=== PATIENT | male | born 1950 | race Caucasian/White ===

== ENCOUNTER 2018-05-07 13:44 | Emergency (ER) | payer MEDICARE, BC ==
[~2018-05-07] VITALS: Ht 182.9 cm; Wt 145.1 kg
--- NOTE | 2018-05-07 16:03 | PHYS DOC ---
Past Medical History Past Medical History: Diabetes-Type II, Hypertension, Schizophrenia Additional Past Medical Histor: BPH Past Surgical History: No Surgical History Alcohol Use: None Drug Use: None Adult General Chief Complaint Chief Complaint: OTHER COMPLAINTS HPI HPI Patient is a 67 year old M who [facility] in behavior. NH reports patient is non-cooperative with blood draw today and that he has been laughing inappropriately. Hx of schizophrenia with hindu preoccupation. Patient is alert and oriented, cooperative during exam. Review of Systems Review of Systems Constitutional: Denies fever or chills [] Respiratory: Denies cough or shortness of breath [] Cardiovascular: Chest pain GI: Denies abdominal pain, nausea, vomiting, bloody stools or diarrhea [] Neurologic: Denies headache, focal weakness or sensory changes [] All other systems were reviewed and found to be within normal limits, except as documented in this note. Allergies Allergies Allergies Coded Allergies Type Severity Reaction Last Updated Verified Penicillins Allergy Severe 05/07/18 Yes Physical Exam Physical Exam Constitutional: Well developed, well nourished, no acute distress, non-toxic appearance. [] HENT: Normocephalic, atraumatic Eyes: PERRLA, EOMI, conjunctiva normal, no discharge. [] Neck: Normal range of motion, no tenderness, supple, no stridor. [] Cardiovascular:Heart rate regular rhythm, no murmur [] Lungs & Thorax: Bilateral breath sounds clear to auscultation [] Abdomen: Bowel sounds normal, soft, no tenderness, no masses, no pulsatile masses. [] Skin: Warm, dry, no erythema, no rash. [] Neurologic: Alert and oriented X 3, normal motor function, normal sensory function, no focal deficits noted. [] Psychologic: Affect normal, judgement normal, mood normal. [] Current Patient Data Vital Signs Vital Signs Date Time Temp Pulse Resp B/P (MAP) Pulse Ox O2 Delivery O2 Flow Rate FiO2 05/07/18 17:18 72 18 121/75 (90) 96 Room Air 05/07/18 13:55 97.9 97.9 Lab Values Laboratory Tests Test 05/07/18 13:49 05/07/18 15:45 Glucose (Fingerstick) 229 mg/dL (70-99) H Sodium Level 134 mmol/L (136-145) L Potassium Level 4.3 mmol/L (3.5-5.1) Chloride Level 102 mmol/L (98-107) Carbon Dioxide Level 27 mmol/L (21-32) Anion Gap 5 (6-14) L Blood Urea Nitrogen 13 mg/dL (8-26) Creatinine 0.7 mg/dL (0.7-1.3) Estimated GFR (Cockcroft-Gault) 112.1 BUN/Creatinine Ratio 19 (6-20) Glucose Level 248 mg/dL (70-99) H Calcium Level 8.8 mg/dL (8.5-10.1) Total Bilirubin 0.3 mg/dL (0.2-1.0) Aspartate Amino Transferase (AST) 13 U/L (15-37) L Alanine Aminotransferase (ALT) 26 U/L (16-63) Alkaline Phosphatase 94 U/L (46-116) Total Protein 6.6 g/dL (6.4-8.2) Albumin 3.1 g/dL (3.4-5.0) L Albumin/Globulin Ratio 0.9 (1.0-1.7) L Valproic Acid Level 30 mcg/mL (50-100) L Valproic Acid Last Dose Date 05/07/18 Valproic Acid Last Dose Time 0900 Laboratory Tests 05/07/18 15:45 EKG EKG [] Radiology/Procedures Radiology/Procedures [] Course & Med Decision Making Course & Med Decision Making Pertinent Labs and Imaging studies reviewed. (See chart for details) Pt met with behavioral health and is not found to be a harm to self or others. He is agreeable to blood draw now. Plan: return to [place], continue to monitor, f/u with PCP Jase Disclaimer Dragon Disclaimer This electronic medical record was generated, in whole or in part, using a voice recognition dictation system. Departure Departure Impression: Primary Impression: On valproic acid therapy Additional Impression: Behavior concern Disposition: 01 HOME, SELF-CARE Condition: STABLE Referrals: REMEDIOS LOPEZ MD (PCP) Additional Instructions: Monitor behavior. Problem Qualifiers DIANA HOWELL CONSTRUCTION DRIVER May 07, 2018 16:03
[2018-05-07 16:06] LABS: ANION GAP 5 (6-14); BLOOD UREA NITROGEN 13 mg/dL (8-26); BUN/CREATININE RATIO 19 (6-20); CALCIUM 8.8 mg/dL (8.5-10.1); CARBON DIOXIDE 27 mmol/L (21-32); CHLORIDE 102 mmol/L (98-107); CREATININE 0.7 mg/dL (0.7-1.3); GFR 112.1; GLUCOSE 248 mg/dL (70-99); POTASSIUM 4.3 mmol/L (3.5-5.1); SODIUM 134 mmol/L (136-145)
[2018-05-07 16:19] LABS: ALBUMIN 3.1 g/dL (3.4-5.0); ALBUMIN/GLOBULIN RATIO 0.9 (1.0-1.7); ALK PHOS 94 U/L (46-116); ALT (SGPT) 26 U/L (16-63); AST (SGOT) 13 U/L (15-37); TOTAL BILIRUBIN 0.3 mg/dL (0.2-1.0); TOTAL PROTEIN 6.6 g/dL (6.4-8.2)
[2018-05-07 16:22] LABS: VAL ACID 30 mcg/mL (50-100)
[2018-05-07 17:18] VITALS: BP 121/75
== END 2018-05-07 19:27 | disposition home or self-care (01) ==
LOC: ER 13:44
DX: F91.8 Other conduct disorders (principal); Z51.81 Encounter for therapeutic drug level monitoring; E11.9 Type 2 diabetes mellitus without complications; I10 Essential (primary) hypertension; F20.9 Schizophrenia, unspecified; N40.0 Benign prostatic hyperplasia without lower urinary tract symptoms; Z88.0 Allergy status to penicillin
CPT/HCPCS: 36415; 80053; 80164; 82962; 99284

== ENCOUNTER 2020-06-07 14:47 | Inpatient (IN) | payer MEDICARE, BC, OTHER ==
[~2020-06-07] VITALS: Ht 198.1 cm; Wt 144.6 kg
[2020-06-07] VITALS (10 sets, daily range): BP systolic 68–102; BP diastolic 51–69
[2020-06-07] MEDS ORDERED: CLINDAMYCIN 600MG PREMIX 50 ML IV ONE (15:15)
[2020-06-07] MEDS ORDERED: MIDAZOLAM HCL 100 MG in IV NORMAL SALINE 100ML 100 ML IV ONE (15:15)
[2020-06-07] MEDS ORDERED: IV NORMAL SALINE 1000ML BAG 1,000 ML IV ONE ×3 (15:15→20:15)
--- NOTE | 2020-06-07 15:22 | RAD ---
EXAM: Chest, single view. HISTORY: Sepsis. COMPARISON: None. FINDINGS: A frontal view of the chest is obtained. There is diffuse right lower lobe predominant interstitial infiltrate. There may be small pleural effusions. There is no pneumothorax. There is an endotracheal tube within the mid trachea. There is a nasogastric tube within the stomach. There is a right ventriculoperitoneal shunt overlying the right chest and upper abdomen. The heart is normal in size for portable supine technique. IMPRESSION: 1. Right lower lobe predominant multifocal infiltrate with suspected small pleural effusions. 2. Support lines and tubes, described above. Electronically signed by: Marisol Dee MD (06/07/2020 3:19 PM) [id number]
[2020-06-07 15:23] LABS: BILIRUBIN,URINE NEGATIVE (NEG); CLARITY,URINE CLEAR; COLOR,URINE AMBER; NITRITE,URINE NEGATIVE (NEG); PH,URINE 5.5 (<5.0-8.0); PROTEIN,URINE NEGATIVE (NEG-TRACE)
[2020-06-07] MEDS ORDERED: SUCCINYLCHOLINE 200 MG/10 ML VIAL. IV ONE (15:30)
[2020-06-07] MEDS ORDERED: MIDAZOLAM HCL/PF 5 MG/5 ML VIAL. IV ONE (15:30)
[2020-06-07] MEDS ORDERED: ETOMIDATE 20 MG/10 ML VIAL. IV ONE (15:30)
[2020-06-07 15:37] LABS: BASO % 0 % (0-3); EOS % 0 % (0-3); HEMATOCRIT 43.8 % (39.0-53.0); HEMOGLOBIN 14.5 g/dL (13.0-17.5); LYMPH # 0.7 x10^3/uL (1.0-4.8); LYMPH % 9 % (24-48); MEAN CORPUSCULAR HEMOGLOBIN 32 pg (25-35); MEAN CORPUSCULAR HGB CONC 33 g/dL (31-37); MEAN CORPUSCULAR VOLUME 96 fL (79-100); MONO # 0.6 x10^3/uL (0.0-1.1); MONO % 7 % (0-9); NEUT # 6.7 x10^3/uL (1.8-7.7); NEUT % 83 % (31-73); PLATELET COUNT 260 x10^3/uL (140-400); RED BLOOD COUNT 4.59 x10^6/uL (4.30-5.70); RED CELL DISTRIBUTION WIDTH 14.3 % (11.5-14.5); WHITE BLOOD COUNT 8.1 x10^3/uL (4.0-11.0)
[2020-06-07 15:43] LABS: BACTERIA,URINE FEW /HPF (0-FEW)
[2020-06-07 15:44] LABS: HYALINE CASTS, URINE FEW /HPF
[2020-06-07 15:49] LABS: CALCIUM 8.9 mg/dL (8.5-10.1); CREATININE 0.9 mg/dL (0.7-1.3); GFR 83.4; POTASSIUM 4.1 mmol/L (3.5-5.1)
[2020-06-07] MEDS ORDERED: VANCOMYCIN 1.25 GM in IV NORMAL SALINE 250ML 250 ML IV ONE (16:00)
[2020-06-07 16:02] LABS: ALBUMIN 2.4 g/dL (3.4-5.0); ALBUMIN/GLOBULIN RATIO 0.6 (1.0-1.7); TOTAL BILIRUBIN 0.8 mg/dL (0.2-1.0); TOTAL PROTEIN 6.5 g/dL (6.4-8.2)
--- NOTE | 2020-06-07 16:02 | PHYS DOC ---
Past Medical History Past Medical History: Diabetes-Type II, Hypertension, Schizophrenia Additional Past Medical Histor: BPH Past Surgical History: No Surgical History Smoking Status: Never Smoker Alcohol Use: None Drug Use: None General Adult EDM: Chief Complaint: SHORTNESS OF BREATH HPI: HPI: Patient 69-year-old male with past medical history of stroke and aspiration pneumonia who presents to the emergency room in respiratory failure. According to report patient was normal this morning. He has been refusing to eat recently according to staff but did eat lunch. They found him in respiratory distress. Patient is unable to provide any history. EMS states that his pulse ox on CPAP is 80%. Review of Systems: Review of Systems: Unable to obtain due to medical condition Heart Score: Risk Factors: Risk Factors: DM, Current or recent (<one month) smoker, HTN, HLP, family history of CAD, obesity. Risk Scores: Score 0 - 3: 2.5% MACE over next 6 weeks - Discharge Home Score 4 - 6: 20.3% MACE over next 6 weeks - Admit for Clinical Observation Score 7 - 10: 72.7% MACE over next 6 weeks - Early Invasive Strategies Current Medications: Current Medications Medications (Trade) Dose Ordered Sig/Cruz Start Time Stop Time Status Last Admin Dose Admin Clindamycin Phosphate 50 ml @ 100 mls/hr 1X ONCE 06/07/20 15:15 06/07/20 15:44 DC Etomidate (Amidate) 30 mg 1X ONCE 06/07/20 15:30 06/07/20 15:31 DC 06/07/20 14:57 30 MG Midazolam HCl (Versed) 5 mg 1X ONCE 06/07/20 15:30 06/07/20 15:31 DC 06/07/20 15:15 5 MG Midazolam HCl 100 mg/Sodium Chloride 100 ml @ 0 mls/hr 1X ONCE 06/07/20 15:15 06/07/20 15:16 DC 06/07/20 15:19 1 MLS/HR Sodium Chloride 1,000 ml @ 1,000 mls/hr 1X ONCE 06/07/20 15:15 06/07/20 16:14 06/07/20 15:04 1,000 MLS/HR Succinylcholine Chloride (Anectine) 200 mg 1X ONCE 06/07/20 15:30 06/07/20 15:31 DC 06/07/20 14:58 200 MG Vancomycin HCl 1.25 gm/Sodium Chloride 250 ml @ 166.667 mls/hr 1X ONCE 06/07/20 16:00 06/07/20 17:29 Allergies: Allergies: Allergies Coded Allergies Type Severity Reaction Last Updated Verified Penicillins Allergy Severe 05/07/18 Yes Physical Exam: PE: General: Awake, alert, mild distress, CPAP in place HEENT: Atraumatic, EOMI, PERRL, airway patent, moist oral mucosa Neck: Supple, trachea midline Respiratory: Increased work of breathing, decreased breath sounds, crackles at right base CV: Tachycardic, no murmur, cap refill <2 GI: Soft, nondistended, nontender, no masses MSK: No obvious deformities Skin: Warm, dry, intact Neuro: Nonverbal L, sensory and motor grossly intact, no focal deficits Current Patient Data: Labs: Laboratory Tests Test 06/07/20 14:40 06/07/20 15:05 White Blood Count 8.1 x10^3/uL (4.0-11.0) Red Blood Count 4.59 x10^6/uL (4.30-5.70) Hemoglobin 14.5 g/dL (13.0-17.5) Hematocrit 43.8 % (39.0-53.0) Mean Corpuscular Volume 96 fL (79-100) Mean Corpuscular Hemoglobin 32 pg (25-35) Mean Corpuscular Hemoglobin Concent 33 g/dL (31-37) Red Cell Distribution Width 14.3 % (11.5-14.5) Platelet Count 260 x10^3/uL (140-400) Neutrophils (%) (Auto) 83 % (31-73) H Lymphocytes (%) (Auto) 9 % (24-48) L Monocytes (%) (Auto) 7 % (0-9) Eosinophils (%) (Auto) 0 % (0-3) Basophils (%) (Auto) 0 % (0-3) Neutrophils # (Auto) 6.7 x10^3/uL (1.8-7.7) Lymphocytes # (Auto) 0.7 x10^3/uL (1.0-4.8) L Monocytes # (Auto) 0.6 x10^3/uL (0.0-1.1) Eosinophils # (Auto) 0.0 x10^3/uL (0.0-0.7) Basophils # (Auto) 0.0 x10^3/uL (0.0-0.2) Sodium Level 143 mmol/L (136-145) Potassium Level 4.1 mmol/L (3.5-5.1) Chloride Level 105 mmol/L (98-107) Carbon Dioxide Level 32 mmol/L (21-32) Anion Gap 6 (6-14) Blood Urea Nitrogen 16 mg/dL (8-26) Creatinine 0.9 mg/dL (0.7-1.3) Estimated GFR (Cockcroft-Gault) 83.4 BUN/Creatinine Ratio 18 (6-20) Glucose Level 163 mg/dL (70-99) H Calcium Level 8.9 mg/dL (8.5-10.1) Total Bilirubin Pending Aspartate Amino Transferase (AST) Pending Alanine Aminotransferase (ALT) Pending Alkaline Phosphatase Pending Total Protein Pending Albumin Pending Albumin/Globulin Ratio Pending Urine Collection Type U cath Urine Color Tammy Urine Clarity Clear Urine pH 5.5 (<5.0-8.0) Urine Specific [place] 1.020 (1.000-1.030) Urine Protein Negative mg/dL (NEG-TRACE) Urine Glucose (UA) Negative mg/dL (NEG) Urine Ketones (Stick) Trace mg/dL (NEG) Urine Blood Negative (NEG) Urine Nitrite Negative (NEG) Urine Bilirubin Negative (NEG) Urine Urobilinogen Dipstick 1.0 mg/dL (0.2 mg/dL) Urine Leukocyte Esterase Small (NEG) Urine RBC 11-20 /HPF (0-2) Urine WBC 5-10 /HPF (0-4) Urine Bacteria Few /HPF (0-FEW) Urine Hyaline Casts Few /HPF Urine Mucus Mod /LPF Laboratory Tests 06/07/20 14:40 Laboratory Tests 06/07/20 14:40 Vital Signs: Vital Signs Date Time Temp Pulse Resp B/P (MAP) Pulse Ox O2 Delivery O2 Flow Rate FiO2 06/07/20 15:09 93 Ventilator EKG: EKG: [] Radiology/Procedures: Radiology/Procedures: [] Course & Med Decision Making: Course & Med Decision Making Pertinent Labs and Imaging studies reviewed. (See chart for details) Patient is a 69-year-old male who presents to the emergency room in acute respiratory distress with hypoxia. Given patient's history it is likely this was caused by aspiration pneumonia. However, pneumonia and COVID are also possible. Patient was at his baseline this morning and then was found in respiratory distress. He is afebrile. There is no coronavirus cases at his nursing facility. Patient was given antibiotics and was intubated. Intubation was performed without any difficulty. Sepsis protocol was set off and patient was given fluids. Ventilator management was performed by myself while in the Emergency Room and adjusted as appropriate. Patient will be admitted to the ICU for further care. Dragon Disclaimer: Dragon Disclaimer: This electronic medical record was generated, in whole or in part, using a voice recognition dictation system. Departure Departure Impression: Primary Impression: Respiratory failure with hypoxia Additional Impression: Aspiration pneumonia Disposition: ADMITTED INPATIENT Condition: CRITICAL Referrals: REMEDIOS LOPEZ MD (PCP) Justicifation of Admission Dx: Justifications for Admission: Justification of Admission Dx: Yes Critical Care Time Critical Care: Authorized and Performed by: Lori Pratt MD Total critical care time: approximately 60 minutes Due to a high probability of clinically significant, life threatening deterioration, the patient required my highest level of preparedness to intervene emergently and I personally spent this critical care time directly and personally managing the patient. This critical care time included obtaining a history; examining the patient; pulse oximetry; ventilator management if necessary; ordering and review of studies; arranging urgent treatment with development of a management plan; evaluation of patient's response to treatment; frequent reassessment; discussion with patient/family; and, discussions with other providers. This critical care time was performed to assess and manage the high probability of imminent, life-threatening deterioration that could result in multi-organ failure. It was exclusive of separately billable procedures and treating other patients and teaching time. Please see MDM section and the rest of the note for further information on patient assessment and treatment. PROCEDURE Procedure Intubation Performed by: Lori Pratt MD Consent: Verbal consent not obtained. The procedure was performed in an emergent situation. Required items: required blood products, implants, devices, and special equipment available Patient identity confirmed: arm band Time out: Immediately prior to procedure a "time out" was called to verify the correct patient, procedure, equipment, direct support staff member and site/side marked as required. Indications: respiratory failure and airway protection Intubation method: direct Patient status: paralyzed (RSI) Preoxygenation: Kuh-eaeew-cice Sedatives: etomidate Paralytic: succinylcoline Laryngoscope size: Mac 4 Tube size: 7.5 mm Tube type: cuffed Number of attempts: 1 Cords visualized: yes Post-procedure assessment: chest rise, BS = bilaterally none over epigastrum, +CO2 detector Breath sounds: equal and absent over the epigastrium Cuff inflated: yes Tube secured with: adhesive tape Chest x-ray interpreted by me. Chest x-ray findings: endotracheal tube in appropriate position Patient tolerance: Patient tolerated the procedure well with no immediate complications. COVID-19 Assessment: COVID-19 Patient Risks: Age 65 or older: Yes Sign of co-morbidity: Yes Exp to person + for COVID: No Exp to PUI: No Travel from affected area: No Lower respiratory symptoms: Yes Fever: No PPE Use: Full PPE with N95 mask or PAPR: Yes LORI PRATT MD Jun 07, 2020 16:02
[2020-06-07 16:23] LABS: BASE EXCESS ABG -6 mmol/L (-3-3); HCO3 ABG 22 mmol/L (21-28); PCO2 ABG 48 mmHg (35-46); PO2 ABG 68 mmHg (65-108); SAT O2 ABG 89 % (92-99)
[2020-06-07 16:26] LABS: FIO2 ABG 100% VENT
[2020-06-07] MEDS ORDERED: fentaNYL PF VIAL 100 MCG/2 ML VIAL IVP ONE ×2 (16:30→17:15)
[2020-06-07 17:02] LABS: BASE EXCESS ABG -5 mmol/L (-3-3); HCO3 ABG 22 mmol/L (21-28); PCO2 ABG 46 mmHg (35-46); PO2 ABG 53 mmHg (65-108); SAT O2 ABG 83 % (92-99)
--- NOTE | 2020-06-07 17:03 | EKG ---
[facility] [address] [place] [address] Test Date: 2020-06-07 Test Time: 14:58:02 Pat Name: ROBBIN HUDSON Department: Room: Gender: [employer] Supervisor: : 1950 Requested By: LORI CONN Order Number: [id number] Reading MD: Measurements Intervals [place] Rate: 125 P: VT: QRS: -54 QRSD: 90 T: 49 QT: 308 QTc: 446 Interpretive Statements ACCELERATED JUNCTIONAL RHYTHM ABNORMAL LEFT AXIS DEVIATION LOW VOLTAGE S1,S2,S3 PATTERN LEFT ANTERIOR FASCICULAR BLOCK QRS(T) CONTOUR ABNORMALITY CONSIDER ANTEROSEPTAL MYOCARDIAL DAMAGE ABNORMAL ECG RI6.02 No previous ECG available for comparison
--- NOTE | 2020-06-07 17:44 | PDOC1 ---
History and Physical Date of Service: DOS: DATE: 06/07/20 TIME: 17:35 Chief Complaint: Chief Complain: AMS History of Present Illness: HPI: History obtained from chart review and discussion with the ED physician Patient is a 69-year-old male with past medical history of stroke and aspiration pneumonia who presents to the emergency room in respiratory failure. According to report patient was normal this morning. He has been refusing to eat recently according to staff but did eat lunch this afternoon. They found him in r espiratory distress. Patient is unable to provide any history. EMS states that his pulse ox on CPAP is 80%. On upon arrival to the ED, patient was intubated due to respiratory failure and poor ABG on BiPAP. Patient is sedated and intubated upon my examination. No other abnormalities seen on physical exam. No family members were present. There is also known family members numbers listed in his chart. Past Medical/Surgical History: PMH/PSH: Past Medical History: Diabetes-Type II, Hypertension, Schizophrenia, BPH Past Surgical History: No Surgical History Allergies: Allergies: Coded Allergies: Penicillins (Verified Allergy, Severe, 05/07/18) Family History: Family History: Unable to obtain due to intubation Social History: Social History: Smoking Status: Never Smoker Alcohol Use: None Drug Use: None Current Medications: Current Medications Current Medications Midazolam HCl 100 mg/Sodium Chloride 100 ml @ 0 mls/hr 1X ONCE IV Last administered on 06/07/20at 15:19; Start 06/07/20 at 15:15; Stop 06/07/20 at 15:16; Status DC Sodium Chloride 1,000 ml @ 1,000 mls/hr 1X ONCE IV Last administered on 06/07/20at 14:50; Start 06/07/20 at 15:15; Stop 06/07/20 at 16:14; Status DC Sodium Chloride 1,000 ml @ 1,000 mls/hr 1X ONCE IV Last administered on 05/26 12/12at 15:04; Start 06/07/20 at 15:15; Stop 06/07/20 at 16:14; Status DC Vancomycin HCl 1.25 gm/Sodium Chloride 250 ml @ 166.667 mls/hr 1X ONCE IV Last administered on 06/07/20at 15:57; Start 06/07/20 at 16:00; Stop 06/07/20 at 17:29; Status DC Clindamycin Phosphate 50 ml @ 100 mls/hr 1X ONCE IV Last administered on 06/07/20at 15:57; Start 06/07/20 at 15:15; Stop 06/07/20 at 15:44; Status DC Midazolam HCl (Versed) 5 mg 1X ONCE IV Last administered on 06/07/20at 15:15; Start 06/07/20 at 15:30; Stop 06/07/20 at 15:31; Status DC Etomidate (Amidate) 30 mg 1X ONCE IV Last administered on 06/07/20at 14:57; Start 06/07/20 at 15:30; Stop 06/07/20 at 15:31; Status DC Succinylcholine Chloride (Anectine) 200 mg 1X ONCE IV Last administered on 06/07/20at 14:58; Start 06/07/20 at 15:30; Stop 06/07/20 at 15:31; Status DC Fentanyl Citrate (Fentanyl 2ml Vial) 50 mcg PRN Q1HR ONCE IVP Last administered on 06/07/20at 16:30; Start 06/07/20 at 16:30; Stop 06/07/20 at 16:31; Status DC Fentanyl Citrate (Fentanyl 2ml Vial) 100 mcg 1X ONCE IVP Last administered on 06/07/20at 17:07; Start 06/07/20 at 17:15; Stop 06/07/20 at 17:16; Status DC ROS: Review of Systems Review of System Unable to obtain due to intubation Physical Exam: Vital Signs: Vital Signs Date Time Temp Pulse Resp B/P (MAP) Pulse Ox O2 Delivery O2 Flow Rate FiO2 06/07/20 17:07 31 88 Ventilator 06/07/20 15:48 130 146/78 (100) 06/07/20 14:47 99.2 99.2 Physcial Exam: GEN: Intubated and sedated HEENT: Normal cephalic, atraumatic, external auditory canals are patent EYES: Pupils are equally constricted. Does not react to light. MUSCULOSKELETAL: Well developed ENDOCRINE: No thyromegaly was palpated LYMPHATICS: No cervical chain or axillary nodes were noted HEMATOPOIETIC: No bruising NECK: Supple, no JVD, no thyromegaly was noted LUNGS: Bilateral crackles HEART: RRR, Peripheral pulses intact, no obvious murmurs noted ABDOMEN: Soft, nontender. Positive bowel sounds, no organomegaly, normal bowel sounds EXTREMITIES: Without clubbing, cyanosis, or edema. Pedal pulses intact. Negative Homans sign NEUROLOGIC: Currently sedated SKIN: No ulcerations or rashes, good skin turgor, no jaundice Labs: Labs: Laboratory Tests Test 06/07/20 14:40 06/07/20 15:05 06/07/20 16:15 White Blood Count 8.1 x10^3/uL (4.0-11.0) Red Blood Count 4.59 x10^6/uL (4.30-5.70) Hemoglobin 14.5 g/dL (13.0-17.5) Hematocrit 43.8 % (39.0-53.0) Mean Corpuscular Volume 96 fL (79-100) Mean Corpuscular Hemoglobin 32 pg (25-35) Mean Corpuscular Hemoglobin Concent 33 g/dL (31-37) Red Cell Distribution Width 14.3 % (11.5-14.5) Platelet Count 260 x10^3/uL (140-400) Neutrophils (%) (Auto) 83 % (31-73) Lymphocytes (%) (Auto) 9 % (24-48) Monocytes (%) (Auto) 7 % (0-9) Eosinophils (%) (Auto) 0 % (0-3) Basophils (%) (Auto) 0 % (0-3) Neutrophils # (Auto) 6.7 x10^3/uL (1.8-7.7) Lymphocytes # (Auto) 0.7 x10^3/uL (1.0-4.8) Monocytes # (Auto) 0.6 x10^3/uL (0.0-1.1) Eosinophils # (Auto) 0.0 x10^3/uL (0.0-0.7) Basophils # (Auto) 0.0 x10^3/uL (0.0-0.2) Sodium Level 143 mmol/L (136-145) Potassium Level 4.1 mmol/L (3.5-5.1) Chloride Level 105 mmol/L (98-107) Carbon Dioxide Level 32 mmol/L (21-32) Anion Gap 6 (6-14) Blood Urea Nitrogen 16 mg/dL (8-26) Creatinine 0.9 mg/dL (0.7-1.3) Estimated GFR (Cockcroft-Gault) 83.4 BUN/Creatinine Ratio 18 (6-20) Glucose Level 163 mg/dL (70-99) Lactic Acid Level 5.4 mmol/L (0.4-2.0) Calcium Level 8.9 mg/dL (8.5-10.1) Total Bilirubin 0.8 mg/dL (0.2-1.0) Aspartate Amino Transf (AST/SGOT) 14 U/L (15-37) Alanine Aminotransferase (ALT/SGPT) 17 U/L (16-63) Alkaline Phosphatase 80 U/L (46-116) Total Protein 6.5 g/dL (6.4-8.2) Albumin 2.4 g/dL (3.4-5.0) Albumin/Globulin Ratio 0.6 (1.0-1.7) Urine Collection Type U cath Urine Color Tammy Urine Clarity Clear Urine pH 5.5 (<5.0-8.0) Urine Specific [place] 1.020 (1.000-1.030) Urine Protein Negative mg/dL (NEG-TRACE) Urine Glucose (UA) Negative mg/dL (NEG) Urine Ketones (Stick) Trace mg/dL (NEG) Urine Blood Negative (NEG) Urine Nitrite Negative (NEG) Urine Bilirubin Negative (NEG) Urine Urobilinogen Dipstick 1.0 mg/dL (0.2 mg/dL) Urine Leukocyte Esterase Small (NEG) Urine RBC 11-20 /HPF (0-2) Urine WBC 5-10 /HPF (0-4) Urine Bacteria Few /HPF (0-FEW) Urine Hyaline Casts Few /HPF Urine Mucus Mod /LPF O2 Saturation 89 % (92-99) Arterial Blood pH 7.27 (7.35-7.45) Arterial Blood pCO2 at Patient Temp 48 mmHg (35-46) Arterial Blood pO2 at Patient Temp 68 mmHg (65-108) Arterial Blood HCO3 22 mmol/L (21-28) Arterial Blood Base Excess -6 mmol/L (-3-3) FiO2 100% vent Laboratory Tests Test 06/07/20 14:40 06/07/20 15:05 06/07/20 16:15 White Blood Count 8.1 x10^3/uL (4.0-11.0) Red Blood Count 4.59 x10^6/uL (4.30-5.70) Hemoglobin 14.5 g/dL (13.0-17.5) Hematocrit 43.8 % (39.0-53.0) Mean Corpuscular Volume 96 fL (79-100) Mean Corpuscular Hemoglobin 32 pg (25-35) Mean Corpuscular Hemoglobin Concent 33 g/dL (31-37) Red Cell Distribution Width 14.3 % (11.5-14.5) Platelet Count 260 x10^3/uL (140-400) Neutrophils (%) (Auto) 83 % (31-73) Lymphocytes (%) (Auto) 9 % (24-48) Monocytes (%) (Auto) 7 % (0-9) Eosinophils (%) (Auto) 0 % (0-3) Basophils (%) (Auto) 0 % (0-3) Neutrophils # (Auto) 6.7 x10^3/uL (1.8-7.7) Lymphocytes # (Auto) 0.7 x10^3/uL (1.0-4.8) Monocytes # (Auto) 0.6 x10^3/uL (0.0-1.1) Eosinophils # (Auto) 0.0 x10^3/uL (0.0-0.7) Basophils # (Auto) 0.0 x10^3/uL (0.0-0.2) Sodium Level 143 mmol/L (136-145) Potassium Level 4.1 mmol/L (3.5-5.1) Chloride Level 105 mmol/L (98-107) Carbon Dioxide Level 32 mmol/L (21-32) Anion Gap 6 (6-14) Blood Urea Nitrogen 16 mg/dL (8-26) Creatinine 0.9 mg/dL (0.7-1.3) Estimated GFR (Cockcroft-Gault) 83.4 BUN/Creatinine Ratio 18 (6-20) Glucose Level 163 mg/dL (70-99) Lactic Acid Level 5.4 mmol/L (0.4-2.0) Calcium Level 8.9 mg/dL (8.5-10.1) Total Bilirubin 0.8 mg/dL (0.2-1.0) Aspartate Amino Transf (AST/SGOT) 14 U/L (15-37) Alanine Aminotransferase (ALT/SGPT) 17 U/L (16-63) Alkaline Phosphatase 80 U/L (46-116) Total Protein 6.5 g/dL (6.4-8.2) Albumin 2.4 g/dL (3.4-5.0) Albumin/Globulin Ratio 0.6 (1.0-1.7) Urine Collection Type U cath Urine Color Tammy Urine Clarity Clear Urine pH 5.5 (<5.0-8.0) Urine Specific [place] 1.020 (1.000-1.030) Urine Protein Negative mg/dL (NEG-TRACE) Urine Glucose (UA) Negative mg/dL (NEG) Urine Ketones (Stick) Trace mg/dL (NEG) Urine Blood Negative (NEG) Urine Nitrite Negative (NEG) Urine Bilirubin Negative (NEG) Urine Urobilinogen Dipstick 1.0 mg/dL (0.2 mg/dL) Urine Leukocyte Esterase Small (NEG) Urine RBC 11-20 /HPF (0-2) Urine WBC 5-10 /HPF (0-4) Urine Bacteria Few /HPF (0-FEW) Urine Hyaline Casts Few /HPF Urine Mucus Mod /LPF O2 Saturation 89 % (92-99) Arterial Blood pH 7.27 (7.35-7.45) Arterial Blood pCO2 at Patient Temp 48 mmHg (35-46) Arterial Blood pO2 at Patient Temp 68 mmHg (65-108) Arterial Blood HCO3 22 mmol/L (21-28) Arterial Blood Base Excess -6 mmol/L (-3-3) FiO2 100% vent Images: Images Chest x-ray IMPRESSION: 1. Right lower lobe predominant multifocal infiltrate with suspected small pleural effusions. 2. Support lines and tubes, described above. Assessment/Plan Assessment/Plan Sepsis due to HCAP Acute hypercarbic hypoxic respiratory failure requiring intubation Acute metabolic encephalopathy NOS Concern for aspiration pneumonia with chest x-ray showing multifocal infiltrate in the right lower lobe Lactic acidosis Severe protein malnutrition Bedbound status Admit to ICU for ventilatory management No obvious centrally acting medications currently. No obvious signs of infection on physical exam. No fevers or nuchal rigidity. No history or signs of trauma Pending TSH, B12, levels Pending urine toxic drug screen Consider dementia prevention protocol Encourage early and frequent mobilization PT OT Continue IV fluids Continue empiric IV antibiotics Pulmonology consult for vent and ICU management ID consult for Abx management Lovenox for DVT prophylaxis Protonix GI prophylaxis N.p.o. Full code Discussed with RN and SW Disposition ICU Surrogate decision maker is unknown Total critical care time spent is > 40 minutes in lab and image review, discussing with RN and consultants. Justifications for Admission Other Justification BREEZY CHILD MD Jun 07, 2020 17:44
[2020-06-07] MEDS ORDERED: DEXTROSE 50% 25 GM / 50ML DISP.SYRIN. IV PRN (18:00)
[2020-06-07] MEDS ORDERED: POTASSIUM CHLORIDE 10MEQ 100 ML IV SCH (18:00)
[2020-06-07] MEDS ORDERED: SENNOSIDES 8.6 MG TABLET PO PRN (18:00)
[2020-06-07] MEDS ORDERED: VANCOMYCIN 750 MG in IV NORMAL SALINE 250ML 250 ML IV ONE (18:00)
[2020-06-07] MEDS ORDERED: VANCOMYCIN PER PHARMACY MC PRN ×2 (18:00→19:15)
[2020-06-07] MEDS ORDERED: MAGNESIUM SULFATE 2GM 50 ML IV SCH (18:00)
[2020-06-07] MEDS ORDERED: ONDANSETRON PF 4 MG/2 ML VIAL. IVP PRN (18:00)
[2020-06-07] MEDS ORDERED: POTASSIUM CHLORIDE 10MEQ 100 ML IV PRN (18:00)
[2020-06-07] MEDS ORDERED: ELECTROLYTE (ICU) PROTOCOL. MC PRN (18:00)
[2020-06-07] MEDS ORDERED: VANCOMYCIN 1 GM in IV DEXTROSE 5% 250 ML IV ONE (18:00)
[2020-06-07] MEDS ORDERED: fentaNYL PF VIAL 100 MCG/2 ML VIAL IVP PRN (18:00)
[2020-06-07] MEDS ORDERED: POTASSIUM CHLORIDE 20 MEQ TABLET.ER. PO PRN (18:00)
[2020-06-07 18:21] LABS: FIO2 ABG 100% VENT
[2020-06-07] MEDS ORDERED: VECURONIUM BOLUS 10 MG VIAL. IV ONE (18:30)
[2020-06-07] MEDS ORDERED: fentaNYL PF VIAL 100 MCG/2 ML VIAL IV PRN ×2 (18:30)
[2020-06-07] MEDS ORDERED: ACETAMINOPHEN 650 MG SUPP.RECT. PR PRN (19:15)
[2020-06-07] MEDS ORDERED: NOREPINEPHRINE VIAL 8 MG in IV DEXTROSE 5% 250 ML IV PRN (19:15)
[2020-06-07] MEDS ORDERED: AMIODARONE 450 MG in IV DEXTROSE 5% 250 ML IV ONE (19:15)
[2020-06-07] MEDS ORDERED: methylPREDNISolone SOD SUCC PF 125 MG/2 ML VIAL. IV ONE (19:45)
--- NOTE | 2020-06-07 19:49 | NUR ---
Patient admitted from ED at 1845 at shift change to room 111. HR 146, Tmax 101.8, patient intubated on ventilator AC 26/550/12/100. O2 sat on arrival 93%, but steadily de sat to 84%. 1X dose 6mg Vecuronium given. Vent bundle ordered, patient sedated on 8 of Versed and 50 of Fentanyl. Patient iced down with ice packs. Patient also hypotensive on arrival SBP in the 80's-60's. NS bolus was started. Oncoming night nurse Stephanie paged Dr Arriola, Levo started. Dr Arriola on unit at 1930 to see patient and place orders. Report was given to Maritza Brown.
--- NOTE | 2020-06-07 19:50 | NUR ---
Pharmacy Vancomycin Dosing Note S:Consulted to monitor and dose vancomycin started 06/07/20. O:ROBBIN HUDSON is a 69 year old M with CAP. Height: 6 feet, 6 inches Weight: 119.0 kg [place] Body Weight: 91.40 Adjusted Body Weight: 102.44 Dosing Weight: Actual Other Antibiotics: metronidazole meropenem LABS: Last BUN: 16 Last Creatinine: 0.9 Creatinine Clearance: 99 mL/min Last WBC: 8.1 Last Procalcitonin: -- Tmax (past 24 hours): Microbiology: I/O: -- Last dose given 06/07/20 at 1918 Vancomycin Dosing: Loading Dose: 2000 mg x1 Dosing Weight: Actual Target Trough: 10-20 A: Based on: patient's age, weight and renal function. P: 1. Initiate Vancomycin 1750 mg IV q12h after 2 gm loading dose 2. Follow up Trough level on 06/09/20 at 0730 3. Pharmacy will continue to monitor, follow and adjust therapy as needed. BENEDICT HERNANDEZ RPH, 06/07/20 1950
[2020-06-07] MEDS ORDERED: NOREPINEPHRINE IV PRN (20:00)
[2020-06-07] MEDS ORDERED: DEXTROSE 5% IV PRN (20:00)
[2020-06-07] MEDS ORDERED: VASOPRESSIN 20 UNIT in IV DEXTROSE 5% 100ML 100 ML IV PRN (20:00)
[2020-06-07 20:12] LABS: BASE EXCESS ABG -5 mmol/L (-3-3); CORRECTED PCO2 ABG 52 mmHg; CORRECTED PH ABG 7.26; CORRECTED PO2 ABG 58 mmHg; HCO3 ABG 22 mmol/L (21-28); PCO2 ABG 49 mmHg (35-46); PO2 ABG 53 mmHg (65-108); SAT O2 ABG 83 % (92-99)
--- NOTE | 2020-06-07 20:12 | RAD ---
Exam: Chest one view INDICATION: Low oxygen TECHNIQUE: Frontal view of the chest Comparisons: 06/24/2020 FINDINGS: Enteric tube traverses below the diaphragm with tip in the left upper quadrant likely within the stomach. Redemonstration of tubing overlying the right chest. The cardiomediastinal silhouette and pulmonary vessels are within normal limits. Patchy bibasilar airspace disease. IMPRESSION: Patchy bibasilar airspace disease, may relate to atelectasis versus developing consolidative process. Electronically signed by: Collin Jaramillo MD (06/07/2020 8:09 PM) [id number]
[2020-06-07 20:19] LABS: FIO2 ABG 100
[2020-06-07] MEDS ORDERED: DOCUSATE 100 MG/10 ML SOLUTION. PO PRN (21:00)
[2020-06-07] MEDS ORDERED: MAGNESIUM OXIDE 400 MG TABLET PO SCH (21:00)
[2020-06-07] MEDS: ENOXAPARIN 40 MG/0.4 ML SYRINGE. SQ SCH (21:29)
[2020-06-07] MEDS: PANTOPRAZOLE IV PUSH 40 MG VIAL. IVP SCH (21:29)
[2020-06-07] MEDS ORDERED: MEROPENEM 1 GM in IV NORMAL SALINE 100ML 100 ML IV SCH (22:00)
[2020-06-07] MEDS: NOREPINEPHRINE VIAL 32 MG in IV D5W 250ML IV PRN (22:32)
[2020-06-07 23:40] LABS: PROTHROMBIN TIME PATIENT 15.8 SEC (11.7-14.0)
[2020-06-08] VITALS (28 sets, daily range): BP systolic 79–170; BP diastolic 54–92
[2020-06-08] MEDS: IV NORMAL SALINE 1000ML BAG 1,000 ML IV SCH ×2 (00:53→09:44)
[2020-06-08] MEDS ORDERED: BISA10SU55 RC (02:37)
[2020-06-08] MEDS ORDERED: MAGN400O7 PO (02:37)
[2020-06-08] MEDS ORDERED: MELA3TAB43 PO (02:37)
[2020-06-08] MEDS ORDERED: MAGN400T5 PO (02:37)
[2020-06-08] MEDS ORDERED: MIRT7.5T8 PO (02:37)
[2020-06-08] MEDS ORDERED: NYST15CR TP (02:37)
[2020-06-08] MEDS ORDERED: INSU100I17 SQ (02:37)
[2020-06-08] MEDS ORDERED: KETO120S4 TP (02:37)
[2020-06-08] MEDS ORDERED: ATOR20TA58 PO (02:37)
[2020-06-08] MEDS ORDERED: DIVA500T17 PO (02:37)
[2020-06-08] MEDS ORDERED: SENN1TAB99 PO (02:37)
[2020-06-08] MEDS ORDERED: RISP3TAB23 PO (02:37)
[2020-06-08] MEDS ORDERED: POTA20TA4 PO (02:37)
[2020-06-08] MEDS ORDERED: FURO20TA3 PO (02:37)
[2020-06-08] MEDS ORDERED: OLAN5TAB9 PO (02:37)
[2020-06-08] MEDS ORDERED: NA P133E2 RC (02:37)
[2020-06-08] MEDS ORDERED: LACT1CAP2 PO (02:37)
[2020-06-08] MEDS ORDERED: METF10007 PO (02:37)
[2020-06-08] MEDS ORDERED: ACET325T9 PO (02:37)
[2020-06-08] MEDS ORDERED: INSU100I27 SQ (02:37)
[2020-06-08] MEDS ORDERED: CHOL500021 PO (02:37)
--- NOTE | 2020-06-08 02:39 | NUR ---
At shift change, pt noted to have low BP and MAP. Pt SPO2 also in the 70s-80s. Dr. Arriola paged. Received orders for Levophed PRN, Tylenol suppository PRN, okay to place CL, Vasopressin PRN, fluid bolus, PRN amio gtt for HR>170, and ABT orders. Dr. Streeter also paged. MD notified of pt admission and status. Received orders to give 125 mg Solumedrol STAT, Chest x-ray STAT, ABG STAT, and start scheduled Solumedrol. Received critical lactic acid level at approx 1930. Call placed to Dr. Silverio. Notified MD of pt admission, status, and critical lab value. Received orders to d/c Eulalio and Jamey, consult renal. By 2099 this shift, pts SPO2 WNL and in the 90s. At this time, this RN also noted only 25 mL of UO since pt admit. Call placed to Dr. Diaz. Updated MD on pt admission, status, elevated lactic and low UO. Received orders to flush pts ruvalcaba, continue IV fluids, and draw am labs. Levophed has been titrated per protocol this shift. Current VS: BP 91/62, SPO2 99%, HR 102, temp 99.6F. Pt has multiple wounds noted and pictured- see wound assessment. Wound care consult placed. Pt is currently moderately sedated, within sight of care team. Multiple attempts to contact pt DPOA by ED and this RN. Messages left on phone. Will pass on and continue to monitor.
[2020-06-08] MEDS: NOREPINEPHRINE VIAL 32 MG in IV D5W 250ML IV PRN ×4 (03:33→18:15)
[2020-06-08] MEDS: MIDAZOLAM 100mg/100ml NS BAG 100 ML IV PRN ×2 (05:07→16:39)
[2020-06-08 05:16] LABS: BASO % 0 % (0-3); EOS % 0 % (0-3); HEMATOCRIT 42.7 % (39.0-53.0); HEMOGLOBIN 14.5 g/dL (13.0-17.5); LYMPH # 0.2 x10^3/uL (1.0-4.8); LYMPH % 2 % (24-48); MEAN CORPUSCULAR HEMOGLOBIN 33 pg (25-35); MEAN CORPUSCULAR HGB CONC 34 g/dL (31-37); MEAN CORPUSCULAR VOLUME 96 fL (79-100); MONO # 0.4 x10^3/uL (0.0-1.1); MONO % 4 % (0-9); NEUT # 8.7 x10^3/uL (1.8-7.7); NEUT % 94 % (31-73); PLATELET COUNT 296 x10^3/uL (140-400); RED BLOOD COUNT 4.44 x10^6/uL (4.30-5.70); RED CELL DISTRIBUTION WIDTH 14.1 % (11.5-14.5); WHITE BLOOD COUNT 9.3 x10^3/uL (4.0-11.0)
[2020-06-08 05:32] LABS: CALCIUM 8.4 mg/dL (8.5-10.1); CREATININE 1.3 mg/dL (0.7-1.3); GFR 54.6; MAGNESIUM 1.8 mg/dL (1.8-2.4); PHOSPHORUS 5.3 mg/dL (2.6-4.7)
[2020-06-08] MEDS: methylPREDNISolone SOD SUCC PF 40 MG/ML VIAL. IV SCH ×3 (06:06→21:39)
[2020-06-08 06:37] LABS: % ATYL 1 % (0-0); % BANDS 46 % (0-9); % METAS 25 % (0-0); % MYELOS 4 % (0-0); % SEGS 18 % (35-66)
[2020-06-08 06:38] LABS: % BASOS 0 % (0-3); % EOS 0 % (0-5); % LYMPHS 2 % (24-48); % MONOS 4 % (0-10)
[2020-06-08 06:42] LABS: PLT ESTIMATE ADEQUATE (ADEQUATE)
[2020-06-08 06:43] LABS: TOXIC VACUOLATION PRESENT
[2020-06-08] MEDS ORDERED: VANCOMYCIN 1.75 GM in IV NORMAL SALINE 500ML BAG 500 ML IV SCH ×2 (08:00→19:00)
--- NOTE | 2020-06-08 08:07 | PDOC ---
Infectious Disease Note Vital Sign Vital Signs Vital Signs Date Time Temp Pulse Resp B/P (MAP) Pulse Ox O2 Delivery O2 Flow Rate FiO2 06/08/20 07:26 99 26 114/75 (88) 100 Ventilator 06/08/20 04:00 99.2 99.2 Labs Lab Laboratory Tests Test 06/07/20 14:40 06/07/20 15:05 06/07/20 16:15 06/07/20 16:52 White Blood Count 8.1 x10^3/uL (4.0-11.0) Red Blood Count 4.59 x10^6/uL (4.30-5.70) Hemoglobin 14.5 g/dL (13.0-17.5) Hematocrit 43.8 % (39.0-53.0) Mean Corpuscular Volume 96 fL (79-100) Mean Corpuscular Hemoglobin 32 pg (25-35) Mean Corpuscular Hemoglobin Concent 33 g/dL (31-37) Red Cell Distribution Width 14.3 % (11.5-14.5) Platelet Count 260 x10^3/uL (140-400) Neutrophils (%) (Auto) 83 % (31-73) Lymphocytes (%) (Auto) 9 % (24-48) Monocytes (%) (Auto) 7 % (0-9) Eosinophils (%) (Auto) 0 % (0-3) Basophils (%) (Auto) 0 % (0-3) Neutrophils # (Auto) 6.7 x10^3/uL (1.8-7.7) Lymphocytes # (Auto) 0.7 x10^3/uL (1.0-4.8) Monocytes # (Auto) 0.6 x10^3/uL (0.0-1.1) Eosinophils # (Auto) 0.0 x10^3/uL (0.0-0.7) Basophils # (Auto) 0.0 x10^3/uL (0.0-0.2) Sodium Level 143 mmol/L (136-145) Potassium Level 4.1 mmol/L (3.5-5.1) Chloride Level 105 mmol/L (98-107) Carbon Dioxide Level 32 mmol/L (21-32) Anion Gap 6 (6-14) Blood Urea Nitrogen 16 mg/dL (8-26) Creatinine 0.9 mg/dL (0.7-1.3) Estimated GFR (Cockcroft-Gault) 83.4 BUN/Creatinine Ratio 18 (6-20) Glucose Level 163 mg/dL (70-99) Lactic Acid Level 5.4 mmol/L (0.4-2.0) Calcium Level 8.9 mg/dL (8.5-10.1) Total Bilirubin 0.8 mg/dL (0.2-1.0) Aspartate Amino Transf (AST/SGOT) 14 U/L (15-37) Alanine Aminotransferase (ALT/SGPT) 17 U/L (16-63) Alkaline Phosphatase 80 U/L (46-116) Total Protein 6.5 g/dL (6.4-8.2) Albumin 2.4 g/dL (3.4-5.0) Albumin/Globulin Ratio 0.6 (1.0-1.7) Urine Collection Type U cath Urine Color Tammy Urine Clarity Clear Urine pH 5.5 (<5.0-8.0) Urine Specific [place] 1.020 (1.000-1.030) Urine Protein Negative mg/dL (NEG-TRACE) Urine Glucose (UA) Negative mg/dL (NEG) Urine Ketones (Stick) Trace mg/dL (NEG) Urine Blood Negative (NEG) Urine Nitrite Negative (NEG) Urine Bilirubin Negative (NEG) Urine Urobilinogen Dipstick 1.0 mg/dL (0.2 mg/dL) Urine Leukocyte Esterase Small (NEG) Urine RBC 11-20 /HPF (0-2) Urine WBC 5-10 /HPF (0-4) Urine Bacteria Few /HPF (0-FEW) Urine Hyaline Casts Few /HPF Urine Mucus Mod /LPF O2 Saturation 89 % (92-99) 83 % (92-99) Arterial Blood pH 7.27 (7.35-7.45) 7.29 (7.35-7.45) Arterial Blood pCO2 at Patient Temp 48 mmHg (35-46) 46 mmHg (35-46) Arterial Blood pO2 at Patient Temp 68 mmHg (65-108) 53 mmHg (65-108) Arterial Blood HCO3 22 mmol/L (21-28) 22 mmol/L (21-28) Arterial Blood Base Excess -6 mmol/L (-3-3) -5 mmol/L (-3-3) FiO2 100% vent 100% vent Test 9/13/20 19:15 06/07/20 20:12 06/07/20 23:00 06/08/20 01:53 Lactic Acid Level 5.8 mmol/L (0.4-2.0) Thyroid Stimulating Hormone (TSH) 1.608 uIU/mL (0.358-3.74) O2 Saturation 83 % (92-99) Arterial Blood pH 7.27 (7.35-7.45) Arterial Blood pH (Temp corrected) 7.26 Arterial Blood pCO2 at Patient Temp 49 mmHg (35-46) Arterial Blood pCO2 (Temp correct) 52 mmHg Arterial Blood pO2 at Patient Temp 53 mmHg (65-108) Arterial Blood pO2 (Temp corrected) 58 mmHg Arterial Blood HCO3 22 mmol/L (21-28) Arterial Blood Base Excess -5 mmol/L (-3-3) FiO2 100 Prothrombin Time 15.8 SEC (11.7-14.0) Prothromb Time International Ratio 1.3 (0.8-1.1) Glucose (Fingerstick) 125 mg/dL (70-99) Test 06/08/20 04:55 White Blood Count 9.3 x10^3/uL (4.0-11.0) Red Blood Count 4.44 x10^6/uL (4.30-5.70) Hemoglobin 14.5 g/dL (13.0-17.5) Hematocrit 42.7 % (39.0-53.0) Mean Corpuscular Volume 96 fL (79-100) Mean Corpuscular Hemoglobin 33 pg (25-35) Mean Corpuscular Hemoglobin Concent 34 g/dL (31-37) Red Cell Distribution Width 14.1 % (11.5-14.5) Platelet Count 296 x10^3/uL (140-400) Neutrophils (%) (Auto) 94 % (31-73) Lymphocytes (%) (Auto) 2 % (24-48) Monocytes (%) (Auto) 4 % (0-9) Eosinophils (%) (Auto) 0 % (0-3) Basophils (%) (Auto) 0 % (0-3) Neutrophils # (Auto) 8.7 x10^3/uL (1.8-7.7) Lymphocytes # (Auto) 0.2 x10^3/uL (1.0-4.8) Monocytes # (Auto) 0.4 x10^3/uL (0.0-1.1) Eosinophils # (Auto) 0.0 x10^3/uL (0.0-0.7) Basophils # (Auto) 0.0 x10^3/uL (0.0-0.2) Segmented Neutrophils % 18 % (35-66) Band Neutrophils % 46 % (0-9) Lymphocytes % 2 % (24-48) Atypical Lymphocytes % (Manual) 1 % (0-0) Monocytes % 4 % (0-10) Eosinophils % 0 % (0-5) Basophils % 0 % (0-3) Metamyelocytes % 25 % (0-0) Myelocytes % 4 % (0-0) Toxic Vacuolation Present Platelet Estimate Adequate (ADEQUATE) Large Platelets Occ Sodium Level 140 mmol/L (136-145) Potassium Level 6.0 mmol/L (3.5-5.1) Chloride Level 105 mmol/L (98-107) Carbon Dioxide Level 21 mmol/L (21-32) Anion Gap 14 (6-14) Blood Urea Nitrogen 21 mg/dL (8-26) Creatinine 1.3 mg/dL (0.7-1.3) Estimated GFR (Cockcroft-Gault) 54.6 Glucose Level 213 mg/dL (70-99) Calcium Level 8.4 mg/dL (8.5-10.1) Phosphorus Level 5.3 mg/dL (2.6-4.7) Magnesium Level 1.8 mg/dL (1.8-2.4) Objective Assessment pt seen, consult dictated Plan Plan of Care / LAURA FITZGERALD MD Jun 08, 2020 08:07
[2020-06-08 08:19] LABS: BASE EXCESS ABG -11 mmol/L (-3-3); HCO3 ABG 17 mmol/L (21-28); PCO2 ABG 41 mmHg (35-46); PO2 ABG 71 mmHg (65-108); SAT O2 ABG 93 % (92-99)
[2020-06-08 08:26] LABS: FIO2 ABG 100
[2020-06-08] MEDS: PANTOPRAZOLE IV PUSH 40 MG VIAL. IVP SCH (08:49)
[2020-06-08] MEDS: MEROPENEM 1 GM in IV NORMAL SALINE 100ML 100 ML IV SCH ×2 (08:49→21:37)
[2020-06-08] MEDS: ASCORBIC ACID 500 MG TABLET PO SCH (08:49)
[2020-06-08] MEDS: THIAMINE INJ 100 MG in IV DEXTROSE 5% 50 ML IV SCH (09:41)
--- NOTE | 2020-06-08 09:42 | PDOC ---
[employer] PROGRESS NOTE Date of Service DOS: DATE: 06/08/20 TIME: 09:33 Chief Complaint Chief Complaint Sepsis Acute hypercarbic hypoxic respiratory failure requiring intubation Acute metabolic encephalopathy NOS Concern for aspiration pneumonia with chest x-ray showing multifocal infiltrate in the right lower lobe Lactic acidosis Severe protein malnutrition Anxiety with depression dCHF Constipation Diabetes-Type II High Cholesterol Hypertension Schizophrenia BPH Dysphagia PARKINSONS, History of Present Illness History of Present Illness Mr Dubois is a 69-year-old male with past medical history of Anxiety with depression, schizophrenia, dCHF, Constipation, Diabetes-Type II, High Cholesterol, Hypertension, BPH, Dysphagia, PARKINSONS, who presents to the emergency room in respiratory failure. According to report patient was normal the morning of 06/07. He has been refusing to eat recently according to staff but did eat lunch immediately before they found him in respiratory distress EMS pulse ox on CPAP is 80%. He was intubated due to respiratory failure and poor ABG on BiPAP. Febrile to 101.8 F overnight. Patient is sedated and intubated upon my examination. No other abnormalities seen on physical exam. No family members were present. There is also known family members numbers listed in his chart. Vitals/I&O Vitals/I&O: Vital Signs Date Time Temp Pulse Resp B/P (MAP) Pulse Ox O2 Delivery O2 Flow Rate FiO2 06/08/20 09:22 100 26 129/78 (95) 100 Ventilator 06/08/20 08:00 98.9 98.9 I & O 06/07/20 06/07/20 06/08/20 15:00 23:00 07:00 Intake Total 2300 ml 2481.7 ml Output Total 740 ml 375 ml Balance 1560 ml 2106.7 ml Labs Labs: Laboratory Tests Test 06/07/20 14:40 06/07/20 15:05 06/07/20 16:15 06/07/20 16:52 White Blood Count 8.1 x10^3/uL (4.0-11.0) Red Blood Count 4.59 x10^6/uL (4.30-5.70) Hemoglobin 14.5 g/dL (13.0-17.5) Hematocrit 43.8 % (39.0-53.0) Mean Corpuscular Volume 96 fL (79-100) Mean Corpuscular Hemoglobin 32 pg (25-35) Mean Corpuscular Hemoglobin Concent 33 g/dL (31-37) Red Cell Distribution Width 14.3 % (11.5-14.5) Platelet Count 260 x10^3/uL (140-400) Neutrophils (%) (Auto) 83 % (31-73) Lymphocytes (%) (Auto) 9 % (24-48) Monocytes (%) (Auto) 7 % (0-9) Eosinophils (%) (Auto) 0 % (0-3) Basophils (%) (Auto) 0 % (0-3) Neutrophils # (Auto) 6.7 x10^3/uL (1.8-7.7) Lymphocytes # (Auto) 0.7 x10^3/uL (1.0-4.8) Monocytes # (Auto) 0.6 x10^3/uL (0.0-1.1) Eosinophils # (Auto) 0.0 x10^3/uL (0.0-0.7) Basophils # (Auto) 0.0 x10^3/uL (0.0-0.2) Sodium Level 143 mmol/L (136-145) Potassium Level 4.1 mmol/L (3.5-5.1) Chloride Level 105 mmol/L (98-107) Carbon Dioxide Level 32 mmol/L (21-32) Anion Gap 6 (6-14) Blood Urea Nitrogen 16 mg/dL (8-26) Creatinine 0.9 mg/dL (0.7-1.3) Estimated GFR (Cockcroft-Gault) 83.4 BUN/Creatinine Ratio 18 (6-20) Glucose Level 163 mg/dL (70-99) Lactic Acid Level 5.4 mmol/L (0.4-2.0) Calcium Level 8.9 mg/dL (8.5-10.1) Total Bilirubin 0.8 mg/dL (0.2-1.0) Aspartate Amino Transf (AST/SGOT) 14 U/L (15-37) Alanine Aminotransferase (ALT/SGPT) 17 U/L (16-63) Alkaline Phosphatase 80 U/L (46-116) Total Protein 6.5 g/dL (6.4-8.2) Albumin 2.4 g/dL (3.4-5.0) Albumin/Globulin Ratio 0.6 (1.0-1.7) Urine Collection Type U cath Urine Color Tammy Urine Clarity Clear Urine pH 5.5 (<5.0-8.0) Urine Specific [place] 1.020 (1.000-1.030) Urine Protein Negative mg/dL (NEG-TRACE) Urine Glucose (UA) Negative mg/dL (NEG) Urine Ketones (Stick) Trace mg/dL (NEG) Urine Blood Negative (NEG) Urine Nitrite Negative (NEG) Urine Bilirubin Negative (NEG) Urine Urobilinogen Dipstick 1.0 mg/dL (0.2 mg/dL) Urine Leukocyte Esterase Small (NEG) Urine RBC 11-20 /HPF (0-2) Urine WBC 5-10 /HPF (0-4) Urine Bacteria Few /HPF (0-FEW) Urine Hyaline Casts Few /HPF Urine Mucus Mod /LPF O2 Saturation 89 % (92-99) 83 % (92-99) Arterial Blood pH 7.27 (7.35-7.45) 7.29 (7.35-7.45) Arterial Blood pCO2 at Patient Temp 48 mmHg (35-46) 46 mmHg (35-46) Arterial Blood pO2 at Patient Temp 68 mmHg (65-108) 53 mmHg (65-108) Arterial Blood HCO3 22 mmol/L (21-28) 22 mmol/L (21-28) Arterial Blood Base Excess -6 mmol/L (-3-3) -5 mmol/L (-3-3) FiO2 100% vent 100% vent Test 06/07/20 19:15 06/07/20 20:12 06/07/20 23:00 06/08/20 01:53 Lactic Acid Level 5.8 mmol/L (0.4-2.0) Vitamin B12 Level 561 pg/mL (247-911) Thyroid Stimulating Hormone (TSH) 1.608 uIU/mL (0.358-3.74) O2 Saturation 83 % (92-99) Arterial Blood pH 7.27 (7.35-7.45) Arterial Blood pH (Temp corrected) 7.26 Arterial Blood pCO2 at Patient Temp 49 mmHg (35-46) Arterial Blood pCO2 (Temp correct) 52 mmHg Arterial Blood pO2 at Patient Temp 53 mmHg (65-108) Arterial Blood pO2 (Temp corrected) 58 mmHg Arterial Blood HCO3 22 mmol/L (21-28) Arterial Blood Base Excess -5 mmol/L (-3-3) FiO2 100 Prothrombin Time 15.8 SEC (11.7-14.0) Prothromb Time International Ratio 1.3 (0.8-1.1) Glucose (Fingerstick) 125 mg/dL (70-99) Test 06/08/20 04:55 06/08/20 07:45 White Blood Count 9.3 x10^3/uL (4.0-11.0) Red Blood Count 4.44 x10^6/uL (4.30-5.70) Hemoglobin 14.5 g/dL (13.0-17.5) Hematocrit 42.7 % (39.0-53.0) Mean Corpuscular Volume 96 fL (79-100) Mean Corpuscular Hemoglobin 33 pg (25-35) Mean Corpuscular Hemoglobin Concent 34 g/dL (31-37) Red Cell Distribution Width 14.1 % (11.5-14.5) Platelet Count 296 x10^3/uL (140-400) Neutrophils (%) (Auto) 94 % (31-73) Lymphocytes (%) (Auto) 2 % (24-48) Monocytes (%) (Auto) 4 % (0-9) Eosinophils (%) (Auto) 0 % (0-3) Basophils (%) (Auto) 0 % (0-3) Neutrophils # (Auto) 8.7 x10^3/uL (1.8-7.7) Lymphocytes # (Auto) 0.2 x10^3/uL (1.0-4.8) Monocytes # (Auto) 0.4 x10^3/uL (0.0-1.1) Eosinophils # (Auto) 0.0 x10^3/uL (0.0-0.7) Basophils # (Auto) 0.0 x10^3/uL (0.0-0.2) Segmented Neutrophils % 18 % (35-66) Band Neutrophils % 46 % (0-9) Lymphocytes % 2 % (24-48) Atypical Lymphocytes % (Manual) 1 % (0-0) Monocytes % 4 % (0-10) Eosinophils % 0 % (0-5) Basophils % 0 % (0-3) Metamyelocytes % 25 % (0-0) Myelocytes % 4 % (0-0) Toxic Vacuolation Present Platelet Estimate Adequate (ADEQUATE) Large Platelets Occ Sodium Level 140 mmol/L (136-145) Potassium Level 6.0 mmol/L (3.5-5.1) Chloride Level 105 mmol/L (98-107) Carbon Dioxide Level 21 mmol/L (21-32) Anion Gap 14 (6-14) Blood Urea Nitrogen 21 mg/dL (8-26) Creatinine 1.3 mg/dL (0.7-1.3) Estimated GFR (Cockcroft-Gault) 54.6 Glucose Level 213 mg/dL (70-99) Calcium Level 8.4 mg/dL (8.5-10.1) Phosphorus Level 5.3 mg/dL (2.6-4.7) Magnesium Level 1.8 mg/dL (1.8-2.4) O2 Saturation 93 % (92-99) Arterial Blood pH 7.23 (7.35-7.45) Arterial Blood pCO2 at Patient Temp 41 mmHg (35-46) Arterial Blood pO2 at Patient Temp 71 mmHg (65-108) Arterial Blood HCO3 17 mmol/L (21-28) Arterial Blood Base Excess -11 mmol/L (-3-3) FiO2 100 Assessment and Plan Assessmemt and Plan Problems Medical Problems: (1) Aspiration pneumonia Status: Acute (2) Respiratory failure with hypoxia Status: Acute Comment Review of Relevant I have reviewed the following items veronika (where applicable) has been applied. Medications: Current Medications Medications (Trade) Dose Ordered Sig/Cruz Route PRN Reason Start Time Stop Time Status Last Admin Dose Admin Midazolam HCl 100 mg/Sodium Chloride 100 ml @ 0 mls/hr 1X ONCE IV 06/07/20 15:15 06/07/20 15:16 DC 06/07/20 15:19 Sodium Chloride 1,000 ml @ 1,000 mls/hr 1X ONCE IV 06/07/20 15:15 06/07/20 16:14 DC 06/07/20 14:50 Sodium Chloride 1,000 ml @ 1,000 mls/hr 1X ONCE IV 06/07/20 15:15 06/07/20 16:14 DC 06/07/20 15:04 Vancomycin HCl 1.25 gm/Sodium Chloride 250 ml @ 166.667 mls/hr 1X ONCE IV 06/07/20 16:00 06/07/20 17:29 DC 06/07/20 15:57 Clindamycin Phosphate 50 ml @ 100 mls/hr 1X ONCE IV 06/07/20 15:15 06/07/20 15:44 DC 06/07/20 15:57 Midazolam HCl (Versed) 5 mg 1X ONCE IV 06/07/20 15:30 06/07/20 15:31 DC 06/07/20 15:15 Etomidate (Amidate) 30 mg 1X ONCE IV 06/07/20 15:30 06/07/20 15:31 DC 06/07/20 14:57 Succinylcholine Chloride (Anectine) 200 mg 1X ONCE IV 06/07/20 15:30 06/07/20 15:31 DC 06/07/20 14:58 Fentanyl Citrate (Fentanyl 2ml Vial) 50 mcg PRN Q1HR ONCE IVP 06/07/20 16:30 06/07/20 16:31 DC 06/07/20 16:30 Fentanyl Citrate (Fentanyl 2ml Vial) 100 mcg 1X ONCE IVP 06/07/20 17:15 06/07/20 17:16 DC 06/07/20 17:07 Enoxaparin Sodium (Lovenox 40mg Syringe) 40 mg Q24H SQ 06/07/20 19:00 06/07/20 21:29 Pantoprazole Sodium (PROTONIX VIAL for IV PUSH) 40 mg DAILYAC IVP 06/07/20 19:00 06/08/20 08:49 Ascorbic Acid (Vitamin C) 500 mg DAILY PO 06/08/20 09:00 06/08/20 08:49 Vancomycin HCl 750 mg/Sodium Chloride 250 ml @ 250 mls/hr 1X ONCE IV 06/07/20 18:00 06/07/20 18:59 DC 06/07/20 19:18 Vancomycin HCl (Vanco Per Pharmacy) 1 each PRN DAILY PRN MC SEE COMMENTS 06/07/20 18:00 06/07/20 20:36 DC 06/07/20 19:49 Fentanyl Citrate (Fentanyl 2ml Vial) 50 mcg PRN Q1HR PRN IVP PAIN 06/07/20 18:00 06/07/20 18:02 Fentanyl Citrate 30 ml @ 0 mls/hr CONT PRN IV SEE PROTOCOL 06/07/20 18:30 06/08/20 05:06 Midazolam HCl 100 ml @ 0 mls/hr CONT PRN IV SEE PROTOCOL 06/07/20 18:30 06/08/20 05:07 Vecuronium [place] (Norcuron Bolus) 6 mg 1X ONCE IV 06/07/20 18:30 06/07/20 18:31 DC 06/07/20 19:18 Norepinephrine Bitartrate 8 mg/ Dextrose 258 ml @ 23.027 mls/ hr CONT PRN IV PER PROTOCOL 06/07/20 19:15 06/07/20 20:05 DC 06/07/20 19:36 Meropenem 1 gm/ Sodium Chloride 100 ml @ 200 mls/hr Q8HRS IV 06/07/20 22:00 06/08/20 06:09 DC 06/07/20 22:30 Methylprednisolone Sodium Succinate (SOLU-Medrol 125MG VIAL) 125 mg 1X ONCE IV 06/07/20 19:45 06/07/20 19:46 DC 06/07/20 20:14 Methylprednisolone Sodium Succinate (SOLU-Medrol 40MG VIAL) 40 mg Q8HRS IV 06/08/20 06:00 06/08/20 06:06 Norepinephrine Bitartrate 16 mg/ Dextrose 266 ml @ 11.87 mls/ hr CONT PRN IV PER PROTOCOL 06/07/20 20:00 06/07/20 23:00 DC 06/07/20 22:09 Sodium Chloride 1,000 ml @ 1,000 mls/hr 1X ONCE IV 06/07/20 20:15 06/07/20 21:14 DC 06/07/20 20:16 Norepinephrine Bitartrate 32 mg/ Dextrose 250 ml @ 5.578 mls/ hr CONT PRN IV SEE I/O RECORD 06/07/20 22:30 06/08/20 08:15 Sodium Chloride 1,000 ml @ 100 mls/hr Q10H IV 06/08/20 00:00 06/08/20 00:53 Meropenem 1 gm/ Sodium Chloride 100 ml @ 200 mls/hr Q12HR IV 06/08/20 09:00 06/08/20 08:49 Justifications for Admission General Conditions Poss tachycardia?: Yes Justification for admission: Patient has tachycardia (> 100 beats per minute) which is not readily corrected by appropriate treatment within 12 to 24 hours. Elevated Lactate?: Yes Justification for admission: Patient has tachycardia (> 100 beats per minute) or hypotension (SBP < 90 mm Hg) leading to inadequate systemic perfusion as indicated by lactate of greater or equal to 2.5 mmol/L. Poss Metaboilic Acidosis?: Yes Justification for admission: Patient has tachycardia (> 100 beats per minute) or hypotension (SBP < 90 mm Hg) leading to inadequate systemic perfusion as indicated by metabolic acidosis with arterial pH of less than 7.35. Altered mental status?: Yes Justification of admission: Patient has tachycardia (> 100 beats per minute) or hypotension (SBP < 90 mm Hg) leading to inadequate systemic perfusion as indicated by severe/persistent altered mental status. Other Justification ADINA BHATT MD Jun 08, 2020 09:42
[2020-06-08] MEDS ORDERED: SODIUM BICARB ADULT 8.4% 50 MEQ/50 ML DISP.SYRIN. IV ONE (09:45)
--- NOTE | 2020-06-08 10:17 | CONS ---
DATE OF CONSULTATION: 06/08/2020 REQUESTING PHYSICIAN: Lauri Arriola MD REASON FOR CONSULTATION: Sepsis. HISTORY OF PRESENT ILLNESS: This is a 69-year-old gentleman, who is a intermediate resident with diabetes, hypertension, schizophrenia, who was brought in because of shortness of breath. The patient had fever and has hypoxia; requiring intubation. The patient is hypotensive, requiring vasopressor support, currently on a ventilator. The patient received a dose of vanc, dose of clindamycin, dose of meropenem, looks like also dose of metronidazole. The patient currently is on meropenem and vancomycin I believe. The patient is sedated on ventilator, unable to provide any information. All the information was obtained through chart review and discussing with the patient's nurse. No current nausea, vomiting, or diarrhea noted. PAST MEDICAL HISTORY: Positive for schizophrenia, diabetes, hypertension, CVA. The patient also has Parkinson disease. 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 SOCIAL HISTORY: The patient is a intermediate resident. Negative for smoking or alcohol use. ALLERGIES: LISTED ALLERGIC TO PENICILLIN. REVIEW OF SYSTEMS: As per HPI, all other systems reviewed are negative. CURRENT MEDICATIONS: Reviewed. PHYSICAL EXAMINATION: GENERAL: Sedated, orally intubated gentleman, not in any distress. VITAL SIGNS: Stable. T-max 101.8, pulse 110, respirations 26, blood pressure 97/65 on vasopressor support. HEENT: Both pupils are round and reacting. No conjunctival lesion. Mouth orally intubated, not much mouth can be visualized. NECK: Supple. No JVP. No lymphadenopathy. LUNGS: Clear. HEART: S1, S2 regular. ABDOMEN: Benign, soft, nontender. No organomegaly. EXTREMITIES: No edema or cyanosis. SKIN: Unremarkable. EXTREMITIES: No edema, cyanosis. SKIN: Unremarkable. 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 LABORATORY DATA: White count is 9.3, hemoglobin 14.5, platelets are normal. He has 46% bandemia. BUN and creatinine is 21 and 1.3. Lactic acid was up to 5.8. Urinalysis showed 5-10 wbc's. Chest x-ray showed right lower lobe infiltrate. IMPRESSION: 1. Hypoxemia with respiratory failure. 2. Suspected aspiration pneumonia. 3. Lactic acidosis. 4. Fever. 5. Diabetes. 6. Hypertension. 7. Schizophrenia. 8. Rule out COVID-19. RECOMMENDATIONS: Continue vanc and meropenem. Continue supportive care. We will check the cultures and adjust and we will continue to follow. Thank you very much, Dr. Arriola, for giving me the opportunity to participate in this patient's care. LAURA FITZGERALD MD DR: TAMANNA/jacqui JOB#: [id number] / [id number]
[2020-06-08] MEDS ORDERED: IV NORMAL SALINE 1000ML BAG 1,000 ML IV ONE (11:30)
--- NOTE | 2020-06-08 11:32 | CONS ---
DATE OF CONSULTATION: PULMONARY CONSULTATION ATTENDING PHYSICIAN: Dr. Lauri Arriola. REASON FOR CONSULTATION: Respiratory failure, ARDS. HISTORY OF PRESENT ILLNESS: The patient is a 69-year-old male who has history of stroke and aspiration pneumonia. He presented to the hospital with respiratory failure. He was hypoxic. He was intubated as he failed CPAP, saturations were in the 80s. Currently, the patient is on mechanical ventilation, 100% oxygen and 12 of PEEP. ABG showed a pH of 7.23, pCO2 of 41 and a pO2 of 71 with bicarbonate of 17. The patient is making less urine. BUN is 21 with creatinine of 1.3. Lactic acid was 5.8. His TSH level 1.6. The patient's chest x-ray showed bilateral infiltrates. The patient is also hypotensive and is requiring maximum doses of Levophed. No family is available. He has a DPOA, which we are trying to reach. I have been asked to see him for further evaluation. PAST MEDICAL HISTORY: Significant for type 2 diabetes, hypertension, schizophrenia, BPH. ALLERGIES: PENICILLIN. PAST SURGICAL HISTORY: Unknown. FAMILY HISTORY: Unable to obtain. SOCIAL HISTORY: Reportedly nonsmoker. MEDICATIONS: Reviewed as listed in the MRAD including IV steroids, antibiotics and Lovenox for DVT prophylaxis. REVIEW OF SYSTEMS: Unable to obtain from the patient. PHYSICAL EXAMINATION: VITAL SIGNS: Reviewed. Pulse ox is 100% on current FiO2. Blood pressure on maximum dose of Levophed, he is in the one-teens. HEENT: Visual exam done due to COVID-19 suspicion. No obvious respiratory distress. He is sedated. ABDOMEN: With no paradoxical breathing. EXTREMITIES: With no pitting edema. LABORATORY DATA: Reviewed. White cell count 9.3, hemoglobin 14.5, platelets 296. ABGs are discussed in my history of present illness. Potassium is 6.0. Lactic 5.8. IMPRESSION: 1. Acute hypoxic respiratory failure secondary to suspected COVID-19 pneumonia and acute respiratory distress syndrome. 2. Abnormal chest x-ray with bilateral infiltrates suggestive of COVID-19 pneumonia. He could have a gram-negative pneumonia as well. 3. Septic shock. Likely caused by COVID-19 pneumonia. Need to rule out other sources of infection. 4. Acute kidney injury. 5. Metabolic acidosis secondary to lactic acidosis and sepsis. RECOMMENDATIONS: 1. Continue present oxygen at 100% FiO2 and 12 of PEEP. 2. Follow ABGs and make necessary adjustments. 3. Monitor the clinical course of treatment. 4. We will follow COVID-19 test and if it is positive, we will get plasma. 5. Continue IV steroids. 6. Continue broad-spectrum antibiotics. 7. Renal recommendation. 8. DVT and stress ulcer prophylaxis. 9. The patient is critically ill. Prognosis is guarded. We will try to reach the DPOA. 10. S/P 2 litres of IVF volus. Will give another litre and monitor urine output 10. Discussed with RN and RT. Critical care time 39 minutes including review of the chart, imaging studies and decision making. MAYA BARROS MD DR: GRANT/jacqui JOB#: [id number] / [id number] DEMETRIUS
[2020-06-08] MEDS: MULTIVITAMINS,THERAPEUTIC 5 ML ORAL LIQUID. PEG SCH (12:10)
[2020-06-08] MEDS: VANCOMYCIN PER PHARMACY MC PRN (13:09)
--- NOTE | 2020-06-08 13:10 | NUR ---
Pharmacy Vancomycin Dosing Note S:Consulted to monitor and dose vancomycin started 06/07/20. O:ROBBIN HUDSON is a 69 year old M with Bacteremia CAP . Height: 6 feet, 6 inches Weight: 126.4 kg [place] Body Weight: 91.40 Adjusted Body Weight: 105.40 Dosing Weight: Actual Other Antibiotics: metronidazole meropenem LABS: Last BUN: 21 Last Creatinine: 1.3 Creatinine Clearance: 85 mL/min Last WBC: 9.3 Last Procalcitonin: -- Tmax (past 24 hours): 101.8 Microbiology: 06/08 [facility] I/O: 4781/1115 Drug Levels: Last level: on at Last dose given 06/07/20 at 1918 Vancomycin Dosing: Loading Dose: 2000 mg x1 Dosing Weight: Actual Target Trough: 15-20 A: Based on: SCR + UO, WEIGHT, P: 1. INITIATE Vancomycin 1750 mg IV q24h 2. Follow up Trough level on 06/09/20 at 1830 3. Pharmacy will continue to monitor, follow and adjust therapy as needed. JORGE LEDES[facility], 06/08/20 1310
--- NOTE | 2020-06-08 14:30 | NUR ---
This RN left message on court appointed DPOA, Tequila Roy, recorder.
--- NOTE | 2020-06-08 14:50 | NUR ---
SS following for discharge planning. SS reviewed pt chart and discussed with pt RN. Pt is LTC resident from [facility], ; fax [phone]. Pt is currently on the vent. COVID19 pending. Pt on IV Meropenem and IV Vancomycin. SS will continue to follow for discharge planning.
--- NOTE | 2020-06-08 14:58 | PDOC2 ---
CONSULT Date of Consult Date of Consult DATE: 06/08/20 TIME: 14:51 Reason for Consult Reason for Consult: HIGH K AND SYLVIA Referring Physician Referring Physician: DANYELL Identification/Chief Complaint Chief Complaint SOB Source Source: Chart review History of Present Illness Reason for Visit: THIS IS A 69 YR OLD WITH SOB. HYPOXIC AND THEN INTUBATED AFTER HE FAILED ON CPAP. ON ADMIT NOTED TO HAVE ACIDEMIA, HYPOTENSION AND LACTIC ACIDOSIS WELL. CR OF 1.3. NO KNOWN CKD. HAS NEEDED PRESSORS BUT NOW NEEDING LESS. THIS AM HIS K IS 6.0. RENAL CONSULT THUS REQUESTED. Past Medical History Cardiovascular: HTN CENTRAL NERVOUS SYSTEM: Other (PSYCHOSIS) Endocrine: Diabetes Past Surgical History Past Surgical History UNKNOWN Family History Family History UNKNOWN Social History Social History MOSTLY UNKNOWN Lives: Alone Current Problem List Problem List Problems Medical Problems: (1) Aspiration pneumonia Status: Acute (2) Respiratory failure with hypoxia Status: Acute Current Medications Current Medications Current Medications Midazolam HCl 100 mg/Sodium Chloride 100 ml @ 0 mls/hr 1X ONCE IV Last administered on 06/07/20at 15:19; Start 06/07/20 at 15:15; Stop 06/07/20 at 15:16 ; Status DC Sodium Chloride 1,000 ml @ 1,000 mls/hr 1X ONCE IV Last administered on 06/07/20at 14:50; Start 06/07/20 at 15:15; Stop 06/07/20 at 16:14; Status DC Sodium Chloride 1,000 ml @ 1,000 mls/hr 1X ONCE IV Last administered on 06/07/20at 15:04; Start 06/07/20 at 15:15; Stop 06/07/20 at 16:14; Status DC Vancomycin HCl 1.25 gm/Sodium Chloride 250 ml @ 166.667 mls/hr 1X ONCE IV Last administered on 06/07/20at 15:57; Start 06/07/20 at 16:00; Stop 06/07/20 at 17:29; Status DC Clindamycin Phosphate 50 ml @ 100 mls/hr 1X ONCE IV Last administered on 06/07/20at 15:57; Start 06/07/20 at 15:15; Stop 06/07/20 at 15:44; Status DC Midazolam HCl (Versed) 5 mg 1X ONCE IV Last administered on 06/07/20at 15:15; Start 06/07/20 at 15:30; Stop 06/07/20 at 15:31; Status DC Etomidate (Amidate) 30 mg 1X ONCE IV Last administered on 06/07/20at 14:57; Start 06/07/20 at 15:30; Stop 06/07/20 at 15:31; Status DC Succinylcholine Chloride (Anectine) 200 mg 1X ONCE IV Last administered on 06/07/20at 14:58; Start 06/07/20 at 15:30; Stop 06/07/20 at 15:31; Status DC Fentanyl Citrate (Fentanyl 2ml Vial) 50 mcg PRN Q1HR ONCE IVP Last administ ered on 06/07/20at 16:30; Start 06/07/20 at 16:30; Stop 06/07/20 at 16:31; Status DC Fentanyl Citrate (Fentanyl 2ml Vial) 100 mcg 1X ONCE IVP Last administered on 06/07/20at 17:07; Start 06/07/20 at 17:15; Stop 06/07/20 at 17:16; Status DC Sennosides (Senna) 17.2 mg PRN BID PRN PO CONSTIPATION; Start 06/07/20 at 18:00 Docusate Sodium (Colace Solution) 100 mg PRN DAILY PRN PO HARD STOOLS; Start 06/07/20 at 21:00 Ondansetron HCl (Zofran) 4 mg PRN Q6HRS PRN IVP NAUSEA/VOMITING; Start 06/07/20 at 18:00 Potassium Chloride (Klor-Con) 40 meq 1X PRN PO PER PROTOCOL; Start 06/07/20 at 18:00; Status UNV Magnesium Oxide (Magnesium Oxide) 400 mg BID PO ; Start 06/07/20 at 21:00; Stop 06/09/20 at 09:01; Status UNV Potassium Chloride/Water 100 ml @ 100 mls/hr Q1H IV ; Start 06/07/20 at 18:00; Stop 06/07/20 at 21:59; Status UNV Magnesium Sulfate 50 ml @ 25 mls/hr Q24H IV ; Start 06/07/20 at 18:00; Stop 06/09/20 at 19:59; Status UNV Potassium Chloride/Water 100 ml @ 100 mls/hr Q1H PRN IV low k; Start 06/07/20 at 18:00; Status UNV Dextrose (Dextrose 50%-Water Syringe) 12.5 gm PRN Q15MIN PRN IV SEE COMMENTS; Start 06/07/20 at 18:00 Vancomycin HCl 1 gm/Dextrose 250 ml @ 250 mls/hr 1X ONCE IV ; Start 06/07/20 at 18:00; Stop 06/07/20 at 18:59; Status UNV Enoxaparin Sodium (Lovenox 40mg Syringe) 40 mg Q24H SQ Last administered on 06/07/20at 21:29; Start 06/07/20 at 19:00 Pantoprazole Sodium (PROTONIX VIAL for IV PUSH) 40 mg DAILYAC IVP Last administered on 06/08/20at 08:49; Start 06/07/20 at 19:00 Ascorbic Acid (Vitamin C) 500 mg DAILY PO Last administered on 06/08/20at 08:49; Start 06/08/20 at 09:00 Thiamine HCl 100 mg/Dextrose 51 ml @ 102 mls/hr DAILY IV Last administered on 06/08/20at 09:41; Start 06/08/20 at 09:00 Info (Icu Electrolyte Protocol) 1 ea CONT PRN PRN MC PER PROTOCOL; Start 06/07/20 at 18:00 Vancomycin HCl 750 mg/Sodium Chloride 250 ml @ 250 mls/hr 1X ONCE IV Last administered on 06/07/20at 19:18; Start 06/07/20 at 18:00; Stop 06/07/20 at 18:59; Status DC Vancomycin HCl (Vanco Per Pharmacy) 1 each PRN DAILY PRN MC SEE COMMENTS Last administered on 06/07/20at 19:49; Start 06/07/20 at 18:00; Stop 06/07/20 at 20:36; Status DC Fentanyl Citrate (Fentanyl 2ml Vial) 50 mcg PRN Q1HR PRN IVP PAIN Last administered on 06/07/20at 18:02; Start 06/07/20 at 18:00 Fentanyl Citrate 30 ml @ 0 mls/hr CONT PRN IV SEE PROTOCOL Last administered on 06/08/20at 05:06; Start 06/07/20 at 18:30 Fentanyl Citrate (Fentanyl 2ml Vial) 25 mcg PRN Q1HR PRN IV SEE COMMENTS; Start 06/07/20 at 18:30 Fentanyl Citrate (Fentanyl 2ml Vial) 50 mcg PRN Q1HR PRN IV SEE COMMENTS; Start 06/07/20 at 18:30 Midazolam HCl 100 ml @ 0 mls/hr CONT PRN IV SEE PROTOCOL Last administered on 06/08/20at 05:07; Start 06/07/20 at 18:30 Vecuronium Menard (Norcuron Bolus) 6 mg 1X ONCE IV Last administered on 06/07/20at 19:18; Start 06/07/20 at 18:30; Stop 06/07/20 at 18:31; Status DC Norepinephrine Bitartrate 8 mg/ Dextrose 258 ml @ 23.027 mls/ hr CONT PRN IV PER PROTOCOL Last administered on 06/07/20at 19:36; Start 06/07/20 at 19:15; Stop 06/07/20 at 20:05; Status DC Acetaminophen (Tylenol Supp) 650 mg PRN Q6HRS PRN CO MILD PAIN / TEMP > 100.3'F; Start 06/07/20 at 19:15 Vancomycin HCl (Vanco Per Pharmacy) 1 each PRN DAILY PRN MC SEE COMMENTS; Start 06/07/20 at 19:15; Status UNV Metronidazole 100 ml @ 100 mls/hr Q12HR IV ; Start 06/07/20 at 21:00; Stop 06/07/20 at 20:36; Status DC Amiodarone HCl 450 mg/Dextrose 259 ml @ 0 mls/hr 1X ONCE IV ; Start 06/07/20 at 19:15; Stop 06/07/20 at 19:16; Status Cancel Meropenem 1 gm/ Sodium Chloride 100 ml @ 200 mls/hr Q8HRS IV Last administered on 06/07/20at 22:30; Start 06/07/20 at 22:00; Stop 06/08/20 at 06:09; Status DC Methylprednisolone Sodium Succinate (SOLU-Medrol 125MG VIAL) 125 mg 1X ONCE IV Last administered on 06/07/20at 20:14; Start 06/07/20 at 19:45; Stop 06/07/20 at 19:46; Status DC Methylprednisolone Sodium Succinate (SOLU-Medrol 40MG VIAL) 40 mg Q8HRS IV Last administered on 06/08/20at 13:58; Start 06/08/20 at 06:00 Vancomycin HCl 1.75 gm/Sodium Chloride 500 ml @ 250 mls/hr Q12H IV ; Start 06/08/20 at 08:00; Stop 06/07/20 at 20:36; Status DC Vancomycin HCl (Vancomycin Trough Level) 1 each 1X ONCE MC ; Start 06/09/20 at 07:30; Stop 06/07/20 at 20:38; Status DC Vasopressin 20 unit/Dextrose 101 ml @ 12 mls/hr CONT PRN IV SEE I/O RECORD; Start 06/07/20 at 20:00 Norepinephrine Bitartrate 16 mg/ Dextrose 266 ml @ 11.87 mls/ hr CONT PRN IV PER PROTOCOL Last administered on 06/07/20at 22:09; Start 06/07/20 at 20:00; Stop 06/07/20 at 23:00; Status DC Sodium Chloride 1,000 ml @ 1,000 mls/hr 1X ONCE IV Last administered on 06/07/20at 20:16; Start 06/07/20 at 20:15; Stop 06/07/20 at 21:14; Status DC Norepinephrine Bitartrate 32 mg/ Dextrose 250 ml @ 5.578 mls/ hr CONT PRN IV SEE I/O RECORD Last administered on 06/08/20at 12:11; Start 06/07/20 at 22:30 Sodium Chloride 1,000 ml @ 100 mls/hr Q10H IV Last administered on 06/08/20at 09:44; Start 06/08/20 at 00:00 Meropenem 1 gm/ Sodium Chloride 100 ml @ 200 mls/hr Q12HR IV Last administered on 06/08/20at 08:49; Start 06/08/20 at 09:00 Sodium Bicarbonate (Sodium Bicarb Adult 8.4% Syr) 50 meq 1X ONCE IV Last administered on 06/08/20at 10:42; Start 06/08/20 at 09:45; Stop 06/08/20 at 09:46; Status DC Multivitamins/ Minerals Therapeutic (Centrum Multivit-Mineral Liq) 5 ml DAILY PEG Last administered on 06/08/20at 12:10; Start 06/08/20 at 10:00 Sodium Chloride 1,000 ml @ 1,000 mls/hr 1X ONCE IV Last administered on 06/08/20at 12:11; Start 06/08/20 at 11:30; Stop 06/08/20 at 12:29; Status DC Vancomycin HCl (Vanco Per Pharmacy) 1 each PRN DAILY PRN MC SEE COMMENTS Last administered on 06/08/20at 13:09; Start 06/08/20 at 12:30 Vancomycin HCl 1.75 gm/Sodium Chloride 500 ml @ 250 mls/hr Q24H IV ; Start 06/08/20 at 19:00 Vancomycin HCl (Vancomycin Trough Level) 1 each 1X ONCE MC ; Start 06/09/20 at 18:30; Stop 06/09/20 at 18:31 Active Scripts Active Reported Tylenol (Acetaminophen) 325 Mg Tablet 650 Mg PO BID Senna-Docusate Sodium Tablet (Sennosides/Docusate Sodium) 1 Each Tablet 1 Each PO PRN PRN Risperdal (Risperidone) 3 Mg Tablet 0.5 Tab PO BID 30 Days Potassium Chloride (Potassium Chloride) 20 Meq Tablet.er 20 Meq PO TID Olanzapine 5 Mg Tablet 0.5 Tab PO QHS Nystatin 15 Gm Cream..g. 15 Gm TP PRN Q8HRS PRN Novolog Flexpen (Insulin Aspart) 100 Unit/1 Ml Insuln.pen 1 Unit SQ TIDWMEALS Mirtazapine 7.5 Mg Tablet 1 Tab PO QHS 30 Days Milk Of Magnesia (Magnesium Hydroxide) 400 Mg/5 Ml Oral.susp 400 Mg PO PRN PRN Metformin Hcl 1,000 Mg Tablet 1,000 Mg PO BIDWMEALS Melatonin 3 Mg Tab.rapdis 1 Tab PO QHS 30 Days Magnesium Oxide 400 Mg Tablet 1 Tab PO DAILY Acidophilus (Lactobacillus Acidophilus) 1 Each Capsule 1 Cap PO DAILY 14 Days Ketoconazole 120 Ml Shampoo 1 Melissa TP TWICE WEEKLY 30 Days with at least 3 days between each shampooing Levemir Flextouch (Insulin Detemir) 100 Unit/1 Ml Insuln.pen 27 Unit SQ QHS Furosemide 20 Mg Tablet 1 Tab PO DAILY Fleet Enema (Na Phos,M-B/Na Phos,Di-Ba) 133 Ml Enema 133 Ml RC PRN PRN Divalproex Sodium Er (Divalproex Sodium) 500 Mg Tab.er.24h 2,000 Mg PO QHS D3-50 (Cholecalciferol (Vitamin D3)) 50,000 Unit Capsule 1,000 Unit PO DAILY Dulcolax (Bisacodyl) 10 Mg Supp.rect 10 Mg RC PRN DAILY PRN Atorvastatin Calcium 20 Mg Tablet 20 Mg PO HS Allergies Allergies: Coded Allergies: Penicillins (Verified Allergy, Severe, 05/07/18) ROS Review of System UNABLE TO OBTAIN Physical Exam Physical Exam INTUBATED, [place]HE[place]RIA General: No acute distress HEENT: Atraumatic, Other (ET TUBE, OG) Heart: Regular rate Abdomen: Normal bowel sounds Extremities: No clubbing Neuro: Other (SEDATED) Psych/Mental Status: Other (SEDATED) MUSCULOSKELETAL: No joint tenderness, No deformity Vitals VITALS Vital Signs Date Time Temp Pulse Resp B/P (MAP) Pulse Ox O2 Delivery O2 Flow Rate FiO2 06/08/20 14:16 101 26 144/70 (94) 100 Ventilator 06/08/20 11:10 100.2 100.2 Labs Labs Laboratory Tests Test 06/07/20 14:40 06/07/20 15:05 06/07/20 16:15 06/07/20 16:52 White Blood Count 8.1 x10^3/uL (4.0-11.0) Red Blood Count 4.59 x10^6/uL (4.30-5.70) Hemoglobin 14.5 g/dL (13.0-17.5) Hematocrit 43.8 % (39.0-53.0) Mean Corpuscular Volume 96 fL (79-100) Mean Corpuscular Hemoglobin 32 pg (25-35) Mean Corpuscular Hemoglobin Concent 33 g/dL (31-37) Red Cell Distribution Width 14.3 % (11.5-14.5) Platelet Count 260 x10^3/uL (140-400) Neutrophils (%) (Auto) 83 % (31-73) Lymphocytes (%) (Auto) 9 % (24-48) Monocytes (%) (Auto) 7 % (0-9) Eosinophils (%) (Auto) 0 % (0-3) Basophils (%) (Auto) 0 % (0-3) Neutrophils # (Auto) 6.7 x10^3/uL (1.8-7.7) Lymphocytes # (Auto) 0.7 x10^3/uL (1.0-4.8) Monocytes # (Auto) 0.6 x10^3/uL (0.0-1.1) Eosinophils # (Auto) 0.0 x10^3/uL (0.0-0.7) Basophils # (Auto) 0.0 x10^3/uL (0.0-0.2) Sodium Level 143 mmol/L (136-145) Potassium Level 4.1 mmol/L (3.5-5.1) Chloride Level 105 mmol/L (98-107) Carbon Dioxide Level 32 mmol/L (21-32) Anion Gap 6 (6-14) Blood Urea Nitrogen 16 mg/dL (8-26) Creatinine 0.9 mg/dL (0.7-1.3) Estimated GFR (Cockcroft-Gault) 83.4 BUN/Creatinine Ratio 18 (6-20) Glucose Level 163 mg/dL (70-99) Lactic Acid Level 5.4 mmol/L (0.4-2.0) Calcium Level 8.9 mg/dL (8.5-10.1) Total Bilirubin 0.8 mg/dL (0.2-1.0) Aspartate Amino Transf (AST/SGOT) 14 U/L (15-37) Alanine Aminotransferase (ALT/SGPT) 17 U/L (16-63) Alkaline Phosphatase 80 U/L (46-116) Total Protein 6.5 g/dL (6.4-8.2) Albumin 2.4 g/dL (3.4-5.0) Albumin/Globulin Ratio 0.6 (1.0-1.7) Urine Collection Type U cath Urine Color Tammy Urine Clarity Clear Urine pH 5.5 (<5.0-8.0) Urine Specific [place] 1.020 (1.000-1.030) Urine Protein Negative mg/dL (NEG-TRACE) Urine Glucose (UA) Negative mg/dL (NEG) Urine Ketones (Stick) Trace mg/dL (NEG) Urine Blood Negative (NEG) Urine Nitrite Negative (NEG) Urine Bilirubin Negative (NEG) Urine Urobilinogen Dipstick 1.0 mg/dL (0.2 mg/dL) Urine Leukocyte Esterase Small (NEG) Urine RBC 11-20 /HPF (0-2) Urine WBC 5-10 /HPF (0-4) Urine Bacteria Few /HPF (0-FEW) Urine Hyaline Casts Few /HPF Urine Mucus Mod /LPF O2 Saturation 89 % (92-99) 83 % (92-99) Arterial Blood pH 7.27 (7.35-7.45) 7.29 (7.35-7.45) Arterial Blood pCO2 at Patient Temp 48 mmHg (35-46) 46 mmHg (35-46) Arterial Blood pO2 at Patient Temp 68 mmHg (65-108) 53 mmHg (65-108) Arterial Blood HCO3 22 mmol/L (21-28) 22 mmol/L (21-28) Arterial Blood Base Excess -6 mmol/L (-3-3) -5 mmol/L (-3-3) FiO2 100% vent 100% vent Test 06/07/20 19:15 06/07/20 20:12 06/07/20 23:00 06/08/20 01:53 Lactic Acid Level 5.8 mmol/L (0.4-2.0) Vitamin B12 Level 561 pg/mL (247-911) Thyroid Stimulating Hormone (TSH) 1.608 uIU/mL (0.358-3.74) O2 Saturation 83 % (92-99) Arterial Blood pH 7.27 (7.35-7.45) Arterial Blood pH (Temp corrected) 7.26 Arterial Blood pCO2 at Patient Temp 49 mmHg (35-46) Arterial Blood pCO2 (Temp correct) 52 mmHg Arterial Blood pO2 at Patient Temp 53 mmHg (65-108) Arterial Blood pO2 (Temp corrected) 58 mmHg Arterial Blood HCO3 22 mmol/L (21-28) Arterial Blood Base Excess -5 mmol/L (-3-3) FiO2 100 Prothrombin Time 15.8 SEC (11.7-14.0) Prothromb Time International Ratio 1.3 (0.8-1.1) Glucose (Fingerstick) 125 mg/dL (70-99) Test 06/08/20 04:55 06/08/20 07:45 White Blood Count 9.3 x10^3/uL (4.0-11.0) Red Blood Count 4.44 x10^6/uL (4.30-5.70) Hemoglobin 14.5 g/dL (13.0-17.5) Hematocrit 42.7 % (39.0-53.0) Mean Corpuscular Volume 96 fL (79-100) Mean Corpuscular Hemoglobin 33 pg (25-35) Mean Corpuscular Hemoglobin Concent 34 g/dL (31-37) Red Cell Distribution Width 14.1 % (11.5-14.5) Platelet Count 296 x10^3/uL (140-400) Neutrophils (%) (Auto) 94 % (31-73) Lymphocytes (%) (Auto) 2 % (24-48) Monocytes (%) (Auto) 4 % (0-9) Eosinophils (%) (Auto) 0 % (0-3) Basophils (%) (Auto) 0 % (0-3) Neutrophils # (Auto) 8.7 x10^3/uL (1.8-7.7) Lymphocytes # (Auto) 0.2 x10^3/uL (1.0-4.8) Monocytes # (Auto) 0.4 x10^3/uL (0.0-1.1) Eosinophils # (Auto) 0.0 x10^3/uL (0.0-0.7) Basophils # (Auto) 0.0 x10^3/uL (0.0-0.2) Segmented Neutrophils % 18 % (35-66) Band Neutrophils % 46 % (0-9) Lymphocytes % 2 % (24-48) Atypical Lymphocytes % (Manual) 1 % (0-0) Monocytes % 4 % (0-10) Eosinophils % 0 % (0-5) Basophils % 0 % (0-3) Metamyelocytes % 25 % (0-0) Myelocytes % 4 % (0-0) Toxic Vacuolation Present Platelet Estimate Adequate (ADEQUATE) Large Platelets Occ Sodium Level 140 mmol/L (136-145) Potassium Level 6.0 mmol/L (3.5-5.1) Chloride Level 105 mmol/L (98-107) Carbon Dioxide Level 21 mmol/L (21-32) Anion Gap 14 (6-14) Blood Urea Nitrogen 21 mg/dL (8-26) Creatinine 1.3 mg/dL (0.7-1.3) Estimated GFR (Cockcroft-Gault) 54.6 Glucose Level 213 mg/dL (70-99) Calcium Level 8.4 mg/dL (8.5-10.1) Phosphorus Level 5.3 mg/dL (2.6-4.7) Magnesium Level 1.8 mg/dL (1.8-2.4) O2 Saturation 93 % (92-99) Arterial Blood pH 7.23 (7.35-7.45) Arterial Blood pCO2 at Patient Temp 41 mmHg (35-46) Arterial Blood pO2 at Patient Temp 71 mmHg (65-108) Arterial Blood HCO3 17 mmol/L (21-28) Arterial Blood Base Excess -11 mmol/L (-3-3) FiO2 100 Laboratory Tests Test 06/07/20 15:05 06/07/20 16:15 06/07/20 16:52 06/07/20 19:15 Urine Collection Type U cath Urine Color Tammy Urine Clarity Clear Urine pH 5.5 (<5.0-8.0) Urine Specific [place] 1.020 (1.000-1.030) Urine Protein Negative mg/dL (NEG-TRACE) Urine Glucose (UA) Negative mg/dL (NEG) Urine Ketones (Stick) Trace mg/dL (NEG) Urine Blood Negative (NEG) Urine Nitrite Negative (NEG) Urine Bilirubin Negative (NEG) Urine Urobilinogen Dipstick 1.0 mg/dL (0.2 mg/dL) Urine Leukocyte Esterase Small (NEG) Urine RBC 11-20 /HPF (0-2) Urine WBC 5-10 /HPF (0-4) Urine Bacteria Few /HPF (0-FEW) Urine Hyaline Casts Few /HPF Urine Mucus Mod /LPF O2 Saturation 89 % (92-99) 83 % (92-99) Arterial Blood pH 7.27 (7.35-7.45) 7.29 (7.35-7.45) Arterial Blood pCO2 at Patient Temp 48 mmHg (35-46) 46 mmHg (35-46) Arterial Blood pO2 at Patient Temp 68 mmHg (65-108) 53 mmHg (65-108) Arterial Blood HCO3 22 mmol/L (21-28) 22 mmol/L (21-28) Arterial Blood Base Excess -6 mmol/L (-3-3) -5 mmol/L (-3-3) FiO2 100% vent 100% vent Lactic Acid Level 5.8 mmol/L (0.4-2.0) Vitamin B12 Level 561 pg/mL (247-911) Thyroid Stimulating Hormone (TSH) 1.608 uIU/mL (0.358-3.74) Test 06/07/20 20:12 06/07/20 23:00 06/08/20 01:53 06/08/20 04:55 O2 Saturation 83 % (92-99) Arterial Blood pH 7.27 (7.35-7.45) Arterial Blood pH (Temp corrected) 7.26 Arterial Blood pCO2 at Patient Temp 49 mmHg (35-46) Arterial Blood pCO2 (Temp correct) 52 mmHg Arterial Blood pO2 at Patient Temp 53 mmHg (65-108) Arterial Blood pO2 (Temp corrected) 58 mmHg Arterial Blood HCO3 22 mmol/L (21-28) Arterial Blood Base Excess -5 mmol/L (-3-3) FiO2 100 Prothrombin Time 15.8 SEC (11.7-14.0) Prothromb Time International Ratio 1.3 (0.8-1.1) Glucose (Fingerstick) 125 mg/dL (70-99) White Blood Count 9.3 x10^3/uL (4.0-11.0) Red Blood Count 4.44 x10^6/uL (4.30-5.70) Hemoglobin 14.5 g/dL (13.0-17.5) Hematocrit 42.7 % (39.0-53.0) Mean Corpuscular Volume 96 fL (79-100) Mean Corpuscular Hemoglobin 33 pg (25-35) Mean Corpuscular Hemoglobin Concent 34 g/dL (31-37) Red Cell Distribution Width 14.1 % (11.5-14.5) Platelet Count 296 x10^3/uL (140-400) Neutrophils (%) (Auto) 94 % (31-73) Lymphocytes (%) (Auto) 2 % (24-48) Monocytes (%) (Auto) 4 % (0-9) Eosinophils (%) (Auto) 0 % (0-3) Basophils (%) (Auto) 0 % (0-3) Neutrophils # (Auto) 8.7 x10^3/uL (1.8-7.7) Lymphocytes # (Auto) 0.2 x10^3/uL (1.0-4.8) Monocytes # (Auto) 0.4 x10^3/uL (0.0-1.1) Eosinophils # (Auto) 0.0 x10^3/uL (0.0-0.7) Basophils # (Auto) 0.0 x10^3/uL (0.0-0.2) Segmented Neutrophils % 18 % (35-66) Band Neutrophils % 46 % (0-9) Lymphocytes % 2 % (24-48) Atypical Lymphocytes % (Manual) 1 % (0-0) Monocytes % 4 % (0-10) Eosinophils % 0 % (0-5) Basophils % 0 % (0-3) Metamyelocytes % 25 % (0-0) Myelocytes % 4 % (0-0) Toxic Vacuolation Present Platelet Estimate Adequate (ADEQUATE) Large Platelets Occ Sodium Level 140 mmol/L (136-145) Potassium Level 6.0 mmol/L (3.5-5.1) Chloride Level 105 mmol/L (98-107) Carbon Dioxide Level 21 mmol/L (21-32) Anion Gap 14 (6-14) Blood Urea Nitrogen 21 mg/dL (8-26) Creatinine 1.3 mg/dL (0.7-1.3) Estimated GFR (Cockcroft-Gault) 54.6 Glucose Level 213 mg/dL (70-99) Calcium Level 8.4 mg/dL (8.5-10.1) Phosphorus Level 5.3 mg/dL (2.6-4.7) Magnesium Level 1.8 mg/dL (1.8-2.4) Test 06/08/20 07:45 O2 Saturation 93 % (92-99) Arterial Blood pH 7.23 (7.35-7.45) Arterial Blood pCO2 at Patient Temp 41 mmHg (35-46) Arterial Blood pO2 at Patient Temp 71 mmHg (65-108) Arterial Blood HCO3 17 mmol/L (21-28) Arterial Blood Base Excess -11 mmol/L (-3-3) FiO2 100 Assessment/Plan Assessment/Plan IMP SYLVIA-CR 1.3 ON ADMIT-UA NEG ACUTE RESP FAILURE AG M ACIDOSIS, MET ALKALOSIS AND RES ACIDOSIS ACIDEMIA-TYPE A LACTIC ACIDOSIS PROB SEPSIS HYPOTENSION PROB PNEUMONIA PLAN CONT VENT SUPPORT SUPPLEMENTAL O2 PRESSORS NEEDED HOLD METFORMIN HYDRATION REPEAT LABS FOR K SUPPORTIVE CARE WILL FOLLOW COSMO MORENO MD Jun 08, 2020 14:58
[2020-06-08 15:06] LABS: CALCIUM 8.3 mg/dL (8.5-10.1); CREATININE 1.2 mg/dL (0.7-1.3); GFR 59.9
[2020-06-08 15:10] LABS: POTASSIUM 6.8 mmol/L (3.5-5.1)
[2020-06-08] MEDS ORDERED: CALCIUM GLUCONATE 1,000 MG/10 ML VIAL. IVP ONE (15:30)
[2020-06-08] MEDS ORDERED: INSULIN REGULAR 100 UNIT/ML 3ML VIAL. IV ONE (15:30)
[2020-06-08] MEDS ORDERED: DEXTROSE 50% 25 GM / 50ML DISP.SYRIN. IV ONE (15:30)
[2020-06-08] MEDS: IV DEXTROSE 5% - 0.9 % NACL 1,000 ML IV SCH (15:32)
--- NOTE | 2020-06-08 16:48 | RAD ---
EXAM: AP View of the chest DATE: 06/08/2020 4:23 PM INDICATION: central line placement COMPARISON: 06/07/2020 FINDINGS/ IMPRESSION: Right IJ vascular catheter tip terminates over the mid-distal SVC. Enteric tube extends beyond the diaphragm tip projecting over the fundus of the stomach. Tubing projects over the right chest, possibly [employer]ULT [employer] shunt catheter. Heart is normal in size accounting for portable technique and patient rotation. Atherosclerotic calcifications of the tortuous aorta are seen. No lobar consolidation. No pleural effusion or pneumothorax. Electronically signed by: Pedro August MD (06/08/2020 4:45 PM) RASHEED
--- NOTE | 2020-06-08 17:44 | PDOC ---
Provider Note Date of Service: DATE: 06/08/20 TIME: 17:38 Provider Note Called for CVL. Permit signed. Possible COVID on vent and sedated. Positioned and prepped with standard prep from kit. Ultrasound guidance for right IJ puncture with #18 g Cook needle first attempt. Dark red non pulsitile RBCs returned. Standard Seldinger technique for insertion of 3 lumen CVL, without problems. All lines aspirated and flushed, sewn in place at 18 cm, CXR pending. Demond Manning MD Justifications for Admission General Conditions Poss tachycardia?: Yes Justification for admission: Patient has tachycardia (> 100 beats per minute) which is not readily corrected by appropriate treatment within 12 to 24 hours. Elevated Lactate?: Yes Justification for admission: Patient has tachycardia (> 100 beats per minute) or hypotension (SBP < 90 mm Hg) leading to inadequate systemic perfusion as indicated by lactate of greater or equal to 2.5 mmol/L. Poss Metaboilic Acidosis?: Yes Justification for admission: Patient has tachycardia (> 100 beats per minute) or hypotension (SBP < 90 mm Hg) leading to inadequate systemic perfusion as indicated by metabolic acidosis with arterial pH of less than 7.35. Altered mental status?: Yes Justification of admission: Patient has tachycardia (> 100 beats per minute) or hypotension (SBP < 90 mm Hg) leading to inadequate systemic perfusion as indicated by severe/persistent altered mental status. Other Justification DEMOND MANNING MD Jun 08, 2020 17:43
--- NOTE | 2020-06-08 17:52 | PDOC ---
Provider Note Date of Service: DATE: 06/08/20 TIME: 17:44 Provider Note Called for arterial line. Permit signed. Patient on vent and sedated. Possible COVID. Left wrist positioned and prepped with alcohol. Left radial artery entered 2nd pass with bright red pulsitile RBCs. Attached to transducer and good waveform seen. Taped in place. No complications. Demond Manning MD Justifications for Admission General Conditions Poss tachycardia?: Yes Justification for admission: Patient has tachycardia (> 100 beats per minute) which is not readily corrected by appropriate treatment within 12 to 24 hours. Elevated Lactate?: Yes Justification for admission: Patient has tachycardia (> 100 beats per minute) or hypotension (SBP < 90 mm Hg) leading to inadequate systemic perfusion as indicated by lactate of greater or equal to 2.5 mmol/L. Poss Metaboilic Acidosis?: Yes Justification for admission: Patient has tachycardia (> 100 beats per minute) or hypotension (SBP < 90 mm Hg) leading to inadequate systemic perfusion as indicated by metabolic acidosis with arterial pH of less than 7.35. Altered mental status?: Yes Justification of admission: Patient has tachycardia (> 100 beats per minute) or hypotension (SBP < 90 mm Hg) leading to inadequate systemic perfusion as indicated by severe/persistent altered mental status. Other Justification DEMOND MANNING MD Jun 08, 2020 17:52
--- NOTE | 2020-06-08 18:10 | NUR ---
Wound Care: Pictures present in chart, no measurements. Patient is C19 pending. Discussed with Rosemary MORGAN that wound care will reassess conditions on 06/09/20
[2020-06-08 19:40] LABS: CALCIUM 8.3 mg/dL (8.5-10.1); CREATININE 1.3 mg/dL (0.7-1.3); GFR 54.6
[2020-06-08 19:45] LABS: POTASSIUM 6.1 mmol/L (3.5-5.1)
[2020-06-08] MEDS: ENOXAPARIN 40 MG/0.4 ML SYRINGE. SQ SCH (19:50)
[2020-06-08] MEDS ORDERED: DEXTROSE 50% 25 GM / 50ML DISP.SYRIN. IV PRN (22:15)
[2020-06-08] MEDS: INSULIN LISPRO 300 UNITS/3 ML VIAL. SQ SCH (23:45)
[2020-06-09] VITALS (26 sets, daily range): BP systolic 88–145; BP diastolic 46–77
[2020-06-09] MEDS: NOREPINEPHRINE VIAL 32 MG in IV D5W 250ML IV PRN (03:37)
[2020-06-09] MEDS: IV DEXTROSE 5% - 0.9 % NACL 1,000 ML IV SCH ×2 (03:43→11:43)
[2020-06-09] MEDS: INSULIN LISPRO 300 UNITS/3 ML VIAL. SQ SCH ×5 (03:53→23:57)
[2020-06-09] MEDS: methylPREDNISolone SOD SUCC PF 40 MG/ML VIAL. IV SCH ×3 (05:58→20:33)
[2020-06-09 06:34] LABS: CALCIUM 8.2 mg/dL (8.5-10.1); CREATININE 1.2 mg/dL (0.7-1.3); GFR 59.9; MAGNESIUM 1.8 mg/dL (1.8-2.4); PHOSPHORUS 3.2 mg/dL (2.6-4.7)
[2020-06-09] MEDS: PANTOPRAZOLE IV PUSH 40 MG VIAL. IVP SCH (08:01)
[2020-06-09] MEDS: ASCORBIC ACID 500 MG TABLET PO SCH (08:01)
[2020-06-09] MEDS: MEROPENEM 1 GM in IV NORMAL SALINE 100ML 100 ML IV SCH ×2 (08:03→20:32)
[2020-06-09] MEDS: MULTIVITAMINS,THERAPEUTIC 5 ML ORAL LIQUID. PEG SCH (08:03)
--- NOTE | 2020-06-09 08:05 | PDOC ---
Infectious Disease Note Subjective Subjective intubated on vent ROS ROS no n/v/d/sob Vital Sign Vital Signs Vital Signs Date Time Temp Pulse Resp B/P (MAP) Pulse Ox O2 Delivery O2 Flow Rate FiO2 06/09/20 07:05 79 26 106/54 (71) 100 Ventilator 06/09/20 04:00 98.1 98.1 Physical Exam PHYSICAL EXAM GENERAL: Sedated, orally intubated gentleman, not in any distress. VITAL SIGNS: Stable. HEENT: Both pupils are round and reacting. No conjunctival lesion. Mouth orally intubated, not much mouth can be visualized. NECK: Supple. No JVP. No lymphadenopathy. LUNGS: Clear. HEART: S1, S2 regular. ABDOMEN: Benign, soft, nontender. No organomegaly. EXTREMITIES: No edema or cyanosis. SKIN: Unremarkable. EXTREMITIES: No edema, cyanosis. SKIN: Unremarkable. NEUROLOGIC: The patient is sedated now, unable to grinder carbon plant. Labs Lab Laboratory Tests Test 06/08/20 14:52 06/08/20 19:05 06/08/20 23:42 06/09/20 03:47 Sodium Level 137 mmol/L (136-145) 139 mmol/L (136-145) Potassium Level 6.8 mmol/L (3.5-5.1) 6.1 mmol/L (3.5-5.1) Chloride Level 104 mmol/L (98-107) 105 mmol/L (98-107) Carbon Dioxide Level 21 mmol/L (21-32) 23 mmol/L (21-32) Anion Gap 12 (6-14) 11 (6-14) Blood Urea Nitrogen 28 mg/dL (8-26) 29 mg/dL (8-26) Creatinine 1.2 mg/dL (0.7-1.3) 1.3 mg/dL (0.7-1.3) Estimated GFR (Cockcroft-Gault) 59.9 54.6 Glucose Level 362 mg/dL (70-99) 459 mg/dL (70-99) Calcium Level 8.3 mg/dL (8.5-10.1) 8.3 mg/dL (8.5-10.1) Glucose (Fingerstick) 437 mg/dL (70-99) 381 mg/dL (70-99) Test 06/09/20 05:55 Sodium Level 140 mmol/L (136-145) Potassium Level 5.0 mmol/L (3.5-5.1) Chloride Level 107 mmol/L (98-107) Carbon Dioxide Level 27 mmol/L (21-32) Anion Gap 6 (6-14) Blood Urea Nitrogen 34 mg/dL (8-26) Creatinine 1.2 mg/dL (0.7-1.3) Estimated GFR (Cockcroft-Gault) 59.9 Glucose Level 378 mg/dL (70-99) Calcium Level 8.2 mg/dL (8.5-10.1) Phosphorus Level 3.2 mg/dL (2.6-4.7) Magnesium Level 1.8 mg/dL (1.8-2.4) Micro BLOOD CULTURE Final GRAM POSITIVE COCCI IN CLUSTERS, SUGGESTIVE OF STAPH, IN 2 OF 2 BOTTLES OF ONE SET. CALLED TO NGHIA DONATO RN IN ICU AT 12:15 ON 06/08/20 DW MT SENT TO [facility] FOR FURTHER WORKUP. Objective Assessment IMPRESSION: 1. Hypoxemia with respiratory failure. 2. Suspected aspiration pneumonia. 3. Lactic acidosis. 4. Fever. 5. Diabetes. 6. Hypertension. 7. Schizophrenia. 8. Rule out COVID-19. 9 BC + G + cocci Plan Plan of Care vanc and meropenem check cultures supportive care prognosis poor LAURA FITZGERALD MD Jun 09, 2020 08:05
--- NOTE | 2020-06-09 08:23 | PDOC ---
[facility] PROGRESS NOTE Date of Service DOS: DATE: 06/09/20 TIME: 08:21 Chief Complaint Chief Complaint Sepsis Acute hypercarbic hypoxic respiratory failure requiring intubation Acute metabolic encephalopathy NOS Concern for aspiration pneumonia with chest x-ray showing multifocal infiltrate in the right lower lobe Lactic acidosis Severe protein malnutrition Anxiety with depression dCHF Constipation Diabetes-Type II High Cholesterol Hypertension Schizophrenia BPH Dysphagia PARKINSONS, Hyperkalemia FEN - OGT PPX - heparin FULL CODE Dispo - ICU CC time 42 min History of Present Illness History of Present Illness Mr Dubois is a 69-year-old male with past medical history of Anxiety with depression, schizophrenia, dCHF, Constipation, Diabetes-Type II, High Cholesterol, Hypertension, BPH, Dysphagia, PARKINSONS, who presents to the emergency room in respiratory failure. According to report patient was normal the morning of 06/07. He has been refusing to eat recently according to staff but did eat lunch immediately before they found him in respiratory distress EMS pulse ox on CPAP is 80%. He was intubated due to respiratory failure and poor ABG on BiPAP. 06/08: Febrile to 101.8 F overnight. Intubated, sedated. K peaked at 6.8, started on D5, insulin, steroids. Patient is sedated and intubated upon my examination. AC mode tidal volume 550, PEEP 12 and FiO2 90%. Saturations are 100%. Vitals/I&O Vitals/I&O: Vital Signs Date Time Temp Pulse Resp B/P (MAP) Pulse Ox O2 Delivery O2 Flow Rate FiO2 06/09/20 08:12 76 06/09/20 07:05 26 106/54 (71) 100 Ventilator 06/09/20 04:00 98.1 98.1 I & O 06/08/20 06/08/20 06/09/20 15:00 23:00 07:00 Intake Total 251 ml 2894 ml 1933 ml Output Total 255 ml 725 ml 200 ml Balance -4 ml 2169 ml 1733 ml Physical Exam Physical Exam: GENERAL: Sedated, orally intubated gentleman, not in any distress. VITAL SIGNS: Stable. HEENT: Both pupils are round and reacting. No conjunctival lesion. Mouth orally intubated, not much mouth can be visualized. NECK: Supple. No JVP. No lymphadenopathy. LUNGS: Clear. HEART: S1, S2 regular. ABDOMEN: Benign, soft, nontender. No organomegaly. EXTREMITIES: No edema or cyanosis. SKIN: Unremarkable. EXTREMITIES: No edema, cyanosis. SKIN: Unremarkable. NEUROLOGIC: The patient is sedated now, unable to court of appeals judge. General: No acute distress Heart: Regular rate Abdomen: Normal bowel sounds Extremities: No clubbing Labs Labs: Laboratory Tests Test 06/08/20 14:52 06/08/20 19:05 06/08/20 23:42 06/09/20 03:47 Sodium Level 137 mmol/L (136-145) 139 mmol/L (136-145) Potassium Level 6.8 mmol/L (3.5-5.1) 6.1 mmol/L (3.5-5.1) Chloride Level 104 mmol/L (98-107) 105 mmol/L (98-107) Carbon Dioxide Level 21 mmol/L (21-32) 23 mmol/L (21-32) Anion Gap 12 (6-14) 11 (6-14) Blood Urea Nitrogen 28 mg/dL (8-26) 29 mg/dL (8-26) Creatinine 1.2 mg/dL (0.7-1.3) 1.3 mg/dL (0.7-1.3) Estimated GFR (Cockcroft-Gault) 59.9 54.6 Glucose Level 362 mg/dL (70-99) 459 mg/dL (70-99) Calcium Level 8.3 mg/dL (8.5-10.1) 8.3 mg/dL (8.5-10.1) Glucose (Fingerstick) 437 mg/dL (70-99) 381 mg/dL (70-99) Test 06/09/20 05:55 Sodium Level 140 mmol/L (136-145) Potassium Level 5.0 mmol/L (3.5-5.1) Chloride Level 107 mmol/L (98-107) Carbon Dioxide Level 27 mmol/L (21-32) Anion Gap 6 (6-14) Blood Urea Nitrogen 34 mg/dL (8-26) Creatinine 1.2 mg/dL (0.7-1.3) Estimated GFR (Cockcroft-Gault) 59.9 Glucose Level 378 mg/dL (70-99) Calcium Level 8.2 mg/dL (8.5-10.1) Phosphorus Level 3.2 mg/dL (2.6-4.7) Magnesium Level 1.8 mg/dL (1.8-2.4) Assessment and Plan Assessmemt and Plan Problems Medical Problems: (1) Aspiration pneumonia Status: Acute (2) Respiratory failure with hypoxia Status: Acute Comment Review of Relevant I have reviewed the following items veronika (where applicable) has been applied. Medications: Current Medications Medications (Trade) Dose Ordered Sig/Cruz Route PRN Reason Start Time Stop Time Status Last Admin Dose Admin Ascorbic Acid (Vitamin C) 500 mg DAILY PO 06/08/20 09:00 06/09/20 08:01 Thiamine HCl 100 mg/Dextrose 51 ml @ 102 mls/hr DAILY IV 06/08/20 09:00 06/08/20 09:41 Meropenem 1 gm/ Sodium Chloride 100 ml @ 200 mls/hr Q12HR IV 06/08/20 09:00 06/09/20 08:03 Sodium Bicarbonate (Sodium Bicarb Adult 8.4% Syr) 50 meq 1X ONCE IV 06/08/20 09:45 06/08/20 09:46 DC 06/08/20 10:42 Multivitamins/ Minerals Therapeutic (Centrum Multivit-Mineral Liq) 5 ml DAILY PEG 06/08/20 10:00 06/09/20 08:03 Sodium Chloride 1,000 ml @ 1,000 mls/hr 1X ONCE IV 06/08/20 11:30 06/08/20 12:29 DC 06/08/20 12:11 Vancomycin HCl (Vanco Per Pharmacy) 1 each PRN DAILY PRN MC SEE COMMENTS 06/08/20 12:30 06/08/20 13:09 Vancomycin HCl 1.75 gm/Sodium Chloride 500 ml @ 250 mls/hr Q24H IV 06/08/20 19:00 06/08/20 19:49 Dextrose/Sodium Chloride 1,000 ml @ 100 mls/hr Q10H IV 06/08/20 15:30 06/09/20 03:43 Dextrose (Dextrose 50%-Water Syringe) 25 gm 1X ONCE IV 06/08/20 15:30 06/08/20 15:37 DC 06/08/20 16:34 Insulin Human Regular (HumuLIN R VIAL) 10 unit 1X ONCE IV 06/08/20 15:30 06/08/20 15:37 DC 9/14/20 16:37 Calcium Gluconate (Calcium Gluconate) 1,000 mg 1X ONCE IVP 06/08/20 15:30 06/08/20 15:37 DC 06/08/20 16:38 Insulin Human Lispro (HumaLOG) 0-9 UNITS Q4HRS SQ 06/09/20 00:00 06/09/20 07:30 DC 06/09/20 03:53 Justifications for Admission General Conditions Poss tachycardia?: Yes Justification for admission: Patient has tachycardia (> 100 beats per minute) which is not readily corrected by appropriate treatment within 12 to 24 hours. Elevated Lactate?: Yes Justification for admission: Patient has tachycardia (> 100 beats per minute) or hypotension (SBP < 90 mm Hg) leading to inadequate systemic perfusion as indicated by lactate of greater or equal to 2.5 mmol/L. Poss Metaboilic Acidosis?: Yes Justification for admission: Patient has tachycardia (> 100 beats per minute) or hypotension (SBP < 90 mm Hg) leading to inadequate systemic perfusion as indicated by metabolic acidosis with arterial pH of less than 7.35. Altered mental status?: Yes Justification of admission: Patient has tachycardia (> 100 beats per minute) or hypotension (SBP < 90 mm Hg) leading to inadequate systemic perfusion as indicated by severe/persistent altered mental status. Other Justification ADINA BHATT MD Jun 09, 2020 08:23
[2020-06-09] MEDS ORDERED: BISACODYL 10 MG SUPP.RECT. RC PRN (08:30)
[2020-06-09] MEDS ORDERED: INSULIN GLARGINE SYRINGE. SQ SCH (08:30)
[2020-06-09 08:41] LABS: BASE EXCESS ABG 3 mmol/L (-3-3); HCO3 ABG 26 mmol/L (21-28); PCO2 ABG 36 mmHg (35-46); PO2 ABG 248 mmHg (65-108); SAT O2 ABG 99 % (92-99)
[2020-06-09] MEDS ORDERED: INSULIN GLARGINE SYRINGE. SQ ONE (08:45)
[2020-06-09 08:46] LABS: FIO2 ABG 100
[2020-06-09] MEDS: VALPROIC ACID (AS SODIUM SALT) 250 MG/5 ML SOLUTION. PEG SCH ×3 (09:03→20:33)
[2020-06-09] MEDS: THIAMINE INJ 100 MG in IV DEXTROSE 5% 50 ML IV SCH (09:03)
[2020-06-09] MEDS: MIDAZOLAM 100mg/100ml NS BAG 100 ML IV PRN ×2 (09:55→23:45)
--- NOTE | 2020-06-09 10:16 | PDOC ---
PULMONARY PROGRESS NOTES DATE: 06/09/20 TIME: 10:12 Subjective remains intubated/sedated improving oxygenation low dose levo Vitals Vital Signs Date Time Temp Pulse Resp B/P (MAP) Pulse Ox O2 Delivery O2 Flow Rate FiO2 06/09/20 10:04 75 26 116/61 (79) 100 Ventilator 06/09/20 08:00 97.4 97.4 Comments visual exam done due to COVID suspect no paradoxical breathing no rash Labs Laboratory Tests Test 06/07/20 14:40 06/07/20 15:05 06/07/20 16:15 06/07/20 16:52 White Blood Count 8.1 x10^3/uL (4.0-11.0) Red Blood Count 4.59 x10^6/uL (4.30-5.70) Hemoglobin 14.5 g/dL (13.0-17.5) Hematocrit 43.8 % (39.0-53.0) Mean Corpuscular Volume 96 fL (79-100) Mean Corpuscular Hemoglobin 32 pg (25-35) Mean Corpuscular Hemoglobin Concent 33 g/dL (31-37) Red Cell Distribution Width 14.3 % (11.5-14.5) Platelet Count 260 x10^3/uL (140-400) Neutrophils (%) (Auto) 83 % (31-73) Lymphocytes (%) (Auto) 9 % (24-48) Monocytes (%) (Auto) 7 % (0-9) Eosinophils (%) (Auto) 0 % (0-3) Basophils (%) (Auto) 0 % (0-3) Neutrophils # (Auto) 6.7 x10^3/uL (1.8-7.7) Lymphocytes # (Auto) 0.7 x10^3/uL (1.0-4.8) Monocytes # (Auto) 0.6 x10^3/uL (0.0-1.1) Eosinophils # (Auto) 0.0 x10^3/uL (0.0-0.7) Basophils # (Auto) 0.0 x10^3/uL (0.0-0.2) Sodium Level 143 mmol/L (136-145) Potassium Level 4.1 mmol/L (3.5-5.1) Chloride Level 105 mmol/L (98-107) Carbon Dioxide Level 32 mmol/L (21-32) Anion Gap 6 (6-14) Blood Urea Nitrogen 16 mg/dL (8-26) Creatinine 0.9 mg/dL (0.7-1.3) Estimated GFR (Cockcroft-Gault) 83.4 BUN/Creatinine Ratio 18 (6-20) Glucose Level 163 mg/dL (70-99) Lactic Acid Level 5.4 mmol/L (0.4-2.0) Calcium Level 8.9 mg/dL (8.5-10.1) Total Bilirubin 0.8 mg/dL (0.2-1.0) Aspartate Amino Transf (AST/SGOT) 14 U/L (15-37) Alanine Aminotransferase (ALT/SGPT) 17 U/L (16-63) Alkaline Phosphatase 80 U/L (46-116) Total Protein 6.5 g/dL (6.4-8.2) Albumin 2.4 g/dL (3.4-5.0) Albumin/Globulin Ratio 0.6 (1.0-1.7) Urine Collection Type U cath Urine Color Tammy Urine Clarity Clear Urine pH 5.5 (<5.0-8.0) Urine Specific [place] 1.020 (1.000-1.030) Urine Protein Negative mg/dL (NEG-TRACE) Urine Glucose (UA) Negative mg/dL (NEG) Urine Ketones (Stick) Trace mg/dL (NEG) Urine Blood Negative (NEG) Urine Nitrite Negative (NEG) Urine Bilirubin Negative (NEG) Urine Urobilinogen Dipstick 1.0 mg/dL (0.2 mg/dL) Urine Leukocyte Esterase Small (NEG) Urine RBC 11-20 /HPF (0-2) Urine WBC 5-10 /HPF (0-4) Urine Bacteria Few /HPF (0-FEW) Urine Hyaline Casts Few /HPF Urine Mucus Mod /LPF O2 Saturation 89 % (92-99) 83 % (92-99) Arterial Blood pH 7.27 (7.35-7.45) 7.29 (7.35-7.45) Arterial Blood pCO2 at Patient Temp 48 mmHg (35-46) 46 mmHg (35-46) Arterial Blood pO2 at Patient Temp 68 mmHg (65-108) 53 mmHg (65-108) Arterial Blood HCO3 22 mmol/L (21-28) 22 mmol/L (21-28) Arterial Blood Base Excess -6 mmol/L (-3-3) -5 mmol/L (-3-3) FiO2 100% vent 100% vent Test 06/07/20 19:15 06/07/20 20:12 06/07/20 23:00 06/08/20 01:53 Lactic Acid Level 5.8 mmol/L (0.4-2.0) Vitamin B12 Level 561 pg/mL (247-911) Thyroid Stimulating Hormone (TSH) 1.608 uIU/mL (0.358-3.74) O2 Saturation 83 % (92-99) Arterial Blood pH 7.27 (7.35-7.45) Arterial Blood pH (Temp corrected) 7.26 Arterial Blood pCO2 at Patient Temp 49 mmHg (35-46) Arterial Blood pCO2 (Temp correct) 52 mmHg Arterial Blood pO2 at Patient Temp 53 mmHg (65-108) Arterial Blood pO2 (Temp corrected) 58 mmHg Arterial Blood HCO3 22 mmol/L (21-28) Arterial Blood Base Excess -5 mmol/L (-3-3) FiO2 100 Prothrombin Time 15.8 SEC (11.7-14.0) Prothromb Time International Ratio 1.3 (0.8-1.1) Glucose (Fingerstick) 125 mg/dL (70-99) Test 06/08/20 04:55 06/08/20 07:45 06/08/20 14:52 06/08/20 19:05 White Blood Count 9.3 x10^3/uL (4.0-11.0) Red Blood Count 4.44 x10^6/uL (4.30-5.70) Hemoglobin 14.5 g/dL (13.0-17.5) Hematocrit 42.7 % (39.0-53.0) Mean Corpuscular Volume 96 fL (79-100) Mean Corpuscular Hemoglobin 33 pg (25-35) Mean Corpuscular Hemoglobin Concent 34 g/dL (31-37) Red Cell Distribution Width 14.1 % (11.5-14.5) Platelet Count 296 x10^3/uL (140-400) Neutrophils (%) (Auto) 94 % (31-73) Lymphocytes (%) (Auto) 2 % (24-48) Monocytes (%) (Auto) 4 % (0-9) Eosinophils (%) (Auto) 0 % (0-3) Basophils (%) (Auto) 0 % (0-3) Neutrophils # (Auto) 8.7 x10^3/uL (1.8-7.7) Lymphocytes # (Auto) 0.2 x10^3/uL (1.0-4.8) Monocytes # (Auto) 0.4 x10^3/uL (0.0-1.1) Eosinophils # (Auto) 0.0 x10^3/uL (0.0-0.7) Basophils # (Auto) 0.0 x10^3/uL (0.0-0.2) Segmented Neutrophils % 18 % (35-66) Band Neutrophils % 46 % (0-9) Lymphocytes % 2 % (24-48) Atypical Lymphocytes % (Manual) 1 % (0-0) Monocytes % 4 % (0-10) Eosinophils % 0 % (0-5) Basophils % 0 % (0-3) Metamyelocytes % 25 % (0-0) Myelocytes % 4 % (0-0) Toxic Vacuolation Present Platelet Estimate Adequate (ADEQUATE) Large Platelets Occ Sodium Level 140 mmol/L (136-145) 137 mmol/L (136-145) 139 mmol/L (136-145) Potassium Level 6.0 mmol/L (3.5-5.1) 6.8 mmol/L (3.5-5.1) 6.1 mmol/L (3.5-5.1) Chloride Level 105 mmol/L (98-107) 104 mmol/L (98-107) 105 mmol/L (98-107) Carbon Dioxide Level 21 mmol/L (21-32) 21 mmol/L (21-32) 23 mmol/L (21-32) Anion Gap 14 (6-14) 12 (6-14) 11 (6-14) Blood Urea Nitrogen 21 mg/dL (8-26) 28 mg/dL (8-26) 29 mg/dL (8-26) Creatinine 1.3 mg/dL (0.7-1.3) 1.2 mg/dL (0.7-1.3) 1.3 mg/dL (0.7-1.3) Estimated GFR (Cockcroft-Gault) 54.6 59.9 54.6 Glucose Level 213 mg/dL (70-99) 362 mg/dL (70-99) 459 mg/dL (70-99) Calcium Level 8.4 mg/dL (8.5-10.1) 8.3 mg/dL (8.5-10.1) 8.3 mg/dL (8.5-10.1) Phosphorus Level 5.3 mg/dL (2.6-4.7) Magnesium Level 1.8 mg/dL (1.8-2.4) O2 Saturation 93 % (92-99) Arterial Blood pH 7.23 (7.35-7.45) Arterial Blood pCO2 at Patient Temp 41 mmHg (35-46) Arterial Blood pO2 at Patient Temp 71 mmHg (65-108) Arterial Blood HCO3 17 mmol/L (21-28) Arterial Blood Base Excess -11 mmol/L (-3-3) FiO2 100 Test 06/08/20 23:42 06/09/20 03:47 06/09/20 05:55 06/09/20 08:00 Glucose (Fingerstick) 437 mg/dL (70-99) 381 mg/dL (70-99) Sodium Level 140 mmol/L (136-145) Potassium Level 5.0 mmol/L (3.5-5.1) Chloride Level 107 mmol/L (98-107) Carbon Dioxide Level 27 mmol/L (21-32) Anion Gap 6 (6-14) Blood Urea Nitrogen 34 mg/dL (8-26) Creatinine 1.2 mg/dL (0.7-1.3) Estimated GFR (Cockcroft-Gault) 59.9 Glucose Level 378 mg/dL (70-99) Calcium Level 8.2 mg/dL (8.5-10.1) Phosphorus Level 3.2 mg/dL (2.6-4.7) Magnesium Level 1.8 mg/dL (1.8-2.4) O2 Saturation 99 % (92-99) Arterial Blood pH 7.48 (7.35-7.45) Arterial Blood pCO2 at Patient Temp 36 mmHg (35-46) Arterial Blood pO2 at Patient Temp 248 mmHg (65-108) Arterial Blood HCO3 26 mmol/L (21-28) Arterial Blood Base Excess 3 mmol/L (-3-3) FiO2 100 Laboratory Tests Test 06/08/20 14:52 06/08/20 19:05 06/08/20 23:42 06/09/20 03:47 Sodium Level 137 mmol/L (136-145) 139 mmol/L (136-145) Potassium Level 6.8 mmol/L (3.5-5.1) 6.1 mmol/L (3.5-5.1) Chloride Level 104 mmol/L (98-107) 105 mmol/L (98-107) Carbon Dioxide Level 21 mmol/L (21-32) 23 mmol/L (21-32) Anion Gap 12 (6-14) 11 (6-14) Blood Urea Nitrogen 28 mg/dL (8-26) 29 mg/dL (8-26) Creatinine 1.2 mg/dL (0.7-1.3) 1.3 mg/dL (0.7-1.3) Estimated GFR (Cockcroft-Gault) 59.9 54.6 Glucose Level 362 mg/dL (70-99) 459 mg/dL (70-99) Calcium Level 8.3 mg/dL (8.5-10.1) 8.3 mg/dL (8.5-10.1) Glucose (Fingerstick) 437 mg/dL (70-99) 381 mg/dL (70-99) Test 06/09/20 05:55 06/09/20 08:00 Sodium Level 140 mmol/L (136-145) Potassium Level 5.0 mmol/L (3.5-5.1) Chloride Level 107 mmol/L (98-107) Carbon Dioxide Level 27 mmol/L (21-32) Anion Gap 6 (6-14) Blood Urea Nitrogen 34 mg/dL (8-26) Creatinine 1.2 mg/dL (0.7-1.3) Estimated GFR (Cockcroft-Gault) 59.9 Glucose Level 378 mg/dL (70-99) Calcium Level 8.2 mg/dL (8.5-10.1) Phosphorus Level 3.2 mg/dL (2.6-4.7) Magnesium Level 1.8 mg/dL (1.8-2.4) O2 Saturation 99 % (92-99) Arterial Blood pH 7.48 (7.35-7.45) Arterial Blood pCO2 at Patient Temp 36 mmHg (35-46) Arterial Blood pO2 at Patient Temp 248 mmHg (65-108) Arterial Blood HCO3 26 mmol/L (21-28) Arterial Blood Base Excess 3 mmol/L (-3-3) FiO2 100 Medications Active Scripts Medications Dose Route/Sig Max Daily Dose Days Date Category Dose Instructions Tylenol (Acetaminophen) 325 Mg Tablet 650 Mg PO BID 06/08/20 Reported Senna-Docusate Sodium Tablet (Sennosides/Docusate Sodium) 1 Each Tablet 1 Each PO PRN PRN 06/08/20 Reported Risperdal (Risperidone) 3 Mg Tablet 0.5 Tab PO BID 30 06/08/20 Reported Potassium Chloride (Potassium Chloride) 20 Meq Tablet.er 20 Meq PO TID 06/08/20 Reported Olanzapine 5 Mg Tablet 0.5 Tab PO QHS 06/08/20 Reported Nystatin 15 Gm Cream..g. 15 Gm TP PRN Q8HRS PRN 06/08/20 Reported Novolog Flexpen (Insulin Aspart) 100 Unit/1 Ml Insuln.pen 1 Unit SQ TIDWMEALS 06/08/20 Reported Mirtazapine 7.5 Mg Tablet 1 Tab PO QHS 30 06/08/20 Reported Milk Of Magnesia (Magnesium Hydroxide) 400 Mg/5 Ml Oral.susp 400 Mg PO PRN PRN 06/08/20 Reported Metformin Hcl 1,000 Mg Tablet 1,000 Mg PO BIDWMEALS 06/08/20 Reported Melatonin 3 Mg Tab.rapdis 1 Tab PO QHS 30 06/08/20 Reported Magnesium Oxide 400 Mg Tablet 1 Tab PO DAILY 06/08/20 Reported Acidophilus (Lactobacillus Acidophilus) 1 Each Capsule 1 Cap PO DAILY 14 06/08/20 Reported Ketoconazole 120 Ml Shampoo 1 Melissa TP TWICE WEEKLY 30 06/08/20 Reported with at least 3 days between each shampooing Levemir Flextouch (Insulin Detemir) 100 Unit/1 Ml Insuln.pen 27 Unit SQ QHS 06/08/20 Reported Furosemide 20 Mg Tablet 1 Tab PO DAILY 06/08/20 Reported Fleet Enema (Na Phos,M-B/Na Phos,Di-Ba) 133 Ml Enema 133 Ml RC PRN PRN 06/08/20 Reported Divalproex Sodium Er (Divalproex Sodium) 500 Mg Tab.er.24h 2,000 Mg PO QHS 06/08/20 Reported D3-50 (Cholecalciferol (Vitamin D3)) 50,000 Unit Capsule 1,000 Unit PO DAILY 06/08/20 Reported Dulcolax (Bisacodyl) 10 Mg Supp.rect 10 Mg RC PRN DAILY PRN 06/08/20 Reported Atorvastatin Calcium 20 Mg Tablet 20 Mg PO HS 06/08/20 Reported Impression . 1. Acute hypoxic respiratory failure secondary to suspected COVID-19 pneumonia and acute respiratory distress syndrome. improving 2. Abnormal chest x-ray with bilateral infiltrates suggestive of COVID-19 pneumonia. He could have a gram-negative pneumonia as well. 3. Septic shock. Likely caused by COVID-19 pneumonia. Need to rule out other sources of infection. 4. Acute kidney injury. 5. Metabolic acidosis secondary to lactic acidosis and sepsis. Plan . 1. Wean FIO2 and PEEP./ AC mode 2. Follow ABGs and make necessary adjustments. 3. Monitor the clinical course of treatment. 4. We will follow COVID-19 test and if it is positive, we will get plasma. 5. Continue IV steroids. 6. Continue broad-spectrum antibiotics. 7. Renal recommendation. 8. DVT and stress ulcer prophylaxis. 9. The patient is critically ill. 10. S/P 2 litres of IVF volus. Will give another litre and monitor urine output. wean levo 10. Discussed with RN and RT. Critical care time 30 minutes including review of the chart, imaging studies and decision making. MAYA BARROS MD Jun 09, 2020 10:16
[2020-06-09] MEDS: VANCOMYCIN PER PHARMACY MC PRN ×2 (11:22→19:28)
[2020-06-09] MEDS ORDERED: INSULIN LISPRO 300 UNITS/3 ML VIAL. SQ SCH (12:00)
--- NOTE | 2020-06-09 12:04 | PDOC ---
Renal-Progress Notes Subjective Notes Notes NONE History of Present Illness Hx of present illness STABLE Vitals Vitals Vital Signs Date Time Temp Pulse Resp B/P (MAP) Pulse Ox O2 Delivery O2 Flow Rate FiO2 06/09/20 11:19 72 26 105/55 (72) 100 Ventilator 06/09/20 08:00 97.4 97.4 Weight Weight [ ] I.O. Intake and Output Intake and Output 06/09/20 07:00 Intake Total 5078 ml Output Total 1180 ml Balance 3898 ml Intake IV Total 4978 ml Other 100 ml Output Urine Total 735 ml Gastric Drainage Total 400 ml Oral Regurgitation 45 ml Labs Labs Laboratory Tests Test 06/08/20 14:52 06/08/20 19:05 06/08/20 23:42 06/09/20 03:47 Sodium Level 137 mmol/L (136-145) 139 mmol/L (136-145) Potassium Level 6.8 mmol/L (3.5-5.1) 6.1 mmol/L (3.5-5.1) Chloride Level 104 mmol/L (98-107) 105 mmol/L (98-107) Carbon Dioxide Level 21 mmol/L (21-32) 23 mmol/L (21-32) Anion Gap 12 (6-14) 11 (6-14) Blood Urea Nitrogen 28 mg/dL (8-26) 29 mg/dL (8-26) Creatinine 1.2 mg/dL (0.7-1.3) 1.3 mg/dL (0.7-1.3) Estimated GFR (Cockcroft-Gault) 59.9 54.6 Glucose Level 362 mg/dL (70-99) 459 mg/dL (70-99) Calcium Level 8.3 mg/dL (8.5-10.1) 8.3 mg/dL (8.5-10.1) Glucose (Fingerstick) 437 mg/dL (70-99) 381 mg/dL (70-99) Test 06/09/20 05:55 06/09/20 08:00 Sodium Level 140 mmol/L (136-145) Potassium Level 5.0 mmol/L (3.5-5.1) Chloride Level 107 mmol/L (98-107) Carbon Dioxide Level 27 mmol/L (21-32) Anion Gap 6 (6-14) Blood Urea Nitrogen 34 mg/dL (8-26) Creatinine 1.2 mg/dL (0.7-1.3) Estimated GFR (Cockcroft-Gault) 59.9 Glucose Level 378 mg/dL (70-99) Calcium Level 8.2 mg/dL (8.5-10.1) Phosphorus Level 3.2 mg/dL (2.6-4.7) Magnesium Level 1.8 mg/dL (1.8-2.4) O2 Saturation 99 % (92-99) Arterial Blood pH 7.48 (7.35-7.45) Arterial Blood pCO2 at Patient Temp 36 mmHg (35-46) Arterial Blood pO2 at Patient Temp 248 mmHg (65-108) Arterial Blood HCO3 26 mmol/L (21-28) Arterial Blood Base Excess 3 mmol/L (-3-3) FiO2 100 Micro Micro Microbiology 06/07/20 Blood Culture - Preliminary, Resulted Review of Systems Constitutional: yes: other (UNABLE TO OBTAIN) Physical Exam General Appearance: no apparent distress Skin: warm Respiratory: decreased breath sounds Heart: S1S2 Abdomen: soft, bowel sounds present Genitourinary: bladder flat Extremities: pulses present Neurology: other (SEDATED) Assessment Assessment IMP HYPERKALEMIA-IMPROVED SYLVIA-CR 1.2 ON ADMIT-UA NEG ACUTE RESP FAILURE AG M ACIDOSIS, MET ALKALOSIS AND RES ACIDOSIS ACIDEMIA-TYPE A LACTIC ACIDOSIS PROB SEPSIS HYPOTENSION PROB PNEUMONIA PLAN CONT VENT SUPPORT SUPPLEMENTAL O2 PRESSORS NEEDED HOLD METFORMIN HYDRATION REPEAT LABS FOR K SUPPORTIVE CARE WILL FOLLOW COSMO MORENO MD Jun 09, 2020 12:04
--- NOTE | 2020-06-09 14:50 | NUR ---
SS following up with discharge planning. SS reviewed pt chart and discussed with pt RN. Pt is currently on the vent. COVID19 test pending. Pt on IV Vancomycin and IV Meropenem. Pt has court appointed guardian. SS will continue to follow for discharge planning.
--- NOTE | 2020-06-09 17:02 | NUR ---
Tequila Roy, patient's court appointed DPOA returned our call. This RN explained the patient's diagnosis, waiting test results, condition of patient at this moment. Manuela told this RN that the patient has been on and off of hospice several times for pneumonia. She explained for any code status change, it would have to go through the guardenship and court. She also explained that IF the patient's son calls or tries to visit, he has no legal rights to and is not allowed. If any has to get ahold of Tequila Roy, her cell number is .
--- NOTE | 2020-06-09 17:09 | NUR ---
Wound Care: Patient is covid pending. Spoke with RN and picture assessment completed. Patient has scabbed left dorsal foot per RN, recommendations to leave [facility]. Recommendations for Calazime cream to coccyx pressure ulcer at this time. Wound care will reassess tomorrow on 06/10/20.
[2020-06-09 18:41] LABS: VANC TR 10.3 mcg/mL (10.0-20.0)
[2020-06-09] MEDS: ENOXAPARIN 40 MG/0.4 ML SYRINGE. SQ SCH (19:00)
--- NOTE | 2020-06-09 19:45 | NUR ---
Pharmacy Vancomycin Dosing Note S: Consulted to monitor and dose vancomycin started 06/07/20. O: ROBBIN HUDSON is a 69 year old M with Bacteremia CAP, . Other Antibiotics: meropenem LABS: Last BUN: 34 Last Creatinine: 1.2 Creatinine Clearance: 85 mL/min Last WBC: 9.3 Last Procalcitonin: -- Tmax (past 24 hours): 100.2 Microbiology: 06/08 GPC BCX, suggestive of staph in 2 of 2 bottles I/O: 5078/1180 Drug Levels: Last Trough level: 10.3 on 06/09/20 at 1820 Last dose given 06/08/20 at 1949 Vancomycin Dosing: Dosing Weight: Actual Target Trough: 15-20 A: Based on: trough P: 1. Change Vancomycin 1750 mg IV to q18h 2. Follow up Trough level on 06/11 @0730 3. Pharmacy will continue to monitor, follow and adjust therapy as needed. Karin Villela RPH, 06/09/20 194
[2020-06-09] MEDS: VANCOMYCIN 1.75 GM in IV NORMAL SALINE 500ML BAG 500 ML IV SCH (20:00)
[2020-06-09] MEDS: INSULIN GLARGINE SYRINGE. SQ SCH (20:33)
[2020-06-09] MEDS: MIRTAZAPINE 7.5 MG TABLET. PO SCH (20:33)
[2020-06-09] MEDS: OLANZapine 5 MG TABLET PO SCH (21:00)
[2020-06-10] VITALS (24 sets, daily range): BP systolic 90–128; BP diastolic 44–68
[2020-06-10] MEDS: IV DEXTROSE 5% - 0.9 % NACL 1,000 ML IV SCH ×3 (00:59→23:44)
[2020-06-10] MEDS: methylPREDNISolone SOD SUCC PF 40 MG/ML VIAL. IV SCH ×3 (06:15→20:56)
[2020-06-10] MEDS: INSULIN LISPRO 300 UNITS/3 ML VIAL. SQ SCH ×4 (06:15→23:50)
--- NOTE | 2020-06-10 07:44 | PDOC ---
[facility] PROGRESS NOTE Date of Service DOS: DATE: 06/10/20 TIME: 07:43 Chief Complaint Chief Complaint A/P: Sepsis Acute hypercarbic hypoxic respiratory failure requiring intubation Acute metabolic encephalopathy NOS Concern for aspiration pneumonia with chest x-ray showing multifocal infiltrate in the right lower lobe Lactic acidosis Severe protein malnutrition Anxiety with depression dCHF Constipation Diabetes-Type II High Cholesterol Hypertension Schizophrenia BPH Dysphagia PARKINSONS, Hyperkalemia S/p ESTHETICIAN shunt Gram positive bacteremia FEN - OGT PPX - heparin FULL CODE Dispo - ICU CC time 42 min History of Present Illness History of Present Illness Mr Dubois is a 69-year-old male with past medical history of Anxiety with depression, schizophrenia, dCHF, Constipation, Diabetes-Type II, High Cholesterol, Hypertension, BPH, Dysphagia, PARKINSONS, who presents to the emergency room in respiratory failure. According to report patient was normal the morning of 06/07. He has been refusing to eat recently according to staff but did eat lunch immediately before they found him in respiratory distress EMS pulse ox on CPAP is 80%. He was intubated due to respiratory failure and poor ABG on BiPAP. 06/08: Febrile to 101.8 F overnight. Intubated, sedated. K peaked at 6.8, started on D5, insulin, steroids. 06/09: Patient is sedated and intubated upon my examination. AC mode tidal volume 550, PEEP 12 and FiO2 90%. Saturations are 100%. COVID-19 negative. Blood cultures positive for staph epidermidis. Patient sedated and intubated on AC mode tidal volume 550, PEEP 9 FiO2 down to 60%. Tolerating tube feeds well. Vitals/I&O Vitals/I&O: Vital Signs Date Time Temp Pulse Resp B/P (MAP) Pulse Ox O2 Delivery O2 Flow Rate FiO2 06/10/20 06:00 71 26 123/68 (86) 100 Ventilator 06/10/20 04:00 97.6 97.6 I & O 06/09/20 06/09/20 06/10/20 15:00 23:00 07:00 Intake Total 500 ml 985 ml 2877 ml Output Total 410 ml 255 ml 130 ml Balance 90 ml 730 ml 2747 ml Physical Exam Physical Exam: GENERAL: Sedated, orally intubated gentleman, not in any distress. VITAL SIGNS: Stable. HEENT: Both pupils are round and reacting. No conjunctival lesion. Mouth orally intubated, not much mouth can be visualized. NECK: Supple. No JVP. No lymphadenopathy. LUNGS: Clear. HEART: S1, S2 regular. ABDOMEN: Benign, soft, nontender. No organomegaly. EXTREMITIES: No edema or cyanosis. SKIN: Unremarkable. EXTREMITIES: No edema, cyanosis. SKIN: Unremarkable. 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 General: No acute distress Heart: Regular rate Abdomen: Normal bowel sounds Extremities: No clubbing Labs Labs: Laboratory Tests Test 06/09/20 08:00 06/09/20 12:16 06/09/20 17:56 06/09/20 18:20 O2 Saturation 99 % (92-99) Arterial Blood pH 7.48 (7.35-7.45) Arterial Blood pCO2 at Patient Temp 36 mmHg (35-46) Arterial Blood pO2 at Patient Temp 248 mmHg (65-108) Arterial Blood HCO3 26 mmol/L (21-28) Arterial Blood Base Excess 3 mmol/L (-3-3) FiO2 100 Glucose (Fingerstick) 376 mg/dL (70-99) 366 mg/dL (70-99) Vancomycin Level Trough 10.3 mcg/mL (10.0-20.0) Vancomycin Last Dose Date 06/08/20 Vancomycin Last Dose Time 1900 Test 06/09/20 20:43 06/09/20 23:54 06/10/20 06:13 Glucose (Fingerstick) 268 mg/dL (70-99) 341 mg/dL (70-99) 230 mg/dL (70-99) Assessment and Plan Assessmemt and Plan Problems Medical Problems: (1) Aspiration pneumonia Status: Acute (2) Respiratory failure with hypoxia Status: Acute Comment Review of Relevant I have reviewed the following items veronika (where applicable) has been applied. Medications: Current Medications Medications (Trade) Dose Ordered Sig/Cruz Route PRN Reason Start Time Stop Time Status Last Admin Dose Admin Vancomycin HCl (Vancomycin Trough Level) 1 each 1X ONCE MC 06/09/20 18:30 06/09/20 18:31 DC 06/09/20 18:30 Insulin Human Lispro (HumaLOG) 0-9 UNITS Q6HRS SQ 06/09/20 08:15 06/10/20 06:15 Mirtazapine (Remeron) 7.5 mg QHS PO 06/09/20 21:00 06/09/20 20:33 Olanzapine (ZyPREXA) 2.5 mg QHS PO 06/09/20 21:00 06/09/20 21:00 Insulin Glargine (Lantus Syringe) 27 unit QHS SQ 06/09/20 21:00 06/09/20 20:33 Valproic Acid (Depakene) 250 mg [id number] PEG 06/09/20 09:00 06/09/20 20:33 Insulin Glargine (Lantus Syringe) 10 unit 1X ONCE SQ 06/09/20 08:45 06/09/20 08:46 DC 06/09/20 08:45 Vancomycin HCl 1.75 gm/Sodium Chloride 500 ml @ 250 mls/hr Q18H IV 06/09/20 20:00 06/09/20 20:00 Justifications for Admission General Conditions Poss tachycardia?: Yes Justification for admission: Patient has tachycardia (> 100 beats per minute) which is not readily corrected by appropriate treatment within 12 to 24 hours. Elevated Lactate?: Yes Justification for admission: Patient has tachycardia (> 100 beats per minute) or hypotension (SBP < 90 mm Hg) leading to inadequate systemic perfusion as indicated by lactate of greater or equal to 2.5 mmol/L. Poss Metaboilic Acidosis?: Yes Justification for admission: Patient has tachycardia (> 100 beats per minute) or hypotension (SBP < 90 mm Hg) leading to inadequate systemic perfusion as indicated by metabolic acidosis with arterial pH of less than 7.35. Altered mental status?: Yes Justification of admission: Patient has tachycardia (> 100 beats per minute) or hypotension (SBP < 90 mm Hg) leading to inadequate systemic perfusion as indicated by severe/persistent altered mental status. Other Justification ADINA BHATT MD Jun 10, 2020 07:44
--- NOTE | 2020-06-10 07:56 | PDOC ---
Infectious Disease Note Subjective Subjective intubated on vent ROS ROS no n/v/d/ Vital Sign Vital Signs Vital Signs Date Time Temp Pulse Resp B/P (MAP) Pulse Ox O2 Delivery O2 Flow Rate FiO2 06/10/20 06:00 71 26 123/68 (86) 100 Ventilator 06/10/20 04:00 97.6 97.6 Physical Exam PHYSICAL EXAM GENERAL: Sedated, orally intubated gentleman, not in any distress. VITAL SIGNS: Stable. HEENT: Both pupils are round and reacting. No conjunctival lesion. Mouth orally intubated, not much mouth can be visualized. NECK: Supple. No JVP. No lymphadenopathy. LUNGS: Clear. HEART: S1, S2 regular. ABDOMEN: Benign, soft, nontender. No organomegaly. EXTREMITIES: No edema or cyanosis. SKIN: Unremarkable. EXTREMITIES: No edema, cyanosis. SKIN: Unremarkable. NEUROLOGIC: The patient is sedated now, unable to credit collections manager. Labs Lab Laboratory Tests Test 06/09/20 08:00 06/09/20 12:16 06/09/20 17:56 06/09/20 18:20 O2 Saturation 99 % (92-99) Arterial Blood pH 7.48 (7.35-7.45) Arterial Blood pCO2 at Patient Temp 36 mmHg (35-46) Arterial Blood pO2 at Patient Temp 248 mmHg (65-108) Arterial Blood HCO3 26 mmol/L (21-28) Arterial Blood Base Excess 3 mmol/L (-3-3) FiO2 100 Glucose (Fingerstick) 376 mg/dL (70-99) 366 mg/dL (70-99) Vancomycin Level Trough 10.3 mcg/mL (10.0-20.0) Vancomycin Last Dose Date 06/08/20 Vancomycin Last Dose Time 1900 Test 06/09/20 20:43 06/09/20 23:54 06/10/20 06:13 Glucose (Fingerstick) 268 mg/dL (70-99) 341 mg/dL (70-99) 230 mg/dL (70-99) Micro BLOOD CULTURE Final GRAM POSITIVE COCCI IN CLUSTERS, SUGGESTIVE OF STAPH, IN 2 OF 2 BOTTLES OF ONE SET. CALLED TO NGHIA DONATO RN IN ICU AT 12:15 ON 06/08/20 RADHA MT SENT TO [facility] FOR FURTHER WORKUP. Objective Assessment IMPRESSION: 1. Hypoxemia with respiratory failure. 2. Suspected aspiration pneumonia. 3. Lactic acidosis. 4. Fever. 5. Diabetes. 6. Hypertension. 7. Schizophrenia. 8. Rule out COVID-19. 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
[2020-06-10 08:16] LABS: BASE EXCESS ABG 2 mmol/L (-3-3); HCO3 ABG 24 mmol/L (21-28); PCO2 ABG 33 mmHg (35-46); PO2 ABG 79 mmHg (65-108); SAT O2 ABG 96 % (92-99)
[2020-06-10] MEDS: MULTIVITAMINS,THERAPEUTIC 5 ML ORAL LIQUID. PEG SCH (08:37)
[2020-06-10] MEDS: PANTOPRAZOLE IV PUSH 40 MG VIAL. IVP SCH (08:37)
[2020-06-10] MEDS: ASCORBIC ACID 500 MG TABLET PO SCH (08:37)
[2020-06-10] MEDS: VALPROIC ACID (AS SODIUM SALT) 250 MG/5 ML SOLUTION. PEG SCH ×3 (08:38→20:56)
[2020-06-10 08:54] LABS: BASO % 0 % (0-3); EOS % 0 % (0-3); HEMATOCRIT 33.3 % (39.0-53.0); HEMOGLOBIN 11.2 g/dL (13.0-17.5); LYMPH # 0.6 x10^3/uL (1.0-4.8); LYMPH % 4 % (24-48); MEAN CORPUSCULAR HEMOGLOBIN 31 pg (25-35); MEAN CORPUSCULAR HGB CONC 34 g/dL (31-37); MEAN CORPUSCULAR VOLUME 93 fL (79-100); MONO # 0.4 x10^3/uL (0.0-1.1); MONO % 3 % (0-9); NEUT # 15.3 x10^3/uL (1.8-7.7); NEUT % 93 % (31-73); PLATELET COUNT 124 x10^3/uL (140-400); RED BLOOD COUNT 3.58 x10^6/uL (4.30-5.70); RED CELL DISTRIBUTION WIDTH 13.9 % (11.5-14.5); WHITE BLOOD COUNT 16.4 x10^3/uL (4.0-11.0)
[2020-06-10 09:01] LABS: CALCIUM 8.1 mg/dL (8.5-10.1); CREATININE 0.9 mg/dL (0.7-1.3); GFR 83.4
[2020-06-10] MEDS: THIAMINE INJ 100 MG in IV DEXTROSE 5% 50 ML IV SCH (09:15)
[2020-06-10 09:48] LABS: FIO2 ABG 70/VENT
[2020-06-10] MEDS: MEROPENEM 1 GM in IV NORMAL SALINE 100ML 100 ML IV SCH ×2 (10:29→20:53)
[2020-06-10] MEDS ORDERED: INSULIN LISPRO 300 UNITS/3 ML VIAL. SQ ONE ×2 (10:30→13:00)
--- NOTE | 2020-06-10 11:24 | PDOC ---
PULMONARY PROGRESS NOTES DATE: 06/10/20 TIME: 11:21 Subjective remains intubated/sedated improving oxygenation low dose levo Vitals Vital Signs Date Time Temp Pulse Resp B/P (MAP) Pulse Ox O2 Delivery O2 Flow Rate FiO2 06/10/20 10:00 56 20 91/47 (62) 99 Ventilator 06/10/20 08:00 97.9 97.9 Lungs: Clear Cardiovascular: S1 Abdomen: Soft Extremities: No Edema Skin: Warm Labs Laboratory Tests Test 06/08/20 14:52 06/08/20 19:05 06/08/20 23:42 06/09/20 03:47 Sodium Level 137 mmol/L (136-145) 139 mmol/L (136-145) Potassium Level 6.8 mmol/L (3.5-5.1) 6.1 mmol/L (3.5-5.1) Chloride Level 104 mmol/L (98-107) 105 mmol/L (98-107) Carbon Dioxide Level 21 mmol/L (21-32) 23 mmol/L (21-32) Anion Gap 12 (6-14) 11 (6-14) Blood Urea Nitrogen 28 mg/dL (8-26) 29 mg/dL (8-26) Creatinine 1.2 mg/dL (0.7-1.3) 1.3 mg/dL (0.7-1.3) Estimated GFR (Cockcroft-Gault) 59.9 54.6 Glucose Level 362 mg/dL (70-99) 459 mg/dL (70-99) Calcium Level 8.3 mg/dL (8.5-10.1) 8.3 mg/dL (8.5-10.1) Glucose (Fingerstick) 437 mg/dL (70-99) 381 mg/dL (70-99) Test 06/09/20 05:55 06/09/20 08:00 06/09/20 12:16 06/09/20 17:56 Sodium Level 140 mmol/L (136-145) Potassium Level 5.0 mmol/L (3.5-5.1) Chloride Level 107 mmol/L (98-107) Carbon Dioxide Level 27 mmol/L (21-32) Anion Gap 6 (6-14) Blood Urea Nitrogen 34 mg/dL (8-26) Creatinine 1.2 mg/dL (0.7-1.3) Estimated GFR (Cockcroft-Gault) 59.9 Glucose Level 378 mg/dL (70-99) Calcium Level 8.2 mg/dL (8.5-10.1) Phosphorus Level 3.2 mg/dL (2.6-4.7) Magnesium Level 1.8 mg/dL (1.8-2.4) O2 Saturation 99 % (92-99) Arterial Blood pH 7.48 (7.35-7.45) Arterial Blood pCO2 at Patient Temp 36 mmHg (35-46) Arterial Blood pO2 at Patient Temp 248 mmHg (65-108) Arterial Blood HCO3 26 mmol/L (21-28) Arterial Blood Base Excess 3 mmol/L (-3-3) FiO2 100 Glucose (Fingerstick) 376 mg/dL (70-99) 366 mg/dL (70-99) Test 06/09/20 18:20 06/09/20 20:43 06/09/20 23:54 06/10/20 06:13 Vancomycin Level Trough 10.3 mcg/mL (10.0-20.0) Vancomycin Last Dose Date 06/08/20 Vancomycin Last Dose Time 1900 Glucose (Fingerstick) 268 mg/dL (70-99) 341 mg/dL (70-99) 230 mg/dL (70-99) Test 06/10/20 08:00 06/10/20 08:31 O2 Saturation 96 % (92-99) Arterial Blood pH 7.49 (7.35-7.45) Arterial Blood pCO2 at Patient Temp 33 mmHg (35-46) Arterial Blood pO2 at Patient Temp 79 mmHg (65-108) Arterial Blood HCO3 24 mmol/L (21-28) Arterial Blood Base Excess 2 mmol/L (-3-3) FiO2 70/vent White Blood Count 16.4 x10^3/uL (4.0-11.0) Red Blood Count 3.58 x10^6/uL (4.30-5.70) Hemoglobin 11.2 g/dL (13.0-17.5) Hematocrit 33.3 % (39.0-53.0) Mean Corpuscular Volume 93 fL (79-100) Mean Corpuscular Hemoglobin 31 pg (25-35) Mean Corpuscular Hemoglobin Concent 34 g/dL (31-37) Red Cell Distribution Width 13.9 % (11.5-14.5) Platelet Count 124 x10^3/uL (140-400) Neutrophils (%) (Auto) 93 % (31-73) Lymphocytes (%) (Auto) 4 % (24-48) Monocytes (%) (Auto) 3 % (0-9) Eosinophils (%) (Auto) 0 % (0-3) Basophils (%) (Auto) 0 % (0-3) Neutrophils # (Auto) 15.3 x10^3/uL (1.8-7.7) Lymphocytes # (Auto) 0.6 x10^3/uL (1.0-4.8) Monocytes # (Auto) 0.4 x10^3/uL (0.0-1.1) Eosinophils # (Auto) 0.0 x10^3/uL (0.0-0.7) Basophils # (Auto) 0.0 x10^3/uL (0.0-0.2) Sodium Level 140 mmol/L (136-145) Potassium Level 4.0 mmol/L (3.5-5.1) Chloride Level 106 mmol/L (98-107) Carbon Dioxide Level 28 mmol/L (21-32) Anion Gap 6 (6-14) Blood Urea Nitrogen 41 mg/dL (8-26) Creatinine 0.9 mg/dL (0.7-1.3) Estimated GFR (Cockcroft-Gault) 83.4 Glucose Level 367 mg/dL (70-99) Calcium Level 8.1 mg/dL (8.5-10.1) Laboratory Tests Test 06/09/20 12:16 06/09/20 17:56 06/09/20 18:20 06/09/20 20:43 Glucose (Fingerstick) 376 mg/dL (70-99) 366 mg/dL (70-99) 268 mg/dL (70-99) Vancomycin Level Trough 10.3 mcg/mL (10.0-20.0) Vancomycin Last Dose Date 06/08/20 Vancomycin Last Dose Time 1900 Test 06/09/20 23:54 06/10/20 06:13 06/10/20 08:00 06/10/20 08:31 Glucose (Fingerstick) 341 mg/dL (70-99) 230 mg/dL (70-99) O2 Saturation 96 % (92-99) Arterial Blood pH 7.49 (7.35-7.45) Arterial Blood pCO2 at Patient Temp 33 mmHg (35-46) Arterial Blood pO2 at Patient Temp 79 mmHg (65-108) Arterial Blood HCO3 24 mmol/L (21-28) Arterial Blood Base Excess 2 mmol/L (-3-3) FiO2 70/vent White Blood Count 16.4 x10^3/uL (4.0-11.0) Red Blood Count 3.58 x10^6/uL (4.30-5.70) Hemoglobin 11.2 g/dL (13.0-17.5) Hematocrit 33.3 % (39.0-53.0) Mean Corpuscular Volume 93 fL (79-100) Mean Corpuscular Hemoglobin 31 pg (25-35) Mean Corpuscular Hemoglobin Concent 34 g/dL (31-37) Red Cell Distribution Width 13.9 % (11.5-14.5) Platelet Count 124 x10^3/uL (140-400) Neutrophils (%) (Auto) 93 % (31-73) Lymphocytes (%) (Auto) 4 % (24-48) Monocytes (%) (Auto) 3 % (0-9) Eosinophils (%) (Auto) 0 % (0-3) Basophils (%) (Auto) 0 % (0-3) Neutrophils # (Auto) 15.3 x10^3/uL (1.8-7.7) Lymphocytes # (Auto) 0.6 x10^3/uL (1.0-4.8) Monocytes # (Auto) 0.4 x10^3/uL (0.0-1.1) Eosinophils # (Auto) 0.0 x10^3/uL (0.0-0.7) Basophils # (Auto) 0.0 x10^3/uL (0.0-0.2) Sodium Level 140 mmol/L (136-145) Potassium Level 4.0 mmol/L (3.5-5.1) Chloride Level 106 mmol/L (98-107) Carbon Dioxide Level 28 mmol/L (21-32) Anion Gap 6 (6-14) Blood Urea Nitrogen 41 mg/dL (8-26) Creatinine 0.9 mg/dL (0.7-1.3) Estimated GFR (Cockcroft-Gault) 83.4 Glucose Level 367 mg/dL (70-99) Calcium Level 8.1 mg/dL (8.5-10.1) Medications Active Scripts Medications Dose Route/Sig Max Daily Dose Days Date Category Dose Instructions Tylenol (Acetaminophen) 325 Mg Tablet 650 Mg PO BID 06/08/20 Reported Senna-Docusate Sodium Tablet (Sennosides/Docusate Sodium) 1 Each Tablet 1 Each PO PRN PRN 06/08/20 Reported Risperdal (Risperidone) 3 Mg Tablet 0.5 Tab PO BID 30 06/08/20 Reported Potassium Chloride (Potassium Chloride) 20 Meq Tablet.er 20 Meq PO TID 06/08/20 Reported Olanzapine 5 Mg Tablet 0.5 Tab PO QHS 06/08/20 Reported Nystatin 15 Gm Cream..g. 15 Gm TP PRN Q8HRS PRN 06/08/20 Reported Novolog Flexpen (Insulin Aspart) 100 Unit/1 Ml Insuln.pen 1 Unit SQ TIDWMEALS 06/08/20 Reported Mirtazapine 7.5 Mg Tablet 1 Tab PO QHS 30 06/08/20 Reported Milk Of Magnesia (Magnesium Hydroxide) 400 Mg/5 Ml Oral.susp 400 Mg PO PRN PRN 06/08/20 Reported Metformin Hcl 1,000 Mg Tablet 1,000 Mg PO BIDWMEALS 06/08/20 Reported Melatonin 3 Mg Tab.rapdis 1 Tab PO QHS 30 06/08/20 Reported Magnesium Oxide 400 Mg Tablet 1 Tab PO DAILY 06/08/20 Reported Acidophilus (Lactobacillus Acidophilus) 1 Each Capsule 1 Cap PO DAILY 14 06/08/20 Reported Ketoconazole 120 Ml Shampoo 1 Melissa TP TWICE WEEKLY 06/08/20 Reported with at least 3 days between each shampooing Levemir Flextouch (Insulin Detemir) 100 Unit/1 Ml Insuln.pen 27 Unit SQ QHS 06/08/20 Reported Furosemide 20 Mg Tablet 1 Tab PO DAILY 06/08/20 Reported Fleet Enema (Na Phos,M-B/Na Phos,Di-Ba) 133 Ml Enema 133 Ml RC PRN PRN 06/08/20 Reported Divalproex Sodium Er (Divalproex Sodium) 500 Mg Tab.er.24h 2,000 Mg PO QHS 06/08/20 Reported D3-50 (Cholecalciferol (Vitamin D3)) 50,000 Unit Capsule 1,000 Unit PO DAILY 06/08/20 Reported Dulcolax (Bisacodyl) 10 Mg Supp.rect 10 Mg RC PRN DAILY PRN 06/08/20 Reported Atorvastatin Calcium 20 Mg Tablet 20 Mg PO HS 06/08/20 Reported Impression . 1. Acute hypoxic respiratory failure secondary to pneumonia ,shock and acute respiratory distress syndrome. improving 2. Abnormal chest x-ray with bilateral infiltrates suggestive of pneumonia. He could have a gram-negative pneumonia as well. 3. Septic shock. Likely caused by COVID-19 pneumonia. Need to rule out other sources of infection. BC positive ? contaminant 4. Acute kidney injury. 5. Metabolic acidosis secondary to lactic acidosis and sepsis. Plan . 1. Wean FIO2 and PEEP./ AC mode 2. Follow ABGs and make necessary adjustments. 3. Monitor the clinical course of treatment. 4. COVID-19 neg 5. Continue IV steroids.,start taper 6. Continue broad-spectrum antibiotics. 7. Renal recommendation. 8. DVT and stress ulcer prophylaxis. 9. The patient is critically ill. 10. Discussed with RN and RT. Critical care time 30 minutes including review of the chart, imaging studies and decision making. MAYA BARROS MD Jun 10, 2020 11:24
--- NOTE | 2020-06-10 13:14 | NUR ---
Wound/Ostomy Care Wound Type/Assessment: Patient seen per wound care consult regarding left dorsal foot DTI pressure ulcer and coccyx scabbed wound with DTI. Wounds cleansed and assessed. Treatment Recommendations/Plan: Recommendations for A&D ointment to coccyx and skin prep to left dorsal foot DTIs. Dressings applied. Education provided: N/A Offloading surface/device: Patient on an ICU bed at this time, patient turned to left side using wedge and bilateral heel medix placed on patient. Recommended Referrals/Tests: N/A Discharge Recommendations for dressings: Continue current treatment until healed. Dressing change instructions left in room, bed lowered and feeding turned back on with HOB elevated. Spoke with RN regarding POC. Will follow patient regarding wound care.
--- NOTE | 2020-06-10 13:17 | PDOC ---
Renal-Progress Notes Subjective Notes Notes NO CHANGES History of Present Illness Hx of present illness STABLE Vitals Vitals Vital Signs Date Time Temp Pulse Resp B/P (MAP) Pulse Ox O2 Delivery O2 Flow Rate FiO2 06/10/20 13:10 100 Ventilator 06/10/20 10:00 56 20 91/47 (62) 06/10/20 08:00 97.9 97.9 Weight Weight [ ] I.O. Intake and Output Intake and Output 06/10/20 07:00 Intake Total 4362 ml Output Total 795 ml Balance 3567 ml Intake IV Total 1952 ml Tube Feeding 1610 ml Other 800 ml Output Urine Total 795 ml Labs Labs Laboratory Tests Test 06/09/20 17:56 06/09/20 18:20 06/09/20 20:43 06/09/20 23:54 Glucose (Fingerstick) 366 mg/dL (70-99) 268 mg/dL (70-99) 341 mg/dL (70-99) Vancomycin Level Trough 10.3 mcg/mL (10.0-20.0) Vancomycin Last Dose Date 06/08/20 Vancomycin Last Dose Time 1900 Test 06/10/20 06:13 06/10/20 08:00 06/10/20 08:31 06/10/20 12:40 Glucose (Fingerstick) 230 mg/dL (70-99) 373 mg/dL (70-99) O2 Saturation 96 % (92-99) Arterial Blood pH 7.49 (7.35-7.45) Arterial Blood pCO2 at Patient Temp 33 mmHg (35-46) Arterial Blood pO2 at Patient Temp 79 mmHg (65-108) Arterial Blood HCO3 24 mmol/L (21-28) Arterial Blood Base Excess 2 mmol/L (-3-3) FiO2 70/vent White Blood Count 16.4 x10^3/uL (4.0-11.0) Red Blood Count 3.58 x10^6/uL (4.30-5.70) Hemoglobin 11.2 g/dL (13.0-17.5) Hematocrit 33.3 % (39.0-53.0) Mean Corpuscular Volume 93 fL (79-100) Mean Corpuscular Hemoglobin 31 pg (25-35) Mean Corpuscular Hemoglobin Concent 34 g/dL (31-37) Red Cell Distribution Width 13.9 % (11.5-14.5) Platelet Count 124 x10^3/uL (140-400) Neutrophils (%) (Auto) 93 % (31-73) Lymphocytes (%) (Auto) 4 % (24-48) Monocytes (%) (Auto) 3 % (0-9) Eosinophils (%) (Auto) 0 % (0-3) Basophils (%) (Auto) 0 % (0-3) Neutrophils # (Auto) 15.3 x10^3/uL (1.8-7.7) Lymphocytes # (Auto) 0.6 x10^3/uL (1.0-4.8) Monocytes # (Auto) 0.4 x10^3/uL (0.0-1.1) Eosinophils # (Auto) 0.0 x10^3/uL (0.0-0.7) Basophils # (Auto) 0.0 x10^3/uL (0.0-0.2) Sodium Level 140 mmol/L (136-145) Potassium Level 4.0 mmol/L (3.5-5.1) Chloride Level 106 mmol/L (98-107) Carbon Dioxide Level 28 mmol/L (21-32) Anion Gap 6 (6-14) Blood Urea Nitrogen 41 mg/dL (8-26) Creatinine 0.9 mg/dL (0.7-1.3) Estimated GFR (Cockcroft-Gault) 83.4 Glucose Level 367 mg/dL (70-99) Calcium Level 8.1 mg/dL (8.5-10.1) Micro Micro Microbiology 06/07/20 Blood Culture - Final, Complete 06/07/20 Antimicrobic Susceptibility - Final, Complete Review of Systems Constitutional: yes: other (UNABLE TO OBTAIN) Physical Exam General Appearance: no apparent distress Skin: warm Respiratory: decreased breath sounds Heart: S1S2 Abdomen: soft, bowel sounds present Genitourinary: bladder flat Extremities: pulses present Neurology: other (SEDATED) Assessment Assessment IMP HYPERKALEMIA-RESOLVED SYLVIA-RESOLVED ACUTE RESP FAILURE AG M ACIDOSIS, MET ALKALOSIS AND RES ACIDOSIS-CORRECTED ACIDEMIA-TYPE A LACTIC ACIDOSIS PROB SEPSIS HYPOTENSION-BETTER PROB PNEUMONIA PLAN WILL SIGN OFF PLEASE CALL IF NEEDED COSMO MORENO MD Jun 10, 2020 13:17
--- NOTE | 2020-06-10 14:01 | NUR ---
SS following up with discharge planning. SS reviewed pt chart and discussed with pt RN. Pt remains on the vent at this time. Pt on IV Vancomycin and IV Meropenem. COVID19 negative. SS will continue to follow for discharge planning.
[2020-06-10] MEDS: MIDAZOLAM 100mg/100ml NS BAG 100 ML IV PRN (15:40)
[2020-06-10] MEDS: VANCOMYCIN 1.75 GM in IV NORMAL SALINE 500ML BAG 500 ML IV SCH (16:02)
--- NOTE | 2020-06-10 17:36 | RAD ---
EXAM: CHEST ONE VIEW. HISTORY: Intubated, respiratory failure. COMPARISON: 06/08/2020. FINDINGS: A frontal view of the chest is obtained. An endotracheal tube has its tip 9 cm above the renato. A right internal jugular central venous catheter has its tip in the superior cavoatrial junction. A nasogastric tube appears to loop within a large hiatal hernia. A right-sided ventriculoperitoneal shunt catheter descends the right chest. There is a small left pleural effusion. Retrocardiac opacity may reflect a hiatal hernia along with atelectasis or infiltrate. There is no pneumothorax. The heart is not enlarged. There are atherosclerotic calcifications of the aorta. IMPRESSION: 1. The nasogastric tube curled within the retrocardiac territory and may be within a large hiatal hernia. Correlate clinically. 2. Retrocardiac atelectasis or infiltrate. Small left pleural effusion. Electronically signed by: Babar Crooks MD (06/10/2020 5:34 PM) [facility]
[2020-06-10] MEDS: INSULIN GLARGINE SYRINGE. SQ SCH (20:55)
[2020-06-10] MEDS: ENOXAPARIN 40 MG/0.4 ML SYRINGE. SQ SCH (20:56)
[2020-06-10] MEDS: MIRTAZAPINE 7.5 MG TABLET. PO SCH (20:56)
[2020-06-10] MEDS: OLANZapine 5 MG TABLET PO SCH (20:56)
[2020-06-11] VITALS (24 sets, daily range): BP systolic 90–135; BP diastolic 42–100
[2020-06-11] MEDS: MIDAZOLAM 100mg/100ml NS BAG 100 ML IV PRN ×2 (02:39→11:15)
[2020-06-11] MEDS: methylPREDNISolone SOD SUCC PF 40 MG/ML VIAL. IV SCH ×3 (06:21→22:45)
[2020-06-11] MEDS: INSULIN LISPRO 300 UNITS/3 ML VIAL. SQ SCH ×3 (06:22→17:58)
[2020-06-11 07:31] LABS: CREATININE 0.7 mg/dL (0.7-1.3); GFR 111.5
[2020-06-11 07:37] LABS: VANC TR 15.8 mcg/mL (10.0-20.0)
[2020-06-11 07:41] LABS: BASE EXCESS ABG 0 mmol/L (-3-3); HCO3 ABG 25 mmol/L (21-28); PCO2 ABG 39 mmHg (35-46); SAT O2 ABG 85 % (92-99)
--- NOTE | 2020-06-11 07:43 | PDOC ---
Infectious Disease Note Subjective Subjective intubated on vent ROS ROS no n/v/d Vital Sign Vital Signs Vital Signs Date Time Temp Pulse Resp B/P (MAP) Pulse Ox O2 Delivery O2 Flow Rate FiO2 06/11/20 07:00 61 20 100/47 (64) 93 Ventilator 06/11/20 04:00 98.1 98.1 Physical Exam PHYSICAL EXAM GENERAL: Sedated, orally intubated gentleman, not in any distress. VITAL SIGNS: Stable. HEENT: Both pupils are round and reacting. No conjunctival lesion. Mouth orally intubated, not much mouth can be visualized. NECK: Supple. No JVP. No lymphadenopathy. LUNGS: Clear. HEART: S1, S2 regular. ABDOMEN: Benign, soft, nontender. No organomegaly. EXTREMITIES: No edema or cyanosis. SKIN: Unremarkable. EXTREMITIES: No edema, cyanosis. SKIN: Unremarkable. 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 Labs Lab Laboratory Tests Test 06/10/20 08:00 06/10/20 08:31 06/10/20 12:40 06/10/20 18:13 O2 Saturation 96 % (92-99) Arterial Blood pH 7.49 (7.35-7.45) Arterial Blood pCO2 at Patient Temp 33 mmHg (35-46) Arterial Blood pO2 at Patient Temp 79 mmHg (65-108) Arterial Blood HCO3 24 mmol/L (21-28) Arterial Blood Base Excess 2 mmol/L (-3-3) FiO2 70/vent White Blood Count 16.4 x10^3/uL (4.0-11.0) Red Blood Count 3.58 x10^6/uL (4.30-5.70) Hemoglobin 11.2 g/dL (13.0-17.5) Hematocrit 33.3 % (39.0-53.0) Mean Corpuscular Volume 93 fL (79-100) Mean Corpuscular Hemoglobin 31 pg (25-35) Mean Corpuscular Hemoglobin Concent 34 g/dL (31-37) Red Cell Distribution Width 13.9 % (11.5-14.5) Platelet Count 124 x10^3/uL (140-400) Neutrophils (%) (Auto) 93 % (31-73) Lymphocytes (%) (Auto) 4 % (24-48) Monocytes (%) (Auto) 3 % (0-9) Eosinophils (%) (Auto) 0 % (0-3) Basophils (%) (Auto) 0 % (0-3) Neutrophils # (Auto) 15.3 x10^3/uL (1.8-7.7) Lymphocytes # (Auto) 0.6 x10^3/uL (1.0-4.8) Monocytes # (Auto) 0.4 x10^3/uL (0.0-1.1) Eosinophils # (Auto) 0.0 x10^3/uL (0.0-0.7) Basophils # (Auto) 0.0 x10^3/uL (0.0-0.2) Sodium Level 140 mmol/L (136-145) Potassium Level 4.0 mmol/L (3.5-5.1) Chloride Level 106 mmol/L (98-107) Carbon Dioxide Level 28 mmol/L (21-32) Anion Gap 6 (6-14) Blood Urea Nitrogen 41 mg/dL (8-26) Creatinine 0.9 mg/dL (0.7-1.3) Estimated GFR (Cockcroft-Gault) 83.4 Glucose Level 367 mg/dL (70-99) Calcium Level 8.1 mg/dL (8.5-10.1) Glucose (Fingerstick) 373 mg/dL (70-99) 254 mg/dL (70-99) Test 06/10/20 20:54 06/10/20 23:49 06/11/20 06:20 06/11/20 07:00 Glucose (Fingerstick) 229 mg/dL (70-99) 316 mg/dL (70-99) 372 mg/dL (70-99) Creatinine 0.7 mg/dL (0.7-1.3) Estimated GFR (Cockcroft-Gault) 111.5 Vancomycin Level Trough 15.8 mcg/mL (10.0-20.0) Vancomycin Last Dose Date 06/10/20 Vancomycin Last Dose Time 1400 Micro BLOOD CULTURE LC Final Final GRAM POSITIVE COCCI FINAL ID= [STAPHYLOCOCCUS EPIDERMIDIS MRS] STAPHYLOCOCCUS EPIDERMIDIS MRS ANTIMICROBIAL SUSCEPTIBILITY Final Comment POS GILBERTO TYPE 38 STAPHYLOCOCCUS EPIDERMIDIS MRS ANTIBIOTIC RESULT INTERPRETATION AZITHROMYCIN <=2 S CLINDAMYCIN <=0.25 S CIPROFLOXACIN >2 R DAPTOMYCIN <=0.5 S ERYTHROMYCIN <=0.25 S GENTAMICIN <=4 S LINEZOLID <=1 S LEVOFLOXACIN 4 I OXACILLIN >2 R PENICILLIN >2 R RIFAMPIN <=1 S TRIMETHOPRIM/SULFAMETHOXAZOLE >2/38 R TETRACYCLINE >8 R VANCOMYCIN 1 S Unless otherwise specified, Testing Performed by: [facility] [address] [place] [address] For Inquires, the Physician may contact the Microbiology department at [phone] Objective Assessment IMPRESSION: 1. Hypoxemia with respiratory failure. 2. Suspected aspiration pneumonia. 3. Lactic acidosis. 4. Fever. 5. Diabetes. 6. Hypertension. 7. Schizophrenia. 8. Rule out COVID-19. 9 BC + G + cocci, coag neg staph Plan Plan of Care vanc and meropenem check cultures supportive care prognosis poor pt does have WELDER PLASTIC shunt, coag neg staph infection /mail processor infection possible though pt is in NH for years, with the condition he is in ,would not be a candidate for WELDER PLASTIC shunt removal, need to be comfort care LAURA FITZGERALD MD Jun 11, 2020 07:43
--- NOTE | 2020-06-11 08:44 | PDOC ---
[employer] PROGRESS NOTE Date of Service DOS: DATE: 06/11/20 TIME: 08:41 Chief Complaint Chief Complaint A/P: Sepsis Acute hypercarbic hypoxic respiratory failure requiring intubation Acute metabolic encephalopathy NOS Concern for aspiration pneumonia with chest x-ray showing multifocal infiltrate in the right lower lobe Lactic acidosis Severe protein malnutrition Anxiety with depression dCHF Constipation Diabetes-Type II High Cholesterol Hypertension Schizophrenia BPH Dysphagia PARKINSONS, Hyperkalemia S/p FORMAL SERVICE WAITER shunt Gram positive bacteremia FEN - OGT PPX - heparin FULL CODE Dispo - ICU CC time 42 min History of Present Illness History of Present Illness Mr Dubois is a 69-year-old male with past medical history of Anxiety with depression, schizophrenia, dCHF, Constipation, Diabetes-Type II, High Cholesterol, Hypertension, BPH, Dysphagia, PARKINSONS, who presents to the emergency room in respiratory failure. According to report patient was normal the morning of 06/07. He has been refusing to eat recently according to staff but did eat lunch immediately before they found him in respiratory distress EMS pulse ox on CPAP is 80%. He was intubated due to respiratory failure and poor ABG on BiPAP. 06/08: Febrile to 101.8 F overnight. Intubated, sedated. K peaked at 6.8, started on D5, insulin, steroids. 06/09: Patient is sedated and intubated upon my examination. AC mode tidal volume 550, PEEP 12 and FiO2 90%. Saturations are 100%. 06/10: COVID-19 negative. Blood cultures positive for staph epidermidis. Patient sedated and intubated on AC mode tidal volume 550, PEEP 9 FiO2 down to 60%. Tolerating tube feeds well. Afebrile overnight. Sedated intubated AC mode tidal volume 550 PEEP 9 FiO2 70%. Blood pressure dropped on Levophed. Vitals/I&O Vitals/I&O: Vital Signs Date Time Temp Pulse Resp B/P (MAP) Pulse Ox O2 Delivery O2 Flow Rate FiO2 06/11/20 07:29 91 Ventilator 06/11/20 07:00 61 20 100/47 (64) 06/11/20 04:00 98.1 98.1 I & O 0 06/10/20 06/10/20 06/11/20 15:00 23:00 07:00 Intake Total 400 ml 2696.58 ml 2842 ml Output Total 350 ml 240 ml 175 ml Balance 50 ml 2456.58 ml 2667 ml Physical Exam Physical Exam: GENERAL: Sedated, orally intubated gentleman, not in any distress. VITAL SIGNS: Stable. HEENT: Both pupils are round and reacting. No conjunctival lesion. Mouth orally intubated, not much mouth can be visualized. NECK: Supple. No JVP. No lymphadenopathy. LUNGS: Clear. HEART: S1, S2 regular. ABDOMEN: Benign, soft, nontender. No organomegaly. EXTREMITIES: No edema or cyanosis. SKIN: Unremarkable. EXTREMITIES: No edema, cyanosis. SKIN: Unremarkable. 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 General: No acute distress Heart: Regular rate Lungs: Clear Abdomen: Normal bowel sounds Extremities: No clubbing Labs Labs: Laboratory Tests Test 06/10/20 12:40 06/10/20 18:13 06/10/20 20:54 06/10/20 23:49 Glucose (Fingerstick) 373 mg/dL (70-99) 254 mg/dL (70-99) 229 mg/dL (70-99) 316 mg/dL (70-99) Test 06/11/20 06:20 06/11/20 07:00 06/11/20 07:40 Glucose (Fingerstick) 372 mg/dL (70-99) Creatinine 0.7 mg/dL (0.7-1.3) Estimated GFR (Cockcroft-Gault) 111.5 Vancomycin Level Trough 15.8 mcg/mL (10.0-20.0) Vancomycin Last Dose Date 06/10/20 Vancomycin Last Dose Time 1400 O2 Saturation 85 % (92-99) Arterial Blood pH 7.42 (7.35-7.45) Arterial Blood pCO2 at Patient Temp 39 mmHg (35-46) Arterial Blood pO2 at Patient Temp 50 mmHg (65-108) Arterial Blood HCO3 25 mmol/L (21-28) Arterial Blood Base Excess 0 mmol/L (-3-3) Assessment and Plan Assessmemt and Plan Problems Medical Problems: (1) Aspiration pneumonia Status: Acute (2) Respiratory failure with hypoxia Status: Acute Comment Review of Relevant I have reviewed the following items veronika (where applicable) has been applied. Medications: Current Medications Medications (Trade) Dose Ordered Sig/Cruz Route PRN Reason Start Time Stop Time Status Last Admin Dose Admin Insulin Human Lispro (HumaLOG) 15 units 1X ONCE SQ 06/10/20 10:30 06/10/20 10:33 DC 06/10/20 10:35 Insulin Human Lispro (HumaLOG) 21 units 1X ONCE SQ 06/10/20 13:00 06/10/20 13:01 DC 06/10/20 14:05 Justifications for Admission General Conditions Poss tachycardia?: Yes Justification for admission: Patient has tachycardia (> 100 beats per minute) which is not readily corrected by appropriate treatment within 12 to 24 hours. Elevated Lactate?: Yes Justification for admission: Patient has tachycardia (> 100 beats per minute) or hypotension (SBP < 90 mm Hg) leading to inadequate systemic perfusion as indicated by lactate of greater or equal to 2.5 mmol/L. Poss Metaboilic Acidosis?: Yes Justification for admission: Patient has tachycardia (> 100 beats per minute) or hypotension (SBP < 90 mm Hg) leading to inadequate systemic perfusion as indicated by metabolic acidosis with arterial pH of less than 7.35. Altered mental status?: Yes Justification of admission: Patient has tachycardia (> 100 beats per minute) or hypotension (SBP < 90 mm Hg) leading to inadequate systemic perfusion as indicated by severe/persistent altered mental status. Other Justification ADINA BHATT MD Jun 11, 2020 08:44
[2020-06-11 09:01] LABS: PO2 ABG 50 mmHg (65-108)
[2020-06-11] MEDS: VANCOMYCIN PER PHARMACY MC PRN (09:02)
--- NOTE | 2020-06-11 09:02 | NUR ---
Pharmacy Vancomycin Dosing Note S: Consulted to monitor and dose vancomycin started 06/07/20. O: ROBBIN HUDSON is a 69 year old M with Bacteremia and CAP. Other Antibiotics: meropenem LABS: Last BUN: 41 Last Creatinine: 0.7 Creatinine Clearance: 103 mL/min Last WBC: 16.4 Tmax (past 24 hours): 98.1 Microbiology: 06/07: blood cx: Staph epi (S vancomycin) (2/4 bottles) 06/10: blood cx: NGTD I/O: 5938 / 765 Drug Levels: Last Trough level: 15.8 on 06/11/20 at 0700 Last dose given 06/10/20 at 1602 Vancomycin Dosing: Dosing Weight: Actual Target Trough: 15-20 A: Based on: patient's trough level. P: 1. Continue Vancomycin 1750 mg IV q18h 2. Follow up Trough level as needed. 3. Pharmacy will continue to monitor, follow and adjust therapy as needed. BENEDICT HERNANDEZ RPH, 06/11/20 0902
[2020-06-11] MEDS: PANTOPRAZOLE IV PUSH 40 MG VIAL. IVP SCH (09:12)
[2020-06-11] MEDS: ASCORBIC ACID 500 MG TABLET PO SCH (09:12)
[2020-06-11] MEDS: VALPROIC ACID (AS SODIUM SALT) 250 MG/5 ML SOLUTION. PEG SCH ×3 (09:12→21:00)
[2020-06-11] MEDS: MULTIVITAMINS,THERAPEUTIC 5 ML ORAL LIQUID. PEG SCH (09:12)
[2020-06-11] MEDS: MEROPENEM 1 GM in IV NORMAL SALINE 100ML 100 ML IV SCH ×2 (09:14→21:00)
--- NOTE | 2020-06-11 09:50 | NUR ---
SS following up with discharge planning. SS reviewed pt chart and discussed with pt RN. Pt remains on the vent at this time. Pt on IV Vancomycin and IV Meropenem. COVID19 negative. Pt is LTC resident from [facility]. SS will continue to follow for discharge planning.
[2020-06-11] MEDS: VANCOMYCIN 1.75 GM in IV NORMAL SALINE 500ML BAG 500 ML IV SCH (10:04)
[2020-06-11] MEDS ORDERED: IV NORMAL SALINE 1000ML BAG 1,000 ML IV SCH (10:45)
--- NOTE | 2020-06-11 11:01 | PDOC ---
PULMONARY PROGRESS NOTES DATE: 06/11/20 TIME: 10:56 Subjective remains intubated/sedated worse oxygenation low dose levo Vitals Vital Signs Date Time Temp Pulse Resp B/P (MAP) Pulse Ox O2 Delivery O2 Flow Rate FiO2 06/11/20 09:09 95 Ventilator 06/11/20 08:00 74 06/11/20 08:00 97.4 20 94/46 (62) 97.4 Lungs: Clear Cardiovascular: S1 Abdomen: Soft Extremities: No Edema Skin: Warm Labs Laboratory Tests Test 06/09/20 12:16 06/09/20 17:56 06/09/20 18:20 06/09/20 20:43 Glucose (Fingerstick) 376 mg/dL (70-99) 366 mg/dL (70-99) 268 mg/dL (70-99) Vancomycin Level Trough 10.3 mcg/mL (10.0-20.0) Vancomycin Last Dose Date 06/08/20 Vancomycin Last Dose Time 1900 Test 06/09/20 23:54 06/10/20 06:13 06/10/20 08:00 06/10/20 08:31 Glucose (Fingerstick) 341 mg/dL (70-99) 230 mg/dL (70-99) O2 Saturation 96 % (92-99) Arterial Blood pH 7.49 (7.35-7.45) Arterial Blood pCO2 at Patient Temp 33 mmHg (35-46) Arterial Blood pO2 at Patient Temp 79 mmHg (65-108) Arterial Blood HCO3 24 mmol/L (21-28) Arterial Blood Base Excess 2 mmol/L (-3-3) FiO2 70/vent White Blood Count 16.4 x10^3/uL (4.0-11.0) Red Blood Count 3.58 x10^6/uL (4.30-5.70) Hemoglobin 11.2 g/dL (13.0-17.5) Hematocrit 33.3 % (39.0-53.0) Mean Corpuscular Volume 93 fL (79-100) Mean Corpuscular Hemoglobin 31 pg (25-35) Mean Corpuscular Hemoglobin Concent 34 g/dL (31-37) Red Cell Distribution Width 13.9 % (11.5-14.5) Platelet Count 124 x10^3/uL (140-400) Neutrophils (%) (Auto) 93 % (31-73) Lymphocytes (%) (Auto) 4 % (24-48) Monocytes (%) (Auto) 3 % (0-9) Eosinophils (%) (Auto) 0 % (0-3) Basophils (%) (Auto) 0 % (0-3) Neutrophils # (Auto) 15.3 x10^3/uL (1.8-7.7) Lymphocytes # (Auto) 0.6 x10^3/uL (1.0-4.8) Monocytes # (Auto) 0.4 x10^3/uL (0.0-1.1) Eosinophils # (Auto) 0.0 x10^3/uL (0.0-0.7) Basophils # (Auto) 0.0 x10^3/uL (0.0-0.2) Sodium Level 140 mmol/L (136-145) Potassium Level 4.0 mmol/L (3.5-5.1) Chloride Level 106 mmol/L (98-107) Carbon Dioxide Level 28 mmol/L (21-32) Anion Gap 6 (6-14) Blood Urea Nitrogen 41 mg/dL (8-26) Creatinine 0.9 mg/dL (0.7-1.3) Estimated GFR (Cockcroft-Gault) 83.4 Glucose Level 367 mg/dL (70-99) Calcium Level 8.1 mg/dL (8.5-10.1) Test 06/10/20 12:40 06/10/20 18:13 06/10/20 20:54 06/10/20 23:49 Glucose (Fingerstick) 373 mg/dL (70-99) 254 mg/dL (70-99) 229 mg/dL (70-99) 316 mg/dL (70-99) Test 06/11/20 06:20 06/11/20 07:00 06/11/20 07:40 Glucose (Fingerstick) 372 mg/dL (70-99) Creatinine 0.7 mg/dL (0.7-1.3) Estimated GFR (Cockcroft-Gault) 111.5 Vancomycin Level Trough 15.8 mcg/mL (10.0-20.0) Vancomycin Last Dose Date 06/10/20 Vancomycin Last Dose Time 1400 O2 Saturation 85 % (92-99) Arterial Blood pH 7.42 (7.35-7.45) Arterial Blood pCO2 at Patient Temp 39 mmHg (35-46) Arterial Blood pO2 at Patient Temp 50 mmHg (65-108) Arterial Blood HCO3 25 mmol/L (21-28) Arterial Blood Base Excess 0 mmol/L (-3-3) Laboratory Tests Test 06/10/20 12:40 06/10/20 18:13 06/10/20 20:54 06/10/20 23:49 Glucose (Fingerstick) 373 mg/dL (70-99) 254 mg/dL (70-99) 229 mg/dL (70-99) 316 mg/dL (70-99) Test 06/11/20 06:20 06/11/20 07:00 06/11/20 07:40 Glucose (Fingerstick) 372 mg/dL (70-99) Creatinine 0.7 mg/dL (0.7-1.3) Estimated GFR (Cockcroft-Gault) 111.5 Vancomycin Level Trough 15.8 mcg/mL (10.0-20.0) Vancomycin Last Dose Date 06/10/20 Vancomycin Last Dose Time 1400 O2 Saturation 85 % (92-99) Arterial Blood pH 7.42 (7.35-7.45) Arterial Blood pCO2 at Patient Temp 39 mmHg (35-46) Arterial Blood pO2 at Patient Temp 50 mmHg (65-108) Arterial Blood HCO3 25 mmol/L (21-28) Arterial Blood Base Excess 0 mmol/L (-3-3) Medications Active Scripts Medications Dose Route/Sig Max Daily Dose Days Date Category Dose Instructions Tylenol (Acetaminophen) 325 Mg Tablet 650 Mg PO BID 06/08/20 Reported Senna-Docusate Sodium Tablet (Sennosides/Docusate Sodium) 1 Each Tablet 1 Each PO PRN PRN 06/08/20 Reported Risperdal (Risperidone) 3 Mg Tablet 0.5 Tab PO BID 30 06/08/20 Reported Potassium Chloride (Potassium Chloride) 20 Meq Tablet.er 20 Meq PO TID 06/08/20 Reported Olanzapine 5 Mg Tablet 0.5 Tab PO QHS 06/08/20 Reported Nystatin 15 Gm Cream..g. 15 Gm TP PRN Q8HRS PRN 06/08/20 Reported Novolog Flexpen (Insulin Aspart) 100 Unit/1 Ml Insuln.pen 1 Unit SQ TIDWMEALS 06/08/20 Reported Mirtazapine 7.5 Mg Tablet 1 Tab PO QHS 30 06/08/20 Reported Milk Of Magnesia (Magnesium Hydroxide) 400 Mg/5 Ml Oral.susp 400 Mg PO PRN PRN 06/08/20 Reported Metformin Hcl 1,000 Mg Tablet 1,000 Mg PO BIDWMEALS 06/08/20 Reported Melatonin 3 Mg Tab.rapdis 1 Tab PO QHS 30 06/08/20 Reported Magnesium Oxide 400 Mg Tablet 1 Tab PO DAILY 06/08/20 Reported Acidophilus (Lactobacillus Acidophilus) 1 Each Capsule 1 Cap PO DAILY 14 06/08/20 Reported Ketoconazole 120 Ml Shampoo 1 Melissa TP TWICE WEEKLY 30 06/08/20 Reported with at least 3 days between each shampooing Levemir Flextouch (Insulin Detemir) 100 Unit/1 Ml Insuln.pen 27 Unit SQ QHS 06/08/20 Reported Furosemide 20 Mg Tablet 1 Tab PO DAILY 06/08/20 Reported Fleet Enema (Na Phos,M-B/Na Phos,Di-Ba) 133 Ml Enema 133 Ml RC PRN PRN 06/08/20 Reported Divalproex Sodium Er (Divalproex Sodium) 500 Mg Tab.er.24h 2,000 Mg PO QHS 06/08/20 Reported D3-50 (Cholecalciferol (Vitamin D3)) 50,000 Unit Capsule 1,000 Unit PO DAILY 06/08/20 Reported Dulcolax (Bisacodyl) 10 Mg Supp.rect 10 Mg RC PRN DAILY PRN 06/08/20 Reported Atorvastatin Calcium 20 Mg Tablet 20 Mg PO HS 06/08/20 Reported Comments cxr 06/10 lower lobe atelectasis Impression . 1. Acute hypoxic respiratory failure secondary to pneumonia ,shock and acute re spiratory distress syndrome. 2. Abnormal chest x-ray with bilateral infiltrates suggestive of pneumonia. He could have a gram-negative pneumonia as well. 3. Septic shock. Likely caused by COVID-19 pneumonia. Need to rule out other sources of infection. BC positive ? contaminant 4. Acute kidney injury. 5. Metabolic acidosis secondary to lactic acidosis and sepsis. Plan . 1. Not much room to wean FIO2 and PEEP./ AC mode. RT report thick secretions. will repeat cxr and may consider Bronch in am 2. Follow ABGs and make necessary adjustments. 3. Monitor the clinical course of treatment. 4. COVID-19 neg 5. Continue IV steroids., taper 6. Continue broad-spectrum antibiotics. 7. Renal recommendation. 8. DVT and stress ulcer prophylaxis. 9. The patient is critically ill. 10. Discussed with RN and RT. Critical care time 30 minutes including review of the chart, imaging studies and decision making. MAYA BARROS MD Jun 11, 2020 11:01
--- NOTE | 2020-06-11 11:39 | RAD ---
Single view chest INDICATION: Hypoxia. On vent. COMPARISON: 06/10/2020 chest x-ray FINDINGS: Patient remains intubated, ET tube 7.5 cm above the renato. Enteric tube remains present, passing below the diaphragms. Additional tubing coursing along the right-sided chest wall is seen that could represent shunt tubing. There is partially imaged tubing along the medial right neck with tip projecting over the right atrium, possibly reflecting ventriculoatrial shunt tubing. Moderate cardiomegaly remains present. Mediastinum is not widened or shifted but the aorta shows aortic calcifications, similar to prior. The right hilum is unremarkable. The left hilum is obscured by increasing density at the left lung base. The right lung is unremarkable. The left lung shows increasing density, suggesting worsening atelectasis or consolidation. No pneumothorax. No acute or aggressive osseous lesions seen. The left costophrenic angles partly excluded. Visualized upper abdomen is unremarkable. IMPRESSION: Intubated patient with worsening aeration of the left lung base, likely a combination of atelectasis and developing pleural effusion. Electronically signed by: Aditi Pack MD (06/11/2020 11:36 AM) [id number]
[2020-06-11] MEDS ORDERED: INSULIN LISPRO 300 UNITS/3 ML VIAL. SQ ONE (11:45)
[2020-06-11] MEDS: IV NORMAL SALINE 1000ML BAG 1,000 ML IV SCH (11:49)
--- NOTE | 2020-06-11 12:13 | NUR ---
1200 scheduled insulin not administered. blood sugar of 372. administered a one time dose of 21 units per MD order
[2020-06-11] MEDS: THIAMINE INJ 100 MG in IV DEXTROSE 5% 50 ML IV SCH (13:29)
[2020-06-11] MEDS: ENOXAPARIN 40 MG/0.4 ML SYRINGE. SQ SCH (17:58)
--- NOTE | 2020-06-11 20:00 | NUR ---
Patient has Left radial arterial line for BP monitoring and lab draw; wave form dampened, positional and very sluggish to draw back blood. Arterial BP does not correlate with NIBP. After explanation to patient, arterial line removed with catheter intact; pressure held for 5min until hemostasis obtained and pressure dressing applied.
[2020-06-11] MEDS: OLANZapine 5 MG TABLET PO SCH (21:00)
[2020-06-11] MEDS: INSULIN GLARGINE SYRINGE. SQ SCH (21:00)
[2020-06-11] MEDS: MIRTAZAPINE 7.5 MG TABLET. PO SCH (21:00)
[2020-06-12] VITALS (23 sets, daily range): BP systolic 86–127; BP diastolic 50–81
[2020-06-12] MEDS: INSULIN LISPRO 300 UNITS/3 ML VIAL. SQ SCH ×7 (00:18→18:19)
[2020-06-12] MEDS ORDERED: INSULIN LISPRO 300 UNITS/3 ML VIAL. SQ ONE (00:30)
[2020-06-12] MEDS: MIDAZOLAM 100mg/100ml NS BAG 100 ML IV PRN ×2 (01:40→21:36)
[2020-06-12] MEDS: VANCOMYCIN 1.75 GM in IV NORMAL SALINE 500ML BAG 500 ML IV SCH ×2 (02:03→21:09)
[2020-06-12] MEDS: NOREPINEPHRINE VIAL 32 MG in IV D5W 250ML IV PRN (02:14)
--- NOTE | 2020-06-12 05:10 | RAD ---
EXAM: CHEST 1 VIEW History: Intubation COMPARISON: 06/11/2020 TECHNIQUE: Single portable radiograph of the chest FINDINGS: Mild cardiomegaly. ET tube, feeding tube, right-sided internal jugular line are unchanged. Left lung base airspace opacity likely atelectasis or infiltrate with small left pleural effusion and right lung base airspace opacity unchanged. Shunt tubing projects over the right chest wall. IMPRESSION: Unchanged exam. Electronically signed by: Gianluca Hart MD (06/12/2020 5:07 AM) [id number]
[2020-06-12] MEDS: methylPREDNISolone SOD SUCC PF 40 MG/ML VIAL. IV SCH ×2 (06:24→21:20)
[2020-06-12 06:38] LABS: HEMATOCRIT 33.6 % (39.0-53.0); HEMOGLOBIN 11.3 g/dL (13.0-17.5); RED BLOOD COUNT 3.55 x10^6/uL (4.30-5.70); WHITE BLOOD COUNT 13.3 x10^3/uL (4.0-11.0)
[2020-06-12 07:06] LABS: CALCIUM 8.1 mg/dL (8.5-10.1); CREATININE 0.7 mg/dL (0.7-1.3); GFR 111.5; MAGNESIUM 1.9 mg/dL (1.8-2.4); POTASSIUM 4.6 mmol/L (3.5-5.1)
[2020-06-12] MEDS ORDERED: EPINEPHrine 1 MG/ML VIAL INJ PRN (07:15)
[2020-06-12] MEDS ORDERED: LIDOCAINE 2% VISCOUS 100 ML BOTTLE. MM PRN (07:15)
[2020-06-12] MEDS ORDERED: LIDOCAINE 1% Multi-Dose 20 ML VIAL. INJ PRN (07:15)
[2020-06-12 07:48] LABS: BASE EXCESS ABG 1 mmol/L (-3-3); HCO3 ABG 25 mmol/L (21-28); PCO2 ABG 38 mmHg (35-46); PO2 ABG 73 mmHg (65-108); SAT O2 ABG 94 % (92-99)
[2020-06-12 07:50] LABS: FIO2 ABG 70
[2020-06-12] MEDS: VANCOMYCIN PER PHARMACY MC PRN (07:50)
--- NOTE | 2020-06-12 07:56 | PDOC ---
Infectious Disease Note Subjective Subjective intubated on vent ROS ROS no n/v/d/ Vital Sign Vital Signs Vital Signs Date Time Temp Pulse Resp B/P (MAP) Pulse Ox O2 Delivery O2 Flow Rate FiO2 06/12/20 07:14 98 Ventilator 06/12/20 07:00 54 20 113/60 (77) 06/12/20 04:00 98.1 98.1 Physical Exam PHYSICAL EXAM GENERAL: Sedated, orally intubated gentleman, not in any distress. VITAL SIGNS: Stable. HEENT: Both pupils are round and reacting. No conjunctival lesion. Mouth orally intubated, not much mouth can be visualized. NECK: Supple. No JVP. No lymphadenopathy. LUNGS: Clear. HEART: S1, S2 regular. ABDOMEN: Benign, soft, nontender. No organomegaly. EXTREMITIES: No edema or cyanosis. SKIN: Unremarkable. EXTREMITIES: No edema, cyanosis. SKIN: Unremarkable. 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 Labs Lab Laboratory Tests Test 06/11/20 10:54 06/11/20 17:56 06/12/20 00:13 06/12/20 06:15 Glucose (Fingerstick) 379 mg/dL (70-99) 356 mg/dL (70-99) 369 mg/dL (70-99) Sodium Level 139 mmol/L (136-145) Potassium Level 4.6 mmol/L (3.5-5.1) Chloride Level 107 mmol/L (98-107) Carbon Dioxide Level 27 mmol/L (21-32) Anion Gap 5 (6-14) Blood Urea Nitrogen 45 mg/dL (8-26) Creatinine 0.7 mg/dL (0.7-1.3) Estimated GFR (Cockcroft-Gault) 111.5 Glucose Level 448 mg/dL (70-99) Calcium Level 8.1 mg/dL (8.5-10.1) Magnesium Level 1.9 mg/dL (1.8-2.4) Test 06/12/20 06:22 06/12/20 06:30 06/12/20 07:40 Glucose (Fingerstick) 398 mg/dL (70-99) White Blood Count 13.3 x10^3/uL (4.0-11.0) Red Blood Count 3.55 x10^6/uL (4.30-5.70) Hemoglobin 11.3 g/dL (13.0-17.5) Hematocrit 33.6 % (39.0-53.0) Mean Corpuscular Volume 95 fL (79-100) Mean Corpuscular Hemoglobin 32 pg (25-35) Mean Corpuscular Hemoglobin Concent 34 g/dL (31-37) Red Cell Distribution Width 14.0 % (11.5-14.5) Platelet Count 109 x10^3/uL (140-400) O2 Saturation 94 % (92-99) Arterial Blood pH 7.44 (7.35-7.45) Arterial Blood pCO2 at Patient Temp 38 mmHg (35-46) Arterial Blood pO2 at Patient Temp 73 mmHg (65-108) Arterial Blood HCO3 25 mmol/L (21-28) Arterial Blood Base Excess 1 mmol/L (-3-3) FiO2 70 Micro BLOOD CULTURE LC Final Final GRAM POSITIVE COCCI FINAL ID= [STAPHYLOCOCCUS EPIDERMIDIS MRS] STAPHYLOCOCCUS EPIDERMIDIS MRS ANTIMICROBIAL SUSCEPTIBILITY Final Comment POS GILBERTO TYPE 38 STAPHYLOCOCCUS EPIDERMIDIS MRS ANTIBIOTIC RESULT INTERPRETATION AZITHROMYCIN <=2 S CLINDAMYCIN <=0.25 S CIPROFLOXACIN >2 R DAPTOMYCIN <=0.5 S ERYTHROMYCIN <=0.25 S GENTAMICIN <=4 S LINEZOLID <=1 S LEVOFLOXACIN 4 I OXACILLIN >2 R PENICILLIN >2 R RIFAMPIN <=1 S TRIMETHOPRIM/SULFAMETHOXAZOLE >2/38 R TETRACYCLINE >8 R VANCOMYCIN 1 S Unless otherwise specified, Testing Performed by: [address] [address] For Inquires, the Physician may contact the Microbiology department at [phone] Objective Assessment IMPRESSION: 1. Hypoxemia with respiratory failure. 2. Suspected aspiration pneumonia. 3. Lactic acidosis. 4. Fever. 5. Diabetes. 6. Hypertension. 7. Schizophrenia. 8. Rule out COVID-19. 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
--- NOTE | 2020-06-12 08:03 | PDOC ---
[facility] PROGRESS NOTE Date of Service DOS: DATE: 06/12/20 TIME: 07:59 Chief Complaint Chief Complaint A/P: Sepsis Acute hypercarbic hypoxic respiratory failure requiring intubation Acute metabolic encephalopathy NOS Concern for aspiration pneumonia with chest x-ray showing multifocal infiltrate in the right lower lobe Lactic acidosis Severe protein malnutrition Anxiety with depression dCHF Constipation Diabetes-Type II High Cholesterol Hypertension Schizophrenia BPH Dysphagia PARKINSONS, Hyperkalemia S/p PHLEBOTOMY TECH shunt Gram positive bacteremia FEN - OGT PPX - heparin FULL CODE Dispo - ICU CC time 42 min History of Present Illness History of Present Illness Mr Dubois is a 69-year-old male with past medical history of Anxiety with depression, schizophrenia, dCHF, Constipation, Diabetes-Type II, High Cholesterol, Hypertension, BPH, Dysphagia, PARKINSONS, who presents to the emergency room in respiratory failure. According to report patient was normal the morning of 06/07. He has been refusing to eat recently according to staff but did eat lunch immediately before they found him in respiratory distress EMS pulse ox on CPAP is 80%. He was intubated due to respiratory failure and poor ABG on BiPAP. 06/08: Febrile to 101.8 F overnight. Intubated, sedated. K peaked at 6.8, started on D5, insulin, steroids. 06/09: Patient is sedated and intubated upon my examination. AC mode tidal volume 550, PEEP 12 and FiO2 90%. Saturations are 100%. 06/10: COVID-19 negative. Blood cultures positive for staph epidermidis. Patient sedated and intubated on AC mode tidal volume 550, PEEP 9 FiO2 down to 60%. Tolerating tube feeds well. 06/11: Afebrile overnight. Sedated intubated AC mode tidal volume 550 PEEP 9 FiO2 70%. Blood pressure dropped on Levophed. Episodic hypoxia overnight, plans for bronch this morning. Tolerating TF well, however glucose has been very elevated. Vitals/I&O Vitals/I&O: Vital Signs Date Time Temp Pulse Resp B/P (MAP) Pulse Ox O2 Delivery O2 Flow Rate FiO2 06/12/20 07:14 98 Ventilator 06/12/20 07:00 54 20 113/60 (77) 06/12/20 04:00 98.1 98.1 I & O 0 06/11/20 06/11/20 06/12/20 15:00 23:00 07:00 Intake Total 1000 ml 2737.9 ml 2552 ml Output Total 475 ml 475 ml 680 ml Balance 525 ml 2262.9 ml 1872 ml Physical Exam Physical Exam: GENERAL: Sedated, orally intubated gentleman, not in any distress. VITAL SIGNS: Stable. HEENT: Both pupils are round and reacting. No conjunctival lesion. Mouth orally intubated, not much mouth can be visualized. NECK: Supple. No JVP. No lymphadenopathy. LUNGS: Clear. HEART: S1, S2 regular. ABDOMEN: Benign, soft, nontender. No organomegaly. EXTREMITIES: No edema or cyanosis. SKIN: Unremarkable. EXTREMITIES: No edema, cyanosis. SKIN: Unremarkable. 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 General: No acute distress Heart: Regular rate Lungs: Clear Abdomen: Normal bowel sounds Extremities: No clubbing Labs Labs: Laboratory Tests Test 06/11/20 10:54 06/11/20 17:56 06/12/20 00:13 06/12/20 06:15 Glucose (Fingerstick) 379 mg/dL (70-99) 356 mg/dL (70-99) 369 mg/dL (70-99) Sodium Level 139 mmol/L (136-145) Potassium Level 4.6 mmol/L (3.5-5.1) Chloride Level 107 mmol/L (98-107) Carbon Dioxide Level 27 mmol/L (21-32) Anion Gap 5 (6-14) Blood Urea Nitrogen 45 mg/dL (8-26) Creatinine 0.7 mg/dL (0.7-1.3) Estimated GFR (Cockcroft-Gault) 111.5 Glucose Level 448 mg/dL (70-99) Calcium Level 8.1 mg/dL (8.5-10.1) Magnesium Level 1.9 mg/dL (1.8-2.4) Test 06/12/20 06:22 06/12/20 06:30 06/12/20 07:40 Glucose (Fingerstick) 398 mg/dL (70-99) White Blood Count 13.3 x10^3/uL (4.0-11.0) Red Blood Count 3.55 x10^6/uL (4.30-5.70) Hemoglobin 11.3 g/dL (13.0-17.5) Hematocrit 33.6 % (39.0-53.0) Mean Corpuscular Volume 95 fL (79-100) Mean Corpuscular Hemoglobin 32 pg (25-35) Mean Corpuscular Hemoglobin Concent 34 g/dL (31-37) Red Cell Distribution Width 14.0 % (11.5-14.5) Platelet Count 109 x10^3/uL (140-400) O2 Saturation 94 % (92-99) Arterial Blood pH 7.44 (7.35-7.45) Arterial Blood pCO2 at Patient Temp 38 mmHg (35-46) Arterial Blood pO2 at Patient Temp 73 mmHg (65-108) Arterial Blood HCO3 25 mmol/L (21-28) Arterial Blood Base Excess 1 mmol/L (-3-3) FiO2 70 Assessment and Plan Assessmemt and Plan Problems Medical Problems: (1) Aspiration pneumonia Status: Acute (2) Respiratory failure with hypoxia Status: Acute Comment Review of Relevant I have reviewed the following items veronika (where applicable) has been applied. Medications: Current Medications Medications (Trade) Dose Ordered Sig/Cruz Route PRN Reason Start Time Stop Time Status Last Admin Dose Admin Sodium Chloride 1,000 ml @ 20 mls/hr Q24H IV 06/11/20 11:45 06/11/20 11:49 Insulin Human Lispro (HumaLOG) 21 units 1X ONCE SQ 06/11/20 11:45 06/11/20 11:48 DC 06/11/20 11:50 Insulin Human Lispro (HumaLOG) 0-9 UNITS Q6HRS SQ 06/12/20 06:00 06/12/20 06:25 Insulin Human Lispro (HumaLOG) 12 units 1X ONCE SQ 06/12/20 00:30 06/12/20 00:31 DC 06/12/20 00:47 Justifications for Admission General Conditions Poss tachycardia?: Yes Justification for admission: Patient has tachycardia (> 100 beats per minute) which is not readily corrected by appropriate treatment within 12 to 24 hours. Elevated Lactate?: Yes Justification for admission: Patient has tachycardia (> 100 beats per minute) or hypotension (SBP < 90 mm Hg) leading to inadequate systemic perfusion as indicated by lactate of greater or equal to 2.5 mmol/L. Poss Metaboilic Acidosis?: Yes Justification for admission: Patient has tachycardia (> 100 beats per minute) or hypotension (SBP < 90 mm Hg) leading to inadequate systemic perfusion as indicated by metabolic acidosis with arterial pH of less than 7.35. Altered mental status?: Yes Justification of admission: Patient has tachycardia (> 100 beats per minute) or hypotension (SBP < 90 mm Hg) leading to inadequate systemic perfusion as indicated by severe/persistent altered mental status. Other Justification ADINA BHATT MD Jun 12, 2020 08:03
[2020-06-12] MEDS: PANTOPRAZOLE IV PUSH 40 MG VIAL. IVP SCH (08:13)
[2020-06-12] MEDS: MEROPENEM 1 GM in IV NORMAL SALINE 100ML 100 ML IV SCH ×2 (08:14→21:20)
[2020-06-12] MEDS: VALPROIC ACID (AS SODIUM SALT) 250 MG/5 ML SOLUTION. PEG SCH ×3 (08:14→21:20)
[2020-06-12] MEDS: THIAMINE INJ 100 MG in IV DEXTROSE 5% 50 ML IV SCH (08:14)
[2020-06-12] MEDS: ASCORBIC ACID 500 MG TABLET PO SCH (08:15)
[2020-06-12] MEDS: MULTIVITAMINS,THERAPEUTIC 5 ML ORAL LIQUID. PEG SCH (08:15)
[2020-06-12] MEDS ORDERED: LIDOCAINE 1% Multi-Dose 20 ML VIAL. ONE (08:19)
[2020-06-12] MEDS ORDERED: EPINEPHrine 1 MG/ML VIAL ONE (08:19)
[2020-06-12] MEDS ORDERED: LIDOCAINE 2% VISCOUS 100 ML BOTTLE. ONE (08:20)
--- NOTE | 2020-06-12 09:11 | PDOC ---
PULMONARY PROGRESS NOTES DATE: 06/12/20 TIME: 09:03 Subjective remains intubated/sedated nursing reports episodes of hypoxia overnight, oxygen sat 84 % on exam this am Planned for bronchoscope this am remains intubated/sedated remains intubated/sedated Vitals Vital Signs Date Time Temp Pulse Resp B/P (MAP) Pulse Ox O2 Delivery O2 Flow Rate FiO2 06/12/20 07:14 98 Ventilator 06/12/20 07:00 54 20 113/60 (77) 06/12/20 04:00 98.1 98.1 Comments intubated/sedated Lungs: Clear Cardiovascular: S1 Abdomen: Soft Extremities: No Edema Skin: Warm Labs Laboratory Tests Test 06/10/20 12:40 06/10/20 18:13 06/10/20 20:54 06/10/20 23:49 Glucose (Fingerstick) 373 mg/dL (70-99) 254 mg/dL (70-99) 229 mg/dL (70-99) 316 mg/dL (70-99) Test 06/11/20 06:20 06/11/20 07:00 06/11/20 07:40 06/11/20 07:50 Glucose (Fingerstick) 372 mg/dL (70-99) Creatinine 0.7 mg/dL (0.7-1.3) Estimated GFR (Cockcroft-Gault) 111.5 Vancomycin Level Trough 15.8 mcg/mL (10.0-20.0) Vancomycin Last Dose Date 06/10/20 Vancomycin Last Dose Time 1400 O2 Saturation 85 % (92-99) Arterial Blood pH 7.42 (7.35-7.45) Arterial Blood pCO2 at Patient Temp 39 mmHg (35-46) Arterial Blood pO2 at Patient Temp 50 mmHg (65-108) Arterial Blood HCO3 25 mmol/L (21-28) Arterial Blood Base Excess 0 mmol/L (-3-3) Magnesium Level 1.9 mg/dL (1.8-2.4) Test 06/11/20 10:54 06/11/20 17:56 06/12/20 00:13 06/12/20 06:15 Glucose (Fingerstick) 379 mg/dL (70-99) 356 mg/dL (70-99) 369 mg/dL (70-99) Sodium Level 139 mmol/L (136-145) Potassium Level 4.6 mmol/L (3.5-5.1) Chloride Level 107 mmol/L (98-107) Carbon Dioxide Level 27 mmol/L (21-32) Anion Gap 5 (6-14) Blood Urea Nitrogen 45 mg/dL (8-26) Creatinine 0.7 mg/dL (0.7-1.3) Estimated GFR (Cockcroft-Gault) 111.5 Glucose Level 448 mg/dL (70-99) Calcium Level 8.1 mg/dL (8.5-10.1) Magnesium Level 1.9 mg/dL (1.8-2.4) Test 06/12/20 06:22 06/12/20 06:30 06/12/20 07:40 06/12/20 08:16 Glucose (Fingerstick) 398 mg/dL (70-99) 359 mg/dL (70-99) White Blood Count 13.3 x10^3/uL (4.0-11.0) Red Blood Count 3.55 x10^6/uL (4.30-5.70) Hemoglobin 11.3 g/dL (13.0-17.5) Hematocrit 33.6 % (39.0-53.0) Mean Corpuscular Volume 95 fL (79-100) Mean Corpuscular Hemoglobin 32 pg (25-35) Mean Corpuscular Hemoglobin Concent 34 g/dL (31-37) Red Cell Distribution Width 14.0 % (11.5-14.5) Platelet Count 109 x10^3/uL (140-400) O2 Saturation 94 % (92-99) Arterial Blood pH 7.44 (7.35-7.45) Arterial Blood pCO2 at Patient Temp 38 mmHg (35-46) Arterial Blood pO2 at Patient Temp 73 mmHg (65-108) Arterial Blood HCO3 25 mmol/L (21-28) Arterial Blood Base Excess 1 mmol/L (-3-3) FiO2 70 Laboratory Tests Test 06/11/20 10:54 06/11/20 17:56 06/12/20 00:13 06/12/20 06:15 Glucose (Fingerstick) 379 mg/dL (70-99) 356 mg/dL (70-99) 369 mg/dL (70-99) Sodium Level 139 mmol/L (136-145) Potassium Level 4.6 mmol/L (3.5-5.1) Chloride Level 107 mmol/L (98-107) Carbon Dioxide Level 27 mmol/L (21-32) Anion Gap 5 (6-14) Blood Urea Nitrogen 45 mg/dL (8-26) Creatinine 0.7 mg/dL (0.7-1.3) Estimated GFR (Cockcroft-Gault) 111.5 Glucose Level 448 mg/dL (70-99) Calcium Level 8.1 mg/dL (8.5-10.1) Magnesium Level 1.9 mg/dL (1.8-2.4) Test 06/12/20 06:22 06/12/20 06:30 06/12/20 07:40 06/12/20 08:16 Glucose (Fingerstick) 398 mg/dL (70-99) 359 mg/dL (70-99) White Blood Count 13.3 x10^3/uL (4.0-11.0) Red Blood Count 3.55 x10^6/uL (4.30-5.70) Hemoglobin 11.3 g/dL (13.0-17.5) Hematocrit 33.6 % (39.0-53.0) Mean Corpuscular Volume 95 fL (79-100) Mean Corpuscular Hemoglobin 32 pg (25-35) Mean Corpuscular Hemoglobin Concent 34 g/dL (31-37) Red Cell Distribution Width 14.0 % (11.5-14.5) Platelet Count 109 x10^3/uL (140-400) O2 Saturation 94 % (92-99) Arterial Blood pH 7.44 (7.35-7.45) Arterial Blood pCO2 at Patient Temp 38 mmHg (35-46) Arterial Blood pO2 at Patient Temp 73 mmHg (65-108) Arterial Blood HCO3 25 mmol/L (21-28) Arterial Blood Base Excess 1 mmol/L (-3-3) FiO2 70 Medications Active Scripts Medications Dose Route/Sig Max Daily Dose Days Date Category Dose Instructions Tylenol (Acetaminophen) 325 Mg Tablet 650 Mg PO BID 06/08/20 Reported Senna-Docusate Sodium Tablet (Sennosides/Docusate Sodium) 1 Each Tablet 1 Each PO PRN PRN 06/08/20 Reported Risperdal (Risperidone) 3 Mg Tablet 0.5 Tab PO BID 30 06/08/20 Reported Potassium Chloride (Potassium Chloride) 20 Meq Tablet.er 20 Meq PO TID 06/08/20 Reported Olanzapine 5 Mg Tablet 0.5 Tab PO QHS 06/08/20 Reported Nystatin 15 Gm Cream..g. 15 Gm TP PRN Q8HRS PRN 06/08/20 Reported Novolog Flexpen (Insulin Aspart) 100 Unit/1 Ml Insuln.pen 1 Unit SQ TIDWMEALS 06/08/20 Reported Mirtazapine 7.5 Mg Tablet 1 Tab PO QHS 30 06/08/20 Reported Milk Of Magnesia (Magnesium Hydroxide) 400 Mg/5 Ml Oral.susp 400 Mg PO PRN PRN 06/08/20 Reported Metformin Hcl 1,000 Mg Tablet 1,000 Mg PO BIDWMEALS 06/08/20 Reported Melatonin 3 Mg Tab.rapdis 1 Tab PO QHS 30 06/08/20 Reported Magnesium Oxide 400 Mg Tablet 1 Tab PO DAILY 06/08/20 Reported Acidophilus (Lactobacillus Acidophilus) 1 Each Capsule 1 Cap PO DAILY 14 06/08/20 Reported Ketoconazole 120 Ml Shampoo 1 Melissa TP TWICE WEEKLY 30 06/08/20 Reported with at least 3 days between each shampooing Levemir Flextouch (Insulin Detemir) 100 Unit/1 Ml Insuln.pen 27 Unit SQ QHS 06/08/20 Reported Furosemide 20 Mg Tablet 1 Tab PO DAILY 06/08/20 Reported Fleet Enema (Na Phos,M-B/Na Phos,Di-Ba) 133 Ml Enema 133 Ml RC PRN PRN 06/08/20 Reported Divalproex Sodium Er (Divalproex Sodium) 500 Mg Tab.er.24h 2,000 Mg PO QHS 06/08/20 Reported D3-50 (Cholecalciferol (Vitamin D3)) 50,000 Unit Capsule 1,000 Unit PO DAILY 06/08/20 Reported Dulcolax (Bisacodyl) 10 Mg Supp.rect 10 Mg RC PRN DAILY PRN 06/08/20 Reported Atorvastatin Calcium 20 Mg Tablet 20 Mg PO HS 06/08/20 Reported Comments CXR 06/12- Mild cardiomegaly. ET tube, feeding tube, right-sided internal jugular line are unchanged. Left lung base airspace opacity likely atelectasis or infiltrate with small left pleural effusion and right lung base airspace opacity unchanged. Shunt tubing projects over the right chest wall. IMPRESSION: Unchanged exam. Impression . 1. Acute hypoxic respiratory failure secondary to pneumonia ,shock and acute respiratory distress syndrome. 2. Abnormal chest x-ray with bilateral infiltrates suggestive of pneumonia. He could have a gram-negative pneumonia as well. Now with likely left mucous plug 3. Septic shock. Likely caused by COVID-19 pneumonia. Need to rule out other sources of infection. BC positive ? contaminant 4. Acute kidney injury.-- improved 5. Metabolic acidosis secondary to lactic acidosis and sepsis. 6. Coag neg staph in BC/ ID following. 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 1. Continue current vent support, Fi02 70% and PEEP 9, proceed with bronch today 2. Follow ABGs and make necessary adjustments, follow CXR , ET tube high 3. Monitor the clinical course of treatment. 4. COVID-19 neg 5. Continue IV steroids., taper 6. Antibiotics per ID 7. follow nephrology recommendations, ongoing azotemia-- tapering steroids 8. DVT and stress ulcer prophylaxis: lovenox/protonix 9. Cont. TF for nutrition support 10. Hyperglycemia per PCP 11. continue/ wean vasopressors to keep MAP greater than 65 Discussed with RN and RT. Critical care time 30 minutes including review of the chart, imaging studies and decision making. MAYA BARROS MD Jun 12, 2020 09:11
--- NOTE | 2020-06-12 10:23 | OP ---
DATE OF SURGERY: 06/12/2020 BRONCHOSCOPY NOTE INDICATIONS: Mucus plug. DESCRIPTION OF PROCEDURE: Informed consent was obtained from the patient's DPOA. All risks and benefits were explained. Consent was obtained. The patient was already sedated on mechanical ventilation. Bronch was introduced through the endotracheal tube. A therapeutic bronchoscope could not be advanced due to the 7.5 cm ET tube. Upon inspection of the distal trachea and pulling the endotracheal tube back, I was able to advance the bronchoscope into the left mainstem. There was a significant mucopurulent secretions involving the left lung distally in the left lower lobe and lingula. Saline irrigation done and secretions were removed. The patient had no definite endobronchial lesion. All the subsegments of the left upper lobe lingula and left lower lobe were examined and the right lung was examined as well. Bronchoalveolar lavage and washings were performed from the left lower lobe and sent for appropriate studies. The patient tolerated the procedure well. Endotracheal tube was appropriately positioned. IMPRESSION: 1. Thick purulent secretions seen resulting in mucus plugging of the left lower lobe and lingula. 2. Therapeutic bronchoscope performed and secretions were removed. Bronchoalveolar lavage and washings were performed. 3. No endobronchial lesion seen. 4. Follow the culture results. We will follow chest x-ray as well. MAYA BARROS MD DR: GRANT/jacqui JOB#: [id number] / [id number]
--- NOTE | 2020-06-12 11:10 | RAD ---
EXAM: CHEST AP ONLY INDICATION: Reason: ETT REPOSITIONING / Spl. Instructions: / History: . TECHNIQUE: Single view COMPARISON: Earlier same day chest x-ray of 4:23 AM FINDINGS: Patient remains intubated. The endotracheal tube terminates 7.6 cm above the renato. Right jugular approach central venous catheter remains present terminating in the distal SVC similar to prior. Enteric tube is present, apparently looped over the lower chest, potentially within a large hiatal hernia. The heart size is unchanged, borderline enlarged. Great vessels show aortic calcification similar to prior. Left hilum obscured by positioning and opacification of the left hemithorax. Lungs show well aerated right lung but opacified left lung with sparing of the left lung apex. There is slight interval worsening of aeration of the left lung noted. No pneumothorax is seen but a moderate left pleural effusion is likely present. There are no significant osseous abnormalities. IMPRESSION: 1. High riding endotracheal tube, terminating 7.6 cm above the renato. 2. Left basilar opacity with moderate pleural effusion. FOR INTERNAL CODING PURPOSES Critical result: Findings discussed with MAYA BARROS at 06/12/2020 11:06 AM. RESULT CODE: (C) Electronically signed by: Aditi Pack MD (06/12/2020 11:06 AM) [id number]
[2020-06-12] MEDS: IV NORMAL SALINE 1000ML BAG 1,000 ML IV SCH (11:45)
--- NOTE | 2020-06-12 12:53 | RAD ---
CHEST AP ONLY History: Post bronchoscopy and endotracheal tube manipulation Comparison: June 12, 2020 exam at 8:50 AM, this exam timed 1124 Findings: Single view of the chest is submitted. Endotracheal tube terminates about 2 cm from the renato. There is enteric catheter with tip coiled likely just beneath the left hemidiaphragm and probably in the stomach. There is some persistent airspace opacity of the bilateral lung bases and mid left hemithorax, somewhat improved aeration of the mid to superior left hemithorax. There is also mild right perihilar airspace opacity which is similar. Catheter tubing projects over the right hemithorax as seen previously. There is again right internal jugular venous catheter with the tip in the inferior aspect of the superior vena cava. No obvious pneumothorax is identified, limited accurate evaluation in supine patient. Heart size is stable. There is atherosclerotic calcification near the aortic arch. There may be very small pleural effusions bilaterally greater on the left. Impression: , 1. There are support catheters and tubes as stated. There is some persistent airspace opacity, left greater than right although decreased on the left. There may be very small pleural effusions bilaterally greater on the left. Electronically signed by: Theodore Mayfield MD (06/12/2020 12:50 PM) [id number]
--- NOTE | 2020-06-12 13:03 | NUR ---
SW following. Discussed with RN, pt sedated and on a ventilator. Pt from [facility]. Pt has a state appointed guardian. Dr. Fam recommending comfort care. RN advised we may not be there yet. COVID-19 negative. SW will continue to follow.
[2020-06-12] MEDS: ENOXAPARIN 40 MG/0.4 ML SYRINGE. SQ SCH (18:20)
[2020-06-12] MEDS: INSULIN GLARGINE SYRINGE. SQ SCH (21:21)
[2020-06-12] MEDS: MIRTAZAPINE 7.5 MG TABLET. PO SCH (21:21)
[2020-06-12] MEDS: OLANZapine 5 MG TABLET PO SCH (21:21)
[2020-06-13] VITALS (25 sets, daily range): BP systolic 96–147; BP diastolic 45–72
[2020-06-13] MEDS: INSULIN LISPRO 300 UNITS/3 ML VIAL. SQ SCH ×8 (00:18→16:55)
[2020-06-13 06:11] LABS: CALCIUM 8.1 mg/dL (8.5-10.1); CREATININE 0.6 mg/dL (0.7-1.3); GFR 133.2; POTASSIUM 4.2 mmol/L (3.5-5.1)
[2020-06-13 06:17] LABS: BASO % 0 % (0-3); EOS % 0 % (0-3); HEMATOCRIT 35.4 % (39.0-53.0); HEMOGLOBIN 11.9 g/dL (13.0-17.5); LYMPH % 7 % (24-48); MEAN CORPUSCULAR HEMOGLOBIN 31 pg (25-35); MEAN CORPUSCULAR HGB CONC 34 g/dL (31-37); MEAN CORPUSCULAR VOLUME 92 fL (79-100); MONO # 1.1 x10^3/uL (0.0-1.1); MONO % 8 % (0-9); NEUT # 11.6 x10^3/uL (1.8-7.7); NEUT % 85 % (31-73); PLATELET COUNT 137 x10^3/uL (140-400); RED BLOOD COUNT 3.84 x10^6/uL (4.30-5.70); RED CELL DISTRIBUTION WIDTH 13.8 % (11.5-14.5); WHITE BLOOD COUNT 13.6 x10^3/uL (4.0-11.0)
--- NOTE | 2020-06-13 07:10 | PDOC ---
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 According to report patient was normal the morning of 06/07. He has been refusing to eat recently according to staff but did eat lunch immediately before they found him in respiratory distress EMS pulse ox on CPAP is 80%. He was intubated due to respiratory failure and poor ABG on BiPAP. 06/08: Febrile to 101.8 F overnight. Intubated, sedated. K peaked at 6.8, started on D5, insulin, steroids. 06/09: Patient is sedated and intubated upon my examination. AC mode tidal volume 550, PEEP 12 and FiO2 90%. Saturations are 100%. 06/10: COVID-19 negative. Blood cultures positive for staph epidermidis. Patient sedated and intubated on AC mode tidal volume 550, PEEP 9 FiO2 down to 60%. Tolerating tube feeds well. 06/11: Afebrile overnight. Sedated intubated AC mode tidal volume 550 PEEP 9 FiO2 70%. Blood pressure dropped on Levophed. 06/12: Episodic hypoxia overnight, bronchoscopy with significant left-sided mucus plugging removed. Tolerating TF well, however glucose has been very elevated. Still requiring pressor support. Seen on vent in ICU off sedation. Not awakening at this time. Afebrile Vitals/I&O Vitals/I&O: Vital Signs Date Time Temp Pulse Resp B/P (MAP) Pulse Ox O2 Delivery O2 Flow Rate FiO2 06/13/20 06:00 49 20 106/52 (70) 97 Ventilator 9/19/20 04:00 97.8 97.8 I & O 06/12/20 06/12/20 06/13/20 15:00 23:00 07:00 Intake Total 350 ml 300 ml 2253 ml Output Total 585 ml 490 ml 485 ml Balance -235 ml -190 ml 1768 ml Physical Exam Physical Exam: GENERAL: Sedated, orally intubated gentleman, not in any distress. VITAL SIGNS: Stable. HEENT: Both pupils are round and reacting. No conjunctival lesion. Mouth orally intubated, not much mouth can be visualized. NECK: Supple. No JVP. No lymphadenopathy. LUNGS: Clear. HEART: S1, S2 regular. ABDOMEN: Benign, soft, nontender. No organomegaly. EXTREMITIES: No edema or cyanosis. SKIN: Unremarkable. EXTREMITIES: No edema, cyanosis. SKIN: Unremarkable. NEUROLOGIC: The patient is sedated now, unable to housing court judge. General: No acute distress Heart: Regular rate Lungs: Clear Abdomen: Normal bowel sounds Extremities: No clubbing Labs Labs: Laboratory Tests Test 06/12/20 07:40 06/12/20 08:16 06/12/20 12:21 06/12/20 12:23 O2 Saturation 94 % (92-99) Arterial Blood pH 7.44 (7.35-7.45) Arterial Blood pCO2 at Patient Temp 38 mmHg (35-46) Arterial Blood pO2 at Patient Temp 73 mmHg (65-108) Arterial Blood HCO3 25 mmol/L (21-28) Arterial Blood Base Excess 1 mmol/L (-3-3) FiO2 70 Glucose (Fingerstick) 359 mg/dL (70-99) 363 mg/dL (70-99) 326 mg/dL (70-99) Test 06/12/20 18:11 06/12/20 21:19 06/13/20 00:17 06/13/20 04:49 Glucose (Fingerstick) 299 mg/dL (70-99) 279 mg/dL (70-99) 290 mg/dL (70-99) White Blood Count 13.6 x10^3/uL (4.0-11.0) Red Blood Count 3.84 x10^6/uL (4.30-5.70) Hemoglobin 11.9 g/dL (13.0-17.5) Hematocrit 35.4 % (39.0-53.0) Mean Corpuscular Volume 92 fL (79-100) Mean Corpuscular Hemoglobin 31 pg (25-35) Mean Corpuscular Hemoglobin Concent 34 g/dL (31-37) Red Cell Distribution Width 13.8 % (11.5-14.5) Platelet Count 137 x10^3/uL (140-400) Neutrophils (%) (Auto) 85 % (31-73) Lymphocytes (%) (Auto) 7 % (24-48) Monocytes (%) (Auto) 8 % (0-9) Eosinophils (%) (Auto) 0 % (0-3) Basophils (%) (Auto) 0 % (0-3) Neutrophils # (Auto) 11.6 x10^3/uL (1.8-7.7) Lymphocytes # (Auto) 1.0 x10^3/uL (1.0-4.8) Monocytes # (Auto) 1.1 x10^3/uL (0.0-1.1) Eosinophils # (Auto) 0.0 x10^3/uL (0.0-0.7) Basophils # (Auto) 0.0 x10^3/uL (0.0-0.2) Sodium Level 140 mmol/L (136-145) Potassium Level 4.2 mmol/L (3.5-5.1) Chloride Level 107 mmol/L (98-107) Carbon Dioxide Level 27 mmol/L (21-32) Anion Gap 6 (6-14) Blood Urea Nitrogen 35 mg/dL (8-26) Creatinine 0.6 mg/dL (0.7-1.3) Estimated GFR (Cockcroft-Gault) 133.2 Glucose Level 257 mg/dL (70-99) Calcium Level 8.1 mg/dL (8.5-10.1) Test 06/13/20 05:36 Glucose (Fingerstick) 251 mg/dL (70-99) Assessment and Plan Assessmemt and Plan Problems Medical Problems: (1) Aspiration pneumonia Status: Acute (2) Respiratory failure with hypoxia Status: Acute Comment Review of Relevant I have reviewed the following items veronika (where applicable) has been applied. Medications: Current Medications Medications (Trade) Dose Ordered Sig/Cruz Route PRN Reason Start Time Stop Time Status Last Admin Dose Admin Lidocaine HCl (Lidocaine 2% Viscous) 100 ml PRN 1X PRN MM FOR PROCEDURE 06/12/20 07:15 06/13/20 07:14 06/12/20 09:25 Lidocaine HCl (Lidocaine 1% 20ml Vial) 20 ml PRN 1X PRN INJ SEE COMMENTS 06/12/20 07:15 06/13/20 07:14 06/12/20 09:26 Insulin Human Lispro (HumaLOG) 9 units Q6HRS SQ 06/12/20 08:00 06/13/20 06:26 Methylprednisolone Sodium Succinate (SOLU-Medrol 40MG VIAL) 40 mg BID IV 06/12/20 21:00 06/12/20 21:20 Justifications for Admission General Conditions Poss tachycardia?: Yes Justification for admission: Patient has tachycardia (> 100 beats per minute) which is not readily corrected by appropriate treatment within 12 to 24 hours. Elevated Lactate?: Yes Justification for admission: Patient has tachycardia (> 100 beats per minute) or hypotension (SBP < 90 mm Hg) leading to inadequate systemic perfusion as indicated by lactate of greater or equal to 2.5 mmol/L. Poss Metaboilic Acidosis?: Yes Justification for admission: Patient has tachycardia (> 100 beats per minute) or hypotension (SBP < 90 mm Hg) leading to inadequate systemic perfusion as indicated by metabolic acidosis with arterial pH of less than 7.35. Altered mental status?: Yes Justification of admission: Patient has tachycardia (> 100 beats per minute) or hypotension (SBP < 90 mm Hg) leading to inadequate systemic perfusion as indicated by severe/persistent altered mental status. Other Justification ADINA BHATT MD Jun 13, 2020 07:10
[2020-06-13] MEDS: PANTOPRAZOLE IV PUSH 40 MG VIAL. IVP SCH (07:30)
--- NOTE | 2020-06-13 08:16 | RAD ---
EXAM: PORTABLE CHEST 1V INDICATION: Reason: vent ICU#105 / Spl. Instructions: / History: . TECHNIQUE: Single view COMPARISON: 06/12/2020 FINDINGS: Patient has been intubated with ET tube terminating 4.2 cm above the renato. Enteric tube passes below the diaphragms. Right-sided chest catheter terminates in the region of the superior SVC. Additional catheter lateral to this may represent shunt catheter tubing. The heart size is normal. The great vessels again show aortic calcifications but otherwise appear unremarkable. There is no hilar or mediastinal mass. The lungs are hypoventilatory and show streaky densities of the bilateral lung bases. There is no pneumothorax. Haziness in the bilateral lung bases, left greater than right could represent the presence of small pleural effusions. There are no significant osseous abnormalities. IMPRESSION: Stable intubation and enteric tube placement with low lung volumes and probable bibasilar atelectasis in the setting of small pleural effusions. Electronically signed by: Aditi Pack MD (06/13/2020 8:13 AM) [facility] [place]
[2020-06-13 08:22] LABS: BASE EXCESS ABG 3 mmol/L (-3-3); HCO3 ABG 26 mmol/L (21-28); PCO2 ABG 34 mmHg (35-46); PO2 ABG 118 mmHg (65-108); SAT O2 ABG 98 % (92-99)
[2020-06-13 08:27] LABS: FIO2 ABG 70
[2020-06-13] MEDS: methylPREDNISolone SOD SUCC PF 40 MG/ML VIAL. IV SCH ×2 (09:00→20:35)
--- NOTE | 2020-06-13 09:07 | PDOC ---
PULMONARY PROGRESS NOTES DATE: 06/13/20 TIME: 09:03 Subjective remains intubated/sedated S/P bronchoscopy on 06/12 no overnight concerns from nursing Vitals Vital Signs Date Time Temp Pulse Resp B/P (MAP) Pulse Ox O2 Delivery O2 Flow Rate FiO2 06/13/20 08:00 Mechanical Ventilator 06/13/20 08:00 97.9 54 20 127/61 (83) 99 97.9 Comments intubated/sedated Lungs: Clear Cardiovascular: S1 Abdomen: Soft Extremities: Other (BLE +2) Skin: Warm Labs Laboratory Tests Test 06/11/20 10:54 06/11/20 17:56 06/12/20 00:13 06/12/20 06:15 Glucose (Fingerstick) 379 mg/dL (70-99) 356 mg/dL (70-99) 369 mg/dL (70-99) Sodium Level 139 mmol/L (136-145) Potassium Level 4.6 mmol/L (3.5-5.1) Chloride Level 107 mmol/L (98-107) Carbon Dioxide Level 27 mmol/L (21-32) Anion Gap 5 (6-14) Blood Urea Nitrogen 45 mg/dL (8-26) Creatinine 0.7 mg/dL (0.7-1.3) Estimated GFR (Cockcroft-Gault) 111.5 Glucose Level 448 mg/dL (70-99) Calcium Level 8.1 mg/dL (8.5-10.1) Magnesium Level 1.9 mg/dL (1.8-2.4) Test 06/12/20 06:22 06/12/20 06:30 06/12/20 07:40 06/12/20 08:16 Glucose (Fingerstick) 398 mg/dL (70-99) 359 mg/dL (70-99) White Blood Count 13.3 x10^3/uL (4.0-11.0) Red Blood Count 3.55 x10^6/uL (4.30-5.70) Hemoglobin 11.3 g/dL (13.0-17.5) Hematocrit 33.6 % (39.0-53.0) Mean Corpuscular Volume 95 fL (79-100) Mean Corpuscular Hemoglobin 32 pg (25-35) Mean Corpuscular Hemoglobin Concent 34 g/dL (31-37) Red Cell Distribution Width 14.0 % (11.5-14.5) Platelet Count 109 x10^3/uL (140-400) O2 Saturation 94 % (92-99) Arterial Blood pH 7.44 (7.35-7.45) Arterial Blood pCO2 at Patient Temp 38 mmHg (35-46) Arterial Blood pO2 at Patient Temp 73 mmHg (65-108) Arterial Blood HCO3 25 mmol/L (21-28) Arterial Blood Base Excess 1 mmol/L (-3-3) FiO2 70 Test 06/12/20 12:21 06/12/20 12:23 06/12/20 18:11 06/12/20 21:19 Glucose (Fingerstick) 363 mg/dL (70-99) 326 mg/dL (70-99) 299 mg/dL (70-99) 279 mg/dL (70-99) Test 06/13/20 00:17 06/13/20 04:49 06/13/20 05:36 06/13/20 08:15 Glucose (Fingerstick) 290 mg/dL (70-99) 251 mg/dL (70-99) White Blood Count 13.6 x10^3/uL (4.0-11.0) Red Blood Count 3.84 x10^6/uL (4.30-5.70) Hemoglobin 11.9 g/dL (13.0-17.5) Hematocrit 35.4 % (39.0-53.0) Mean Corpuscular Volume 92 fL (79-100) Mean Corpuscular Hemoglobin 31 pg (25-35) Mean Corpuscular Hemoglobin Concent 34 g/dL (31-37) Red Cell Distribution Width 13.8 % (11.5-14.5) Platelet Count 137 x10^3/uL (140-400) Neutrophils (%) (Auto) 85 % (31-73) Lymphocytes (%) (Auto) 7 % (24-48) Monocytes (%) (Auto) 8 % (0-9) Eosinophils (%) (Auto) 0 % (0-3) Basophils (%) (Auto) 0 % (0-3) Neutrophils # (Auto) 11.6 x10^3/uL (1.8-7.7) Lymphocytes # (Auto) 1.0 x10^3/uL (1.0-4.8) Monocytes # (Auto) 1.1 x10^3/uL (0.0-1.1) Eosinophils # (Auto) 0.0 x10^3/uL (0.0-0.7) Basophils # (Auto) 0.0 x10^3/uL (0.0-0.2) Sodium Level 140 mmol/L (136-145) Potassium Level 4.2 mmol/L (3.5-5.1) Chloride Level 107 mmol/L (98-107) Carbon Dioxide Level 27 mmol/L (21-32) Anion Gap 6 (6-14) Blood Urea Nitrogen 35 mg/dL (8-26) Creatinine 0.6 mg/dL (0.7-1.3) Estimated GFR (Cockcroft-Gault) 133.2 Glucose Level 257 mg/dL (70-99) Calcium Level 8.1 mg/dL (8.5-10.1) O2 Saturation 98 % (92-99) Arterial Blood pH 7.50 (7.35-7.45) Arterial Blood pCO2 at Patient Temp 34 mmHg (35-46) Arterial Blood pO2 at Patient Temp 118 mmHg (65-108) Arterial Blood HCO3 26 mmol/L (21-28) Arterial Blood Base Excess 3 mmol/L (-3-3) FiO2 70 Laboratory Tests Test 06/12/20 12:21 06/12/20 12:23 06/12/20 18:11 06/12/20 21:19 Glucose (Fingerstick) 363 mg/dL (70-99) 326 mg/dL (70-99) 299 mg/dL (70-99) 279 mg/dL (70-99) Test 06/13/20 00:17 06/13/20 04:49 06/13/20 05:36 06/13/20 08:15 Glucose (Fingerstick) 290 mg/dL (70-99) 251 mg/dL (70-99) White Blood Count 13.6 x10^3/uL (4.0-11.0) Red Blood Count 3.84 x10^6/uL (4.30-5.70) Hemoglobin 11.9 g/dL (13.0-17.5) Hematocrit 35.4 % (39.0-53.0) Mean Corpuscular Volume 92 fL (79-100) Mean Corpuscular Hemoglobin 31 pg (25-35) Mean Corpuscular Hemoglobin Concent 34 g/dL (31-37) Red Cell Distribution Width 13.8 % (11.5-14.5) Platelet Count 137 x10^3/uL (140-400) Neutrophils (%) (Auto) 85 % (31-73) Lymphocytes (%) (Auto) 7 % (24-48) Monocytes (%) (Auto) 8 % (0-9) Eosinophils (%) (Auto) 0 % (0-3) Basophils (%) (Auto) 0 % (0-3) Neutrophils # (Auto) 11.6 x10^3/uL (1.8-7.7) Lymphocytes # (Auto) 1.0 x10^3/uL (1.0-4.8) Monocytes # (Auto) 1.1 x10^3/uL (0.0-1.1) Eosinophils # (Auto) 0.0 x10^3/uL (0.0-0.7) Basophils # (Auto) 0.0 x10^3/uL (0.0-0.2) Sodium Level 140 mmol/L (136-145) Potassium Level 4.2 mmol/L (3.5-5.1) Chloride Level 107 mmol/L (98-107) Carbon Dioxide Level 27 mmol/L (21-32) Anion Gap 6 (6-14) Blood Urea Nitrogen 35 mg/dL (8-26) Creatinine 0.6 mg/dL (0.7-1.3) Estimated GFR (Cockcroft-Gault) 133.2 Glucose Level 257 mg/dL (70-99) Calcium Level 8.1 mg/dL (8.5-10.1) O2 Saturation 98 % (92-99) Arterial Blood pH 7.50 (7.35-7.45) Arterial Blood pCO2 at Patient Temp 34 mmHg (35-46) Arterial Blood pO2 at Patient Temp 118 mmHg (65-108) Arterial Blood HCO3 26 mmol/L (21-28) Arterial Blood Base Excess 3 mmol/L (-3-3) FiO2 70 Medications Active Scripts Medications Dose Route/Sig Max Daily Dose Days Date Category Dose Instructions Tylenol (Acetaminophen) 325 Mg Tablet 650 Mg PO BID 06/08/20 Reported Senna-Docusate Sodium Tablet (Sennosides/Docusate Sodium) 1 Each Tablet 1 Each PO PRN PRN 06/08/20 Reported Risperdal (Risperidone) 3 Mg Tablet 0.5 Tab PO BID 30 06/08/20 Reported Potassium Chloride (Potassium Chloride) 20 Meq Tablet.er 20 Meq PO TID 06/08/20 Reported Olanzapine 5 Mg Tablet 0.5 Tab PO QHS 06/08/20 Reported Nystatin 15 Gm Cream..g. 15 Gm TP PRN Q8HRS PRN 06/08/20 Reported Novolog Flexpen (Insulin Aspart) 100 Unit/1 Ml Insuln.pen 1 Unit SQ TIDWMEALS 06/08/20 Reported Mirtazapine 7.5 Mg Tablet 1 Tab PO QHS 30 06/08/20 Reported Milk Of Magnesia (Magnesium Hydroxide) 400 Mg/5 Ml Oral.susp 400 Mg PO PRN PRN 06/08/20 Reported Metformin Hcl 1,000 Mg Tablet 1,000 Mg PO BIDWMEALS 06/08/20 Reported Melatonin 3 Mg Tab.rapdis 1 Tab PO QHS 30 06/08/20 Reported Magnesium Oxide 400 Mg Tablet 1 Tab PO DAILY 06/08/20 Reported Acidophilus (Lactobacillus Acidophilus) 1 Each Capsule 1 Cap PO DAILY 14 06/08/20 Reported Ketoconazole 120 Ml Shampoo 1 Melissa TP TWICE WEEKLY 30 06/08/20 Reported with at least 3 days between each shampooing Levemir Flextouch (Insulin Detemir) 100 Unit/1 Ml Insuln.pen 27 Unit SQ QHS 06/08/20 Reported Furosemide 20 Mg Tablet 1 Tab PO DAILY 06/08/20 Reported Fleet Enema (Na Phos,M-B/Na Phos,Di-Ba) 133 Ml Enema 133 Ml RC PRN PRN 06/08/20 Reported Divalproex Sodium Er (Divalproex Sodium) 500 Mg Tab.er.24h 2,000 Mg PO QHS 06/08/20 Reported D3-50 (Cholecalciferol (Vitamin D3)) 50,000 Unit Capsule 1,000 Unit PO DAILY 06/08/20 Reported Dulcolax (Bisacodyl) 10 Mg Supp.rect 10 Mg RC PRN DAILY PRN 06/08/20 Reported Atorvastatin Calcium 20 Mg Tablet 20 Mg PO HS 06/08/20 Reported Comments CXR 06/13 marked improvement in left lung infiltrate Impression . 1. Acute hypoxic respiratory failure secondary to pneumonia ,shock and acute respiratory distress syndrome.--improving 2. Abnormal chest x-ray with bilateral infiltrates suggestive of pneumonia. He could have a gram-negative pneumonia as well. left mucous plug 06/12. s/p Bronch. thick secretions remoced 3. Septic shock. Likely caused by COVID-19 pneumonia. Need to rule out other sources of infection. BC positive ? contaminant 4. Acute kidney injury.-- improved 5. Metabolic acidosis secondary to lactic acidosis and sepsis. 6. Coag neg staph in BC/ ID following. Has TRAFFIC OR SYSTEM DISPATCHER shunt Plan . 1. Continue current vent support, wean Fi02 and PEEP . dc sedation , CPAP trial once awake 2. Follow ABGs and make necessary adjustments, follow CXR much improved. 3. Monitor the clinical course of treatment. 4. COVID-19 neg 5. Continue IV steroids., taper 6. Antibiotics per ID 7. follow nephrology recommendations, ongoing azotemia-- tapering steroids 8. DVT and stress ulcer prophylaxis: lovenox/protonix 9. Cont. TF for nutrition support 10. Hyperglycemia per PCP 11. continue/ wean vasopressors to keep MAP greater than 65 12. Follow Bronch cultures. Discussed with RN and RT. Critical care time 30 minutes including review of the chart, imaging studies and decision making. MAYA BARROS MD Jun 13, 2020 09:07
[2020-06-13] MEDS: VALPROIC ACID (AS SODIUM SALT) 250 MG/5 ML SOLUTION. PEG SCH ×3 (09:25→20:36)
[2020-06-13] MEDS: MULTIVITAMINS,THERAPEUTIC 5 ML ORAL LIQUID. PEG SCH (09:25)
[2020-06-13] MEDS: MEROPENEM 1 GM in IV NORMAL SALINE 100ML 100 ML IV SCH ×2 (09:25→20:36)
[2020-06-13] MEDS: THIAMINE INJ 100 MG in IV DEXTROSE 5% 50 ML IV SCH (09:25)
[2020-06-13] MEDS: ASCORBIC ACID 500 MG TABLET PO SCH (09:25)
--- NOTE | 2020-06-13 09:57 | PDOC ---
Infectious Disease Note Subjective Subjective Remains orally intubated an sedated No fevers last 24 hrs Hypotensive, on Levophed ROS ROS unobtainable Vital Sign Vital Signs Vital Signs Date Time Temp Pulse Resp B/P (MAP) Pulse Ox O2 Delivery O2 Flow Rate FiO2 06/13/20 08:00 Mechanical Ventilator 06/13/20 08:00 97.9 54 20 127/61 (83) 99 97.9 Physical Exam PHYSICAL EXAM GENERAL: Orally intubated and sedated. HEENT: Pupils are round, small. ETT in place NECK: Supple. LUNGS: Clear anteriorly HEART: S1, S2 regular, olga ABDOMEN: Obese, soft, no guarding, BS present : Quintero in place EXTREMITIES: Generalized edema. No cyanosis. SCDs and heel boots, bilaterally SKIN: warm to touch. No signs of generalized rash NEUROLOGIC: The patient is sedated now, unable to magistrate judge. RIJ without signs of complications Labs Lab Laboratory Tests Test 06/12/20 12:21 06/12/20 12:23 06/12/20 18:11 06/12/20 21:19 Glucose (Fingerstick) 363 mg/dL (70-99) 326 mg/dL (70-99) 299 mg/dL (70-99) 279 mg/dL (70-99) Test 06/13/20 00:17 06/13/20 04:49 06/13/20 05:36 06/13/20 08:15 Glucose (Fingerstick) 290 mg/dL (70-99) 251 mg/dL (70-99) White Blood Count 13.6 x10^3/uL (4.0-11.0) Red Blood Count 3.84 x10^6/uL (4.30-5.70) Hemoglobin 11.9 g/dL (13.0-17.5) Hematocrit 35.4 % (39.0-53.0) Mean Corpuscular Volume 92 fL (79-100) Mean Corpuscular Hemoglobin 31 pg (25-35) Mean Corpuscular Hemoglobin Concent 34 g/dL (31-37) Red Cell Distribution Width 13.8 % (11.5-14.5) Platelet Count 137 x10^3/uL (140-400) Neutrophils (%) (Auto) 85 % (31-73) Lymphocytes (%) (Auto) 7 % (24-48) Monocytes (%) (Auto) 8 % (0-9) Eosinophils (%) (Auto) 0 % (0-3) Basophils (%) (Auto) 0 % (0-3) Neutrophils # (Auto) 11.6 x10^3/uL (1.8-7.7) Lymphocytes # (Auto) 1.0 x10^3/uL (1.0-4.8) Monocytes # (Auto) 1.1 x10^3/uL (0.0-1.1) Eosinophils # (Auto) 0.0 x10^3/uL (0.0-0.7) Basophils # (Auto) 0.0 x10^3/uL (0.0-0.2) Sodium Level 140 mmol/L (136-145) Potassium Level 4.2 mmol/L (3.5-5.1) Chloride Level 107 mmol/L (98-107) Carbon Dioxide Level 27 mmol/L (21-32) Anion Gap 6 (6-14) Blood Urea Nitrogen 35 mg/dL (8-26) Creatinine 0.6 mg/dL (0.7-1.3) Estimated GFR (Cockcroft-Gault) 133.2 Glucose Level 257 mg/dL (70-99) Calcium Level 8.1 mg/dL (8.5-10.1) O2 Saturation 98 % (92-99) Arterial Blood pH 7.50 (7.35-7.45) Arterial Blood pCO2 at Patient Temp 34 mmHg (35-46) Arterial Blood pO2 at Patient Temp 118 mmHg (65-108) Arterial Blood HCO3 26 mmol/L (21-28) Arterial Blood Base Excess 3 mmol/L (-3-3) FiO2 70 Micro 06/12/20 Respiratory Culture, Resulted Pending GRAM STAIN EVALUATION Final Final GRAM POSITIVE RODS:RARE GRAM POSITIVE COCCI:RARE SQUAMOUS EPI CELL:FEW PMN (WBCs):MANY YEAST:RARE 06/10/20 Blood Culture - Preliminary, Resulted NO GROWTH AFTER 3 DAYS Objective Assessment Hypotension, on Levophed Hypoxemia with respiratory failure. neg COVID-19. Suspected aspiration pneumonia. Leukocytosis in part reactive steroids - stable Lactic acidosis. Fever - better Diabetes. Hypertension. Schizophrenia. MRSE bacteremia from Jun 07. Plan Plan of Care vancomycin per pharmacy protocol. Trough 15.8 and Cr. 0.6 Continue meropenem f/u cultures Maintain aspiration precautions Supportive care Prognosis poor pt does have BUSHLER shunt, coag neg staph infection /wire frame maker infection possible though pt is in NH for years, with the condition he is in ,would not be a candidate for BUSHLER shunt removal, need to be comfort care Critically ill Attending Co-Sign The patient was seen and interviewed as well as examined at the bedside. The chart was reviewed. The case was discussed. Agree with the plan of care. FRANCIE THOMAS APRN Jun 13, 2020 09:57 LAURA FITZGERALD MD Jun 13, 2020 13:11
[2020-06-13] MEDS: VANCOMYCIN PER PHARMACY MC PRN (10:36)
[2020-06-13] MEDS: IV NORMAL SALINE 1000ML BAG 1,000 ML IV SCH (12:16)
[2020-06-13] MEDS: VANCOMYCIN 1.75 GM in IV NORMAL SALINE 500ML BAG 500 ML IV SCH (15:31)
[2020-06-13] MEDS: PROPOFOL 100 ML IV PRN ×2 (17:06→23:30)
[2020-06-13] MEDS: ENOXAPARIN 40 MG/0.4 ML SYRINGE. SQ SCH (18:09)
[2020-06-13] MEDS: MIRTAZAPINE 7.5 MG TABLET. PO SCH (20:36)
[2020-06-13] MEDS: OLANZapine 5 MG TABLET PO SCH (20:36)
[2020-06-13] MEDS: INSULIN GLARGINE SYRINGE. SQ SCH (20:40)
[2020-06-14] VITALS (27 sets, daily range): BP systolic 82–144; BP diastolic 47–72
[2020-06-14] MEDS: INSULIN LISPRO 300 UNITS/3 ML VIAL. SQ SCH ×10 (00:03→23:52)
[2020-06-14 07:44] LABS: BASE EXCESS ABG 3 mmol/L (-3-3); HCO3 ABG 27 mmol/L (21-28); PCO2 ABG 38 mmHg (35-46); PO2 ABG 61 mmHg (65-108); SAT O2 ABG 92 % (92-99)
[2020-06-14 07:47] LABS: FIO2 ABG 50
--- NOTE | 2020-06-14 07:48 | PDOC ---
[facility] [facility] PROGRESS NOTE Date of Service DOS: DATE: 06/14/20 TIME: 07:48 Chief Complaint Chief Complaint A/P: Sepsis Acute hypercarbic hypoxic respiratory failure requiring intubation Acute metabolic encephalopathy NOS Concern for aspiration pneumonia with chest x-ray showing multifocal infiltrate in the right lower lobe Lactic acidosis Severe protein malnutrition Anxiety with depression dCHF Constipation Diabetes-Type II High Cholesterol Hypertension Schizophrenia BPH Dysphagia PARKINSONS, Hyperkalemia S/p SHIPPING/RECEIVING MANAGER shunt Gram positive bacteremia FEN - OGT PPX - heparin FULL CODE Dispo - ICU CC time 42 min History of Present Illness History of Present Illness Mr Dubois is a 69-year-old male with past medical history of Anxiety with depression, schizophrenia, dCHF, Constipation, Diabetes-Type II, High Cholesterol, Hypertension, BPH, Dysphagia, PARKINSONS, who presents to the emergency room in respiratory failure. According to report patient was normal the morning of 06/07. He has been refusing to eat recently according to staff but did eat lunch immediately before they found him in respiratory distress EMS pulse ox on CPAP is 80%. He was intubated due to respiratory failure and poor ABG on BiPAP. 06/08: Febrile to 101.8 F overnight. Intubated, sedated. K peaked at 6.8, started on D5, insulin, steroids. 06/09: Patient is sedated and intubated upon my examination. AC mode tidal volume 550, PEEP 12 and FiO2 90%. Saturations are 100%. 06/10: COVID-19 negative. Blood cultures positive for staph epidermidis. Patient sedated and intubated on AC mode tidal volume 550, PEEP 9 FiO2 down to 60%. Tolerating tube feeds well. 06/11: Afebrile overnight. Sedated intubated AC mode tidal volume 550 PEEP 9 FiO2 70%. Blood pressure dropped on Levophed. 06/12: Episodic hypoxia overnight, bronchoscopy with significant left-sided mucus plugging removed. Tolerating TF well, however glucose has been very elevated. 06/13: Still requiring pressor support. Seen on vent in ICU off sedation. Not awakening at this time. Afebrile Afebrile. Seen on vent. On sedation wean. Eyes are opening well. ABG 7.47/30 8.. A lot of ventricular ectopy on telemetry this morning. FiO2 30% PEEP 6. Vitals/I&O Vitals/I&O: Vital Signs Date Time Temp Pulse Resp B/P (MAP) Pulse Ox O2 Delivery O2 Flow Rate FiO2 06/14/20 06:00 79 18 133/70 (91) 95 Ventilator 06/14/20 04:00 98.0 98.0 I & O 06/13/20 06/13/20 06/14/20 15:00 23:00 07:00 Intake Total 360 ml 2223.2 ml 434 ml Output Total 440 ml 320 ml 365 ml Balance -80 ml 1903.2 ml 69 ml Physical Exam Physical Exam: GENERAL: Orally intubated and sedated. HEENT: Pupils are round, small. ETT in place NECK: Supple. LUNGS: Clear anteriorly HEART: S1, S2 regular, olga ABDOMEN: Obese, soft, no guarding, BS present : Quintero in place EXTREMITIES: Generalized edema. No cyanosis. SCDs and heel boots, bilaterally SKIN: warm to touch. No signs of generalized rash NEUROLOGIC: The patient is sedated now, unable to paddock judge. RIJ without signs of complications General: No acute distress Heart: Regular rate Lungs: Clear Abdomen: Normal bowel sounds Extremities: No clubbing Labs Labs: Laboratory Tests Test 06/13/20 08:15 06/13/20 12:14 06/13/20 16:54 06/13/20 20:39 O2 Saturation 98 % (92-99) Arterial Blood pH 7.50 (7.35-7.45) Arterial Blood pCO2 at Patient Temp 34 mmHg (35-46) Arterial Blood pO2 at Patient Temp 118 mmHg (65-108) Arterial Blood HCO3 26 mmol/L (21-28) Arterial Blood Base Excess 3 mmol/L (-3-3) FiO2 70 Glucose (Fingerstick) 270 mg/dL (70-99) 223 mg/dL (70-99) 180 mg/dL (70-99) Test 06/14/20 00:01 06/14/20 07:18 Glucose (Fingerstick) 194 mg/dL (70-99) O2 Saturation 92 % (92-99) Arterial Blood pH 7.47 (7.35-7.45) Arterial Blood pCO2 at Patient Temp 38 mmHg (35-46) Arterial Blood pO2 at Patient Temp 61 mmHg (65-108) Arterial Blood HCO3 27 mmol/L (21-28) Arterial Blood Base Excess 3 mmol/L (-3-3) FiO2 50 Assessment and Plan Assessmemt and Plan Problems Medical Problems: (1) Aspiration pneumonia Status: Acute (2) Respiratory failure with hypoxia Status: Acute Comment Review of Relevant I have reviewed the following items veronika (where applicable) has been applied. Medications: Current Medications Medications (Trade) Dose Ordered Sig/Cruz Route PRN Reason Start Time Stop Time Status Last Admin Dose Admin Propofol 100 ml @ 2.049 mls/ hr CONT PRN IV SEE I/O RECORD 06/13/20 17:00 06/13/20 23:30 Justifications for Admission General Conditions Poss tachycardia?: Yes Justification for admission: Patient has tachycardia (> 100 beats per minute) which is not readily corrected by appropriate treatment within 12 to 24 hours. Elevated Lactate?: Yes Justification for admission: Patient has tachycardia (> 100 beats per minute) or hypotension (SBP < 90 mm Hg) leading to inadequate systemic perfusion as indicated by lactate of greater or equal to 2.5 mmol/L. Poss Metaboilic Acidosis?: Yes Justification for admission: Patient has tachycardia (> 100 beats per minute) or hypotension (SBP < 90 mm Hg) leading to inadequate systemic perfusion as indicated by metabolic acidosis with arterial pH of less than 7.35. Altered mental status?: Yes Justification of admission: Patient has tachycardia (> 100 beats per minute) or hypotension (SBP < 90 mm Hg) leading to inadequate systemic perfusion as indicated by severe/persistent altered mental status. Other Justification ADINA BHATT MD Jun 14, 2020 07:48
[2020-06-14] MEDS: VANCOMYCIN 1.75 GM in IV NORMAL SALINE 500ML BAG 500 ML IV SCH (08:15)
--- NOTE | 2020-06-14 08:25 | PDOC ---
Infectious Disease Note Subjective Subjective Off sedation but minimally responsive Remains orally intubated. FiO2 50% No fevers last 48 hrs BP better, off levophed ROS ROS unobtainable Vital Sign Vital Signs Vital Signs Date Time Temp Pulse Resp B/P (MAP) Pulse Ox O2 Delivery O2 Flow Rate FiO2 06/14/20 07:18 95 Ventilator 06/14/20 07:00 78 16 119/53 (75) 06/14/20 04:00 98.0 98.0 Physical Exam PHYSICAL EXAM GENERAL: Orally intubated, opens eyes some to name HEENT: Pupils equal, ETT in place NECK: Supple. LUNGS: Clear anteriorly HEART: S1, S2 regular ABDOMEN: Obese, soft, no guarding, BS present : Quintero in place + scrotal swelling EXTREMITIES: Generalized edema. No cyanosis. SCDs and heel boots, bilaterally SKIN: warm to touch. No signs of generalized rash NEUROLOGIC: Minimally responsive RIJ without signs of complications Labs Lab Laboratory Tests Test 06/13/20 12:14 06/13/20 16:54 06/13/20 20:39 06/14/20 00:01 Glucose (Fingerstick) 270 mg/dL (70-99) 223 mg/dL (70-99) 180 mg/dL (70-99) 194 mg/dL (70-99) Test 06/14/20 07:18 O2 Saturation 92 % (92-99) Arterial Blood pH 7.47 (7.35-7.45) Arterial Blood pCO2 at Patient Temp 38 mmHg (35-46) Arterial Blood pO2 at Patient Temp 61 mmHg (65-108) Arterial Blood HCO3 27 mmol/L (21-28) Arterial Blood Base Excess 3 mmol/L (-3-3) FiO2 50 Chest x-ray pending Micro 06/12/20 Respiratory Culture, Resulted GRAM STAIN EVALUATION Final Final GRAM POSITIVE RODS:RARE GRAM POSITIVE COCCI:RARE SQUAMOUS EPI CELL:FEW PMN (WBCs):MANY YEAST:RARE RESPIRATORY CULTURE Preliminary Preliminary FEW Mixed upper respiratory antonio on 06/13/20 at 1036 06/10/20 Blood Culture - Preliminary, Resulted NO GROWTH AFTER 3 DAYS Objective Assessment Hypotension, better, off Levophed Hypoxemia with respiratory failure. neg COVID-19. Suspected aspiration pneumonia. Leukocytosis in part reactive steroids - stable Lactic acidosis. Fever - better Diabetes. Hypertension. Schizophrenia. MRSE bacteremia from Jun 07. Plan Plan of Care vancomycin per pharmacy protocol. Trough 15.8 and Cr. 0.6 Continue meropenem f/u cultures f/u labs in am Maintain aspiration precautions Supportive care Prognosis poor Disc with nursing pt does have ELEMENTARY TEACHER shunt, coag neg staph infection /knife blade polisher infection possible though pt is in NH for years, with the condition he is in ,would not be a candidate for ELEMENTARY TEACHER shunt removal, need to be comfort care Critically ill Attending Co-Sign The patient was seen and interviewed as well as examined at the bedside. The chart was reviewed. The case was discussed. Agree with the plan of care. FRANCIE THOMAS APRN Jun 14, 2020 08:25 LAURA FITZGERALD MD Jun 14, 2020 11:58
--- NOTE | 2020-06-14 08:26 | RAD ---
EXAM: PORTABLE CHEST 1V INDICATION: Reason: vent / Spl. Instructions: / History: . TECHNIQUE: Single view COMPARISON: Chest x-ray 06/13/2020 FINDINGS: Endotracheal intubation with ET tube tip 2.7 cm above the renato. Right jugular approach central venous catheter terminating near the cavoatrial junction. Enteric tube passes below the diaphragms. Right DIVIDING MACHINE OPERATOR shunt catheter tubing along the chest wall appears unchanged. The heart size is normal. Great vessels again show aortic calcification. There is no hilar or mediastinal mass. Lungs show left basilar atelectatic changes and mild central pulmonary vascular congestion. Hazy opacity at the left lung base could represent a small left pleural effusion. No pneumothorax. There are no significant osseous abnormalities. IMPRESSION: Stable endotracheal intubation and lines and tubes as described with probable residual left small pleural effusion and associated atelectasis. Mild central pulmonary vascular congestion also suggested. Electronically signed by: Aditi Pack MD (06/14/2020 8:23 AM) [facility] [place]
[2020-06-14] MEDS: VANCOMYCIN PER PHARMACY MC PRN (08:51)
[2020-06-14 09:20] LABS: BASO % 0 % (0-3); EOS % 0 % (0-3); HEMATOCRIT 35.9 % (39.0-53.0); HEMOGLOBIN 12.1 g/dL (13.0-17.5); LYMPH # 1.3 x10^3/uL (1.0-4.8); LYMPH % 11 % (24-48); MEAN CORPUSCULAR HEMOGLOBIN 32 pg (25-35); MEAN CORPUSCULAR HGB CONC 34 g/dL (31-37); MEAN CORPUSCULAR VOLUME 93 fL (79-100); MONO # 1.1 x10^3/uL (0.0-1.1); MONO % 10 % (0-9); NEUT # 9.3 x10^3/uL (1.8-7.7); NEUT % 79 % (31-73); PLATELET COUNT 132 x10^3/uL (140-400); RED BLOOD COUNT 3.85 x10^6/uL (4.30-5.70); RED CELL DISTRIBUTION WIDTH 13.5 % (11.5-14.5); WHITE BLOOD COUNT 11.8 x10^3/uL (4.0-11.0)
[2020-06-14 09:42] LABS: CALCIUM 7.9 mg/dL (8.5-10.1); CREATININE 0.6 mg/dL (0.7-1.3); GFR 133.2; MAGNESIUM 1.7 mg/dL (1.8-2.4)
[2020-06-14] MEDS: PANTOPRAZOLE IV PUSH 40 MG VIAL. IVP SCH (09:58)
[2020-06-14] MEDS: VALPROIC ACID (AS SODIUM SALT) 250 MG/5 ML SOLUTION. PEG SCH ×3 (09:59→20:49)
[2020-06-14] MEDS: methylPREDNISolone SOD SUCC PF 40 MG/ML VIAL. IV SCH ×2 (09:59→20:55)
[2020-06-14] MEDS: ASCORBIC ACID 500 MG TABLET PO SCH (09:59)
[2020-06-14] MEDS: MULTIVITAMINS,THERAPEUTIC 5 ML ORAL LIQUID. PEG SCH (09:59)
--- NOTE | 2020-06-14 10:14 | PDOC ---
PULMONARY PROGRESS NOTES DATE: 06/14/20 TIME: 10:11 Subjective remains intubated/sedated S/P bronchoscopy on 06/12 no overnight concerns from nursing Vitals Vital Signs Date Time Temp Pulse Resp B/P (MAP) Pulse Ox O2 Delivery O2 Flow Rate FiO2 06/14/20 07:18 95 Ventilator 06/14/20 07:00 78 16 119/53 (75) 06/14/20 04:00 98.0 98.0 Comments intubated/sedated General: Alert Lungs: Clear Cardiovascular: S1 Abdomen: Soft Extremities: Other (BLE +2) Skin: Warm Labs Laboratory Tests Test 06/12/20 12:21 06/12/20 12:23 06/12/20 18:11 06/12/20 21:19 Glucose (Fingerstick) 363 mg/dL (70-99) 326 mg/dL (70-99) 299 mg/dL (70-99) 279 mg/dL (70-99) Test 06/13/20 00:17 06/13/20 04:49 06/13/20 05:36 06/13/20 08:15 Glucose (Fingerstick) 290 mg/dL (70-99) 251 mg/dL (70-99) White Blood Count 13.6 x10^3/uL (4.0-11.0) Red Blood Count 3.84 x10^6/uL (4.30-5.70) Hemoglobin 11.9 g/dL (13.0-17.5) Hematocrit 35.4 % (39.0-53.0) Mean Corpuscular Volume 92 fL (79-100) Mean Corpuscular Hemoglobin 31 pg (25-35) Mean Corpuscular Hemoglobin Concent 34 g/dL (31-37) Red Cell Distribution Width 13.8 % (11.5-14.5) Platelet Count 137 x10^3/uL (140-400) Neutrophils (%) (Auto) 85 % (31-73) Lymphocytes (%) (Auto) 7 % (24-48) Monocytes (%) (Auto) 8 % (0-9) Eosinophils (%) (Auto) 0 % (0-3) Basophils (%) (Auto) 0 % (0-3) Neutrophils # (Auto) 11.6 x10^3/uL (1.8-7.7) Lymphocytes # (Auto) 1.0 x10^3/uL (1.0-4.8) Monocytes # (Auto) 1.1 x10^3/uL (0.0-1.1) Eosinophils # (Auto) 0.0 x10^3/uL (0.0-0.7) Basophils # (Auto) 0.0 x10^3/uL (0.0-0.2) Sodium Level 140 mmol/L (136-145) Potassium Level 4.2 mmol/L (3.5-5.1) Chloride Level 107 mmol/L (98-107) Carbon Dioxide Level 27 mmol/L (21-32) Anion Gap 6 (6-14) Blood Urea Nitrogen 35 mg/dL (8-26) Creatinine 0.6 mg/dL (0.7-1.3) Estimated GFR (Cockcroft-Gault) 133.2 Glucose Level 257 mg/dL (70-99) Calcium Level 8.1 mg/dL (8.5-10.1) O2 Saturation 98 % (92-99) Arterial Blood pH 7.50 (7.35-7.45) Arterial Blood pCO2 at Patient Temp 34 mmHg (35-46) Arterial Blood pO2 at Patient Temp 118 mmHg (65-108) Arterial Blood HCO3 26 mmol/L (21-28) Arterial Blood Base Excess 3 mmol/L (-3-3) FiO2 70 Test 06/13/20 12:14 06/13/20 16:54 06/13/20 20:39 06/14/20 00:01 Glucose (Fingerstick) 270 mg/dL (70-99) 223 mg/dL (70-99) 180 mg/dL (70-99) 194 mg/dL (70-99) Test 06/14/20 07:18 06/14/20 08:58 O2 Saturation 92 % (92-99) Arterial Blood pH 7.47 (7.35-7.45) Arterial Blood pCO2 at Patient Temp 38 mmHg (35-46) Arterial Blood pO2 at Patient Temp 61 mmHg (65-108) Arterial Blood HCO3 27 mmol/L (21-28) Arterial Blood Base Excess 3 mmol/L (-3-3) FiO2 50 White Blood Count 11.8 x10^3/uL (4.0-11.0) Red Blood Count 3.85 x10^6/uL (4.30-5.70) Hemoglobin 12.1 g/dL (13.0-17.5) Hematocrit 35.9 % (39.0-53.0) Mean Corpuscular Volume 93 fL (79-100) Mean Corpuscular Hemoglobin 32 pg (25-35) Mean Corpuscular Hemoglobin Concent 34 g/dL (31-37) Red Cell Distribution Width 13.5 % (11.5-14.5) Platelet Count 132 x10^3/uL (140-400) Neutrophils (%) (Auto) 79 % (31-73) Lymphocytes (%) (Auto) 11 % (24-48) Monocytes (%) (Auto) 10 % (0-9) Eosinophils (%) (Auto) 0 % (0-3) Basophils (%) (Auto) 0 % (0-3) Neutrophils # (Auto) 9.3 x10^3/uL (1.8-7.7) Lymphocytes # (Auto) 1.3 x10^3/uL (1.0-4.8) Monocytes # (Auto) 1.1 x10^3/uL (0.0-1.1) Eosinophils # (Auto) 0.0 x10^3/uL (0.0-0.7) Basophils # (Auto) 0.0 x10^3/uL (0.0-0.2) Sodium Level 141 mmol/L (136-145) Potassium Level 4.0 mmol/L (3.5-5.1) Chloride Level 107 mmol/L (98-107) Carbon Dioxide Level 29 mmol/L (21-32) Anion Gap 5 (6-14) Blood Urea Nitrogen 36 mg/dL (8-26) Creatinine 0.6 mg/dL (0.7-1.3) Estimated GFR (Cockcroft-Gault) 133.2 Glucose Level 226 mg/dL (70-99) Calcium Level 7.9 mg/dL (8.5-10.1) Magnesium Level 1.7 mg/dL (1.8-2.4) Laboratory Tests Test 06/13/20 12:14 06/13/20 16:54 06/13/20 20:39 06/14/20 00:01 Glucose (Fingerstick) 270 mg/dL (70-99) 223 mg/dL (70-99) 180 mg/dL (70-99) 194 mg/dL (70-99) Test 06/14/20 07:18 06/14/20 08:58 O2 Saturation 92 % (92-99) Arterial Blood pH 7.47 (7.35-7.45) Arterial Blood pCO2 at Patient Temp 38 mmHg (35-46) Arterial Blood pO2 at Patient Temp 61 mmHg (65-108) Arterial Blood HCO3 27 mmol/L (21-28) Arterial Blood Base Excess 3 mmol/L (-3-3) FiO2 50 White Blood Count 11.8 x10^3/uL (4.0-11.0) Red Blood Count 3.85 x10^6/uL (4.30-5.70) Hemoglobin 12.1 g/dL (13.0-17.5) Hematocrit 35.9 % (39.0-53.0) Mean Corpuscular Volume 93 fL (79-100) Mean Corpuscular Hemoglobin 32 pg (25-35) Mean Corpuscular Hemoglobin Concent 34 g/dL (31-37) Red Cell Distribution Width 13.5 % (11.5-14.5) Platelet Count 132 x10^3/uL (140-400) Neutrophils (%) (Auto) 79 % (31-73) Lymphocytes (%) (Auto) 11 % (24-48) Monocytes (%) (Auto) 10 % (0-9) Eosinophils (%) (Auto) 0 % (0-3) Basophils (%) (Auto) 0 % (0-3) Neutrophils # (Auto) 9.3 x10^3/uL (1.8-7.7) Lymphocytes # (Auto) 1.3 x10^3/uL (1.0-4.8) Monocytes # (Auto) 1.1 x10^3/uL (0.0-1.1) Eosinophils # (Auto) 0.0 x10^3/uL (0.0-0.7) Basophils # (Auto) 0.0 x10^3/uL (0.0-0.2) Sodium Level 141 mmol/L (136-145) Potassium Level 4.0 mmol/L (3.5-5.1) Chloride Level 107 mmol/L (98-107) Carbon Dioxide Level 29 mmol/L (21-32) Anion Gap 5 (6-14) Blood Urea Nitrogen 36 mg/dL (8-26) Creatinine 0.6 mg/dL (0.7-1.3) Estimated GFR (Cockcroft-Gault) 133.2 Glucose Level 226 mg/dL (70-99) Calcium Level 7.9 mg/dL (8.5-10.1) Magnesium Level 1.7 mg/dL (1.8-2.4) Medications Active Scripts Medications Dose Route/Sig Max Daily Dose Days Date Category Dose Instructions Tylenol (Acetaminophen) 325 Mg Tablet 650 Mg PO BID 06/08/20 Reported Senna-Docusate Sodium Tablet (Sennosides/Docusate Sodium) 1 Each Tablet 1 Each PO PRN PRN 06/08/20 Reported Risperdal (Risperidone) 3 Mg Tablet 0.5 Tab PO BID 30 06/08/20 Reported Potassium Chloride (Potassium Chloride) 20 Meq Tablet.er 20 Meq PO TID 06/08/20 Reported Olanzapine 5 Mg Tablet 0.5 Tab PO QHS 06/08/20 Reported Nystatin 15 Gm Cream..g. 15 Gm TP PRN Q8HRS PRN 06/08/20 Reported Novolog Flexpen (Insulin Aspart) 100 Unit/1 Ml Insuln.pen 1 Unit SQ TIDWMEALS 06/08/20 Reported Mirtazapine 7.5 Mg Tablet 1 Tab PO QHS 30 06/08/20 Reported Milk Of Magnesia (Magnesium Hydroxide) 400 Mg/5 Ml Oral.susp 400 Mg PO PRN PRN 06/08/20 Reported Metformin Hcl 1,000 Mg Tablet 1,000 Mg PO BIDWMEALS 06/08/20 Reported Melatonin 3 Mg Tab.rapdis 1 Tab PO QHS 30 06/08/20 Reported Magnesium Oxide 400 Mg Tablet 1 Tab PO DAILY 06/08/20 Reported Acidophilus (Lactobacillus Acidophilus) 1 Each Capsule 1 Cap PO DAILY 14 06/08/20 Reported Ketoconazole 120 Ml Shampoo 1 Melissa TP TWICE WEEKLY 06/08/20 Reported with at least 3 days between each shampooing Levemir Flextouch (Insulin Detemir) 100 Unit/1 Ml Insuln.pen 27 Unit SQ QHS 06/08/20 Reported Furosemide 20 Mg Tablet 1 Tab PO DAILY 06/08/20 Reported Fleet Enema (Na Phos,M-B/Na Phos,Di-Ba) 133 Ml Enema 133 Ml RC PRN PRN 06/08/20 Reported Divalproex Sodium Er (Divalproex Sodium) 500 Mg Tab.er.24h 2,000 Mg PO QHS 06/08/20 Reported D3-50 (Cholecalciferol (Vitamin D3)) 50,000 Unit Capsule 1,000 Unit PO DAILY 06/08/20 Reported Dulcolax (Bisacodyl) 10 Mg Supp.rect 10 Mg RC PRN DAILY PRN 06/08/20 Reported Atorvastatin Calcium 20 Mg Tablet 20 Mg PO HS 06/08/20 Reported Comments CXR 06/14 reviewed Impression . 1. Acute hypoxic respiratory failure secondary to pneumonia ,shock and acute respiratory distress syndrome.--improving 2. Abnormal chest x-ray with bilateral infiltrates suggestive of pneumonia. H e could have a gram-negative pneumonia as well. left mucous plug 06/12. s/p Bronch. thick secretions removed 3. Septic shock. Likely caused by COVID-19 pneumonia. Need to rule out other sources of infection. BC positive ? contaminant 4. Acute kidney injury.-- improved 5. Metabolic acidosis secondary to lactic acidosis and sepsis. 6. Coag neg staph in BC/ ID following. Has PREPRINT ANALYST shunt 7. Abnormal CXR Plan . 1. Continue current vent support, off sedation, opens eyes, not fully awake yet, CPAP trial once awake 2. Follow ABGs and make necessary adjustments, follow CXR . Lasix today 3. Monitor the clinical course of treatment. 4. COVID-19 neg 5. Continue IV steroids., taper 6. Antibiotics per ID 7. follow nephrology recommendations, ongoing azotemia-- tapering steroids 8. DVT and stress ulcer prophylaxis: lovenox/protonix 9. Cont. TF for nutrition support 10. Hyperglycemia per PCP 11. continue/ wean vasopressors to keep MAP greater than 65 12. Follow Bronch cultures. Discussed with RN and RT. Critical care time 30 minutes including review of the chart, imaging studies and decision making. MAYA BARROS MD Jun 14, 2020 10:14
[2020-06-14] MEDS ORDERED: FUROSEMIDE 40 MG/4 ML VIAL. IVP ONE (10:15)
[2020-06-14] MEDS: MEROPENEM 1 GM in IV NORMAL SALINE 100ML 100 ML IV SCH ×2 (11:09→20:53)
[2020-06-14] MEDS: IV NORMAL SALINE 1000ML BAG 1,000 ML IV SCH (11:45)
[2020-06-14] MEDS: THIAMINE INJ 100 MG in IV DEXTROSE 5% 50 ML IV SCH (12:58)
[2020-06-14] MEDS: ENOXAPARIN 40 MG/0.4 ML SYRINGE. SQ SCH (18:18)
[2020-06-14] MEDS: PROPOFOL 100 ML IV PRN (18:44)
[2020-06-14] MEDS: OLANZapine 5 MG TABLET PO SCH (20:50)
[2020-06-14] MEDS: MIRTAZAPINE 7.5 MG TABLET. PO SCH (20:51)
[2020-06-14] MEDS: INSULIN GLARGINE SYRINGE. SQ SCH (20:56)
[2020-06-15] VITALS (24 sets, daily range): BP systolic 91–140; BP diastolic 48–73
[2020-06-15] MEDS: VANCOMYCIN 1.75 GM in IV NORMAL SALINE 500ML BAG 500 ML IV SCH ×2 (02:03→19:40)
[2020-06-15] MEDS: PROPOFOL 100 ML IV PRN (05:29)
[2020-06-15] MEDS: INSULIN LISPRO 300 UNITS/3 ML VIAL. SQ SCH ×8 (05:43→23:44)
[2020-06-15 06:20] LABS: ALBUMIN 1.2 g/dL (3.4-5.0); ALBUMIN/GLOBULIN RATIO 0.4 (1.0-1.7); BASO # 0.1 x10^3/uL (0.0-0.2); BASO % 0 % (0-3); CALCIUM 7.8 mg/dL (8.5-10.1); CREATININE 0.4 mg/dL (0.7-1.3); EOS % 0 % (0-3); GFR 212.7; HEMATOCRIT 32.8 % (39.0-53.0); HEMOGLOBIN 11.1 g/dL (13.0-17.5); LYMPH # 1.1 x10^3/uL (1.0-4.8); LYMPH % 7 % (24-48); MEAN CORPUSCULAR HEMOGLOBIN 31 pg (25-35); MEAN CORPUSCULAR HGB CONC 34 g/dL (31-37); MEAN CORPUSCULAR VOLUME 93 fL (79-100); MONO # 0.8 x10^3/uL (0.0-1.1); MONO % 5 % (0-9); NEUT # 13.1 x10^3/uL (1.8-7.7); NEUT % 87 % (31-73); PLATELET COUNT 188 x10^3/uL (140-400); POTASSIUM 3.8 mmol/L (3.5-5.1); RED BLOOD COUNT 3.54 x10^6/uL (4.30-5.70); RED CELL DISTRIBUTION WIDTH 13.9 % (11.5-14.5); TOTAL BILIRUBIN 0.5 mg/dL (0.2-1.0); TOTAL PROTEIN 4.5 g/dL (6.4-8.2)
--- NOTE | 2020-06-15 07:21 | PDOC ---
Infectious Disease Note Subjective Subjective Off sedation but minimally responsive - eyes opne Remains orally intubated. FiO2 50% No fevers last 48 hrs BP better, off levophed ROS ROS unabel to obtain Vital Sign Vital Signs Vital Signs Date Time Temp Pulse Resp B/P (MAP) Pulse Ox O2 Delivery O2 Flow Rate FiO2 06/15/20 06:00 47 16 104/55 (71) 99 Ventilator 06/15/20 04:00 98.3 98.3 Physical Exam PHYSICAL EXAM GENERAL: Orally intubated, opens eyes some to name HEENT: Pupils equal, ETT in place NECK: Supple. LUNGS: Clear anteriorly HEART: S1, S2 regular ABDOMEN: Obese, soft, no guarding, BS present : Quintero in place + scrotal swelling EXTREMITIES: Generalized edema. No cyanosis. SCDs and heel boots, bilaterally RUE with 2 plus edema SKIN: warm to touch. No signs of generalized rash NEUROLOGIC: Minimally responsive RIJ without signs of complications Labs Lab Laboratory Tests Test 06/14/20 08:58 06/14/20 13:04 06/14/20 18:14 06/14/20 23:41 White Blood Count 11.8 x10^3/uL (4.0-11.0) Red Blood Count 3.85 x10^6/uL (4.30-5.70) Hemoglobin 12.1 g/dL (13.0-17.5) Hematocrit 35.9 % (39.0-53.0) Mean Corpuscular Volume 93 fL (79-100) Mean Corpuscular Hemoglobin 32 pg (25-35) Mean Corpuscular Hemoglobin Concent 34 g/dL (31-37) Red Cell Distribution Width 13.5 % (11.5-14.5) Platelet Count 132 x10^3/uL (140-400) Neutrophils (%) (Auto) 79 % (31-73) Lymphocytes (%) (Auto) 11 % (24-48) Monocytes (%) (Auto) 10 % (0-9) Eosinophils (%) (Auto) 0 % (0-3) Basophils (%) (Auto) 0 % (0-3) Neutrophils # (Auto) 9.3 x10^3/uL (1.8-7.7) Lymphocytes # (Auto) 1.3 x10^3/uL (1.0-4.8) Monocytes # (Auto) 1.1 x10^3/uL (0.0-1.1) Eosinophils # (Auto) 0.0 x10^3/uL (0.0-0.7) Basophils # (Auto) 0.0 x10^3/uL (0.0-0.2) Sodium Level 141 mmol/L (136-145) Potassium Level 4.0 mmol/L (3.5-5.1) Chloride Level 107 mmol/L (98-107) Carbon Dioxide Level 29 mmol/L (21-32) Anion Gap 5 (6-14) Blood Urea Nitrogen 36 mg/dL (8-26) Creatinine 0.6 mg/dL (0.7-1.3) Estimated GFR (Cockcroft-Gault) 133.2 Glucose Level 226 mg/dL (70-99) Calcium Level 7.9 mg/dL (8.5-10.1) Magnesium Level 1.7 mg/dL (1.8-2.4) Glucose (Fingerstick) 239 mg/dL (70-99) 282 mg/dL (70-99) 255 mg/dL (70-99) Test 06/15/20 05:41 06/15/20 05:45 Glucose (Fingerstick) 194 mg/dL (70-99) White Blood Count 15.0 x10^3/uL (4.0-11.0) Red Blood Count 3.54 x10^6/uL (4.30-5.70) Hemoglobin 11.1 g/dL (13.0-17.5) Hematocrit 32.8 % (39.0-53.0) Mean Corpuscular Volume 93 fL (79-100) Mean Corpuscular Hemoglobin 31 pg (25-35) Mean Corpuscular Hemoglobin Concent 34 g/dL (31-37) Red Cell Distribution Width 13.9 % (11.5-14.5) Platelet Count 188 x10^3/uL (140-400) Neutrophils (%) (Auto) 87 % (31-73) Lymphocytes (%) (Auto) 7 % (24-48) Monocytes (%) (Auto) 5 % (0-9) Eosinophils (%) (Auto) 0 % (0-3) Basophils (%) (Auto) 0 % (0-3) Neutrophils # (Auto) 13.1 x10^3/uL (1.8-7.7) Lymphocytes # (Auto) 1.1 x10^3/uL (1.0-4.8) Monocytes # (Auto) 0.8 x10^3/uL (0.0-1.1) Eosinophils # (Auto) 0.0 x10^3/uL (0.0-0.7) Basophils # (Auto) 0.1 x10^3/uL (0.0-0.2) Prothrombin Time 15.0 SEC (11.7-14.0) Prothromb Time International Ratio 1.2 (0.8-1.1) Sodium Level 138 mmol/L (136-145) Potassium Level 3.8 mmol/L (3.5-5.1) Chloride Level 106 mmol/L (98-107) Carbon Dioxide Level 31 mmol/L (21-32) Anion Gap 1 (6-14) Blood Urea Nitrogen 33 mg/dL (8-26) Creatinine 0.4 mg/dL (0.7-1.3) Estimated GFR (Cockcroft-Gault) 212.7 BUN/Creatinine Ratio 83 (6-20) Glucose Level 262 mg/dL (70-99) Calcium Level 7.8 mg/dL (8.5-10.1) Total Bilirubin 0.5 mg/dL (0.2-1.0) Aspartate Amino Transf (AST/SGOT) 13 U/L (15-37) Alanine Aminotransferase (ALT/SGPT) 17 U/L (16-63) Alkaline Phosphatase 75 U/L (46-116) Total Protein 4.5 g/dL (6.4-8.2) Albumin 1.2 g/dL (3.4-5.0) Albumin/Globulin Ratio 0.4 (1.0-1.7) Micro GRAM POSITIVE RODS:RARE GRAM POSITIVE COCCI:RARE SQUAMOUS EPI CELL:FEW PMN (WBCs):MANY YEAST:RARE Microbiology 06/12/20 AFB Specimen Processing Tissue - Final, Resulted 06/12/20 Acid Fast Bacilli Culture, Resulted Pending 06/12/20 Gram Stain - Final, Resulted 06/12/20 Fungal Culture, Resulted Pending 06/12/20 Fungal Culture Result 1, Resulted Pending 06/10/20 Blood Culture - Preliminary, Resulted NO GROWTH AFTER 4 DAYS Objective Assessment Hypotension, on low dose Levophed Hypoxemia with respiratory failure. neg COVID-19. Suspected aspiration pneumonia. Leukocytosis in part reactive steroids - increase Lactic acidosis. Fever - better Diabetes. Hypertension. Schizophrenia. MRSE bacteremia from Jun 07 repeat neb 06/10 ALUMINUM SHINGLE ROOFER shunt Plan Plan of Care vancomycin per pharmacy protocol. Trough 15.8 and Cr. 0.6 Continue meropenem f/u cultures f/u labs in am Maintain aspiration precautions Supportive care Prognosis poor Disc with nursing pt does have ALUMINUM SHINGLE ROOFER shunt, coag neg staph infection /electrotype finisher infection possible though pt is in NH for years, with the condition he is in ,would not be a candidate for ALUMINUM SHINGLE ROOFER shunt removal, ? need to be comfort care Critically ill NUSRAT YU MD Jun 15, 2020 07:20
--- NOTE | 2020-06-15 08:22 | PDOC ---
PROGRESS NOTES Date of Service: DATE: 06/15/20 TIME: 08:11 Chief Complaint Chief Complaint A/P: Sepsis Acute hypercarbic hypoxic respiratory failure requiring intubation Acute metabolic encephalopathy NOS Concern for aspiration pneumonia with chest x-ray showing multifocal infiltrate in the right lower lobe Lactic acidosis Severe protein malnutrition Anxiety with depression dCHF Constipation Diabetes-Type II High Cholesterol Hypertension Schizophrenia BPH Dysphagia PARKINSONS, Hyperkalemia S/p [employer] shunt MRSE bacteremia with negative to date repeat cultures. FEN - OGT PPX - heparin FULL CODE Dispo - ICU History of Present Illness History of Present Illness Mr Dubois is a 69-year-old male with past medical history of Anxiety with depression, schizophrenia, dCHF, Constipation, Diabetes-Type II, High Cholesterol, Hypertension, BPH, Dysphagia, PARKINSONS, who presents to the emergency room in respiratory failure. According to report patient was normal the morning of 06/07. He has been refusing to eat recently according to staff but did eat lunch immediately before they found him in respiratory distress EMS pulse ox on CPAP is 80%. He was intubated due to respiratory failure and poor ABG on BiPAP. 06/08: Febrile to 101.8 F overnight. Intubated, sedated. K peaked at 6.8, started on D5, insulin, steroids. 06/09: Patient is sedated and intubated upon my examination. AC mode tidal volume 550, PEEP 12 and FiO2 90%. Saturations are 100%. 06/10: COVID-19 negative. Blood cultures positive for staph epidermidis. Patient sedated and intubated on AC mode tidal volume 550, PEEP 9 FiO2 down to 60%. Tolerating tube feeds well. 06/11: Afebrile overnight. Sedated intubated AC mode tidal volume 550 PEEP 9 FiO2 70%. Blood pressure dropped on Levophed. 06/12: Episodic hypoxia overnight, bronchoscopy with significant left-sided mucus plugging removed. Tolerating TF well, however glucose has been very elevated. 06/13: Still requiring pressor support. Seen on vent in ICU off sedation. Not awakening at this time. Afebrile 06/14: Afebrile. Seen on vent. On sedation wean. Eyes are opening well. ABG 7.47/30 .. A lot of ventricular ectopy on telemetry this morning. FiO2 30% PEEP 6. 06/15: Patient continues to be mechanically ventilated, ID recommendations greatly appreciated. Vitals Vitals Vital Signs Date Time Temp Pulse Resp B/P (MAP) Pulse Ox O2 Delivery O2 Flow Rate FiO2 06/15/20 07:42 99 Ventilator 06/15/20 07:00 49 16 105/54 (71) 06/15/20 04:00 98.3 98.3 Physical Exam Physical Exam GENERAL: Orally intubated, opens eyes some to name HEENT: Pupils equal, ETT in place NECK: Supple. LUNGS: Clear anteriorly HEART: S1, S2 regular ABDOMEN: Obese, soft, no guarding, BS present : Quintero in place + scrotal swelling EXTREMITIES: Generalized edema. No cyanosis. SCDs and heel boots, bilaterally RUE with 2 plus edema SKIN: warm to touch. No signs of generalized rash NEUROLOGIC: Minimally responsive RIJ without signs of complications General: No acute distress Heart: Regular rate Lungs: Clear Abdomen: Normal bowel sounds Extremities: No clubbing Labs LABS Laboratory Tests Test 06/14/20 08:58 06/14/20 13:04 06/14/20 18:14 06/14/20 23:41 White Blood Count 11.8 x10^3/uL (4.0-11.0) Red Blood Count 3.85 x10^6/uL (4.30-5.70) Hemoglobin 12.1 g/dL (13.0-17.5) Hematocrit 35.9 % (39.0-53.0) Mean Corpuscular Volume 93 fL (79-100) Mean Corpuscular Hemoglobin 32 pg (25-35) Mean Corpuscular Hemoglobin Concent 34 g/dL (31-37) Red Cell Distribution Width 13.5 % (11.5-14.5) Platelet Count 132 x10^3/uL (140-400) Neutrophils (%) (Auto) 79 % (31-73) Lymphocytes (%) (Auto) 11 % (24-48) Monocytes (%) (Auto) 10 % (0-9) Eosinophils (%) (Auto) 0 % (0-3) Basophils (%) (Auto) 0 % (0-3) Neutrophils # (Auto) 9.3 x10^3/uL (1.8-7.7) Lymphocytes # (Auto) 1.3 x10^3/uL (1.0-4.8) Monocytes # (Auto) 1.1 x10^3/uL (0.0-1.1) Eosinophils # (Auto) 0.0 x10^3/uL (0.0-0.7) Basophils # (Auto) 0.0 x10^3/uL (0.0-0.2) Sodium Level 141 mmol/L (136-145) Potassium Level 4.0 mmol/L (3.5-5.1) Chloride Level 107 mmol/L (98-107) Carbon Dioxide Level 29 mmol/L (21-32) Anion Gap 5 (6-14) Blood Urea Nitrogen 36 mg/dL (8-26) Creatinine 0.6 mg/dL (0.7-1.3) Estimated GFR (Cockcroft-Gault) 133.2 Glucose Level 226 mg/dL (70-99) Calcium Level 7.9 mg/dL (8.5-10.1) Magnesium Level 1.7 mg/dL (1.8-2.4) Glucose (Fingerstick) 239 mg/dL (70-99) 282 mg/dL (70-99) 255 mg/dL (70-99) Test 06/15/20 05:41 06/15/20 05:45 Glucose (Fingerstick) 194 mg/dL (70-99) White Blood Count 15.0 x10^3/uL (4.0-11.0) Red Blood Count 3.54 x10^6/uL (4.30-5.70) Hemoglobin 11.1 g/dL (13.0-17.5) Hematocrit 32.8 % (39.0-53.0) Mean Corpuscular Volume 93 fL (79-100) Mean Corpuscular Hemoglobin 31 pg (25-35) Mean Corpuscular Hemoglobin Concent 34 g/dL (31-37) Red Cell Distribution Width 13.9 % (11.5-14.5) Platelet Count 188 x10^3/uL (140-400) Neutrophils (%) (Auto) 87 % (31-73) Lymphocytes (%) (Auto) 7 % (24-48) Monocytes (%) (Auto) 5 % (0-9) Eosinophils (%) (Auto) 0 % (0-3) Basophils (%) (Auto) 0 % (0-3) Neutrophils # (Auto) 13.1 x10^3/uL (1.8-7.7) Lymphocytes # (Auto) 1.1 x10^3/uL (1.0-4.8) Monocytes # (Auto) 0.8 x10^3/uL (0.0-1.1) Eosinophils # (Auto) 0.0 x10^3/uL (0.0-0.7) Basophils # (Auto) 0.1 x10^3/uL (0.0-0.2) Prothrombin Time 15.0 SEC (11.7-14.0) Prothromb Time International Ratio 1.2 (0.8-1.1) Sodium Level 138 mmol/L (136-145) Potassium Level 3.8 mmol/L (3.5-5.1) Chloride Level 106 mmol/L (98-107) Carbon Dioxide Level 31 mmol/L (21-32) Anion Gap 1 (6-14) Blood Urea Nitrogen 33 mg/dL (8-26) Creatinine 0.4 mg/dL (0.7-1.3) Estimated GFR (Cockcroft-Gault) 212.7 BUN/Creatinine Ratio 83 (6-20) Glucose Level 262 mg/dL (70-99) Calcium Level 7.8 mg/dL (8.5-10.1) Total Bilirubin 0.5 mg/dL (0.2-1.0) Aspartate Amino Transf (AST/SGOT) 13 U/L (15-37) Alanine Aminotransferase (ALT/SGPT) 17 U/L (16-63) Alkaline Phosphatase 75 U/L (46-116) Total Protein 4.5 g/dL (6.4-8.2) Albumin 1.2 g/dL (3.4-5.0) Albumin/Globulin Ratio 0.4 (1.0-1.7) Assessment and Plan Assessmemt and Plan Problems Medical Problems: (1) Aspiration pneumonia Status: Acute (2) Respiratory failure with hypoxia Status: Acute Comment Review of Relevant I have reviewed the following items veronika (where applicable) has been applied. Labs Laboratory Tests Test 06/13/20 08:15 06/13/20 12:14 06/13/20 16:54 06/13/20 20:39 O2 Saturation 98 % (92-99) Arterial Blood pH 7.50 (7.35-7.45) Arterial Blood pCO2 at Patient Temp 34 mmHg (35-46) Arterial Blood pO2 at Patient Temp 118 mmHg (65-108) Arterial Blood HCO3 26 mmol/L (21-28) Arterial Blood Base Excess 3 mmol/L (-3-3) FiO2 70 Glucose (Fingerstick) 270 mg/dL (70-99) 223 mg/dL (70-99) 180 mg/dL (70-99) Test 06/14/20 00:01 06/14/20 06:06 06/14/20 07:18 06/14/20 08:58 Glucose (Fingerstick) 194 mg/dL (70-99) 213 mg/dL (70-99) O2 Saturation 92 % (92-99) Arterial Blood pH 7.47 (7.35-7.45) Arterial Blood pCO2 at Patient Temp 38 mmHg (35-46) Arterial Blood pO2 at Patient Temp 61 mmHg (65-108) Arterial Blood HCO3 27 mmol/L (21-28) Arterial Blood Base Excess 3 mmol/L (-3-3) FiO2 50 White Blood Count 11.8 x10^3/uL (4.0-11.0) Red Blood Count 3.85 x10^6/uL (4.30-5.70) Hemoglobin 12.1 g/dL (13.0-17.5) Hematocrit 35.9 % (39.0-53.0) Mean Corpuscular Volume 93 fL (79-100) Mean Corpuscular Hemoglobin 32 pg (25-35) Mean Corpuscular Hemoglobin Concent 34 g/dL (31-37) Red Cell Distribution Width 13.5 % (11.5-14.5) Platelet Count 132 x10^3/uL (140-400) Neutrophils (%) (Auto) 79 % (31-73) Lymphocytes (%) (Auto) 11 % (24-48) Monocytes (%) (Auto) 10 % (0-9) Eosinophils (%) (Auto) 0 % (0-3) Basophils (%) (Auto) 0 % (0-3) Neutrophils # (Auto) 9.3 x10^3/uL (1.8-7.7) Lymphocytes # (Auto) 1.3 x10^3/uL (1.0-4.8) Monocytes # (Auto) 1.1 x10^3/uL (0.0-1.1) Eosinophils # (Auto) 0.0 x10^3/uL (0.0-0.7) Basophils # (Auto) 0.0 x10^3/uL (0.0-0.2) Sodium Level 141 mmol/L (136-145) Potassium Level 4.0 mmol/L (3.5-5.1) Chloride Level 107 mmol/L (98-107) Carbon Dioxide Level 29 mmol/L (21-32) Anion Gap 5 (6-14) Blood Urea Nitrogen 36 mg/dL (8-26) Creatinine 0.6 mg/dL (0.7-1.3) Estimated GFR (Cockcroft-Gault) 133.2 Glucose Level 226 mg/dL (70-99) Calcium Level 7.9 mg/dL (8.5-10.1) Magnesium Level 1.7 mg/dL (1.8-2.4) Test 06/14/20 13:04 06/14/20 18:14 06/14/20 23:41 06/15/20 05:41 Glucose (Fingerstick) 239 mg/dL (70-99) 282 mg/dL (70-99) 255 mg/dL (70-99) 194 mg/dL (70-99) Test 06/15/20 05:45 White Blood Count 15.0 x10^3/uL (4.0-11.0) Red Blood Count 3.54 x10^6/uL (4.30-5.70) Hemoglobin 11.1 g/dL (13.0-17.5) Hematocrit 32.8 % (39.0-53.0) Mean Corpuscular Volume 93 fL (79-100) Mean Corpuscular Hemoglobin 31 pg (25-35) Mean Corpuscular Hemoglobin Concent 34 g/dL (31-37) Red Cell Distribution Width 13.9 % (11.5-14.5) Platelet Count 188 x10^3/uL (140-400) Neutrophils (%) (Auto) 87 % (31-73) Lymphocytes (%) (Auto) 7 % (24-48) Monocytes (%) (Auto) 5 % (0-9) Eosinophils (%) (Auto) 0 % (0-3) Basophils (%) (Auto) 0 % (0-3) Neutrophils # (Auto) 13.1 x10^3/uL (1.8-7.7) Lymphocytes # (Auto) 1.1 x10^3/uL (1.0-4.8) Monocytes # (Auto) 0.8 x10^3/uL (0.0-1.1) Eosinophils # (Auto) 0.0 x10^3/uL (0.0-0.7) Basophils # (Auto) 0.1 x10^3/uL (0.0-0.2) Prothrombin Time 15.0 SEC (11.7-14.0) Prothromb Time International Ratio 1.2 (0.8-1.1) Sodium Level 138 mmol/L (136-145) Potassium Level 3.8 mmol/L (3.5-5.1) Chloride Level 106 mmol/L (98-107) Carbon Dioxide Level 31 mmol/L (21-32) Anion Gap 1 (6-14) Blood Urea Nitrogen 33 mg/dL (8-26) Creatinine 0.4 mg/dL (0.7-1.3) Estimated GFR (Cockcroft-Gault) 212.7 BUN/Creatinine Ratio 83 (6-20) Glucose Level 262 mg/dL (70-99) Calcium Level 7.8 mg/dL (8.5-10.1) Total Bilirubin 0.5 mg/dL (0.2-1.0) Aspartate Amino Transf (AST/SGOT) 13 U/L (15-37) Alanine Aminotransferase (ALT/SGPT) 17 U/L (16-63) Alkaline Phosphatase 75 U/L (46-116) Total Protein 4.5 g/dL (6.4-8.2) Albumin 1.2 g/dL (3.4-5.0) Albumin/Globulin Ratio 0.4 (1.0-1.7) Laboratory Tests Test 06/14/20 08:58 06/14/20 13:04 06/14/20 18:14 06/14/20 23:41 White Blood Count 11.8 x10^3/uL (4.0-11.0) Red Blood Count 3.85 x10^6/uL (4.30-5.70) Hemoglobin 12.1 g/dL (13.0-17.5) Hematocrit 35.9 % (39.0-53.0) Mean Corpuscular Volume 93 fL (79-100) Mean Corpuscular Hemoglobin 32 pg (25-35) Mean Corpuscular Hemoglobin Concent 34 g/dL (31-37) Red Cell Distribution Width 13.5 % (11.5-14.5) Platelet Count 132 x10^3/uL (140-400) Neutrophils (%) (Auto) 79 % (31-73) Lymphocytes (%) (Auto) 11 % (24-48) Monocytes (%) (Auto) 10 % (0-9) Eosinophils (%) (Auto) 0 % (0-3) Basophils (%) (Auto) 0 % (0-3) Neutrophils # (Auto) 9.3 x10^3/uL (1.8-7.7) Lymphocytes # (Auto) 1.3 x10^3/uL (1.0-4.8) Monocytes # (Auto) 1.1 x10^3/uL (0.0-1.1) Eosinophils # (Auto) 0.0 x10^3/uL (0.0-0.7) Basophils # (Auto) 0.0 x10^3/uL (0.0-0.2) Sodium Level 141 mmol/L (136-145) Potassium Level 4.0 mmol/L (3.5-5.1) Chloride Level 107 mmol/L (98-107) Carbon Dioxide Level 29 mmol/L (21-32) Anion Gap 5 (6-14) Blood Urea Nitrogen 36 mg/dL (8-26) Creatinine 0.6 mg/dL (0.7-1.3) Estimated GFR (Cockcroft-Gault) 133.2 Glucose Level 226 mg/dL (70-99) Calcium Level 7.9 mg/dL (8.5-10.1) Magnesium Level 1.7 mg/dL (1.8-2.4) Glucose (Fingerstick) 239 mg/dL (70-99) 282 mg/dL (70-99) 255 mg/dL (70-99) Test 06/15/20 05:41 06/15/20 05:45 Glucose (Fingerstick) 194 mg/dL (70-99) White Blood Count 15.0 x10^3/uL (4.0-11.0) Red Blood Count 3.54 x10^6/uL (4.30-5.70) Hemoglobin 11.1 g/dL (13.0-17.5) Hematocrit 32.8 % (39.0-53.0) Mean Corpuscular Volume 93 fL (79-100) Mean Corpuscular Hemoglobin 31 pg (25-35) Mean Corpuscular Hemoglobin Concent 34 g/dL (31-37) Red Cell Distribution Width 13.9 % (11.5-14.5) Platelet Count 188 x10^3/uL (140-400) Neutrophils (%) (Auto) 87 % (31-73) Lymphocytes (%) (Auto) 7 % (24-48) Monocytes (%) (Auto) 5 % (0-9) Eosinophils (%) (Auto) 0 % (0-3) Basophils (%) (Auto) 0 % (0-3) Neutrophils # (Auto) 13.1 x10^3/uL (1.8-7.7) Lymphocytes # (Auto) 1.1 x10^3/uL (1.0-4.8) Monocytes # (Auto) 0.8 x10^3/uL (0.0-1.1) Eosinophils # (Auto) 0.0 x10^3/uL (0.0-0.7) Basophils # (Auto) 0.1 x10^3/uL (0.0-0.2) Prothrombin Time 15.0 SEC (11.7-14.0) Prothromb Time International Ratio 1.2 (0.8-1.1) Sodium Level 138 mmol/L (136-145) Potassium Level 3.8 mmol/L (3.5-5.1) Chloride Level 106 mmol/L (98-107) Carbon Dioxide Level 31 mmol/L (21-32) Anion Gap 1 (6-14) Blood Urea Nitrogen 33 mg/dL (8-26) Creatinine 0.4 mg/dL (0.7-1.3) Estimated GFR (Cockcroft-Gault) 212.7 BUN/Creatinine Ratio 83 (6-20) Glucose Level 262 mg/dL (70-99) Calcium Level 7.8 mg/dL (8.5-10.1) Total Bilirubin 0.5 mg/dL (0.2-1.0) Aspartate Amino Transf (AST/SGOT) 13 U/L (15-37) Alanine Aminotransferase (ALT/SGPT) 17 U/L (16-63) Alkaline Phosphatase 75 U/L (46-116) Total Protein 4.5 g/dL (6.4-8.2) Albumin 1.2 g/dL (3.4-5.0) Albumin/Globulin Ratio 0.4 (1.0-1.7) Microbiology 06/12/20 AFB Specimen Processing Tissue - Final, Resulted 06/12/20 Acid Fast Bacilli Culture, Resulted Pending 06/12/20 Gram Stain - Final, Resulted 06/12/20 Fungal Culture, Resulted Pending 06/12/20 Fungal Culture Result 1, Resulted Pending 06/10/20 Blood Culture - Preliminary, Resulted NO GROWTH AFTER 4 DAYS Medications Current Medications Midazolam HCl 100 mg/Sodium Chloride 100 ml @ 0 mls/hr 1X ONCE IV Last administered on 06/07/20at 15:19; Start 06/07/20 at 15:15; Stop 06/07/20 at 15:16; Status DC Sodium Chloride 1,000 ml @ 1,000 mls/hr 1X ONCE IV Last administered on 06/07/20at 14:50; Start 06/07/20 at 15:15; Stop 06/07/20 at 16:14; Status DC Sodium Chloride 1,000 ml @ 1,000 mls/hr 1X ONCE IV Last administered on 06/07/20at 15:04; Start 06/07/20 at 15:15; Stop 06/07/20 at 16:14; Status DC Vancomycin HCl 1.25 gm/Sodium Chloride 250 ml @ 166.667 mls/hr 1X ONCE IV Last administered on 06/07/20at 15:57; Start 06/07/20 at 16:00; Stop 06/07/20 at 17:29; Status DC Clindamycin Phosphate 50 ml @ 100 mls/hr 1X ONCE IV Last administered on 06/07/20at 15:57; Start 06/07/20 at 15:15; Stop 06/07/20 at 15:44; Status DC Midazolam HCl (Versed) 5 mg 1X ONCE IV Last administered on 06/07/20at 15:15; Start 06/07/20 at 15:30; Stop 06/07/20 at 15:31; Status DC Etomidate (Amidate) 30 mg 1X ONCE IV Last administered on 06/07/20at 14:57; Start 06/07/20 at 15:30; Stop 06/07/20 at 15:31; Status DC Succinylcholine Chloride (Anectine) 200 mg 1X ONCE IV Last administered on 06/07/20at 14:58; Start 06/07/20 at 15:30; Stop 06/07/20 at 15:31; Status DC Fentanyl Citrate (Fentanyl 2ml Vial) 50 mcg PRN Q1HR ONCE IVP Last administered on 06/07/20at 16:30; Start 06/07/20 at 16:30; Stop 06/07/20 at 16:31; Status DC Fentanyl Citrate (Fentanyl 2ml Vial) 100 mcg 1X ONCE IVP Last administered on 06/07/20at 17:07; Start 06/07/20 at 17:15; Stop 06/07/20 at 17:16; Status DC Sennosides (Senna) 17.2 mg PRN BID PRN PO CONSTIPATION; Start 06/07/20 at 18:00 Docusate Sodium (Colace Solution) 100 mg PRN DAILY PRN PO HARD STOOLS; Start 06/07/20 at 21:00 Ondansetron HCl (Zofran) 4 mg PRN Q6HRS PRN IVP NAUSEA/VOMITING; Start 06/07/20 at 18:00 Potassium Chloride (Klor-Con) 40 meq 1X PRN PO PER PROTOCOL; Start 06/07/20 at 18:00; Status UNV Magnesium Oxide (Magnesium Oxide) 400 mg BID PO ; Start 06/07/20 at 21:00; Stop 06/09/20 at 09:01; Status UNV Potassium Chloride/Water 100 ml @ 100 mls/hr Q1H IV ; Start 06/07/20 at 18:00; Stop 06/07/20 at 21:59; Status UNV Magnesium Sulfate 50 ml @ 25 mls/hr Q24H IV ; Start 06/07/20 at 18:00; Stop 06/09/20 at 19:59; Status UNV Potassium Chloride/Water 100 ml @ 100 mls/hr Q1H PRN IV low k; Start 06/07/20 at 18:00; Status UNV Dextrose (Dextrose 50%-Water Syringe) 12.5 gm PRN Q15MIN PRN IV SEE COMMENTS; Start 06/07/20 at 18:00; Stop 06/08/20 at 22:09; Status DC Vancomycin HCl 1 gm/Dextrose 250 ml @ 250 mls/hr 1X ONCE IV ; Start 06/07/20 at 18:00; Stop 06/07/20 at 18:59; Status UNV Enoxaparin Sodium (Lovenox 40mg Syringe) 40 mg Q24H SQ Last administered on 06/14/20at 18:18; Start 06/07/20 at 19:00 Pantoprazole Sodium (PROTONIX VIAL for IV PUSH) 40 mg DAILYAC IVP Last administered on 06/14/20at 09:58; Start 06/07/20 at 19:00 Ascorbic Acid (Vitamin C) 500 mg DAILY PO Last administered on 06/14/20at 09:59; Start 06/08/20 at 09:00 Thiamine HCl 100 mg/Dextrose 51 ml @ 102 mls/hr DAILY IV Last administered on 06/14/20at 12:58; Start 06/08/20 at 09:00 Info (Icu Electrolyte Protocol) 1 ea CONT PRN PRN MC PER PROTOCOL; Start 06/07/20 at 18:00 Vancomycin HCl 750 mg/Sodium Chloride 250 ml @ 250 mls/hr 1X ONCE IV Last administered on 06/07/20at 19:18; Start 06/07/20 at 18:00; Stop 06/07/20 at 18:59; Status DC Vancomycin HCl (Vanco Per Pharmacy) 1 each PRN DAILY PRN MC SEE COMMENTS Last administered on 06/07/20at 19:49; Start 06/07/20 at 18:00; Stop 06/07/20 at 20:36; Status DC Fentanyl Citrate (Fentanyl 2ml Vial) 50 mcg PRN Q1HR PRN IVP PAIN Last administered on 06/07/20at 18:02; Start 06/07/20 at 18:00; Stop 06/08/20 at 16:07; Status DC Fentanyl Citrate 30 ml @ 0 mls/hr CONT PRN IV SEE PROTOCOL Last administered on 06/13/20at 00:13; Start 06/07/20 at 18:30 Fentanyl Citrate (Fentanyl 2ml Vial) 25 mcg PRN Q1HR PRN IV SEE COMMENTS; Start 06/07/20 at 18:30 Fentanyl Citrate (Fentanyl 2ml Vial) 50 mcg PRN Q1HR PRN IV SEE COMMENTS Last administered on 06/14/20at 18:17; Start 06/07/20 at 18:30 Midazolam HCl 100 ml @ 0 mls/hr CONT PRN IV SEE PROTOCOL Last administered on 06/12/20at 21:36; Start 06/07/20 at 18:30 Vecuronium [place] (Norcuron Bolus) 6 mg 1X ONCE IV Last administered on 06/07/20at 19:18; Start 06/07/20 at 18:30; Stop 06/07/20 at 18:31; Status DC Norepinephrine Bitartrate 8 mg/ Dextrose 258 ml @ 23.027 mls/ hr CONT PRN IV PER PROTOCOL Last administered on 06/07/20at 19:36; Start 06/07/20 at 19:15; Stop 06/07/20 at 20:05; Status DC Acetaminophen (Tylenol Supp) 650 mg PRN Q6HRS PRN DC MILD PAIN / TEMP > 100. 3'F; Start 06/07/20 at 19:15 Vancomycin HCl (Vanco Per Pharmacy) 1 each PRN DAILY PRN MC SEE COMMENTS; Start 06/07/20 at 19:15; Status UNV Metronidazole 100 ml @ 100 mls/hr Q12HR IV ; Start 06/07/20 at 21:00; Stop 06/07/20 at 20:36; Status DC Amiodarone HCl 450 mg/Dextrose 259 ml @ 0 mls/hr 1X ONCE IV ; Start 06/07/20 at 19:15; Stop 06/07/20 at 19:16; Status Cancel Meropenem 1 gm/ Sodium Chloride 100 ml @ 200 mls/hr Q8HRS IV Last administered on 06/07/20at 22:30; Start 06/07/20 at 22:00; Stop 06/08/20 at 06:09; Status DC Methylprednisolone Sodium Succinate (SOLU-Medrol 125MG VIAL) 125 mg 1X ONCE IV Last administered on 06/07/20at 20:14; Start 06/07/20 at 19:45; Stop 06/07/20 at 19:46; Status DC Methylprednisolone Sodium Succinate (SOLU-Medrol 40MG VIAL) 40 mg Q8HRS IV Last administered on 06/12/20at 06:24; Start 06/08/20 at 06:00; Stop 06/12/20 at 09:12; Status DC Vancomycin HCl 1.75 gm/Sodium Chloride 500 ml @ 250 mls/hr Q12H IV ; Start 06/08/20 at 08:00; Stop 06/07/20 at 20:36; Status DC Vancomycin HCl (Vancomycin Trough Level) 1 each 1X ONCE MC ; Start 06/09/20 at 07:30; Stop 06/07/20 at 20:38; Status DC Vasopressin 20 unit/Dextrose 101 ml @ 12 mls/hr CONT PRN IV SEE I/O RECORD; Start 06/07/20 at 20:00 Norepinephrine Bitartrate 16 mg/ Dextrose 266 ml @ 11.87 mls/ hr CONT PRN IV PER PROTOCOL Last administered on 06/07/20at 22:09; Start 06/07/20 at 20:00; Stop 06/07/20 at 23:00; Status DC Sodium Chloride 1,000 ml @ 1,000 mls/hr 1X ONCE IV Last administered on 06/07/20at 20:16; Start 06/07/20 at 20:15; Stop 06/07/20 at 21:14; Status DC Norepinephrine Bitartrate 32 mg/ Dextrose 250 ml @ 5.578 mls/ hr CONT PRN IV S EE I/O RECORD Last administered on 06/12/20at 02:14; Start 06/07/20 at 22:30 Sodium Chloride 1,000 ml @ 100 mls/hr Q10H IV Last administered on 06/08/20at 09:44; Start 06/08/20 at 00:00; Stop 06/08/20 at 18:42; Status DC Meropenem 1 gm/ Sodium Chloride 100 ml @ 200 mls/hr Q12HR IV Last administered on 06/14/20at 20:53; Start 06/08/20 at 09:00 Sodium Bicarbonate (Sodium Bicarb Adult 8.4% Syr) 50 meq 1X ONCE IV Last administered on 06/08/20at 10:42; Start 06/08/20 at 09:45; Stop 06/08/20 at 09:46; Status DC Multivitamins/ Minerals Therapeutic (Centrum Multivit-Mineral Liq) 5 ml DAILY PEG Last administered on 06/14/20at 09:59; Start 06/08/20 at 10:00 Sodium Chloride 1,000 ml @ 1,000 mls/hr 1X ONCE IV Last administered on 06/08/20at 12:11; Start 06/08/20 at 11:30; Stop 06/08/20 at 12:29; Status DC Vancomycin HCl (Vanco Per Pharmacy) 1 each PRN DAILY PRN MC SEE COMMENTS Last administered on 06/14/20at 08:51; Start 06/08/20 at 12:30 Vancomycin HCl 1.75 gm/Sodium Chloride 500 ml @ 250 mls/hr Q24H IV Last ad ministered on 06/08/20at 19:49; Start 06/08/20 at 19:00; Stop 06/09/20 at 19:35; Status DC Vancomycin HCl (Vancomycin Trough Level) 1 each 1X ONCE MC Last administered on 06/09/20at 18:30; Start 06/09/20 at 18:30; Stop 06/09/20 at 18:31; Status DC Dextrose/Sodium Chloride 1,000 ml @ 100 mls/hr Q10H IV Last administered on 06/10/20at 23:44; Start 06/08/20 at 15:30; Stop 06/11/20 at 11:41; Status DC Dextrose (Dextrose 50%-Water Syringe) 25 gm 1X ONCE IV Last administered on 06/08/20at 16:34; Start 06/08/20 at 15:30; Stop 06/08/20 at 15:37; Status DC Insulin Human Regular (HumuLIN R VIAL) 10 unit 1X ONCE IV Last administered on 06/08/20at 16:37; Start 06/08/20 at 15:30; Stop 06/08/20 at 15:37; Status DC Calcium Gluconate (Calcium Gluconate) 1,000 mg 1X ONCE IVP Last administered on 06/08/20at 16:38; Start 06/08/20 at 15:30; Stop 06/08/20 at 15:37; Status DC Insulin Human Lispro (HumaLOG) 0-9 UNITS Q4HRS SQ Last administered on 06/09/20at 03:53; Start 06/09/20 at 00:00; Stop 06/09/20 at 07:30; Status DC Dextrose (Dextrose 50%-Water Syringe) 12.5 gm PRN Q15MIN PRN IV SEE COMMENTS; Start 06/08/20 at 22:15 Insulin Human Lispro (HumaLOG) 0-9 UNITS Q12HR SQ ; Start 06/09/20 at 12:00; Stop 06/09/20 at 08:04; Status DC Insulin Human Lispro (HumaLOG) 0-9 UNITS Q6HRS SQ Last administered on 06/11/20at 17:58; Start 06/09/20 at 08:15; Stop 06/12/20 at 00:25; Status DC Bisacodyl (Dulcolax Supp) 10 mg PRN DAILY PRN RC CONSTIPATION; Start 06/09/20 at 08:30 Mirtazapine (Remeron) 7.5 mg QHS PO Last administered on 06/14/20at 20:51; Start 06/09/20 at 21:00 Olanzapine (ZyPREXA) 2.5 mg QHS PO Last administered on 06/14/20at 20:50; Start 06/09/20 at 21:00 Insulin Glargine (Lantus Syringe) 27 unit QHS SQ Last administered on 06/14/20at 20:56; Start 06/09/20 at 21:00 Valproic Acid (Depakene) 250 mg [id number] PEG Last administered on 06/14/20at 20:49; Start 06/09/20 at 09:00 Insulin Glargine (Lantus Syringe) 10 unit 1X SQ ; Start 06/09/20 at 08:30; Stop 06/09/20 at 08:30; Status DC Insulin Glargine (Lantus Syringe) 10 unit 1X ONCE SQ Last administered on 06/09/20at 08:45; Start 06/09/20 at 08:45; Stop 06/09/20 at 08:46; Status DC Vancomycin HCl 1.75 gm/Sodium Chloride 500 ml @ 250 mls/hr Q18H IV Last administered on 06/15/20at 02:03; Start 06/09/20 at 20:00 Vancomycin HCl (Vancomycin Trough Level) 1 each 1X ONCE MC ; Start 06/11/20 at 07:30; Stop 06/11/20 at 07:31; Status DC Insulin Human Lispro (HumaLOG) 15 units 1X ONCE SQ Last administered on 06/10/20at 10:35; Start 06/10/20 at 10:30; Stop 06/10/20 at 10:33; Status DC Insulin Human Lispro (HumaLOG) 21 units 1X ONCE SQ Last administered on 06/10/20at 14:05; Start 06/10/20 at 13:00; Stop 06/10/20 at 13:01; Status DC Sodium Chloride 1,000 ml @ 0 mls/hr Q0M IV ; Start 06/11/20 at 10:45; Status Cancel Sodium Chloride 1,000 ml @ 20 mls/hr Q24H IV Last administered on 06/13/20at 12:16; Start 06/11/20 at 11:45 Insulin Human Lispro (HumaLOG) 21 units 1X ONCE SQ Last administered on 06/11/20at 11:50; Start 06/11/20 at 11:45; Stop 06/11/20 at 11:48; Status DC Insulin Human Lispro (HumaLOG) 0-9 UNITS Q6HRS SQ Last administered on 06/15/20at 05:43; Start 06/12/20 at 06:00 Insulin Human Lispro (HumaLOG) 12 units 1X ONCE SQ Last administered on 06/12/20at 00:47; Start 06/12/20 at 00:30; Stop 06/12/20 at 00:31; Status DC Lidocaine HCl (Lidocaine 2% Viscous) 100 ml PRN 1X PRN MM FOR PROCEDURE Last administered on 06/12/20at 09:25; Start 06/12/20 at 07:15; Stop 06/13/20 at 07:14; Status DC Lidocaine HCl (Lidocaine 1% 20ml Vial) 20 ml PRN 1X PRN INJ SEE COMMENTS Last administered on 06/12/20at 09:26; Start 06/12/20 at 07:15; Stop 06/13/20 at 07:14; Status DC Epinephrine HCl (Adrenalin) 1 mg PRN 1X PRN INJ SEE COMMENTS; Start 06/12/20 at 07:15; Stop 06/13/20 at 07:14; Status DC Insulin Human Lispro (HumaLOG) 9 units Q6HRS SQ Last administered on 06/15/20at 05:43; Start 06/12/20 at 08:00 Epinephrine HCl (Adrenalin) 1 mg STK-MED ONCE .ROUTE ; Start 06/12/20 at 08:19; Stop 06/12/20 at 08:20; Status DC Lidocaine HCl (Lidocaine 1% 20ml Vial) 20 ml STK-MED ONCE .ROUTE ; Start 06/12/20 at 08:19; Stop 06/12/20 at 08:20; Status DC Lidocaine HCl (Lidocaine 2% Viscous) 100 ml STK-MED ONCE .ROUTE ; Start 06/12/20 at 08:20; Stop 06/12/20 at 08:20; Status DC Methylprednisolone Sodium Succinate (SOLU-Medrol 40MG VIAL) 40 mg BID IV Last administered on 06/14/20at 20:55; Start 06/12/20 at 21:00 Propofol 100 ml @ 2.049 mls/ hr CONT PRN IV SEE I/O RECORD Last administered on 06/15/20at 05:29; Start 06/13/20 at 17:00 Furosemide (Lasix) 40 mg 1X ONCE IVP Last administered on 06/14/20at 15:54; Start 06/14/20 at 10:15; Stop 06/14/20 at 10:22; Status DC Magnesium Sulfate 100 ml @ 50 mls/hr PRN DAILY PRN IV SEE COMMENTS; Start 06/15/20 at 09:00 Active Scripts Active Reported Tylenol (Acetaminophen) 325 Mg Tablet 650 Mg PO BID Senna-Docusate Sodium Tablet (Sennosides/Docusate Sodium) 1 Each Tablet 1 Each PO PRN PRN Risperdal (Risperidone) 3 Mg Tablet 0.5 Tab PO BID 30 Days Potassium Chloride (Potassium Chloride) 20 Meq Tablet.er 20 Meq PO TID Olanzapine 5 Mg Tablet 0.5 Tab PO QHS Nystatin 15 Gm Cream..g. 15 Gm TP PRN Q8HRS PRN Novolog Flexpen (Insulin Aspart) 100 Unit/1 Ml Insuln.pen 1 Unit SQ TIDWMEALS Mirtazapine 7.5 Mg Tablet 1 Tab PO QHS 30 Days Milk Of Magnesia (Magnesium Hydroxide) 400 Mg/5 Ml Oral.susp 400 Mg PO PRN PRN Metformin Hcl 1,000 Mg Tablet 1,000 Mg PO BIDWMEALS Melatonin 3 Mg Tab.rapdis 1 Tab PO QHS 30 Days Magnesium Oxide 400 Mg Tablet 1 Tab PO DAILY Acidophilus (Lactobacillus Acidophilus) 1 Each Capsule 1 Cap PO DAILY 14 Days Ketoconazole 120 Ml Shampoo 1 Melissa TP TWICE WEEKLY 30 Days with at least 3 days between each shampooing Levemir Flextouch (Insulin Detemir) 100 Unit/1 Ml Insuln.pen 27 Unit SQ QHS Furosemide 20 Mg Tablet 1 Tab PO DAILY Fleet Enema (Na Phos,M-B/Na Phos,Di-Ba) 133 Ml Enema 133 Ml RC PRN PRN Divalproex Sodium Er (Divalproex Sodium) 500 Mg Tab.er.24h 2,000 Mg PO QHS D3-50 (Cholecalciferol (Vitamin D3)) 50,000 Unit Capsule 1,000 Unit PO DAILY Dulcolax (Bisacodyl) 10 Mg Supp.rect 10 Mg RC PRN DAILY PRN Atorvastatin Calcium 20 Mg Tablet 20 Mg PO HS Vitals/I & O Vital Sign - Last 24 Hours 06/14/20 06/14/20 06/14/20 06/14/20 09:00 09:25 10:00 11:00 Pulse 88 76 76 Resp 16 16 16 B/P (MAP) 114/52 (72) 83/51 (62) 82/53 (63) Pulse Ox 99 98 99 O2 Delivery Ventilator Ventilator Ventilator Ventilator 06/14/20 06/14/20 06/14/20 06/14/20 11:12 11:15 12:00 12:00 Temp 97.6 97.6 Pulse 76 72 Resp 16 16 B/P (MAP) 87/52 (64) 86/47 (60) Pulse Ox 99 99 96 O2 Delivery Ventilator Ventilator Mechanical Ventilator Ventilator 06/14/20 06/14/20 06/14/20 06/14/20 13:00 14:00 15:00 15:25 Pulse 72 72 72 Resp 16 22 22 B/P (MAP) 88/54 (65) 95/57 (70) 98/58 (71) Pulse Ox 99 98 98 98 O2 Delivery Ventilator Ventilator Ventilator Ventilator 06/14/20 06/14/20 06/14/20 06/14/20 16:00 16:00 17:00 17:39 Temp 97.5 97.5 Pulse 69 61 Resp 22 18 B/P (MAP) 101/60 (74) 96/51 (66) Pulse Ox 98 98 O2 Delivery Mechanical Ventilator Ventilator Ventilator Ventilator 06/14/20 06/14/20 06/14/20 06/14/20 18:00 18:17 18:47 19:00 Pulse 62 64 Resp 18 18 18 16 B/P (MAP) 109/56 (73) 114/65 (81) Pulse Ox 98 100 99 99 O2 Delivery Ventilator Ventilator Ventilator Ventilator 06/14/20 06/14/20 06/14/20 06/14/20 20:00 20:00 20:03 21:00 Temp 98.6 98.6 Pulse 56 52 Resp 16 16 B/P (MAP) 106/66 (79) Pulse Ox 100 100 99 O2 Delivery Mechanical Ventilator Ventilator Ventilator Ventilator 06/14/20 06/14/20 06/14/20 06/14/20 22:00 22:45 23:00 23:15 Pulse 60 52 57 56 Resp 20 16 16 16 B/P (MAP) 95/52 (66) 95/50 (65) 96/56 (69) 98/50 (66) Pulse Ox 99 98 97 96 O2 Delivery Ventilator Ventilator Ventilator Ventilator 06/14/20 06/14/20 06/15/20 06/15/20 23:30 23:59 00:00 00:21 Temp 98.7 98.7 Pulse 54 53 Resp 16 16 B/P (MAP) 89/57 (68) 93/51 (65) Pulse Ox 96 98 100 O2 Delivery Ventilator Mechanical Ventilator Ventilator Ventilator 06/15/20 06/15/20 06/15/20 06/15/20 01:00 02:00 03:00 04:00 Pulse 50 55 50 Resp 16 16 16 B/P (MAP) 102/54 (70) 113/71 (85) 92/49 (63) Pulse Ox 99 100 98 O2 Delivery Ventilator Ventilator Ventilator Mechanical Ventilator 06/15/20 06/15/20 06/15/20 06/15/20 04:00 04:49 05:00 06:00 Temp 98.3 98.3 Pulse 51 51 47 Resp 16 16 B/P (MAP) 102/60 (74) 100/55 (70) 104/55 (71) Pulse Ox 100 100 100 99 O2 Delivery Ventilator Ventilator Ventilator Ventilator 06/15/20 06/15/20 07:00 07:42 Pulse 49 Resp 16 B/P (MAP) 105/54 (71) Pulse Ox 99 99 O2 Delivery Ventilator Ventilator Intake and Output 06/14/20 06/14/20 06/15/20 15:00 23:00 07:00 Intake Total 800 ml 1705.65 ml 1950 ml Output Total 530 ml 1850 ml 710 ml Balance 270 ml -144.35 ml 1240 ml Justicifation of Admission Dx: Justifications for Admission: Justification of Admission Dx: Yes SMITA STAPLES MD Jun 15, 2020 08:21
[2020-06-15] MEDS: PANTOPRAZOLE IV PUSH 40 MG VIAL. IVP SCH (08:36)
[2020-06-15] MEDS: ASCORBIC ACID 500 MG TABLET PO SCH (08:37)
[2020-06-15] MEDS: MEROPENEM 1 GM in IV NORMAL SALINE 100ML 100 ML IV SCH ×2 (08:37→21:59)
[2020-06-15] MEDS: MULTIVITAMINS,THERAPEUTIC 5 ML ORAL LIQUID. PEG SCH (08:37)
[2020-06-15] MEDS: methylPREDNISolone SOD SUCC PF 40 MG/ML VIAL. IV SCH ×2 (08:37→21:05)
[2020-06-15] MEDS: VALPROIC ACID (AS SODIUM SALT) 250 MG/5 ML SOLUTION. PEG SCH ×3 (08:37→21:00)
[2020-06-15] MEDS ORDERED: MAGNESIUM SULFATE 4GM 100 ML IV PRN (09:00)
--- NOTE | 2020-06-15 09:06 | RAD ---
PORTABLE CHEST 1V Clinical indications: Ventilator. Follow-up study. COMPARISON: June 14, 2020. FINDINGS/ IMPRESSION: Consolidative left lung base infiltrate in association with a small to moderate size left-sided pleural effusion is unchanged. Persistent medial right lung base infiltrate or atelectasis is seen which is unchanged. No pneumothorax is seen. The heart size and mediastinum are stable. There've been no interval tube or line changes. Electronically signed by: Andres Lo MD (06/15/2020 9:03 AM) [id number]
[2020-06-15 09:40] LABS: BASE EXCESS ABG 4 mmol/L (-3-3); HCO3 ABG 27 mmol/L (21-28); PCO2 ABG 37 mmHg (35-46); PO2 ABG 89 mmHg (65-108); SAT O2 ABG 97 % (92-99)
[2020-06-15 09:44] LABS: FIO2 ABG 50
[2020-06-15] MEDS: THIAMINE INJ 100 MG in IV DEXTROSE 5% 50 ML IV SCH (09:45)
--- NOTE | 2020-06-15 10:30 | NUR ---
CPAP trial started by RT Brittnee per Dr. Cuello's orders.
[2020-06-15 11:23] LABS: BASE EXCESS ABG 2 mmol/L (-3-3); HCO3 ABG 26 mmol/L (21-28); PCO2 ABG 36 mmHg (35-46); PO2 ABG 73 mmHg (65-108); SAT O2 ABG 95 % (92-99)
[2020-06-15 11:28] LABS: FIO2 ABG 50% PS 10 PEEP 5
[2020-06-15 11:34] LABS: % LYMPHS 8 % (24-48); % MONOS 5 % (0-10); % MYELOS 3 % (0-0); % SEGS 84 % (35-66); NUCLEATED RBC 1; PLT ESTIMATE ADEQUATE (ADEQUATE)
--- NOTE | 2020-06-15 11:35 | PDOC ---
PULMONARY PROGRESS NOTES DATE: 06/15/20 TIME: 11:32 Subjective remains intubated/sedated S/P bronchoscopy on 06/12 more awake today, will continued improvement of oxygenation no overnight concerns from nursing Vitals Vital Signs Date Time Temp Pulse Resp B/P (MAP) Pulse Ox O2 Delivery O2 Flow Rate FiO2 06/15/20 11:00 67 20 121/64 (83) 100 BiPAP/CPAP 06/15/20 08:00 97.6 97.6 Comments intubated/sedated General: Alert Lungs: Clear Cardiovascular: S1 Abdomen: Soft Extremities: Other (BLE +2) Skin: Warm Labs Laboratory Tests Test 06/13/20 12:14 06/13/20 16:54 06/13/20 20:39 06/14/20 00:01 Glucose (Fingerstick) 270 mg/dL (70-99) 223 mg/dL (70-99) 180 mg/dL (70-99) 194 mg/dL (70-99) Test 06/14/20 06:06 06/14/20 07:18 06/14/20 08:58 06/14/20 13:04 Glucose (Fingerstick) 213 mg/dL (70-99) 239 mg/dL (70-99) O2 Saturation 92 % (92-99) Arterial Blood pH 7.47 (7.35-7.45) Arterial Blood pCO2 at Patient Temp 38 mmHg (35-46) Arterial Blood pO2 at Patient Temp 61 mmHg (65-108) Arterial Blood HCO3 27 mmol/L (21-28) Arterial Blood Base Excess 3 mmol/L (-3-3) FiO2 50 White Blood Count 11.8 x10^3/uL (4.0-11.0) Red Blood Count 3.85 x10^6/uL (4.30-5.70) Hemoglobin 12.1 g/dL (13.0-17.5) Hematocrit 35.9 % (39.0-53.0) Mean Corpuscular Volume 93 fL (79-100) Mean Corpuscular Hemoglobin 32 pg (25-35) Mean Corpuscular Hemoglobin Concent 34 g/dL (31-37) Red Cell Distribution Width 13.5 % (11.5-14.5) Platelet Count 132 x10^3/uL (140-400) Neutrophils (%) (Auto) 79 % (31-73) Lymphocytes (%) (Auto) 11 % (24-48) Monocytes (%) (Auto) 10 % (0-9) Eosinophils (%) (Auto) 0 % (0-3) Basophils (%) (Auto) 0 % (0-3) Neutrophils # (Auto) 9.3 x10^3/uL (1.8-7.7) Lymphocytes # (Auto) 1.3 x10^3/uL (1.0-4.8) Monocytes # (Auto) 1.1 x10^3/uL (0.0-1.1) Eosinophils # (Auto) 0.0 x10^3/uL (0.0-0.7) Basophils # (Auto) 0.0 x10^3/uL (0.0-0.2) Sodium Level 141 mmol/L (136-145) Potassium Level 4.0 mmol/L (3.5-5.1) Chloride Level 107 mmol/L (98-107) Carbon Dioxide Level 29 mmol/L (21-32) Anion Gap 5 (6-14) Blood Urea Nitrogen 36 mg/dL (8-26) Creatinine 0.6 mg/dL (0.7-1.3) Estimated GFR (Cockcroft-Gault) 133.2 Glucose Level 226 mg/dL (70-99) Calcium Level 7.9 mg/dL (8.5-10.1) Magnesium Level 1.7 mg/dL (1.8-2.4) Test 06/14/20 18:14 06/14/20 23:41 06/15/20 05:41 06/15/20 05:45 Glucose (Fingerstick) 282 mg/dL (70-99) 255 mg/dL (70-99) 194 mg/dL (70-99) White Blood Count 15.0 x10^3/uL (4.0-11.0) Red Blood Count 3.54 x10^6/uL (4.30-5.70) Hemoglobin 11.1 g/dL (13.0-17.5) Hematocrit 32.8 % (39.0-53.0) Mean Corpuscular Volume 93 fL (79-100) Mean Corpuscular Hemoglobin 31 pg (25-35) Mean Corpuscular Hemoglobin Concent 34 g/dL (31-37) Red Cell Distribution Width 13.9 % (11.5-14.5) Platelet Count 188 x10^3/uL (140-400) Neutrophils (%) (Auto) 87 % (31-73) Lymphocytes (%) (Auto) 7 % (24-48) Monocytes (%) (Auto) 5 % (0-9) Eosinophils (%) (Auto) 0 % (0-3) Basophils (%) (Auto) 0 % (0-3) Neutrophils # (Auto) 13.1 x10^3/uL (1.8-7.7) Lymphocytes # (Auto) 1.1 x10^3/uL (1.0-4.8) Monocytes # (Auto) 0.8 x10^3/uL (0.0-1.1) Eosinophils # (Auto) 0.0 x10^3/uL (0.0-0.7) Basophils # (Auto) 0.1 x10^3/uL (0.0-0.2) Prothrombin Time 15.0 SEC (11.7-14.0) Prothromb Time International Ratio 1.2 (0.8-1.1) Sodium Level 138 mmol/L (136-145) Potassium Level 3.8 mmol/L (3.5-5.1) Chloride Level 106 mmol/L (98-107) Carbon Dioxide Level 31 mmol/L (21-32) Anion Gap 1 (6-14) Blood Urea Nitrogen 33 mg/dL (8-26) Creatinine 0.4 mg/dL (0.7-1.3) Estimated GFR (Cockcroft-Gault) 212.7 BUN/Creatinine Ratio 83 (6-20) Glucose Level 262 mg/dL (70-99) Calcium Level 7.8 mg/dL (8.5-10.1) Total Bilirubin 0.5 mg/dL (0.2-1.0) Aspartate Amino Transf (AST/SGOT) 13 U/L (15-37) Alanine Aminotransferase (ALT/SGPT) 17 U/L (16-63) Alkaline Phosphatase 75 U/L (46-116) Total Protein 4.5 g/dL (6.4-8.2) Albumin 1.2 g/dL (3.4-5.0) Albumin/Globulin Ratio 0.4 (1.0-1.7) Test 9/21/20 09:25 06/15/20 11:20 O2 Saturation 97 % (92-99) 95 % (92-99) Arterial Blood pH 7.48 (7.35-7.45) 7.48 (7.35-7.45) Arterial Blood pCO2 at Patient Temp 37 mmHg (35-46) 36 mmHg (35-46) Arterial Blood pO2 at Patient Temp 89 mmHg (65-108) 73 mmHg (65-108) Arterial Blood HCO3 27 mmol/L (21-28) 26 mmol/L (21-28) Arterial Blood Base Excess 4 mmol/L (-3-3) 2 mmol/L (-3-3) FiO2 50 50% ps 10 peep 5 Laboratory Tests Test 06/14/20 13:04 06/14/20 18:14 06/14/20 23:41 06/15/20 05:41 Glucose (Fingerstick) 239 mg/dL (70-99) 282 mg/dL (70-99) 255 mg/dL (70-99) 194 mg/dL (70-99) Test 06/15/20 05:45 06/15/20 09:25 06/15/20 11:20 White Blood Count 15.0 x10^3/uL (4.0-11.0) Red Blood Count 3.54 x10^6/uL (4.30-5.70) Hemoglobin 11.1 g/dL (13.0-17.5) Hematocrit 32.8 % (39.0-53.0) Mean Corpuscular Volume 93 fL (79-100) Mean Corpuscular Hemoglobin 31 pg (25-35) Mean Corpuscular Hemoglobin Concent 34 g/dL (31-37) Red Cell Distribution Width 13.9 % (11.5-14.5) Platelet Count 188 x10^3/uL (140-400) Neutrophils (%) (Auto) 87 % (31-73) Lymphocytes (%) (Auto) 7 % (24-48) Monocytes (%) (Auto) 5 % (0-9) Eosinophils (%) (Auto) 0 % (0-3) Basophils (%) (Auto) 0 % (0-3) Neutrophils # (Auto) 13.1 x10^3/uL (1.8-7.7) Lymphocytes # (Auto) 1.1 x10^3/uL (1.0-4.8) Monocytes # (Auto) 0.8 x10^3/uL (0.0-1.1) Eosinophils # (Auto) 0.0 x10^3/uL (0.0-0.7) Basophils # (Auto) 0.1 x10^3/uL (0.0-0.2) Prothrombin Time 15.0 SEC (11.7-14.0) Prothromb Time International Ratio 1.2 (0.8-1.1) Sodium Level 138 mmol/L (136-145) Potassium Level 3.8 mmol/L (3.5-5.1) Chloride Level 106 mmol/L (98-107) Carbon Dioxide Level 31 mmol/L (21-32) Anion Gap 1 (6-14) Blood Urea Nitrogen 33 mg/dL (8-26) Creatinine 0.4 mg/dL (0.7-1.3) Estimated GFR (Cockcroft-Gault) 212.7 BUN/Creatinine Ratio 83 (6-20) Glucose Level 262 mg/dL (70-99) Calcium Level 7.8 mg/dL (8.5-10.1) Total Bilirubin 0.5 mg/dL (0.2-1.0) Aspartate Amino Transf (AST/SGOT) 13 U/L (15-37) Alanine Aminotransferase (ALT/SGPT) 17 U/L (16-63) Alkaline Phosphatase 75 U/L (46-116) Total Protein 4.5 g/dL (6.4-8.2) Albumin 1.2 g/dL (3.4-5.0) Albumin/Globulin Ratio 0.4 (1.0-1.7) O2 Saturation 97 % (92-99) 95 % (92-99) Arterial Blood pH 7.48 (7.35-7.45) 7.48 (7.35-7.45) Arterial Blood pCO2 at Patient Temp 37 mmHg (35-46) 36 mmHg (35-46) Arterial Blood pO2 at Patient Temp 89 mmHg (65-108) 73 mmHg (65-108) Arterial Blood HCO3 27 mmol/L (21-28) 26 mmol/L (21-28) Arterial Blood Base Excess 4 mmol/L (-3-3) 2 mmol/L (-3-3) FiO2 50 50% ps 10 peep 5 Medications Active Scripts Medications Dose Route/Sig Max Daily Dose Days Date Category Dose Instructions Tylenol (Acetaminophen) 325 Mg Tablet 650 Mg PO BID 06/08/20 Reported Senna-Docusate Sodium Tablet (Sennosides/Docusate Sodium) 1 Each Tablet 1 Each PO PRN PRN 06/08/20 Reported Risperdal (Risperidone) 3 Mg Tablet 0.5 Tab PO BID 30 06/08/20 Reported Potassium Chloride (Potassium Chloride) 20 Meq Tablet.er 20 Meq PO TID 06/08/20 Reported Olanzapine 5 Mg Tablet 0.5 Tab PO QHS 06/08/20 Reported Nystatin 15 Gm Cream..g. 15 Gm TP PRN Q8HRS PRN 06/08/20 Reported Novolog Flexpen (Insulin Aspart) 100 Unit/1 Ml Insuln.pen 1 Unit SQ TIDWMEALS 06/08/20 Reported Mirtazapine 7.5 Mg Tablet 1 Tab PO QHS 30 06/08/20 Reported Milk Of Magnesia (Magnesium Hydroxide) 400 Mg/5 Ml Oral.susp 400 Mg PO PRN PRN 06/08/20 Reported Metformin Hcl 1,000 Mg Tablet 1,000 Mg PO BIDWMEALS 06/08/20 Reported Melatonin 3 Mg Tab.rapdis 1 Tab PO QHS 30 06/08/20 Reported Magnesium Oxide 400 Mg Tablet 1 Tab PO DAILY 06/08/20 Reported Acidophilus (Lactobacillus Acidophilus) 1 Each Capsule 1 Cap PO DAILY 14 06/08/20 Reported Ketoconazole 120 Ml Shampoo 1 Melissa TP TWICE WEEKLY 30 06/08/20 Reported with at least 3 days between each shampooing Levemir Flextouch (Insulin Detemir) 100 Unit/1 Ml Insuln.pen 27 Unit SQ QHS 06/08/20 Reported Furosemide 20 Mg Tablet 1 Tab PO DAILY 06/08/20 Reported Fleet Enema (Na Phos,M-B/Na Phos,Di-Ba) 133 Ml Enema 133 Ml RC PRN PRN 06/08/20 Reported Divalproex Sodium Er (Divalproex Sodium) 500 Mg Tab.er.24h 2,000 Mg PO QHS 06/08/20 Reported D3-50 (Cholecalciferol (Vitamin D3)) 50,000 Unit Capsule 1,000 Unit PO DAILY 06/08/20 Reported Dulcolax (Bisacodyl) 10 Mg Supp.rect 10 Mg RC PRN DAILY PRN 06/08/20 Reported Atorvastatin Calcium 20 Mg Tablet 20 Mg PO HS 06/08/20 Reported Comments CXR 06/15 FINDINGS/ IMPRESSION: Consolidative left lung base infiltrate in association with a small to moderate size left-sided pleural effusion is unchanged. Persistent medial right lung base infiltrate or atelectasis is seen which is unchanged. No pneumothorax is seen. The heart size and mediastinum are stable. There've been no interval tube or line changes. Impression . 1. Acute hypoxic respiratory failure secondary to pneumonia ,shock and acute respiratory distress syndrome.--improving 2. Abnormal chest x-ray with bilateral infiltrates suggestive of pneumonia. He could have a gram-negative pneumonia as well. left mucous plug 06/12. s/p Bronch. thick secretions removed 3. Septic shock. Likely caused by COVID-19 pneumonia. Need to rule out other sources of infection. BC positive ? contaminant 4. Acute kidney injury.-- improved 5. Metabolic acidosis secondary to lactic acidosis and sepsis. 6. Coag neg staph in BC/ ID following. Has [employer]ASS [employer] shunt 7. Abnormal CXR Plan . 1. Continue current vent support, off sedation, more awake today, pt. placed on CPAP trial and tolerating well, if ABG adequate will proceed with extubation 2. Follow ABGs and make necessary adjustments, follow CXR: reviwed improved 3. Monitor the clinical course of treatment. 4. COVID-19 neg 5. Continue IV steroids, taper 6. Antibiotics per ID 7. follow nephrology recommendations 8. DVT and stress ulcer prophylaxis: lovenox/protonix 9. Follow bronch cultures- NGTD 10. Hyperglycemia per PCP 11. continue/ wean vasopressors to keep MAP greater than 65 Discussed with RN and RT. Critical care time 30 minutes including review of the chart, imaging studies and decision making. MAYA BARROS MD Jun 15, 2020 11:35
--- NOTE | 2020-06-15 11:35 | NUR ---
Patient extubated by RT Brittnee. Patient was placed on a venturi mask at 50% FIO2. Patient awake and tolerating well.
[2020-06-15] MEDS: IV NORMAL SALINE 1000ML BAG 1,000 ML IV SCH (12:01)
--- NOTE | 2020-06-15 16:17 | NUR ---
SS following up with discharge planning. SS reviewed pt chart and discussed with pt RN. Pt extubated today and is currently on Venturi mask. Pt on IV Meropenem and IV Vancomycin. COVID19 negative. SS will continue to follow for discharge planning.
--- NOTE | 2020-06-15 16:43 | RAD ---
EXAMINATION: VENOUS UPPER EXTREMITY RIGHT (UPPER EXTREMITY VENOUS ULTRASOUND) CLINICAL HISTORY: Reason: swelling / Spl. Instructions: / History: TECHNIQUE: Sonographic grayscale images obtained of the right upper extremity deep venous system with color flow Doppler, compression, and augmentation techniques as indicated. Images obtained and stored in a permanent archive. COMPARISON: None FINDINGS: No evidence of absent flow or incompressibility within the internal jugular, subclavian, axillary, and brachial veins. Radial and ulnar veins suboptimally evaluated. No evidence of absent flow or and compressibility within the superficial basilic and cephalic veins. Moderate subcutaneous edema in the distal arm and proximal forearm. IMPRESSION: No evidence of right upper extremity DVT. Radial and ulnar veins suboptimally evaluated. Electronically signed by: Hernesto Alvarez DO (06/15/2020 4:40 PM) [id number]
--- NOTE | 2020-06-15 17:15 | RAD ---
CT HEAD WO CONTRAST Clinical indications: History of PARTITION NOT[employer]ER shunt. Altered mental status. COMPARISON: None available. Technique: Noncontrast axial cross sectional scanning of the head was performed. PQRS compliance Statement One or more of the following individualized dose reduction techniques were utilized for this study: 1. Automated exposure control 2. Adjustment of the mA and/or kV according to patient size 3. Use of iterative reconstruction technique Findings: No acute intracranial hemorrhage or midline shift or mass-effect or extra-axial fluid collection is seen. Ventricular shunt catheter seen extending into the anterior aspect of the body of the right lateral ventricle. The ventricles are mildly dilated with distention of the occipital horns and to lesser extent the temporal horns. Therefore, hydrocephalus may be present. There is generalized cerebral atrophy present. There is an old cortical infarct of the posterior left parietal lobe and an old cortical infarct involving the right frontal parietal region. Mucosal thickening of mastoid air cells is seen bilaterally. Middle ear cavities appear clear. Paranasal sinuses appear clear. No skull fracture or pneumocephalus is seen. IMPRESSION: No acute intracranial hemorrhage is seen. Moderate ventriculomegaly. Ventricular shunt catheter in place. Therefore, hydrocephalus may be present. 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 Electronically signed by: Andres Lo MD (06/15/2020 5:12 PM) [id number]
[2020-06-15] MEDS: ENOXAPARIN 40 MG/0.4 ML SYRINGE. SQ SCH (19:39)
[2020-06-15] MEDS: INSULIN GLARGINE SYRINGE. SQ SCH (20:58)
[2020-06-15] MEDS: MIRTAZAPINE 7.5 MG TABLET. PO SCH (21:00)
[2020-06-15] MEDS: OLANZapine 5 MG TABLET PO SCH (21:00)
[2020-06-16] VITALS (15 sets, daily range): BP systolic 90–123; BP diastolic 45–68
[2020-06-16] MEDS: INSULIN LISPRO 300 UNITS/3 ML VIAL. SQ SCH ×6 (06:00→18:00)
--- NOTE | 2020-06-16 06:48 | PDOC ---
Infectious Disease Note Subjective Subjective Extubated but nonverbal ROS ROS Unable to obtain Vital Sign Vital Signs Vital Signs Date Time Temp Pulse Resp B/P (MAP) Pulse Ox O2 Delivery O2 Flow Rate FiO2 06/16/20 06:21 46 17 90/46 (61) 98 Venturi Mask 15.0 06/16/20 05:00 97.2 97.2 Physical Exam PHYSICAL EXAM GENERAL: NAD - Alert and appears comfortable HEENT: Pupils equal, on ventimask NECK: Supple. No JVD LUNGS: Clear anteriorly HEART: S1, S2 regular ABDOMEN: Obese, soft, no guarding, BS present : Quintero in place + scrotal swelling EXTREMITIES: Generalized edema. No cyanosis. SCDs and heel boots, bilaterally RUE with 1- 2 plus edema SKIN: warm to touch. No signs of generalized rash NEUROLOGIC: Alert but Minimally responsive RIJ without signs of complications Labs Lab Laboratory Tests Test 06/15/20 09:25 06/15/20 11:20 06/15/20 12:05 06/15/20 18:18 O2 Saturation 97 % (92-99) 95 % (92-99) Arterial Blood pH 7.48 (7.35-7.45) 7.48 (7.35-7.45) Arterial Blood pCO2 at Patient Temp 37 mmHg (35-46) 36 mmHg (35-46) Arterial Blood pO2 at Patient Temp 89 mmHg (65-108) 73 mmHg (65-108) Arterial Blood HCO3 27 mmol/L (21-28) 26 mmol/L (21-28) Arterial Blood Base Excess 4 mmol/L (-3-3) 2 mmol/L (-3-3) FiO2 50 50% ps 10 peep 5 Glucose (Fingerstick) 237 mg/dL (70-99) 191 mg/dL (70-99) Test 06/15/20 20:49 06/15/20 23:26 06/16/20 05:56 Glucose (Fingerstick) 197 mg/dL (70-99) 202 mg/dL (70-99) 97 mg/dL (70-99) Micro RUE u/s 06/15 IMPRESSION: No evidence of right upper extremity DVT. Radial and ulnar veins suboptimally evaluated. GRAM POSITIVE RODS:RARE GRAM POSITIVE COCCI:RARE SQUAMOUS EPI CELL:FEW PMN (WBCs):MANY YEAST:RARE Microbiology 06/12/20 AFB Specimen Processing Tissue - Final, Resulted 06/12/20 Acid Fast Bacilli Culture, Resulted Pending 06/12/20 Gram Stain - Final, Resulted 06/12/20 Fungal Culture, Resulted Pending 06/12/20 Fungal Culture Result 1, Resulted Pending 06/10/20 Blood Culture - Preliminary, Resulted NO GROWTH AFTER 4 DAYS Objective Assessment Hypotension, on low dose Levophed Hypoxemia with respiratory failure. neg COVID-19. Suspected aspiration pneumonia. Leukocytosis in part reactive steroids - increased Lactic acidosis. Fever - better Diabetes. Hypertension. Schizophrenia. MRSE bacteremia from Jun 07 repeat neb 06/10 WARP PREPARER shunt Plan Plan of Care vancomycin per pharmacy protocol. Trough 15.8 and Cr. 0.6 Continue meropenem f/u cultures f/u labs in am Maintain aspiration precautions Supportive care Prognosis poor Disc with nursing pt does have WARP PREPARER shunt, coag neg staph infection /wraparound facilitator infection possible though pt is in [facility] for years, with the condition he is in ,would not be a candidate for WARP PREPARER shunt removal, ? need to be comfort care Critically ill NUSRAT YU MD Jun 16, 2020 06:48
[2020-06-16] MEDS: VANCOMYCIN PER PHARMACY MC PRN (07:27)
--- NOTE | 2020-06-16 07:50 | RAD ---
EXAM: PORTABLE CHEST 1V 06/16/2020 9:00 AM CLINICAL INDICATION:Vent COMPARISON:Chest radiograph 06/15/2020 FINDINGS:The endotracheal tube and NG tube have been removed. A right internal jugular central venous catheter tip projecting over the cavoatrial junction is unchanged. There are calcifications in the thoracic aorta. The heart is at the upper limit of normal in size. Lung expansion is slightly decreased and accentuates central pulmonary vascularity and cardiomediastinal silhouette. There are unchanged left greater than right basilar opacities and dense left retrocardiac opacities, partially due to small pleural fluid effusion on the left. No pneumothorax. IMPRESSION: 1. Interval extubation and removal of NG tube. 2. Slightly decreased lung expansion. 3. Unchanged small left pleural effusion and left greater than right basilar opacities. Electronically signed by: Hattie Alexander MD (06/16/2020 7:47 AM) [id number]
--- NOTE | 2020-06-16 08:12 | PDOC ---
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 FEN - OGT PPX - heparin FULL CODE Dispo - ICU History of Present Illness History of Present Illness Mr Dubois is a 69-year-old male with past medical history of Anxiety with depression, schizophrenia, dCHF, Constipation, Diabetes-Type II, High Cholesterol, Hypertension, BPH, Dysphagia, PARKINSONS, who presents to the em ergency room in respiratory failure. According to report patient was normal the morning of 06/07. He has been refusing to eat recently according to staff but did eat lunch immediately before they found him in respiratory distress EMS pulse ox on CPAP is 80%. He was intubated due to respiratory failure and poor ABG on BiPAP. 06/08: Febrile to 101.8 F overnight. Intubated, sedated. K peaked at 6.8, started on D5, insulin, steroids. 06/09: Patient is sedated and intubated upon my examination. AC mode tidal volume 550, PEEP 12 and FiO2 90%. Saturations are 100%. 06/10: COVID-19 negative. Blood cultures positive for staph epidermidis. Patient sedated and intubated on AC mode tidal volume 550, PEEP 9 FiO2 down to 60%. Tolerating tube feeds well. 06/11: Afebrile overnight. Sedated intubated AC mode tidal volume 550 PEEP 9 FiO2 70%. Blood pressure dropped on Levophed. 06/12: Episodic hypoxia overnight, bronchoscopy with significant left-sided mucus plugging removed. Tolerating TF well, however glucose has been very elevated. 06/13: Still requiring pressor support. Seen on vent in ICU off sedation. Not awakening at this time. Afebrile 06/14: Afebrile. Seen on vent. On sedation wean. Eyes are opening well. ABG 7.47/30 .. A lot of ventricular ectopy on telemetry this morning. FiO2 30% PEEP 6. 06/15: Patient continues to be mechanically ventilated, ID recommendations great ly appreciated. 06/16: Patient still quite somnolent, he was extubated yesterday, he did not have acute events reported overnight, responds to his name but he is non verbal, does not seem to be in any distress. Discussed with nursing staff. Vitals Vitals Vital Signs Date Time Temp Pulse Resp B/P (MAP) Pulse Ox O2 Delivery O2 Flow Rate FiO2 06/16/20 07:00 46 17 102/48 (66) 99 Venturi Mask 06/16/20 06:21 15.0 06/16/20 05:00 97.2 97.2 Physical Exam Physical Exam GENERAL: NAD - Alert and appears comfortable HEENT: Pupils equal, on ventimask NECK: Supple. No JVD LUNGS: Clear anteriorly HEART: S1, S2 regular ABDOMEN: Obese, soft, no guarding, BS present : Quintero in place + scrotal swelling EXTREMITIES: Generalized edema. No cyanosis. SCDs and heel boots, bilaterally RUE with 1- 2 plus edema SKIN: warm to touch. No signs of generalized rash NEUROLOGIC: Alert but Minimally responsive RIJ without signs of complications General: No acute distress Heart: Regular rate Lungs: Clear Abdomen: Normal bowel sounds Extremities: No clubbing Labs LABS Laboratory Tests Test 06/15/20 09:25 06/15/20 11:20 06/15/20 12:05 06/15/20 18:18 O2 Saturation 97 % (92-99) 95 % (92-99) Arterial Blood pH 7.48 (7.35-7.45) 7.48 (7.35-7.45) Arterial Blood pCO2 at Patient Temp 37 mmHg (35-46) 36 mmHg (35-46) Arterial Blood pO2 at Patient Temp 89 mmHg (65-108) 73 mmHg (65-108) Arterial Blood HCO3 27 mmol/L (21-28) 26 mmol/L (21-28) Arterial Blood Base Excess 4 mmol/L (-3-3) 2 mmol/L (-3-3) FiO2 50 50% ps 10 peep 5 Glucose (Fingerstick) 237 mg/dL (70-99) 191 mg/dL (70-99) Test 06/15/20 20:49 06/15/20 23:26 06/16/20 05:56 Glucose (Fingerstick) 197 mg/dL (70-99) 202 mg/dL (70-99) 97 mg/dL (70-99) Assessment and Plan Assessmemt and Plan Problems Medical Problems: (1) Aspiration pneumonia Status: Acute (2) Respiratory failure with hypoxia Status: Acute Comment Review of Relevant I have reviewed the following items veronika (where applicable) has been applied. Labs Laboratory Tests Test 06/14/20 08:58 06/14/20 13:04 06/14/20 18:14 06/14/20 23:41 White Blood Count 11.8 x10^3/uL (4.0-11.0) Red Blood Count 3.85 x10^6/uL (4.30-5.70) Hemoglobin 12.1 g/dL (13.0-17.5) Hematocrit 35.9 % (39.0-53.0) Mean Corpuscular Volume 93 fL (79-100) Mean Corpuscular Hemoglobin 32 pg (25-35) Mean Corpuscular Hemoglobin Concent 34 g/dL (31-37) Red Cell Distribution Width 13.5 % (11.5-14.5) Platelet Count 132 x10^3/uL (140-400) Neutrophils (%) (Auto) 79 % (31-73) Lymphocytes (%) (Auto) 11 % (24-48) Monocytes (%) (Auto) 10 % (0-9) Eosinophils (%) (Auto) 0 % (0-3) Basophils (%) (Auto) 0 % (0-3) Neutrophils # (Auto) 9.3 x10^3/uL (1.8-7.7) Lymphocytes # (Auto) 1.3 x10^3/uL (1.0-4.8) Monocytes # (Auto) 1.1 x10^3/uL (0.0-1.1) Eosinophils # (Auto) 0.0 x10^3/uL (0.0-0.7) Basophils # (Auto) 0.0 x10^3/uL (0.0-0.2) Sodium Level 141 mmol/L (136-145) Potassium Level 4.0 mmol/L (3.5-5.1) Chloride Level 107 mmol/L (98-107) Carbon Dioxide Level 29 mmol/L (21-32) Anion Gap 5 (6-14) Blood Urea Nitrogen 36 mg/dL (8-26) Creatinine 0.6 mg/dL (0.7-1.3) Estimated GFR (Cockcroft-Gault) 133.2 Glucose Level 226 mg/dL (70-99) Calcium Level 7.9 mg/dL (8.5-10.1) Magnesium Level 1.7 mg/dL (1.8-2.4) Glucose (Fingerstick) 239 mg/dL (70-99) 282 mg/dL (70-99) 255 mg/dL (70-99) Test 06/15/20 05:41 06/15/20 05:45 06/15/20 09:25 06/15/20 11:20 Glucose (Fingerstick) 194 mg/dL (70-99) White Blood Count 15.0 x10^3/uL (4.0-11.0) Red Blood Count 3.54 x10^6/uL (4.30-5.70) Hemoglobin 11.1 g/dL (13.0-17.5) Hematocrit 32.8 % (39.0-53.0) Mean Corpuscular Volume 93 fL (79-100) Mean Corpuscular Hemoglobin 31 pg (25-35) Mean Corpuscular Hemoglobin Concent 34 g/dL (31-37) Red Cell Distribution Width 13.9 % (11.5-14.5) Platelet Count 188 x10^3/uL (140-400) Neutrophils (%) (Auto) 87 % (31-73) Lymphocytes (%) (Auto) 7 % (24-48) Monocytes (%) (Auto) 5 % (0-9) Eosinophils (%) (Auto) 0 % (0-3) Basophils (%) (Auto) 0 % (0-3) Neutrophils # (Auto) 13.1 x10^3/uL (1.8-7.7) Lymphocytes # (Auto) 1.1 x10^3/uL (1.0-4.8) Monocytes # (Auto) 0.8 x10^3/uL (0.0-1.1) Eosinophils # (Auto) 0.0 x10^3/uL (0.0-0.7) Basophils # (Auto) 0.1 x10^3/uL (0.0-0.2) Segmented Neutrophils % 84 % (35-66) Lymphocytes % 8 % (24-48) Monocytes % 5 % (0-10) Myelocytes % 3 % (0-0) Nucleated Red Blood Cells 1 Platelet Estimate Adequate (ADEQUATE) Prothrombin Time 15.0 SEC (11.7-14.0) Prothromb Time International Ratio 1.2 (0.8-1.1) Sodium Level 138 mmol/L (136-145) Potassium Level 3.8 mmol/L (3.5-5.1) Chloride Level 106 mmol/L (98-107) Carbon Dioxide Level 31 mmol/L (21-32) Anion Gap 1 (6-14) Blood Urea Nitrogen 33 mg/dL (8-26) Creatinine 0.4 mg/dL (0.7-1.3) Estimated GFR (Cockcroft-Gault) 212.7 BUN/Creatinine Ratio 83 (6-20) Glucose Level 262 mg/dL (70-99) Calcium Level 7.8 mg/dL (8.5-10.1) Total Bilirubin 0.5 mg/dL (0.2-1.0) Aspartate Amino Transf (AST/SGOT) 13 U/L (15-37) Alanine Aminotransferase (ALT/SGPT) 17 U/L (16-63) Alkaline Phosphatase 75 U/L (46-116) Total Protein 4.5 g/dL (6.4-8.2) Albumin 1.2 g/dL (3.4-5.0) Albumin/Globulin Ratio 0.4 (1.0-1.7) O2 Saturation 97 % (92-99) 95 % (92-99) Arterial Blood pH 7.48 (7.35-7.45) 7.48 (7.35-7.45) Arterial Blood pCO2 at Patient Temp 37 mmHg (35-46) 36 mmHg (35-46) Arterial Blood pO2 at Patient Temp 89 mmHg (65-108) 73 mmHg (65-108) Arterial Blood HCO3 27 mmol/L (21-28) 26 mmol/L (21-28) Arterial Blood Base Excess 4 mmol/L (-3-3) 2 mmol/L (-3-3) FiO2 50 50% ps 10 peep 5 Test 06/15/20 12:05 06/15/20 18:18 06/15/20 20:49 06/15/20 23:26 Glucose (Fingerstick) 237 mg/dL (70-99) 191 mg/dL (70-99) 197 mg/dL (70-99) 202 mg/dL (70-99) Test 06/16/20 05:56 Glucose (Fingerstick) 97 mg/dL (70-99) Laboratory Tests Test 06/15/20 09:25 06/15/20 11:20 06/15/20 12:05 06/15/20 18:18 O2 Saturation 97 % (92-99) 95 % (92-99) Arterial Blood pH 7.48 (7.35-7.45) 7.48 (7.35-7.45) Arterial Blood pCO2 at Patient Temp 37 mmHg (35-46) 36 mmHg (35-46) Arterial Blood pO2 at Patient Temp 89 mmHg (65-108) 73 mmHg (65-108) Arterial Blood HCO3 27 mmol/L (21-28) 26 mmol/L (21-28) Arterial Blood Base Excess 4 mmol/L (-3-3) 2 mmol/L (-3-3) FiO2 50 50% ps 10 peep 5 Glucose (Fingerstick) 237 mg/dL (70-99) 191 mg/dL (70-99) Test 06/15/20 20:49 06/15/20 23:26 06/16/20 05:56 Glucose (Fingerstick) 197 mg/dL (70-99) 202 mg/dL (70-99) 97 mg/dL (70-99) Microbiology 06/12/20 AFB Specimen Processing Tissue - Final, Resulted 06/12/20 Acid Fast Bacilli Culture, Resulted Pending 06/12/20 Gram Stain - Final, Resulted 06/12/20 Fungal Culture, Resulted Pending 06/12/20 Fungal Culture Result 1, Resulted Pending 06/10/20 Blood Culture - Final, Complete NO GROWTH AFTER 5 DAYS Medications Current Medications Midazolam HCl 100 mg/Sodium Chloride 100 ml @ 0 mls/hr 1X ONCE IV Last administered on 06/07/20at 15:19; Start 06/07/20 at 15:15; Stop 06/07/20 at 15:16; Status DC Sodium Chloride 1,000 ml @ 1,000 mls/hr 1X ONCE IV Last administered on 06/07/20at 14:50; Start 06/07/20 at 15:15; Stop 06/07/20 at 16:14; Status DC Sodium Chloride 1,000 ml @ 1,000 mls/hr 1X ONCE IV Last administered on 06/07/20at 15:04; Start 06/07/20 at 15:15; Stop 06/07/20 at 16:14; Status DC Vancomycin HCl 1.25 gm/Sodium Chloride 250 ml @ 166.667 mls/hr 1X ONCE IV Last administered on 06/07/20at 15:57; Start 06/07/20 at 16:00; Stop 06/07/20 at 17:29; Status DC Clindamycin Phosphate 50 ml @ 100 mls/hr 1X ONCE IV Last administered on 06/07/20at 15:57; Start 06/07/20 at 15:15; Stop 06/07/20 at 15:44; Status DC Midazolam HCl (Versed) 5 mg 1X ONCE IV Last administered on 06/07/20at 15:15; Start 06/07/20 at 15:30; Stop 06/07/20 at 15:31; Status DC Etomidate (Amidate) 30 mg 1X ONCE IV Last administered on 06/07/20at 14:57; Start 06/07/20 at 15:30; Stop 06/07/20 at 15:31; Status DC Succinylcholine Chloride (Anectine) 200 mg 1X ONCE IV Last administered on 06/07/20at 14:58; Start 06/07/20 at 15:30; Stop 06/07/20 at 15:31; Status DC Fentanyl Citrate (Fentanyl 2ml Vial) 50 mcg PRN Q1HR ONCE IVP Last administered on 06/07/20at 16:30; Start 06/07/20 at 16:30; Stop 06/07/20 at 16:31; Status DC Fentanyl Citrate (Fentanyl 2ml Vial) 100 mcg 1X ONCE IVP Last administered on 06/07/20at 17:07; Start 06/07/20 at 17:15; Stop 06/07/20 at 17:16; Status DC Sennosides (Senna) 17.2 mg PRN BID PRN PO CONSTIPATION; Start 06/07/20 at 18:00 Docusate Sodium (Colace Solution) 100 mg PRN DAILY PRN PO HARD STOOLS; Start 06/07/20 at 21:00 Ondansetron HCl (Zofran) 4 mg PRN Q6HRS PRN IVP NAUSEA/VOMITING; Start 06/07/20 at 18:00 Potassium Chloride (Klor-Con) 40 meq 1X PRN PO PER PROTOCOL; Start 06/07/20 at 18:00; Status UNV Magnesium Oxide (Magnesium Oxide) 400 mg BID PO ; Start 06/07/20 at 21:00; Stop 06/09/20 at 09:01; Status UNV Potassium Chloride/Water 100 ml @ 100 mls/hr Q1H IV ; Start 06/07/20 at 18:00; Stop 06/07/20 at 21:59; Status UNV Magnesium Sulfate 50 ml @ 25 mls/hr Q24H IV ; Start 06/07/20 at 18:00; Stop 06/09/20 at 19:59; Status UNV Potassium Chloride/Water 100 ml @ 100 mls/hr Q1H PRN IV low k; Start 06/07/20 at 18:00; Status UNV Dextrose (Dextrose 50%-Water Syringe) 12.5 gm PRN Q15MIN PRN IV SEE COMMENTS; Start 06/07/20 at 18:00; Stop 06/08/20 at 22:09; Status DC Vancomycin HCl 1 gm/Dextrose 250 ml @ 250 mls/hr 1X ONCE IV ; Start 06/07/20 at 18:00; Stop 06/07/20 at 18:59; Status UNV Enoxaparin Sodium (Lovenox 40mg Syringe) 40 mg Q24H SQ Last administered on 06/15/20at 19:39; Start 06/07/20 at 19:00 Pantoprazole Sodium (PROTONIX VIAL for IV PUSH) 40 mg DAILYAC IVP Last administered on 06/15/20at 08:36; Start 06/07/20 at 19:00 Ascorbic Acid (Vitamin C) 500 mg DAILY PO Last administered on 06/15/20at 08:37; Start 06/08/20 at 09:00 Thiamine HCl 100 mg/Dextrose 51 ml @ 102 mls/hr DAILY IV Last administered on 06/15/20at 09:45; Start 06/08/20 at 09:00 Info (Icu Electrolyte Protocol) 1 ea CONT PRN PRN MC PER PROTOCOL; Start 06/07/20 at 18:00 Vancomycin HCl 750 mg/Sodium Chloride 250 ml @ 250 mls/hr 1X ONCE IV Last administered on 06/07/20at 19:18; Start 06/07/20 at 18:00; Stop 06/07/20 at 18:59; Status DC Vancomycin HCl (Vanco Per Pharmacy) 1 each PRN DAILY PRN MC SEE COMMENTS Last administered on 06/07/20at 19:49; Start 06/07/20 at 18:00; Stop 06/07/20 at 20:36; Status DC Fentanyl Citrate (Fentanyl 2ml Vial) 50 mcg PRN Q1HR PRN IVP PAIN Last administered on 06/07/20at 18:02; Start 06/07/20 at 18:00; Stop 06/08/20 at 16:07; Status DC Fentanyl Citrate 30 ml @ 0 mls/hr CONT PRN IV SEE PROTOCOL Last administered on 06/13/20at 00:13; Start 06/07/20 at 18:30 Fentanyl Citrate (Fentanyl 2ml Vial) 25 mcg PRN Q1HR PRN IV SEE COMMENTS; Start 06/07/20 at 18:30 Fentanyl Citrate (Fentanyl 2ml Vial) 50 mcg PRN Q1HR PRN IV SEE COMMENTS Last administered on 06/14/20at 18:17; Start 06/07/20 at 18:30 Midazolam HCl 100 ml @ 0 mls/hr CONT PRN IV SEE PROTOCOL Last administered on 06/12/20at 21:36; Start 06/07/20 at 18:30 Vecuronium [place] (Norcuron Bolus) 6 mg 1X ONCE IV Last administered on 06/07/20at 19:18; Start 06/07/20 at 18:30; Stop 06/07/20 at 18:31; Status DC Norepinephrine Bitartrate 8 mg/ Dextrose 258 ml @ 23.027 mls/ hr CONT PRN IV PER PROTOCOL Last administered on 06/07/20at 19:36; Start 06/07/20 at 19:15; Stop 06/07/20 at 20:05; Status DC Acetaminophen (Tylenol Supp) 650 mg PRN Q6HRS PRN [place] MILD PAIN / TEMP > 100.3'F; Start 06/07/20 at 19:15 Vancomycin HCl (Vanco Per Pharmacy) 1 each PRN DAILY PRN MC SEE COMMENTS; Start 06/07/20 at 19:15; Status UNV Metronidazole 100 ml @ 100 mls/hr Q12HR IV ; Start 06/07/20 at 21:00; Stop 06/07/20 at 20:36; Status DC Amiodarone HCl 450 mg/Dextrose 259 ml @ 0 mls/hr 1X ONCE IV ; Start 06/07/20 at 19:15; Stop 06/07/20 at 19:16; Status Cancel Meropenem 1 gm/ Sodium Chloride 100 ml @ 200 mls/hr Q8HRS IV Last administered on 06/07/20at 22:30; Start 06/07/20 at 22:00; Stop 06/08/20 at 06:09; Status DC Methylprednisolone Sodium Succinate (SOLU-Medrol 125MG VIAL) 125 mg 1X ONCE IV Last administered on 06/07/20at 20:14; Start 06/07/20 at 19:45; Stop 06/07/20 at 19:46; Status DC Methylprednisolone Sodium Succinate (SOLU-Medrol 40MG VIAL) 40 mg Q8HRS IV Last administered on 06/12/20at 06:24; Start 06/08/20 at 06:00; Stop 06/12/20 at 09:12; Status DC Vancomycin HCl 1.75 gm/Sodium Chloride 500 ml @ 250 mls/hr Q12H IV ; Start 06/08/20 at 08:00; Stop 06/07/20 at 20:36; Status DC Vancomycin HCl (Vancomycin Trough Level) 1 each 1X ONCE MC ; Start 06/09/20 at 07:30; Stop 06/07/20 at 20:38; Status DC Vasopressin 20 unit/Dextrose 101 ml @ 12 mls/hr CONT PRN IV SEE I/O RECORD; Start 06/07/20 at 20:00 Norepinephrine Bitartrate 16 mg/ Dextrose 266 ml @ 11.87 mls/ hr CONT PRN IV PER PROTOCOL Last administered on 06/07/20at 22:09; Start 06/07/20 at 20:00; Stop 06/07/20 at 23:00; Status DC Sodium Chloride 1,000 ml @ 1,000 mls/hr 1X ONCE IV Last administered on 06/07/20at 20:16; Start 06/07/20 at 20:15; Stop 06/07/20 at 21:14; Status DC Norepinephrine Bitartrate 32 mg/ Dextrose 250 ml @ 5.578 mls/ hr CONT PRN IV SEE I/O RECORD Last administered on 06/12/20at 02:14; Start 06/07/20 at 22:30 Sodium Chloride 1,000 ml @ 100 mls/hr Q10H IV Last administered on 06/08/20at 09:44; Start 06/08/20 at 00:00; Stop 06/08/20 at 18:42; Status DC Meropenem 1 gm/ Sodium Chloride 100 ml @ 200 mls/hr Q12HR IV Last administered on 06/15/20at 21:59; Start 06/08/20 at 09:00 Sodium Bicarbonate (Sodium Bicarb Adult 8.4% Syr) 50 meq 1X ONCE IV Last administered on 06/08/20at 10:42; Start 06/08/20 at 09:45; Stop 06/08/20 at 09:46; Status DC Multivitamins/ Minerals Therapeutic (Centrum Multivit-Mineral Liq) 5 ml DAILY PEG Last administered on 06/15/20at 08:37; Start 06/08/20 at 10:00 Sodium Chloride 1,000 ml @ 1,000 mls/hr 1X ONCE IV Last administered on 06/08/20at 12:11; Start 06/08/20 at 11:30; Stop 06/08/20 at 12:29; Status DC Vancomycin HCl (Vanco Per Pharmacy) 1 each PRN DAILY PRN MC SEE COMMENTS Last administered on 06/16/20at 07:27; Start 06/08/20 at 12:30 Vancomycin HCl 1.75 gm/Sodium Chloride 500 ml @ 250 mls/hr Q24H IV Last administered on 06/08/20at 19:49; Start 06/08/20 at 19:00; Stop 06/09/20 at 19:35; Status DC Vancomycin HCl (Vancomycin Trough Level) 1 each 1X ONCE MC Last administered on 06/09/20at 18:30; Start 06/09/20 at 18:30; Stop 06/09/20 at 18:31; Status DC Dextrose/Sodium Chloride 1,000 ml @ 100 mls/hr Q10H IV Last administered on 06/10/20at 23:44; Start 06/08/20 at 15:30; Stop 06/11/20 at 11:41; Status DC Dextrose (Dextrose 50%-Water Syringe) 25 gm 1X ONCE IV Last administered on 06/08/20at 16:34; Start 06/08/20 at 15:30; Stop 06/08/20 at 15:37; Status DC Insulin Human Regular (HumuLIN R VIAL) 10 unit 1X ONCE IV Last administered on 06/08/20at 16:37; Start 06/08/20 at 15:30; Stop 06/08/20 at 15:37; Status DC Calcium Gluconate (Calcium Gluconate) 1,000 mg 1X ONCE IVP Last administered on 06/08/20at 16:38; Start 06/08/20 at 15:30; Stop 06/08/20 at 15:37; Status DC Insulin Human Lispro (HumaLOG) 0-9 UNITS Q4HRS SQ Last administered on 06/09/20at 03:53; Start 06/09/20 at 00:00; Stop 06/09/20 at 07:30; Status DC Dextrose (Dextrose 50%-Water Syringe) 12.5 gm PRN Q15MIN PRN IV SEE COMMENTS; Start 06/08/20 at 22:15 Insulin Human Lispro (HumaLOG) 0-9 UNITS Q12HR SQ ; Start 06/09/20 at 12:00; Stop 06/09/20 at 08:04; Status DC Insulin Human Lispro (HumaLOG) 0-9 UNITS Q6HRS SQ Last administered on 06/11/20at 17:58; Start 06/09/20 at 08:15; Stop 06/12/20 at 00:25; Status DC Bisacodyl (Dulcolax Supp) 10 mg PRN DAILY PRN RC CONSTIPATION; Start 06/09/20 at 08:30 Mirtazapine (Remeron) 7.5 mg QHS PO Last administered on 06/14/20at 20:51; Start 06/09/20 at 21:00 Olanzapine (ZyPREXA) 2.5 mg QHS PO Last administered on 06/14/20at 20:50; Start 06/09/20 at 21:00 Insulin Glargine (Lantus Syringe) 27 unit QHS SQ Last administered on 06/14/20at 20:56; Start 06/09/20 at 21:00; Stop 06/15/20 at 08:11; Status DC Valproic Acid (Depakene) 250 mg [id number] PEG Last administered on 06/15/20at 08:37; Start 06/09/20 at 09:00 Insulin Glargine (Lantus Syringe) 10 unit 1X SQ ; Start 06/09/20 at 08:30; Stop 06/09/20 at 08:30; Status DC Insulin Glargine (Lantus Syringe) 10 unit 1X ONCE SQ Last administered on 06/09/20at 08:45; Start 06/09/20 at 08:45; Stop 06/09/20 at 08:46; Status DC Vancomycin HCl 1.75 gm/Sodium Chloride 500 ml @ 250 mls/hr Q18H IV Last administered on 06/15/20at 19:40; Start 06/09/20 at 20:00 Vancomycin HCl (Vancomycin Trough Level) 1 each 1X ONCE MC ; Start 06/11/20 at 07:30; Stop 06/11/20 at 07:31; Status DC Insulin Human Lispro (HumaLOG) 15 units 1X ONCE SQ Last administered on 06/10/20at 10:35; Start 06/10/20 at 10:30; Stop 06/10/20 at 10:33; Status DC Insulin Human Lispro (HumaLOG) 21 units 1X ONCE SQ Last administered on 06/10/20at 14:05; Start 06/10/20 at 13:00; Stop 06/10/20 at 13:01; Status DC Sodium Chloride 1,000 ml @ 0 mls/hr Q0M IV ; Start 06/11/20 at 10:45; Status Cancel Sodium Chloride 1,000 ml @ 20 mls/hr Q24H IV Last administered on 06/15/20at 12:01; Start 06/11/20 at 11:45 Insulin Human Lispro (HumaLOG) 21 units 1X ONCE SQ Last administered on 06/11/20at 11:50; Start 06/11/20 at 11:45; Stop 06/11/20 at 11:48; Status DC Insulin Human Lispro (HumaLOG) 0-9 UNITS Q6HRS SQ Last administered on 06/15/20at 23:39; Start 06/12/20 at 06:00 Insulin Human Lispro (HumaLOG) 12 units 1X ONCE SQ Last administered on 06/12/20at 00:47; Start 06/12/20 at 00:30; Stop 06/12/20 at 00:31; Status DC Lidocaine HCl (Lidocaine 2% Viscous) 100 ml PRN 1X PRN MM FOR PROCEDURE Last administered on 06/12/20at 09:25; Start 06/12/20 at 07:15; Stop 06/13/20 at 07:14; Status DC Lidocaine HCl (Lidocaine 1% 20ml Vial) 20 ml PRN 1X PRN INJ SEE COMMENTS Last administered on 06/12/20at 09:26; Start 06/12/20 at 07:15; Stop 06/13/20 at 07:14; Status DC Epinephrine HCl (Adrenalin) 1 mg PRN 1X PRN INJ SEE COMMENTS; Start 06/12/20 at 07:15; Stop 06/13/20 at 07:14; Status DC Insulin Human Lispro (HumaLOG) 9 units Q6HRS SQ Last administered on 06/15/20at 05:43; Start 06/12/20 at 08:00; Stop 06/15/20 at 08:11; Status DC Epinephrine HCl (Adrenalin) 1 mg STK-MED ONCE .ROUTE ; Start 06/12/20 at 08:19; Stop 06/12/20 at 08:20; Status DC Lidocaine HCl (Lidocaine 1% 20ml Vial) 20 ml STK-MED ONCE .ROUTE ; Start 06/12/20 at 08:19; Stop 06/12/20 at 08:20; Status DC Lidocaine HCl (Lidocaine 2% Viscous) 100 ml STK-MED ONCE .ROUTE ; Start 06/12/20 at 08:20; Stop 06/12/20 at 08:20; Status DC Methylprednisolone Sodium Succinate (SOLU-Medrol 40MG VIAL) 40 mg BID IV Last administered on 06/15/20at 21:05; Start 06/12/20 at 21:00 Propofol 100 ml @ 2.049 mls/ hr CONT PRN IV SEE I/O RECORD Last administered on 06/15/20at 05:29; Start 06/13/20 at 17:00 Furosemide (Lasix) 40 mg 1X ONCE IVP Last administered on 06/14/20at 15:54; Start 06/14/20 at 10:15; Stop 06/14/20 at 10:22; Status DC Magnesium Sulfate 100 ml @ 50 mls/hr PRN DAILY PRN IV SEE COMMENTS; Start 06/15/20 at 09:00 Insulin Glargine (Lantus Syringe) 32 unit QHS SQ Last administered on 06/15/20at 20:58; Start 06/15/20 at 21:00 Insulin Human Lispro (HumaLOG) 11 units Q6HRS SQ Last administered on 06/15/20at 23:44; Start 06/15/20 at 12:00 Active Scripts Active Reported Tylenol (Acetaminophen) 325 Mg Tablet 650 Mg PO BID Senna-Docusate Sodium Tablet (Sennosides/Docusate Sodium) 1 Each Tablet 1 Each PO PRN PRN Risperdal (Risperidone) 3 Mg Tablet 0.5 Tab PO BID 30 Days Potassium Chloride (Potassium Chloride) 20 Meq Tablet.er 20 Meq PO TID Olanzapine 5 Mg Tablet 0.5 Tab PO QHS Nystatin 15 Gm Cream..g. 15 Gm TP PRN Q8HRS PRN Novolog Flexpen (Insulin Aspart) 100 Unit/1 Ml Insuln.pen 1 Unit SQ TIDWMEALS Mirtazapine 7.5 Mg Tablet 1 Tab PO QHS 30 Days Milk Of Magnesia (Magnesium Hydroxide) 400 Mg/5 Ml Oral.susp 400 Mg PO PRN PRN Metformin Hcl 1,000 Mg Tablet 1,000 Mg PO BIDWMEALS Melatonin 3 Mg Tab.rapdis 1 Tab PO QHS 30 Days Magnesium Oxide 400 Mg Tablet 1 Tab PO DAILY Acidophilus (Lactobacillus Acidophilus) 1 Each Capsule 1 Cap PO DAILY 14 Days Ketoconazole 120 Ml Shampoo 1 Melissa TP TWICE WEEKLY 30 Days with at least 3 days between each shampooing Levemir Flextouch (Insulin Detemir) 100 Unit/1 Ml Insuln.pen 27 Unit SQ QHS Furosemide 20 Mg Tablet 1 Tab PO DAILY Fleet Enema (Na Phos,M-B/Na Phos,Di-Ba) 133 Ml Enema 133 Ml RC PRN PRN Divalproex Sodium Er (Divalproex Sodium) 500 Mg Tab.er.24h 2,000 Mg PO QHS D3-50 (Cholecalciferol (Vitamin D3)) 50,000 Unit Capsule 1,000 Unit PO DAILY Dulcolax (Bisacodyl) 10 Mg Supp.rect 10 Mg RC PRN DAILY PRN Atorvastatin Calcium 20 Mg Tablet 20 Mg PO HS Vitals/I & O Vital Sign - Last 24 Hours 906/15/20 06/15/20 06/15/20 09:00 10:00 10:30 11:00 Pulse 54 48 67 Resp 16 16 20 B/P (MAP) 101/50 (67) 110/59 (76) 121/64 (83) Pulse Ox 100 100 100 O2 Delivery Ventilator Ventilator Ventilator BiPAP/CPAP 06/15/20 06/15/20 06/15/20 06/15/20 11:35 12:00 12:00 13:00 Temp 98.1 98.1 Pulse 64 56 Resp 20 20 B/P (MAP) 113/59 (77) 92/48 (63) Pulse Ox 95 97 97 O2 Delivery Venturi Mask Venturi Mask Venturi Mask Venturi Mask O2 Flow Rate 15.0 06/15/20 06/15/20 06/15/20 06/15/20 14:00 15:00 16:00 16:00 Pulse 55 54 54 Resp 20 20 20 B/P (MAP) 91/48 (62) 98/54 (69) 92/59 (70) Pulse Ox 99 98 98 O2 Delivery Venturi Mask Venturi Mask Venturi Mask Venturi Mask 06/15/20 06/15/20 06/15/20 06/15/20 17:00 18:00 19:00 20:00 Temp 98.3 97.2 98.3 97.2 Pulse 57 59 54 Resp 23 17 16 B/P (MAP) 92/59 (70) 101/53 (69) 107/48 (67) Pulse Ox 98 100 99 O2 Delivery Venturi Mask Venturi Mask Venturi Mask Venturi Mask O2 Flow Rate 15.0 15.0 06/15/20 06/15/20 06/15/20 06/15/20 20:18 21:13 22:11 23:05 Temp 97.4 97.4 Pulse 52 54 55 50 Resp 15 17 19 B/P (MAP) 108/50 (69) 98/56 (70) 130/48 (75) 111/58 (75) Pulse Ox 98 99 97 97 O2 Delivery Venturi Mask Venturi Mask Venturi Mask Venturi Mask O2 Flow Rate 15.0 15.0 15.0 15.0 06/15/20 06/16/20 06/16/20 06/16/20 23:49 00:15 01:04 01:58 Pulse 56 48 47 Resp 22 19 16 B/P (MAP) 92/50 (64) 97/46 (63) 99/48 (65) Pulse Ox 97 97 97 O2 Delivery Venturi Mask Venturi Mask Venturi Mask Venturi Mask O2 Flow Rate 15.0 15.0 15.0 15.0 06/16/20 06/16/20 06/16/20 06/16/20 02:18 03:18 03:31 05:00 Temp 97.4 97.2 97.2 97.4 97.2 97.2 Pulse 47 47 47 Resp 16 19 15 B/P (MAP) 93/55 (68) 95/45 (62) 98/51 (67) Pulse Ox 97 97 97 O2 Delivery Venturi Mask Venturi Mask Venturi Mask Venturi Mask O2 Flow Rate 15.0 15.0 15.0 15.0 06/16/20 06/16/20 06:21 07:00 Pulse 46 46 Resp 17 17 B/P (MAP) 90/46 (61) 102/48 (66) Pulse Ox 98 99 O2 Delivery Venturi Mask Venturi Mask O2 Flow Rate 15.0 Intake and Output 06/15/20 06/15/20 06/16/20 15:00 23:00 07:00 Intake Total 150 ml Output Total 415 ml 405 ml 215 ml Balance -265 ml -405 ml -215 ml Justicifation of Admission Dx: Justifications for Admission: Justification of Admission Dx: Yes SMITA STAPLES MD Jun 16, 2020 08:12
--- NOTE | 2020-06-16 08:20 | PDOC ---
PULMONARY PROGRESS NOTES DATE: 06/16/20 TIME: 08:19 Subjective Patient did well yesterday extubated currently on Venturi mask sleepy but arousable no respiratory complaints He is never smoked in his life He denies any prior use of oxygen Vitals Vital Signs Date Time Temp Pulse Resp B/P (MAP) Pulse Ox O2 Delivery O2 Flow Rate FiO2 06/16/20 07:00 46 17 102/48 (66) 99 Venturi Mask 06/16/20 06:21 15.0 06/16/20 05:00 97.2 97.2 ROS: No Nausea, No Chest Pain, No Abdominal Pain, No Increase Cough General: Alert Lungs: Clear Cardiovascular: S1 Abdomen: Soft Extremities: Other (BLE +2) Skin: Warm Labs Laboratory Tests Test 06/14/20 08:58 06/14/20 13:04 06/14/20 18:14 06/14/20 23:41 White Blood Count 11.8 x10^3/uL (4.0-11.0) Red Blood Count 3.85 x10^6/uL (4.30-5.70) Hemoglobin 12.1 g/dL (13.0-17.5) Hematocrit 35.9 % (39.0-53.0) Mean Corpuscular Volume 93 fL (79-100) Mean Corpuscular Hemoglobin 32 pg (25-35) Mean Corpuscular Hemoglobin Concent 34 g/dL (31-37) Red Cell Distribution Width 13.5 % (11.5-14.5) Platelet Count 132 x10^3/uL (140-400) Neutrophils (%) (Auto) 79 % (31-73) Lymphocytes (%) (Auto) 11 % (24-48) Monocytes (%) (Auto) 10 % (0-9) Eosinophils (%) (Auto) 0 % (0-3) Basophils (%) (Auto) 0 % (0-3) Neutrophils # (Auto) 9.3 x10^3/uL (1.8-7.7) Lymphocytes # (Auto) 1.3 x10^3/uL (1.0-4.8) Monocytes # (Auto) 1.1 x10^3/uL (0.0-1.1) Eosinophils # (Auto) 0.0 x10^3/uL (0.0-0.7) Basophils # (Auto) 0.0 x10^3/uL (0.0-0.2) Sodium Level 141 mmol/L (136-145) Potassium Level 4.0 mmol/L (3.5-5.1) Chloride Level 107 mmol/L (98-107) Carbon Dioxide Level 29 mmol/L (21-32) Anion Gap 5 (6-14) Blood Urea Nitrogen 36 mg/dL (8-26) Creatinine 0.6 mg/dL (0.7-1.3) Estimated GFR (Cockcroft-Gault) 133.2 Glucose Level 226 mg/dL (70-99) Calcium Level 7.9 mg/dL (8.5-10.1) Magnesium Level 1.7 mg/dL (1.8-2.4) Glucose (Fingerstick) 239 mg/dL (70-99) 282 mg/dL (70-99) 255 mg/dL (70-99) Test 06/15/20 05:41 06/15/20 05:45 06/15/20 09:25 06/15/20 11:20 Glucose (Fingerstick) 194 mg/dL (70-99) White Blood Count 15.0 x10^3/uL (4.0-11.0) Red Blood Count 3.54 x10^6/uL (4.30-5.70) Hemoglobin 11.1 g/dL (13.0-17.5) Hematocrit 32.8 % (39.0-53.0) Mean Corpuscular Volume 93 fL (79-100) Mean Corpuscular Hemoglobin 31 pg (25-35) Mean Corpuscular Hemoglobin Concent 34 g/dL (31-37) Red Cell Distribution Width 13.9 % (11.5-14.5) Platelet Count 188 x10^3/uL (140-400) Neutrophils (%) (Auto) 87 % (31-73) Lymphocytes (%) (Auto) 7 % (24-48) Monocytes (%) (Auto) 5 % (0-9) Eosinophils (%) (Auto) 0 % (0-3) Basophils (%) (Auto) 0 % (0-3) Neutrophils # (Auto) 13.1 x10^3/uL (1.8-7.7) Lymphocytes # (Auto) 1.1 x10^3/uL (1.0-4.8) Monocytes # (Auto) 0.8 x10^3/uL (0.0-1.1) Eosinophils # (Auto) 0.0 x10^3/uL (0.0-0.7) Basophils # (Auto) 0.1 x10^3/uL (0.0-0.2) Segmented Neutrophils % 84 % (35-66) Lymphocytes % 8 % (24-48) Monocytes % 5 % (0-10) Myelocytes % 3 % (0-0) Nucleated Red Blood Cells 1 Platelet Estimate Adequate (ADEQUATE) Prothrombin Time 15.0 SEC (11.7-14.0) Prothromb Time International Ratio 1.2 (0.8-1.1) Sodium Level 138 mmol/L (136-145) Potassium Level 3.8 mmol/L (3.5-5.1) Chloride Level 106 mmol/L (98-107) Carbon Dioxide Level 31 mmol/L (21-32) Anion Gap 1 (6-14) Blood Urea Nitrogen 33 mg/dL (8-26) Creatinine 0.4 mg/dL (0.7-1.3) Estimated GFR (Cockcroft-Gault) 212.7 BUN/Creatinine Ratio 83 (6-20) Glucose Level 262 mg/dL (70-99) Calcium Level 7.8 mg/dL (8.5-10.1) Total Bilirubin 0.5 mg/dL (0.2-1.0) Aspartate Amino Transf (AST/SGOT) 13 U/L (15-37) Alanine Aminotransferase (ALT/SGPT) 17 U/L (16-63) Alkaline Phosphatase 75 U/L (46-116) Total Protein 4.5 g/dL (6.4-8.2) Albumin 1.2 g/dL (3.4-5.0) Albumin/Globulin Ratio 0.4 (1.0-1.7) O2 Saturation 97 % (92-99) 95 % (92-99) Arterial Blood pH 7.48 (7.35-7.45) 7.48 (7.35-7.45) Arterial Blood pCO2 at Patient Temp 37 mmHg (35-46) 36 mmHg (35-46) Arterial Blood pO2 at Patient Temp 89 mmHg (65-108) 73 mmHg (65-108) Arterial Blood HCO3 27 mmol/L (21-28) 26 mmol/L (21-28) Arterial Blood Base Excess 4 mmol/L (-3-3) 2 mmol/L (-3-3) FiO2 50 50% ps 10 peep 5 Test 06/15/20 12:05 06/15/20 18:18 06/15/20 20:49 06/15/20 23:26 Glucose (Fingerstick) 237 mg/dL (70-99) 191 mg/dL (70-99) 197 mg/dL (70-99) 202 mg/dL (70-99) Test 06/16/20 05:56 Glucose (Fingerstick) 97 mg/dL (70-99) Laboratory Tests Test 06/15/20 09:25 06/15/20 11:20 06/15/20 12:05 06/15/20 18:18 O2 Saturation 97 % (92-99) 95 % (92-99) Arterial Blood pH 7.48 (7.35-7.45) 7.48 (7.35-7.45) Arterial Blood pCO2 at Patient Temp 37 mmHg (35-46) 36 mmHg (35-46) Arterial Blood pO2 at Patient Temp 89 mmHg (65-108) 73 mmHg (65-108) Arterial Blood HCO3 27 mmol/L (21-28) 26 mmol/L (21-28) Arterial Blood Base Excess 4 mmol/L (-3-3) 2 mmol/L (-3-3) FiO2 50 50% ps 10 peep 5 Glucose (Fingerstick) 237 mg/dL (70-99) 191 mg/dL (70-99) Test 06/15/20 20:49 06/15/20 23:26 06/16/20 05:56 Glucose (Fingerstick) 197 mg/dL (70-99) 202 mg/dL (70-99) 97 mg/dL (70-99) Medications Active Scripts Medications Dose Route/Sig Max Daily Dose Days Date Category Dose Instructions Tylenol (Acetaminophen) 325 Mg Tablet 650 Mg PO BID 06/08/20 Reported Senna-Docusate Sodium Tablet (Sennosides/Docusate Sodium) 1 Each Tablet 1 Each PO PRN PRN 06/08/20 Reported Risperdal (Risperidone) 3 Mg Tablet 0.5 Tab PO BID 30 06/08/20 Reported Potassium Chloride (Potassium Chloride) 20 Meq Tablet.er 20 Meq PO TID 06/08/20 Reported Olanzapine 5 Mg Tablet 0.5 Tab PO QHS 06/08/20 Reported Nystatin 15 Gm Cream..g. 15 Gm TP PRN Q8HRS PRN 06/08/20 Reported Novolog Flexpen (Insulin Aspart) 100 Unit/1 Ml Insuln.pen 1 Unit SQ TIDWMEALS 06/08/20 Reported Mirtazapine 7.5 Mg Tablet 1 Tab PO QHS 30 06/08/20 Reported Milk Of Magnesia (Magnesium Hydroxide) 400 Mg/5 Ml Oral.susp 400 Mg PO PRN PRN 06/08/20 Reported Metformin Hcl 1,000 Mg Tablet 1,000 Mg PO BIDWMEALS 06/08/20 Reported Melatonin 3 Mg Tab.rapdis 1 Tab PO QHS 30 06/08/20 Reported Magnesium Oxide 400 Mg Tablet 1 Tab PO DAILY 06/08/20 Reported Acidophilus (Lactobacillus Acidophilus) 1 Each Capsule 1 Cap PO DAILY 14 06/08/20 Reported Ketoconazole 120 Ml Shampoo 1 Melissa TP TWICE WEEKLY 30 06/08/20 Reported with at least 3 days between each shampooing Levemir Flextouch (Insulin Detemir) 100 Unit/1 Ml Insuln.pen 27 Unit SQ QHS 06/08/20 Reported Furosemide 20 Mg Tablet 1 Tab PO DAILY 06/08/20 Reported Fleet Enema (Na Phos,M-B/Na Phos,Di-Ba) 133 Ml Enema 133 Ml RC PRN PRN 06/08/20 Reported Divalproex Sodium Er (Divalproex Sodium) 500 Mg Tab.er.24h 2,000 Mg PO QHS 06/08/20 Reported D3-50 (Cholecalciferol (Vitamin D3)) 50,000 Unit Capsule 1,000 Unit PO DAILY 06/08/20 Reported Dulcolax (Bisacodyl) 10 Mg Supp.rect 10 Mg RC PRN DAILY PRN 06/08/20 Reported Atorvastatin Calcium 20 Mg Tablet 20 Mg PO HS 06/08/20 Reported Comments CXR 06/15 FINDINGS/ IMPRESSION: Consolidative left lung base infiltrate in association with a small to moderate size left-sided pleural effusion is unchanged. Persistent medial right lung base infiltrate or atelectasis is seen which is unchanged. No pneumothorax is seen. The heart size and mediastinum are stable. There've been no interval tube or line changes. Impression . 1. Acute hypoxic respiratory failure secondary to pneumonia ,shock and acute respiratory distress syndrome. 2. Abnormal chest x-ray with bilateral infiltrates suggestive of pneumonia. He could have a gram-negative pneumonia as well. left mucous plug 06/12. s/p Bronch. thick secretions removed 3. Septic shock. Likely caused by COVID-19 pneumonia. Need to rule out other sources of infection. BC positive 4. Acute kidney injury.-- improved 5. Metabolic acidosis secondary to lactic acidosis and sepsis. 6. Coag neg staph in BC/ ID following. 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 Abnormal CXR 8. MRSE bacteremia repeat blood cultures -05/31 cxr IMPRESSION: 1. Interval extubation and removal of NG tube. 2. Slightly decreased lung expansion. 3. Unchanged small left pleural effusion and left greater than right basilar opacities. Plan . 1. We will continue oxygen supplementation 2. Follow chest x-ray 3. Antibiotics per ID 4. COVID-19 neg 5. Continue IV steroids, taper 6. Antibiotics per ID 7. follow nephrology recommendations 8. DVT and stress ulcer prophylaxis: lovenox/protonix 9. Follow bronch cultures- NGTD 10. Hyperglycemia per PCP 11. continue/ wean vasopressors to keep MAP greater than 65 Discussed with RN and RT. Critical care time 30 minutes including review of the chart, imaging studies and decision making. NIMO DIAZ MD Jun 16, 2020 08:19
[2020-06-16] MEDS: ASCORBIC ACID 500 MG TABLET PO SCH (08:47)
[2020-06-16] MEDS: VALPROIC ACID (AS SODIUM SALT) 250 MG/5 ML SOLUTION. PEG SCH ×3 (08:47→22:39)
[2020-06-16] MEDS: MULTIVITAMINS,THERAPEUTIC 5 ML ORAL LIQUID. PEG SCH (08:47)
[2020-06-16] MEDS: PANTOPRAZOLE IV PUSH 40 MG VIAL. IVP SCH (08:56)
[2020-06-16] MEDS: MEROPENEM 1 GM in IV NORMAL SALINE 100ML 100 ML IV SCH ×2 (08:56→22:36)
[2020-06-16] MEDS: THIAMINE INJ 100 MG in IV DEXTROSE 5% 50 ML IV SCH (08:56)
[2020-06-16] MEDS: methylPREDNISolone SOD SUCC PF 40 MG/ML VIAL. IV SCH ×2 (08:56→22:38)
[2020-06-16] MEDS: IV NORMAL SALINE 1000ML BAG 1,000 ML IV SCH (11:45)
--- NOTE | 2020-06-16 14:38 | NUR ---
SS following up with discharge planning. SS reviewed pt chart and discussed with pt RN. Pt is currently on venturi mask. Pt getting dobhoff and starting tube feeds today. Pt on IV Vancomycin and IV Meropenem. COVID19 negative. Pt is LTC resident from [place]. SS will continue to follow for discharge planning.
[2020-06-16] MEDS: VANCOMYCIN 1.75 GM in IV NORMAL SALINE 500ML BAG 500 ML IV SCH (14:59)
--- NOTE | 2020-06-16 17:50 | RAD ---
AP abdomen x-rays 3 views HISTORY: New Dobbhoff feeding tube placement. FINDINGS: The first x-ray is time stamped is 5:02 PM, the final third x-rays time stent is 5:12 PM. All 3 x-rays demonstrate abnormal positioning of the radiopaque tip of the feeding tube which is coiled at the lower chest general radiographic region of the lower esophagus with the tip angled retrograde. Ventricular peritoneal catheter is noted. Consolidation left lower lobe obscuring the diaphragm a mild left pleural effusion is also present. Large amount stool within the left-sided colon. Mild gas within the small bowel without abnormally dilated bowel loops at the upper abdomen. Pelvis is outside [id number]. IMPRESSION: 1. Abnormal positioning of the feeding tube within the radiographic region of the lower esophagus with the tip angled retrograde. This tube should be repositioned to the stomach or small bowel beneath the diaphragms prior to using to avoid the risk of aspiration. 2. Left lower lobe infiltrate and mild left pleural effusion. Electronically signed by: Mayco Lechuga MD (06/16/2020 5:48 PM) [id number]
--- NOTE | 2020-06-16 18:19 | RAD ---
KUB HISTORY: New Dobbhoff tube placement. FINDINGS: Since prior x-rays there is been repositioning of the feeding tube with the radiopaque tip coiled at the left upper quadrant general radiographic region of the upper stomach. Left lower lobe opacity and mild left pleural effusion along the diaphragm again demonstrated. Moderate volume of stool within the left-sided colon again noted. Mild gas within the upper abdominal bowel. Ventriculoperitoneal catheter. IMPRESSION: Repositioning of the Dobbhoff feeding tube to the left upper quadrant general radiographic region of the upper stomach. Electronically signed by: Mayco Lechuga MD (06/16/2020 6:15 PM) [id number]
--- NOTE | 2020-06-16 22:01 | NUR ---
Call placed to DR. Garrison"s service regarding use of Dobhoff for medications. Call returned from Dr. Arriola who was reading KUB results and stated "Okay to use for feeding and medications as placed."
[2020-06-16] MEDS: ENOXAPARIN 40 MG/0.4 ML SYRINGE. SQ SCH (22:37)
[2020-06-16] MEDS: OLANZapine 5 MG TABLET PO SCH (22:39)
[2020-06-16] MEDS: MIRTAZAPINE 7.5 MG TABLET. PO SCH (22:39)
[2020-06-16] MEDS: INSULIN GLARGINE SYRINGE. SQ SCH (22:53)
[2020-06-17] MEDS: INSULIN LISPRO 300 UNITS/3 ML VIAL. SQ SCH ×8 (00:20→19:18)
[2020-06-17 03:21] VITALS: BP 108/75
[2020-06-17 05:57] LABS: BASO % 0 % (0-3); EOS % 0 % (0-3); HEMATOCRIT 32.3 % (39.0-53.0); LYMPH # 0.8 x10^3/uL (1.0-4.8); LYMPH % 5 % (24-48); MEAN CORPUSCULAR HEMOGLOBIN 31 pg (25-35); MEAN CORPUSCULAR HGB CONC 34 g/dL (31-37); MEAN CORPUSCULAR VOLUME 92 fL (79-100); MONO # 0.5 x10^3/uL (0.0-1.1); MONO % 3 % (0-9); NEUT # 15.7 x10^3/uL (1.8-7.7); NEUT % 92 % (31-73); PLATELET COUNT 206 x10^3/uL (140-400); RED BLOOD COUNT 3.52 x10^6/uL (4.30-5.70); RED CELL DISTRIBUTION WIDTH 13.7 % (11.5-14.5); WHITE BLOOD COUNT 17.1 x10^3/uL (4.0-11.0)
[2020-06-17 06:06] LABS: CALCIUM 7.8 mg/dL (8.5-10.1); CREATININE 0.4 mg/dL (0.7-1.3); GFR 212.7; POTASSIUM 3.9 mmol/L (3.5-5.1)
[2020-06-17 07:54] VITALS: BP 151/72
[2020-06-17] MEDS: VANCOMYCIN PER PHARMACY MC PRN (08:27)
[2020-06-17] MEDS ORDERED: ELECTROLYTE (NON-ICU) PROTOCOL MC PRN (08:30)
--- NOTE | 2020-06-17 08:32 | PDOC ---
PULMONARY PROGRESS NOTES DATE: 06/17/20 TIME: 08:32 Subjective Patient more awake. On oxygen supplementation per nasal cannula He denies any prior use of oxygen Vitals Vital Signs Date Time Temp Pulse Resp B/P (MAP) Pulse Ox O2 Delivery O2 Flow Rate FiO2 06/17/20 07:54 98.5 69 21 151/72 (98) 94 Nasal Cannula 6.0 98.5 ROS: No Nausea, No Chest Pain, No Abdominal Pain, No Increase Cough General: Alert Lungs: Clear Cardiovascular: S1 Abdomen: Soft Extremities: Other (BLE +2) Skin: Warm Labs Laboratory Tests Test 06/15/20 09:25 06/15/20 11:20 06/15/20 12:05 06/15/20 18:18 O2 Saturation 97 % (92-99) 95 % (92-99) Arterial Blood pH 7.48 (7.35-7.45) 7.48 (7.35-7.45) Arterial Blood pCO2 at Patient Temp 37 mmHg (35-46) 36 mmHg (35-46) Arterial Blood pO2 at Patient Temp 89 mmHg (65-108) 73 mmHg (65-108) Arterial Blood HCO3 27 mmol/L (21-28) 26 mmol/L (21-28) Arterial Blood Base Excess 4 mmol/L (-3-3) 2 mmol/L (-3-3) FiO2 50 50% ps 10 peep 5 Glucose (Fingerstick) 237 mg/dL (70-99) 191 mg/dL (70-99) Test 06/15/20 20:49 06/15/20 23:26 06/16/20 05:56 06/16/20 11:49 Glucose (Fingerstick) 197 mg/dL (70-99) 202 mg/dL (70-99) 97 mg/dL (70-99) 76 mg/dL (70-99) Test 06/16/20 18:28 06/16/20 22:52 06/17/20 00:12 06/17/20 05:40 Glucose (Fingerstick) 97 mg/dL (70-99) 136 mg/dL (70-99) 151 mg/dL (70-99) White Blood Count 17.1 x10^3/uL (4.0-11.0) Red Blood Count 3.52 x10^6/uL (4.30-5.70) Hemoglobin 11.0 g/dL (13.0-17.5) Hematocrit 32.3 % (39.0-53.0) Mean Corpuscular Volume 92 fL (79-100) Mean Corpuscular Hemoglobin 31 pg (25-35) Mean Corpuscular Hemoglobin Concent 34 g/dL (31-37) Red Cell Distribution Width 13.7 % (11.5-14.5) Platelet Count 206 x10^3/uL (140-400) Neutrophils (%) (Auto) 92 % (31-73) Lymphocytes (%) (Auto) 5 % (24-48) Monocytes (%) (Auto) 3 % (0-9) Eosinophils (%) (Auto) 0 % (0-3) Basophils (%) (Auto) 0 % (0-3) Neutrophils # (Auto) 15.7 x10^3/uL (1.8-7.7) Lymphocytes # (Auto) 0.8 x10^3/uL (1.0-4.8) Monocytes # (Auto) 0.5 x10^3/uL (0.0-1.1) Eosinophils # (Auto) 0.0 x10^3/uL (0.0-0.7) Basophils # (Auto) 0.0 x10^3/uL (0.0-0.2) Sodium Level 140 mmol/L (136-145) Potassium Level 3.9 mmol/L (3.5-5.1) Chloride Level 106 mmol/L (98-107) Carbon Dioxide Level 32 mmol/L (21-32) Anion Gap 2 (6-14) Blood Urea Nitrogen 31 mg/dL (8-26) Creatinine 0.4 mg/dL (0.7-1.3) Estimated GFR (Cockcroft-Gault) 212.7 Glucose Level 165 mg/dL (70-99) Calcium Level 7.8 mg/dL (8.5-10.1) Test 06/17/20 05:42 Glucose (Fingerstick) 156 mg/dL (70-99) Laboratory Tests Test 06/16/20 11:49 06/16/20 18:28 06/16/20 22:52 06/17/20 00:12 Glucose (Fingerstick) 76 mg/dL (70-99) 97 mg/dL (70-99) 136 mg/dL (70-99) 151 mg/dL (70-99) Test 06/17/20 05:40 06/17/20 05:42 White Blood Count 17.1 x10^3/uL (4.0-11.0) Red Blood Count 3.52 x10^6/uL (4.30-5.70) Hemoglobin 11.0 g/dL (13.0-17.5) Hematocrit 32.3 % (39.0-53.0) Mean Corpuscular Volume 92 fL (79-100) Mean Corpuscular Hemoglobin 31 pg (25-35) Mean Corpuscular Hemoglobin Concent 34 g/dL (31-37) Red Cell Distribution Width 13.7 % (11.5-14.5) Platelet Count 206 x10^3/uL (140-400) Neutrophils (%) (Auto) 92 % (31-73) Lymphocytes (%) (Auto) 5 % (24-48) Monocytes (%) (Auto) 3 % (0-9) Eosinophils (%) (Auto) 0 % (0-3) Basophils (%) (Auto) 0 % (0-3) Neutrophils # (Auto) 15.7 x10^3/uL (1.8-7.7) Lymphocytes # (Auto) 0.8 x10^3/uL (1.0-4.8) Monocytes # (Auto) 0.5 x10^3/uL (0.0-1.1) Eosinophils # (Auto) 0.0 x10^3/uL (0.0-0.7) Basophils # (Auto) 0.0 x10^3/uL (0.0-0.2) Sodium Level 140 mmol/L (136-145) Potassium Level 3.9 mmol/L (3.5-5.1) Chloride Level 106 mmol/L (98-107) Carbon Dioxide Level 32 mmol/L (21-32) Anion Gap 2 (6-14) Blood Urea Nitrogen 31 mg/dL (8-26) Creatinine 0.4 mg/dL (0.7-1.3) Estimated GFR (Cockcroft-Gault) 212.7 Glucose Level 165 mg/dL (70-99) Calcium Level 7.8 mg/dL (8.5-10.1) Glucose (Fingerstick) 156 mg/dL (70-99) Medications Active Scripts Medications Dose Route/Sig Max Daily Dose Days Date Category Dose Instructions Tylenol (Acetaminophen) 325 Mg Tablet 650 Mg PO BID 06/08/20 Reported Senna-Docusate Sodium Tablet (Sennosides/Docusate Sodium) 1 Each Tablet 1 Each PO PRN PRN 06/08/20 Reported Risperdal (Risperidone) 3 Mg Tablet 0.5 Tab PO BID 30 06/08/20 Reported Potassium Chloride (Potassium Chloride) 20 Meq Tablet.er 20 Meq PO TID 06/08/20 Reported Olanzapine 5 Mg Tablet 0.5 Tab PO QHS 06/08/20 Reported Nystatin 15 Gm Cream..g. 15 Gm TP PRN Q8HRS PRN 06/08/20 Reported Novolog Flexpen (Insulin Aspart) 100 Unit/1 Ml Insuln.pen 1 Unit SQ TIDWMEALS 06/08/20 Reported Mirtazapine 7.5 Mg Tablet 1 Tab PO QHS 30 06/08/20 Reported Milk Of Magnesia (Magnesium Hydroxide) 400 Mg/5 Ml Oral.susp 400 Mg PO PRN PRN 06/08/20 Reported Metformin Hcl 1,000 Mg Tablet 1,000 Mg PO BIDWMEALS 06/08/20 Reported Melatonin 3 Mg Tab.rapdis 1 Tab PO QHS 30 06/08/20 Reported Magnesium Oxide 400 Mg Tablet 1 Tab PO DAILY 06/08/20 Reported Acidophilus (Lactobacillus Acidophilus) 1 Each Capsule 1 Cap PO DAILY 14 06/08/20 Reported Ketoconazole 120 Ml Shampoo 1 Melissa TP TWICE WEEKLY 30 06/08/20 Reported with at least 3 days between each shampooing Levemir Flextouch (Insulin Detemir) 100 Unit/1 Ml Insuln.pen 27 Unit SQ QHS 06/08/20 Reported Furosemide 20 Mg Tablet 1 Tab PO DAILY 06/08/20 Reported Fleet Enema (Na Phos,M-B/Na Phos,Di-Ba) 133 Ml Enema 133 Ml RC PRN PRN 06/08/20 Reported Divalproex Sodium Er (Divalproex Sodium) 500 Mg Tab.er.24h 2,000 Mg PO QHS 06/08/20 Reported D3-50 (Cholecalciferol (Vitamin D3)) 50,000 Unit Capsule 1,000 Unit PO DAILY 06/08/20 Reported Dulcolax (Bisacodyl) 10 Mg Supp.rect 10 Mg RC PRN DAILY PRN 06/08/20 Reported Atorvastatin Calcium 20 Mg Tablet 20 Mg PO HS 06/08/20 Reported Comments CXR 06/15 FINDINGS/ IMPRESSION: Consolidative left lung base infiltrate in association with a small to moderate size left-sided pleural effusion is unchanged. Persistent medial right lung base infiltrate or atelectasis is seen which is unchanged. No pneumothorax is seen. The heart size and mediastinum are stable. There've been no interval tube or line changes. Impression . 1. Acute hypoxic respiratory failure secondary to pneumonia ,shock and acute respiratory distress syndrome. 2. Abnormal chest x-ray with bilateral infiltrates suggestive of pneumonia. He could have a gram-negative pneumonia as well. left mucous plug 06/12. s/p Bronch. thick secretions removed 3. Septic shock. Likely caused by COVID-19 pneumonia. Need to rule out other sources of infection. BC positive 4. Acute kidney injury.-- improved 5. Metabolic acidosis secondary to lactic acidosis and sepsis. 6. Coag neg staph in BC/ ID following. 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 Abnormal CXR 8. MRSE bacteremia repeat blood cultures -05/31 cxr IMPRESSION: 1. Interval extubation and removal of NG tube. 2. Slightly decreased lung expansion. 3. Unchanged small left pleural effusion and left greater than right basilar opacities. Plan . We will continue current support with oxygen supplementation Antibiotics per ID Tested negative for SARS-CoV-2 IV steroids Follow nephrology recommendation DVT GI prophylaxis Follow BAL from bronchoscopy so far all cultures negative NIMO DIAZ MD Jun 17, 2020 08:32
--- NOTE | 2020-06-17 09:42 | PDOC ---
Infectious Disease Note Subjective Subjective Transferred 2N Awake, nonverbal No fevers lat 24 hrs Vital Sign Vital Signs Vital Signs Date Time Temp Pulse Resp B/P (MAP) Pulse Ox O2 Delivery O2 Flow Rate FiO2 06/17/20 07:54 98.5 69 21 151/72 (98) 94 Nasal Cannula 6.0 98.5 Physical Exam PHYSICAL EXAM GENERAL: Propped up in bed, alert in no distress HEENT: Pupils equal, oral cavity clear. Dobbhoff in place NECK: Supple. No JVD LUNGS: Clear anteriorly HEART: S1, S2 regular ABDOMEN: Obese, soft, no guarding, BS present : Quintero in place + scrotal swelling EXTREMITIES: Generalized edema. No cyanosis. SCDs and heel boots, bilaterally RUE with 1- 2 plus edema SKIN: warm to touch. No signs of generalized rash NEUROLOGIC: Alert , follows simple commands RIJ without signs of complications Labs Lab Laboratory Tests Test 06/16/20 11:49 06/16/20 18:28 06/16/20 22:52 06/17/20 00:12 Glucose (Fingerstick) 76 mg/dL (70-99) 97 mg/dL (70-99) 136 mg/dL (70-99) 151 mg/dL (70-99) Test 06/17/20 05:40 06/17/20 05:42 White Blood Count 17.1 x10^3/uL (4.0-11.0) Red Blood Count 3.52 x10^6/uL (4.30-5.70) Hemoglobin 11.0 g/dL (13.0-17.5) Hematocrit 32.3 % (39.0-53.0) Mean Corpuscular Volume 92 fL (79-100) Mean Corpuscular Hemoglobin 31 pg (25-35) Mean Corpuscular Hemoglobin Concent 34 g/dL (31-37) Red Cell Distribution Width 13.7 % (11.5-14.5) Platelet Count 206 x10^3/uL (140-400) Neutrophils (%) (Auto) 92 % (31-73) Lymphocytes (%) (Auto) 5 % (24-48) Monocytes (%) (Auto) 3 % (0-9) Eosinophils (%) (Auto) 0 % (0-3) Basophils (%) (Auto) 0 % (0-3) Neutrophils # (Auto) 15.7 x10^3/uL (1.8-7.7) Lymphocytes # (Auto) 0.8 x10^3/uL (1.0-4.8) Monocytes # (Auto) 0.5 x10^3/uL (0.0-1.1) Eosinophils # (Auto) 0.0 x10^3/uL (0.0-0.7) Basophils # (Auto) 0.0 x10^3/uL (0.0-0.2) Sodium Level 140 mmol/L (136-145) Potassium Level 3.9 mmol/L (3.5-5.1) Chloride Level 106 mmol/L (98-107) Carbon Dioxide Level 32 mmol/L (21-32) Anion Gap 2 (6-14) Blood Urea Nitrogen 31 mg/dL (8-26) Creatinine 0.4 mg/dL (0.7-1.3) Estimated GFR (Cockcroft-Gault) 212.7 Glucose Level 165 mg/dL (70-99) Calcium Level 7.8 mg/dL (8.5-10.1) Glucose (Fingerstick) 156 mg/dL (70-99) Micro 06/12/20 Respiratory Culture, Resulted GRAM STAIN EVALUATION Final Final GRAM POSITIVE RODS:RARE GRAM POSITIVE COCCI:RARE SQUAMOUS EPI CELL:FEW PMN (WBCs):MANY YEAST:RARE RESPIRATORY CULTURE Preliminary Preliminary FEW Mixed upper respiratory antonio on 06/13/20 at 1036 06/10/20 Blood Culture - Preliminary, Resulted NO GROWTH AFTER 3 DAYS Objective Assessment Hypotension, off pressors Hypoxemia with respiratory failure. neg COVID-19. BAL cultures neg Suspected aspiration pneumonia. Leukocytosis in part reactive steroids - increased Lactic acidosis. Fever - better Diabetes. Hypertension. Schizophrenia. 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 Trough 15.8 and Cr. 0.6 Continue meropenem Monitor WBC/temp Maintain aspiration precautions Supportive care Prognosis poor Disc with nursing pt does have FUEL ISLAND ATTENDANT shunt, coag neg staph infection /vision specialist infection possible though pt is in [facility] for years, with the condition he is in ,would not be a c andidate for FUEL ISLAND ATTENDANT shunt removal, ? need to be comfort care More alert and responsive today. Nodded he was feeling better and no nausea Attending Co-Sign Attending Co-Sign The patient was seen and interviewed as well as examined at the bedside. The chart was reviewed. The case was discussed. Agree with the plan of care. FRANCIE THOMAS APRN Jun 17, 2020 09:42 NUSRAT YU MD Jun 17, 2020 12:56
[2020-06-17] MEDS: THIAMINE 100 MG TABLET. PO SCH (10:01)
[2020-06-17] MEDS: MULTIVITAMINS,THERAPEUTIC 5 ML ORAL LIQUID. PEG SCH (10:01)
[2020-06-17] MEDS: ASCORBIC ACID 500 MG TABLET PO SCH (10:02)
[2020-06-17] MEDS: VANCOMYCIN 1.75 GM in IV NORMAL SALINE 500ML BAG 500 ML IV SCH (10:04)
[2020-06-17] MEDS: methylPREDNISolone SOD SUCC PF 40 MG/ML VIAL. IV SCH ×2 (10:04→22:14)
[2020-06-17 10:18] VITALS: BP 167/56
--- NOTE | 2020-06-17 10:56 | NUR ---
SS following up with discharge planning. SS reviewed pt chart and discussed with pt RN. Pt is currently requiring oxygen. Chest tube remains at this time. Pt currently requiring oxygen. COVID19 negative. Pt on IV Vancomycin and IV Meropenem. Pt has dobhoff and on tube feeds. NPO. Pt is LTC resident from [facility]. SS phoned and faxed referral to [facility], ; fax [phone], in the event LTACH is needed. SS will continue to follow for discharge planning. Addendum: 06/17/20 at 1107 by LOY WESLEY CORRECTION TO PREVIOUS NOTE: PT DOES NOT HAVE CHEST TUBE. INCORRECT DOCUMENTATION.
[2020-06-17] MEDS: PANTOPRAZOLE IV PUSH 40 MG VIAL. IVP SCH (11:50)
[2020-06-17] MEDS: MEROPENEM 1 GM in IV NORMAL SALINE 100ML 100 ML IV SCH ×2 (11:52→22:09)
[2020-06-17] MEDS: VALPROIC ACID (AS SODIUM SALT) 250 MG/5 ML SOLUTION. PEG SCH ×3 (11:54→22:10)
[2020-06-17] MEDS: IV NORMAL SALINE 1000ML BAG 1,000 ML IV SCH (11:55)
--- NOTE | 2020-06-17 12:15 | PDOC ---
PROGRESS NOTES Date of Service: DATE: 06/17/20 TIME: 12:13 Chief Complaint Chief Complaint A/P: Sepsis Acute hypercarbic hypoxic respiratory failure requiring intubation, succesfully extubated on 06/15/2020 Acute metabolic encephalopathy NOS Concern for aspiration pneumonia with chest x-ray showing multifocal infiltrate in the right lower lobe Lactic acidosis Severe protein malnutrition Anxiety with depression dCHF Constipation Diabetes-Type II High Cholesterol Hypertension Schizophrenia BPH Dysphagia PARKINSONS, Hyperkalemia S/p [employer] SERVICE INS[employer]OR shunt MRSE bacteremia with negative to date repeat cultures. FEN - OGT PPX - heparin FULL CODE Dispo - ICU History of Present Illness History of Present Illness Mr Dubois is a 69-year-old male with past medical history of Anxiety with depression, schizophrenia, dCHF, Constipation, Diabetes-Type II, High Cholesterol, Hypertension, BPH, Dysphagia, PARKINSONS, who presents to the em ergency room in respiratory failure. According to report patient was normal the morning of 06/07. He has been refusing to eat recently according to staff but did eat lunch immediately before they found him in respiratory distress EMS pulse ox on CPAP is 80%. He was intubated due to respiratory failure and poor ABG on BiPAP. 06/08: Febrile to 101.8 F overnight. Intubated, sedated. K peaked at 6.8, started on D5, insulin, steroids. 06/09: Patient is sedated and intubated upon my examination. AC mode tidal volume 550, PEEP 12 and FiO2 90%. Saturations are 100%. 06/10: COVID-19 negative. Blood cultures positive for staph epidermidis. Patient sedated and intubated on AC mode tidal volume 550, PEEP 9 FiO2 down to 60%. Tolerating tube feeds well. 06/11: Afebrile overnight. Sedated intubated AC mode tidal volume 550 PEEP 9 FiO2 70%. Blood pressure dropped on Levophed. 06/12: Episodic hypoxia overnight, bronchoscopy with significant left-sided mucus plugging removed. Tolerating TF well, however glucose has been very elevated. 06/13: Still requiring pressor support. Seen on vent in ICU off sedation. Not awakening at this time. Afebrile 06/14: Afebrile. Seen on vent. On sedation wean. Eyes are opening well. ABG 7.47/30 .. A lot of ventricular ectopy on telemetry this morning. FiO2 30% PEEP 6. 06/15: Patient continues to be mechanically ventilated, ID recommendations great ly appreciated. 06/16: Patient still quite somnolent, he was extubated yesterday, he did not have acute events reported overnight, responds to his name but he is non verbal, does not seem to be in any distress. Discussed with nursing staff. 06/17: No acute events reported overnight, case discussed with nursing staff patient in no acute distress no complaints during my visit, currently still quite debilitated from recent intubation and case discussed with speech therapist, at the present time patient will probably benefit from TPN and hopefully improve his strength and reassess his ability to swallow safely. Currently he is at high risk for aspiration pneumonia Vitals Vitals Vital Signs Date Time Temp Pulse Resp B/P (MAP) Pulse Ox O2 Delivery O2 Flow Rate FiO2 06/17/20 10:18 98.3 68 21 167/56 (93) 98 Nasal Cannula 6.0 98.3 Physical Exam Physical Exam GENERAL: Propped up in bed, alert in no distress HEENT: Pupils equal, oral cavity clear. Dobbhoff in place NECK: Supple. No JVD LUNGS: Clear anteriorly HEART: S1, S2 regular ABDOMEN: Obese, soft, no guarding, BS present : Quintero in place + scrotal swelling EXTREMITIES: Generalized edema. No cyanosis. SCDs and heel boots, bilaterally RUE with 1- 2 plus edema SKIN: warm to touch. No signs of generalized rash NEUROLOGIC: Alert , follows simple commands RIJ without signs of complications General: No acute distress Heart: Regular rate Lungs: Clear Abdomen: Normal bowel sounds Extremities: No clubbing Labs LABS Laboratory Tests Test 06/16/20 18:28 06/16/20 22:52 06/17/20 00:12 06/17/20 05:40 Glucose (Fingerstick) 97 mg/dL (70-99) 136 mg/dL (70-99) 151 mg/dL (70-99) White Blood Count 17.1 x10^3/uL (4.0-11.0) Red Blood Count 3.52 x10^6/uL (4.30-5.70) Hemoglobin 11.0 g/dL (13.0-17.5) Hematocrit 32.3 % (39.0-53.0) Mean Corpuscular Volume 92 fL (79-100) Mean Corpuscular Hemoglobin 31 pg (25-35) Mean Corpuscular Hemoglobin Concent 34 g/dL (31-37) Red Cell Distribution Width 13.7 % (11.5-14.5) Platelet Count 206 x10^3/uL (140-400) Neutrophils (%) (Auto) 92 % (31-73) Lymphocytes (%) (Auto) 5 % (24-48) Monocytes (%) (Auto) 3 % (0-9) Eosinophils (%) (Auto) 0 % (0-3) Basophils (%) (Auto) 0 % (0-3) Neutrophils # (Auto) 15.7 x10^3/uL (1.8-7.7) Lymphocytes # (Auto) 0.8 x10^3/uL (1.0-4.8) Monocytes # (Auto) 0.5 x10^3/uL (0.0-1.1) Eosinophils # (Auto) 0.0 x10^3/uL (0.0-0.7) Basophils # (Auto) 0.0 x10^3/uL (0.0-0.2) Sodium Level 140 mmol/L (136-145) Potassium Level 3.9 mmol/L (3.5-5.1) Chloride Level 106 mmol/L (98-107) Carbon Dioxide Level 32 mmol/L (21-32) Anion Gap 2 (6-14) Blood Urea Nitrogen 31 mg/dL (8-26) Creatinine 0.4 mg/dL (0.7-1.3) Estimated GFR (Cockcroft-Gault) 212.7 Glucose Level 165 mg/dL (70-99) Calcium Level 7.8 mg/dL (8.5-10.1) Test 06/17/20 05:42 06/17/20 11:12 Glucose (Fingerstick) 156 mg/dL (70-99) 107 mg/dL (70-99) Assessment and Plan Assessmemt and Plan Problems Medical Problems: (1) Aspiration pneumonia Status: Acute (2) Respiratory failure with hypoxia Status: Acute Comment Review of Relevant I have reviewed the following items veronika (where applicable) has been applied. Labs Laboratory Tests Test 06/15/20 18:18 06/15/20 20:49 06/15/20 23:26 06/16/20 05:56 Glucose (Fingerstick) 191 mg/dL (70-99) 197 mg/dL (70-99) 202 mg/dL (70-99) 97 mg/dL (70-99) Test 06/16/20 11:49 06/16/20 18:28 06/16/20 22:52 06/17/20 00:12 Glucose (Fingerstick) 76 mg/dL (70-99) 97 mg/dL (70-99) 136 mg/dL (70-99) 151 mg/dL (70-99) Test 06/17/20 05:40 06/17/20 05:42 06/17/20 11:12 White Blood Count 17.1 x10^3/uL (4.0-11.0) Red Blood Count 3.52 x10^6/uL (4.30-5.70) Hemoglobin 11.0 g/dL (13.0-17.5) Hematocrit 32.3 % (39.0-53.0) Mean Corpuscular Volume 92 fL (79-100) Mean Corpuscular Hemoglobin 31 pg (25-35) Mean Corpuscular Hemoglobin Concent 34 g/dL (31-37) Red Cell Distribution Width 13.7 % (11.5-14.5) Platelet Count 206 x10^3/uL (140-400) Neutrophils (%) (Auto) 92 % (31-73) Lymphocytes (%) (Auto) 5 % (24-48) Monocytes (%) (Auto) 3 % (0-9) Eosinophils (%) (Auto) 0 % (0-3) Basophils (%) (Auto) 0 % (0-3) Neutrophils # (Auto) 15.7 x10^3/uL (1.8-7.7) Lymphocytes # (Auto) 0.8 x10^3/uL (1.0-4.8) Monocytes # (Auto) 0.5 x10^3/uL (0.0-1.1) Eosinophils # (Auto) 0.0 x10^3/uL (0.0-0.7) Basophils # (Auto) 0.0 x10^3/uL (0.0-0.2) Sodium Level 140 mmol/L (136-145) Potassium Level 3.9 mmol/L (3.5-5.1) Chloride Level 106 mmol/L (98-107) Carbon Dioxide Level 32 mmol/L (21-32) Anion Gap 2 (6-14) Blood Urea Nitrogen 31 mg/dL (8-26) Creatinine 0.4 mg/dL (0.7-1.3) Estimated GFR (Cockcroft-Gault) 212.7 Glucose Level 165 mg/dL (70-99) Calcium Level 7.8 mg/dL (8.5-10.1) Glucose (Fingerstick) 156 mg/dL (70-99) 107 mg/dL (70-99) Laboratory Tests Test 06/16/20 18:28 06/16/20 22:52 06/17/20 00:12 06/17/20 05:40 Glucose (Fingerstick) 97 mg/dL (70-99) 136 mg/dL (70-99) 151 mg/dL (70-99) White Blood Count 17.1 x10^3/uL (4.0-11.0) Red Blood Count 3.52 x10^6/uL (4.30-5.70) Hemoglobin 11.0 g/dL (13.0-17.5) Hematocrit 32.3 % (39.0-53.0) Mean Corpuscular Volume 92 fL (79-100) Mean Corpuscular Hemoglobin 31 pg (25-35) Mean Corpuscular Hemoglobin Concent 34 g/dL (31-37) Red Cell Distribution Width 13.7 % (11.5-14.5) Platelet Count 206 x10^3/uL (140-400) Neutrophils (%) (Auto) 92 % (31-73) Lymphocytes (%) (Auto) 5 % (24-48) Monocytes (%) (Auto) 3 % (0-9) Eosinophils (%) (Auto) 0 % (0-3) Basophils (%) (Auto) 0 % (0-3) Neutrophils # (Auto) 15.7 x10^3/uL (1.8-7.7) Lymphocytes # (Auto) 0.8 x10^3/uL (1.0-4.8) Monocytes # (Auto) 0.5 x10^3/uL (0.0-1.1) Eosinophils # (Auto) 0.0 x10^3/uL (0.0-0.7) Basophils # (Auto) 0.0 x10^3/uL (0.0-0.2) Sodium Level 140 mmol/L (136-145) Potassium Level 3.9 mmol/L (3.5-5.1) Chloride Level 106 mmol/L (98-107) Carbon Dioxide Level 32 mmol/L (21-32) Anion Gap 2 (6-14) Blood Urea Nitrogen 31 mg/dL (8-26) Creatinine 0.4 mg/dL (0.7-1.3) Estimated GFR (Cockcroft-Gault) 212.7 Glucose Level 165 mg/dL (70-99) Calcium Level 7.8 mg/dL (8.5-10.1) Test 06/17/20 05:42 06/17/20 11:12 Glucose (Fingerstick) 156 mg/dL (70-99) 107 mg/dL (70-99) Microbiology 06/12/20 AFB Specimen Processing Tissue - Final, Resulted 06/12/20 Acid Fast Bacilli Culture, Resulted Pending 06/12/20 Gram Stain - Final, Resulted 06/12/20 Fungal Culture, Resulted Pending 06/12/20 Fungal Culture Result 1, Resulted Pending 06/10/20 Blood Culture - Final, Complete NO GROWTH AFTER 5 DAYS Medications Current Medications Midazolam HCl 100 mg/Sodium Chloride 100 ml @ 0 mls/hr 1X ONCE IV Last administered on 06/07/20at 15:19; Start 06/07/20 at 15:15; Stop 06/07/20 at 15:16; Status DC Sodium Chloride 1,000 ml @ 1,000 mls/hr 1X ONCE IV Last administered on 06/07/20at 14:50; Start 06/07/20 at 15:15; Stop 06/07/20 at 16:14; Status DC Sodium Chloride 1,000 ml @ 1,000 mls/hr 1X ONCE IV Last administered on 06/07/20at 15:04; Start 06/07/20 at 15:15; Stop 06/07/20 at 16:14; Status DC Vancomycin HCl 1.25 gm/Sodium Chloride 250 ml @ 166.667 mls/hr 1X ONCE IV Last administered on 06/07/20at 15:57; Start 06/07/20 at 16:00; Stop 06/07/20 at 17:29; Status DC Clindamycin Phosphate 50 ml @ 100 mls/hr 1X ONCE IV Last administered on 06/07/20at 15:57; Start 06/07/20 at 15:15; Stop 06/07/20 at 15:44; Status DC Midazolam HCl (Versed) 5 mg 1X ONCE IV Last administered on 06/07/20at 15:15; Start 06/07/20 at 15:30; Stop 06/07/20 at 15:31; Status DC Etomidate (Amidate) 30 mg 1X ONCE IV Last administered on 06/07/20at 14:57; Start 06/07/20 at 15:30; Stop 06/07/20 at 15:31; Status DC Succinylcholine Chloride (Anectine) 200 mg 1X ONCE IV Last administered on 06/07/20at 14:58; Start 06/07/20 at 15:30; Stop 06/07/20 at 15:31; Status DC Fentanyl Citrate (Fentanyl 2ml Vial) 50 mcg PRN Q1HR ONCE IVP Last administered on 06/07/20at 16:30; Start 06/07/20 at 16:30; Stop 06/07/20 at 16:31; Status DC Fentanyl Citrate (Fentanyl 2ml Vial) 100 mcg 1X ONCE IVP Last administered on 06/07/20at 17:07; Start 06/07/20 at 17:15; Stop 06/07/20 at 17:16; Status DC Sennosides (Senna) 17.2 mg PRN BID PRN PO CONSTIPATION; Start 06/07/20 at 18:00 Docusate Sodium (Colace Solution) 100 mg PRN DAILY PRN PO HARD STOOLS; Start 06/07/20 at 21:00 Ondansetron HCl (Zofran) 4 mg PRN Q6HRS PRN IVP NAUSEA/VOMITING; Start 06/07/20 at 18:00 Potassium Chloride (Klor-Con) 40 meq 1X PRN PO PER PROTOCOL; Start 06/07/20 at 18:00; Status UNV Magnesium Oxide (Magnesium Oxide) 400 mg BID PO ; Start 06/07/20 at 21:00; Stop 06/09/20 at 09:01; Status UNV Potassium Chloride/Water 100 ml @ 100 mls/hr Q1H IV ; Start 06/07/20 at 18:00; Stop 06/07/20 at 21:59; Status UNV Magnesium Sulfate 50 ml @ 25 mls/hr Q24H IV ; Start 06/07/20 at 18:00; Stop 06/09/20 at 19:59; Status UNV Potassium Chloride/Water 100 ml @ 100 mls/hr Q1H PRN IV low k; Start 06/07/20 at 18:00; Status UNV Dextrose (Dextrose 50%-Water Syringe) 12.5 gm PRN Q15MIN PRN IV SEE COMMENTS; Start 06/07/20 at 18:00; Stop 06/08/20 at 22:09; Status DC Vancomycin HCl 1 gm/Dextrose 250 ml @ 250 mls/hr 1X ONCE IV ; Start 06/07/20 at 18:00; Stop 06/07/20 at 18:59; Status UNV Enoxaparin Sodium (Lovenox 40mg Syringe) 40 mg Q24H SQ Last administered on 06/16/20at 22:37; Start 06/07/20 at 19:00 Pantoprazole Sodium (PROTONIX VIAL for IV PUSH) 40 mg DAILYAC IVP Last administered on 06/17/20at 11:50; Start 06/07/20 at 19:00 Ascorbic Acid (Vitamin C) 500 mg DAILY PO Last administered on 06/17/20at 10:02; Start 06/08/20 at 09:00 Thiamine HCl 100 mg/Dextrose 51 ml @ 102 mls/hr DAILY IV Last administered on 06/16/20at 08:56; Start 06/08/20 at 09:00; Stop 06/17/20 at 08:20; Status DC Info (Icu Electrolyte Protocol) 1 ea CONT PRN PRN MC PER PROTOCOL; Start 06/07/20 at 18:00; Stop 06/17/20 at 08:15; Status DC Vancomycin HCl 750 mg/Sodium Chloride 250 ml @ 250 mls/hr 1X ONCE IV Last administered on 06/07/20at 19:18; Start 06/07/20 at 18:00; Stop 06/07/20 at 18:59; Status DC Vancomycin HCl (Vanco Per Pharmacy) 1 each PRN DAILY PRN MC SEE COMMENTS Last administered on 06/07/20at 19:49; Start 06/07/20 at 18:00; Stop 06/07/20 at 20:36; Status DC Fentanyl Citrate (Fentanyl 2ml Vial) 50 mcg PRN Q1HR PRN IVP PAIN Last administered on 06/07/20at 18:02; Start 06/07/20 at 18:00; Stop 06/08/20 at 16:07; Status DC Fentanyl Citrate 30 ml @ 0 mls/hr CONT PRN IV SEE PROTOCOL Last administered on 06/13/20at 00:13; Start 06/07/20 at 18:30; Stop 06/17/20 at 08:18; Status DC Fentanyl Citrate (Fentanyl 2ml Vial) 25 mcg PRN Q1HR PRN IV SEE COMMENTS; Start 06/07/20 at 18:30 Fentanyl Citrate (Fentanyl 2ml Vial) 50 mcg PRN Q1HR PRN IV SEE COMMENTS Last administered on 06/14/20at 18:17; Start 06/07/20 at 18:30 Midazolam HCl 100 ml @ 0 mls/hr CONT PRN IV SEE PROTOCOL Last administered on 06/12/20at 21:36; Start 06/07/20 at 18:30; Stop 06/17/20 at 08:18; Status DC Vecuronium Finger (Norcuron Bolus) 6 mg 1X ONCE IV Last administered on 06/07/20at 19:18; Start 06/07/20 at 18:30; Stop 06/07/20 at 18:31; Status DC Norepinephrine Bitartrate 8 mg/ Dextrose 258 ml @ 23.027 mls/ hr CONT PRN IV PER PROTOCOL Last administered on 06/07/20at 19:36; Start 06/07/20 at 19:15; Stop 06/07/20 at 20:05; Status DC Acetaminophen (Tylenol Supp) 650 mg PRN Q6HRS PRN [place] MILD PAIN / TEMP > 100.3'F; Start 06/07/20 at 19:15 Vancomycin HCl (Vanco Per Pharmacy) 1 each PRN DAILY PRN MC SEE COMMENTS; Start 06/07/20 at 19:15; Status UNV Metronidazole 100 ml @ 100 mls/hr Q12HR IV ; Start 06/07/20 at 21:00; Stop 06/07/20 at 20:36; Status DC Amiodarone HCl 450 mg/Dextrose 259 ml @ 0 mls/hr 1X ONCE IV ; Start 06/07/20 at 19:15; Stop 9/13/20 at 19:16; Status Cancel Meropenem 1 gm/ Sodium Chloride 100 ml @ 200 mls/hr Q8HRS IV Last administered on 06/07/20at 22:30; Start 06/07/20 at 22:00; Stop 06/08/20 at 06:09; Status DC Methylprednisolone Sodium Succinate (SOLU-Medrol 125MG VIAL) 125 mg 1X ONCE IV Last administered on 06/07/20at 20:14; Start 06/07/20 at 19:45; Stop 06/07/20 at 19:46; Status DC Methylprednisolone Sodium Succinate (SOLU-Medrol 40MG VIAL) 40 mg Q8HRS IV Last administered on 06/12/20at 06:24; Start 06/08/20 at 06:00; Stop 06/12/20 at 09:12; Status DC Vancomycin HCl 1.75 gm/Sodium Chloride 500 ml @ 250 mls/hr Q12H IV ; Start at 08:00; Stop 06/07/20 at 20:36; Status DC Vancomycin HCl (Vancomycin Trough Level) 1 each 1X ONCE MC ; Start 06/09/20 at 07:30; Stop 06/07/20 at 20:38; Status DC Vasopressin 20 unit/Dextrose 101 ml @ 12 mls/hr CONT PRN IV SEE I/O RECORD; Start 06/07/20 at 20:00; Stop 06/17/20 at 08:18; Status DC Norepinephrine Bitartrate 16 mg/ Dextrose 266 ml @ 11.87 mls/ hr CONT PRN IV PER PROTOCOL Last administered on 06/07/20at 22:09; Start 06/07/20 at 20:00; Stop 06/07/20 at 23:00; Status DC Sodium Chloride 1,000 ml @ 1,000 mls/hr 1X ONCE IV Last administered on 06/07/20at 20:16; Start 06/07/20 at 20:15; Stop 06/07/20 at 21:14; Status DC Norepinephrine Bitartrate 32 mg/ Dextrose 250 ml @ 5.578 mls/ hr CONT PRN IV SEE I/O RECORD Last administered on 06/12/20at 02:14; Start 06/07/20 at 22:30; Stop 06/17/20 at 08:18; Status DC Sodium Chloride 1,000 ml @ 100 mls/hr Q10H IV Last administered on 06/08/20 09:44; Start 06/08/20 at 00:00; Stop 06/08/20 at 18:42; Status DC Meropenem 1 gm/ Sodium Chloride 100 ml @ 200 mls/hr Q12HR IV Last administered on 06/17/20at 11:52; Start 06/08/20 at 09:00 Sodium Bicarbonate (Sodium Bicarb Adult 8.4% Syr) 50 meq 1X ONCE IV Last administered on 06/08/20at 10:42; Start 06/08/20 at 09:45; Stop 06/08/20 at 09:46; Status DC Multivitamins/ Minerals Therapeutic (Centrum Multivit-Mineral Liq) 5 ml DAILY PEG Last administered on 06/17/20at 10:01; Start 06/08/20 at 10:00 Sodium Chloride 1,000 ml @ 1,000 mls/hr 1X ONCE IV Last administered on 06/08/20at 12:11; Start 06/08/20 at 11:30; Stop 06/08/20 at 12:29; Status DC Vancomycin HCl (Vanco Per Pharmacy) 1 each PRN DAILY PRN MC SEE COMMENTS Last administered on 06/17/20at 08:27; Start 06/08/20 at 12:30 Vancomycin HCl 1.75 gm/Sodium Chloride 500 ml @ 250 mls/hr Q24H IV Last administered on 06/08/20at 19:49; Start 06/08/20 at 19:00; Stop 06/09/20 at 19:35; Status DC Vancomycin HCl (Vancomycin Trough Level) 1 each 1X ONCE MC Last administered on 06/09/20at 18:30; Start 06/09/20 at 18:30; Stop 06/09/20 at 18:31; Status DC Dextrose/Sodium Chloride 1,000 ml @ 100 mls/hr Q10H IV Last administered on 06/10/20at 23:44; Start 06/08/20 at 15:30; Stop 06/11/20 at 11:41; Status DC Dextrose (Dextrose 50%-Water Syringe) 25 gm 1X ONCE IV Last administered on 06/08/20at 16:34; Start 06/08/20 at 15:30; Stop 06/08/20 at 15:37; Status DC Insulin Human Regular (HumuLIN R VIAL) 10 unit 1X ONCE IV Last administered on 06/08/20at 16:37; Start 06/08/20 at 15:30; Stop 06/08/20 at 15:37; Status DC Calcium Gluconate (Calcium Gluconate) 1,000 mg 1X ONCE IVP Last administered on 06/08/20at 16:38; Start 06/08/20 at 15:30; Stop 06/08/20 at 15:37; Status DC Insulin Human Lispro (HumaLOG) 0-9 UNITS Q4HRS SQ Last administered on 06/09/20at 03:53; Start 06/09/20 at 00:00; Stop 06/09/20 at 07:30; Status DC Dextrose (Dextrose 50%-Water Syringe) 12.5 gm PRN Q15MIN PRN IV SEE COMMENTS; Start 06/08/20 at 22:15 Insulin Human Lispro (HumaLOG) 0-9 UNITS Q12HR SQ ; Start 06/09/20 at 12:00; Stop 06/09/20 at 08:04; Status DC Insulin Human Lispro (HumaLOG) 0-9 UNITS Q6HRS SQ Last administered on 06/11/20at 17:58; Start 06/09/20 at 08:15; Stop 06/12/20 at 00:25; Status DC Bisacodyl (Dulcolax Supp) 10 mg PRN DAILY PRN RC CONSTIPATION; Start 06/09/20 at 08:30 Mirtazapine (Remeron) 7.5 mg QHS PO Last administered on 06/16/20at 22:39; Start 06/09/20 at 21:00 Olanzapine (ZyPREXA) 2.5 mg QHS PO Last administered on 06/16/20at 22:39; Start 06/09/20 at 21:00 Insulin Glargine (Lantus Syringe) 27 unit QHS SQ Last administered on 06/14/20at 20:56; Start 06/09/20 at 21:00; Stop 06/15/20 at 08:11; Status DC Valproic Acid (Depakene) 250 mg [id number] PEG Last administered on 06/17/20at 11:54; Start 06/09/20 at 09:00 Insulin Glargine (Lantus Syringe) 10 unit 1X SQ ; Start 06/09/20 at 08:30; Stop 06/09/20 at 08:30; Status DC Insulin Glargine (Lantus Syringe) 10 unit 1X ONCE SQ Last administered on 06/09/20at 08:45; Start 06/09/20 at 08:45; Stop 06/09/20 at 08:46; Status DC Vancomycin HCl 1.75 gm/Sodium Chloride 500 ml @ 250 mls/hr Q18H IV Last administered on 06/17/20at 10:04; Start 06/09/20 at 20:00 Vancomycin HCl (Vancomycin Trough Level) 1 each 1X ONCE MC ; Start 06/11/20 at 07:30; Stop 06/11/20 at 07:31; Status DC Insulin Human Lispro (HumaLOG) 15 units 1X ONCE SQ Last administered on 06/10/20at 10:35; Start 06/10/20 at 10:30; Stop 06/10/20 at 10:33; Status DC Insulin Human Lispro (HumaLOG) 21 units 1X ONCE SQ Last administered on 06/10/20at 14:05; Start 06/10/20 at 13:00; Stop 06/10/20 at 13:01; Status DC Sodium Chloride 1,000 ml @ 0 mls/hr Q0M IV ; Start 06/11/20 at 10:45; Status Cancel Sodium Chloride 1,000 ml @ 20 mls/hr Q24H IV Last administered on 06/17/20at 11:55; Start 06/11/20 at 11:45 Insulin Human Lispro (HumaLOG) 21 units 1X ONCE SQ Last administered on 06/11/20at 11:50; Start 06/11/20 at 11:45; Stop 06/11/20 at 11:48; Status DC Insulin Human Lispro (HumaLOG) 0-9 UNITS Q6HRS SQ Last administered on 06/15/20at 23:39; Start 06/12/20 at 06:00 Insulin Human Lispro (HumaLOG) 12 units 1X ONCE SQ Last administered on 06/12/20at 00:47; Start 06/12/20 at 00:30; Stop 06/12/20 at 00:31; Status DC Lidocaine HCl (Lidocaine 2% Viscous) 100 ml PRN 1X PRN MM FOR PROCEDURE Last administered on 06/12/20at 09:25; Start 06/12/20 at 07:15; Stop 06/13/20 at 07:14; Status DC Lidocaine HCl (Lidocaine 1% 20ml Vial) 20 ml PRN 1X PRN INJ SEE COMMENTS Last administered on 06/12/20at 09:26; Start 06/12/20 at 07:15; Stop 06/13/20 at 07:14; Status DC Epinephrine HCl (Adrenalin) 1 mg PRN 1X PRN INJ SEE COMMENTS; Start 06/12/20 at 07:15; Stop 06/13/20 at 07:14; Status DC Insulin Human Lispro (HumaLOG) 9 units Q6HRS SQ Last administered on 06/15/20at 05:43; Start 06/12/20 at 08:00; Stop 06/15/20 at 08:11; Status DC Epinephrine HCl (Adrenalin) 1 mg STK-MED ONCE .ROUTE ; Start 06/12/20 at 08:19; Stop 06/12/20 at 08:20; Status DC Lidocaine HCl (Lidocaine 1% 20ml Vial) 20 ml STK-MED ONCE .ROUTE ; Start 06/12/20 at 08:19; Stop 06/12/20 at 08:20; Status DC Lidocaine HCl (Lidocaine 2% Viscous) 100 ml STK-MED ONCE .ROUTE ; Start 06/12/20 at 08:20; Stop 06/12/20 at 08:20; Status DC Methylprednisolone Sodium Succinate (SOLU-Medrol 40MG VIAL) 40 mg BID IV Last administered on 06/17/20at 10:04; Start 06/12/20 at 21:00 Propofol 100 ml @ 2.049 mls/ hr CONT PRN IV SEE I/O RECORD Last administered on 06/15/20at 05:29; Start 06/13/20 at 17:00; Stop 06/16/20 at 12:40; Status DC Furosemide (Lasix) 40 mg 1X ONCE IVP Last administered on 06/14/20at 15:54; Start 06/14/20 at 10:15; Stop 06/14/20 at 10:22; Status DC Magnesium Sulfate 100 ml @ 50 mls/hr PRN DAILY PRN IV SEE COMMENTS; Start 06/15/20 at 09:00 Insulin Glargine (Lantus Syringe) 32 unit QHS SQ Last administered on 06/16/20at 22:53; Start 06/15/20 at 21:00 Insulin Human Lispro (HumaLOG) 11 units Q6HRS SQ Last administered on 06/17/20at 06:29; Start 06/15/20 at 12:00 Info (Non-Icu Electrolyte Protocol) 1 ea CONT PRN PRN MC SEE COMMENTS; Start 06/17/20 at 08:30 Thiamine Mononitrate (Vitamin B-1) 100 mg DAILY PO Last administered on 06/17/20at 10:01; Start 06/17/20 at 09:00 Vancomycin HCl (Vancomycin Trough Level) 1 each 1X ONCE MC ; Start 06/18/20 at 19:30; Stop 06/18/20 at 19:31 Active Scripts Active Reported Tylenol (Acetaminophen) 325 Mg Tablet 650 Mg PO BID Senna-Docusate Sodium Tablet (Sennosides/Docusate Sodium) 1 Each Tablet 1 Each PO PRN PRN Risperdal (Risperidone) 3 Mg Tablet 0.5 Tab PO BID 30 Days Potassium Chloride (Potassium Chloride) 20 Meq Tablet.er 20 Meq PO TID Olanzapine 5 Mg Tablet 0.5 Tab PO QHS Nystatin 15 Gm Cream..g. 15 Gm TP PRN Q8HRS PRN Novolog Flexpen (Insulin Aspart) 100 Unit/1 Ml Insuln.pen 1 Unit SQ TIDWMEALS Mirtazapine 7.5 Mg Tablet 1 Tab PO QHS 30 Days Milk Of Magnesia (Magnesium Hydroxide) 400 Mg/5 Ml Oral.susp 400 Mg PO PRN PRN Metformin Hcl 1,000 Mg Tablet 1,000 Mg PO BIDWMEALS Melatonin 3 Mg Tab.rapdis 1 Tab PO QHS 30 Days Magnesium Oxide 400 Mg Tablet 1 Tab PO DAILY Acidophilus (Lactobacillus Acidophilus) 1 Each Capsule 1 Cap PO DAILY 14 Days Ketoconazole 120 Ml Shampoo 1 Melissa TP TWICE WEEKLY 30 Days with at least 3 days between each shampooing Levemir Flextouch (Insulin Detemir) 100 Unit/1 Ml Insuln.pen 27 Unit SQ QHS Furosemide 20 Mg Tablet 1 Tab PO DAILY Fleet Enema (Na Phos,M-B/Na Phos,Di-Ba) 133 Ml Enema 133 Ml RC PRN PRN Divalproex Sodium Er (Divalproex Sodium) 500 Mg Tab.er.24h 2,000 Mg PO QHS D3-50 (Cholecalciferol (Vitamin D3)) 50,000 Unit Capsule 1,000 Unit PO DAILY Dulcolax (Bisacodyl) 10 Mg Supp.rect 10 Mg RC PRN DAILY PRN Atorvastatin Calcium 20 Mg Tablet 20 Mg PO HS Vitals/I & O Vital Sign - Last 24 Hours 06/16/20 06/16/20 06/16/20 06/16/20 15:00 19:00 20:00 22:56 Temp 97.5 98.5 97.5 98.5 Pulse 61 60 72 Resp 17 18 19 B/P (MAP) 105/64 (78) 123/52 (75) 115/68 (84) Pulse Ox 96 96 94 O2 Delivery Venturi Mask Nasal Cannula Nasal Cannula Nasal Cannula O2 Flow Rate 6.0 6.0 6.0 06/17/20 06/17/20 06/17/20 03:21 07:54 10:18 Temp 98.3 98.5 98.3 98.3 98.5 98.3 Pulse 67 69 68 Resp 21 21 21 B/P (MAP) 108/75 (86) 151/72 (98) 167/56 (93) Pulse Ox 94 94 98 O2 Delivery Nasal Cannula Nasal Cannula Nasal Cannula O2 Flow Rate 6.0 6.0 6.0 Intake and Output 06/16/20 06/16/20 06/17/20 15:00 23:00 07:00 Intake Total 300 ml 300 ml Output Total 175 ml 400 ml 1050 ml Balance -175 ml -100 ml -750 ml Justicifation of Admission Dx: Justifications for Admission: Justification of Admission Dx: Yes SMITA STAPLES MD Jun 17, 2020 12:15
[2020-06-17 14:13] VITALS: BP 135/47
--- NOTE | 2020-06-17 15:08 | PATHOLOGY ---
Note [facility] Accession Number: [id number] TESTS RESULT FLAG UNITS REF RANGE LAB Clinician Provided Cytology Information No. of containers..01 Other (Miscellaneous) Source: BRONCH WASH POOLED DIAGNOSIS: 02 BRONCH WASH POOLED NEGATIVE FOR MALIGNANT CELLS. BRONCHIAL EPITHELIAL CELLS AND PULMONARY MACROPHAGES ARE PRESENT. Signed out by: 02 Ken Newman MD, Pathologist NPI- [id number] Performed by: Shandra Garcia, Telex Operator ([facility]) Gross description: 01 0.5ML, CLOUDY WHITE, 1 TP /LCS 06/15/2020 1306 Local FLAG LEGEND: L-Low Normal,H-High Normal,LL-Alert Low,HH-Alert High <-Panic Low,>-Panic High,A-Abnormal,AA-Critical Abnormal Performed at: [address] [place] [address] Ricardo Cooper MD, 02 [facility] [address] [place] [address] Ken Newman MD, Specimen Comment: A courtesy copy of this report has been sent to [phone], [phone] Specimen Comment: [phone], Specimen Comment: Report sent to ,DR CHILD / DR HOLLAND Performed at: [address], [place], [place] [id number] MD Ricardo Cooper MD Phone: [phone]
--- NOTE | 2020-06-17 15:12 | NUR ---
SS following up with discharge planning. SS contacted pt's court appointed guardian, Tequila Manuela, , to discuss discharge planning. SS left voicemail requesting Tequila contact SS when available.
--- NOTE | 2020-06-17 15:18 | NUR ---
SS following up with discharge planning. SS received return call from pt's court appointed guardian, Tequila Roy, . Pt's guardian agreeable to LTACH at [facility], ; fax [phone]. SS will continue to follow for discharge planning.
--- NOTE | 2020-06-17 15:58 | NUR ---
Wound Care Wound Type/Assessment: Follow up for multiple pressure areas. Coccyx dti scab removed and remeasured, dark red and approximated. DTIs across dorsal aspect of L toes, measured. No other open areas noted on head to toe assessment. Pt has 3+ pitting edema to all extremities. L inner elbow wound healed. 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 Staff instructed to turn Q2H. Offloading surface/device: P500 bed, purple wedge x2, pillows Recommended Referrals/Tests: Continue current treatment plan Discharge Recommendations for dressings: continue crrent treatment plan, will assess prior to DC depending on destination
[2020-06-17] MEDS: ENOXAPARIN 40 MG/0.4 ML SYRINGE. SQ SCH (19:14)
[2020-06-17 19:23] VITALS: BP 90/49
[2020-06-17] MEDS: MIRTAZAPINE 7.5 MG TABLET. PO SCH (22:15)
[2020-06-17] MEDS: OLANZapine 5 MG TABLET PO SCH (22:17)
[2020-06-17] MEDS: INSULIN GLARGINE SYRINGE. SQ SCH (22:25)
[2020-06-17 22:42] VITALS: BP 127/67
[2020-06-18 02:15] VITALS: BP 115/69
[2020-06-18] MEDS: VANCOMYCIN 1.75 GM in IV NORMAL SALINE 500ML BAG 500 ML IV SCH (02:45)
[2020-06-18] MEDS: INSULIN LISPRO 300 UNITS/3 ML VIAL. SQ SCH ×8 (02:57→18:13)
[2020-06-18 06:17] VITALS: BP 137/56
[2020-06-18] MEDS: PANTOPRAZOLE IV PUSH 40 MG VIAL. IVP SCH (07:08)
--- NOTE | 2020-06-18 08:16 | PDOC ---
PULMONARY PROGRESS NOTES DATE: 06/18/20 TIME: 08:16 Subjective Patient with no increasing shortness of breath no chest pain no pressure on oxygen supplementation Vitals Vital Signs Date Time Temp Pulse Resp B/P (MAP) Pulse Ox O2 Delivery O2 Flow Rate FiO2 06/18/20 06:17 98.1 66 22 137/56 (83) 94 Nasal Cannula 6.0 98.1 ROS: No Nausea, No Chest Pain, No Abdominal Pain, No Increase Cough General: Alert Lungs: Clear Cardiovascular: S1 Abdomen: Soft Extremities: Other (BLE +2) Skin: Warm Labs Laboratory Tests Test 06/16/20 11:49 06/16/20 18:28 06/16/20 22:52 06/17/20 00:12 Glucose (Fingerstick) 76 mg/dL (70-99) 97 mg/dL (70-99) 136 mg/dL (70-99) 151 mg/dL (70-99) Test 06/17/20 05:40 06/17/20 05:42 06/17/20 11:12 06/17/20 17:52 White Blood Count 17.1 x10^3/uL (4.0-11.0) Red Blood Count 3.52 x10^6/uL (4.30-5.70) Hemoglobin 11.0 g/dL (13.0-17.5) Hematocrit 32.3 % (39.0-53.0) Mean Corpuscular Volume 92 fL (79-100) Mean Corpuscular Hemoglobin 31 pg (25-35) Mean Corpuscular Hemoglobin Concent 34 g/dL (31-37) Red Cell Distribution Width 13.7 % (11.5-14.5) Platelet Count 206 x10^3/uL (140-400) Neutrophils (%) (Auto) 92 % (31-73) Lymphocytes (%) (Auto) 5 % (24-48) Monocytes (%) (Auto) 3 % (0-9) Eosinophils (%) (Auto) 0 % (0-3) Basophils (%) (Auto) 0 % (0-3) Neutrophils # (Auto) 15.7 x10^3/uL (1.8-7.7) Lymphocytes # (Auto) 0.8 x10^3/uL (1.0-4.8) Monocytes # (Auto) 0.5 x10^3/uL (0.0-1.1) Eosinophils # (Auto) 0.0 x10^3/uL (0.0-0.7) Basophils # (Auto) 0.0 x10^3/uL (0.0-0.2) Sodium Level 140 mmol/L (136-145) Potassium Level 3.9 mmol/L (3.5-5.1) Chloride Level 106 mmol/L (98-107) Carbon Dioxide Level 32 mmol/L (21-32) Anion Gap 2 (6-14) Blood Urea Nitrogen 31 mg/dL (8-26) Creatinine 0.4 mg/dL (0.7-1.3) Estimated GFR (Cockcroft-Gault) 212.7 Glucose Level 165 mg/dL (70-99) Calcium Level 7.8 mg/dL (8.5-10.1) Glucose (Fingerstick) 156 mg/dL (70-99) 107 mg/dL (70-99) 169 mg/dL (70-99) Test 06/17/20 22:22 06/18/20 02:48 06/18/20 05:55 Glucose (Fingerstick) 151 mg/dL (70-99) 197 mg/dL (70-99) 160 mg/dL (70-99) Laboratory Tests Test 06/17/20 11:12 06/17/20 17:52 06/17/20 22:22 06/18/20 02:48 Glucose (Fingerstick) 107 mg/dL (70-99) 169 mg/dL (70-99) 151 mg/dL (70-99) 197 mg/dL (70-99) Test 06/18/20 05:55 Glucose (Fingerstick) 160 mg/dL (70-99) Medications Active Scripts Medications Dose Route/Sig Max Daily Dose Days Date Category Dose Instructions Tylenol (Acetaminophen) 325 Mg Tablet 650 Mg PO BID 06/08/20 Reported Senna-Docusate Sodium Tablet (Sennosides/Docusate Sodium) 1 Each Tablet 1 Each PO PRN PRN 06/08/20 Reported Risperdal (Risperidone) 3 Mg Tablet 0.5 Tab PO BID 30 06/08/20 Reported Potassium Chloride (Potassium Chloride) 20 Meq Tablet.er 20 Meq PO TID 06/08/20 Reported Olanzapine 5 Mg Tablet 0.5 Tab PO QHS 06/08/20 Reported Nystatin 15 Gm Cream..g. 15 Gm TP PRN Q8HRS PRN 06/08/20 Reported Novolog Flexpen (Insulin Aspart) 100 Unit/1 Ml Insuln.pen 1 Unit SQ TIDWMEALS 06/08/20 Reported Mirtazapine 7.5 Mg Tablet 1 Tab PO QHS 30 06/08/20 Reported Milk Of Magnesia (Magnesium Hydroxide) 400 Mg/5 Ml Oral.susp 400 Mg PO PRN PRN 06/08/20 Reported Metformin Hcl 1,000 Mg Tablet 1,000 Mg PO BIDWMEALS 06/08/20 Reported Melatonin 3 Mg Tab.rapdis 1 Tab PO QHS 30 06/08/20 Reported Magnesium Oxide 400 Mg Tablet 1 Tab PO DAILY 06/08/20 Reported Acidophilus (Lactobacillus Acidophilus) 1 Each Capsule 1 Cap PO DAILY 14 06/08/20 Reported Ketoconazole 120 Ml Shampoo 1 Melissa TP TWICE WEEKLY 30 06/08/20 Reported with at least 3 days between each shampooing Levemir Flextouch (Insulin Detemir) 100 Unit/1 Ml Insuln.pen 27 Unit SQ QHS 06/08/20 Reported Furosemide 20 Mg Tablet 1 Tab PO DAILY 06/08/20 Reported Fleet Enema (Na Phos,M-B/Na Phos,Di-Ba) 133 Ml Enema 133 Ml RC PRN PRN 06/08/20 Reported Divalproex Sodium Er (Divalproex Sodium) 500 Mg Tab.er.24h 2,000 Mg PO QHS 06/08/20 Reported D3-50 (Cholecalciferol (Vitamin D3)) 50,000 Unit Capsule 1,000 Unit PO DAILY 06/08/20 Reported Dulcolax (Bisacodyl) 10 Mg Supp.rect 10 Mg RC PRN DAILY PRN 06/08/20 Reported Atorvastatin Calcium 20 Mg Tablet 20 Mg PO HS 06/08/20 Reported Comments CXR 06/15 FINDINGS/ IMPRESSION: Consolidative left lung base infiltrate in association with a small to moderate size left-sided pleural effusion is unchanged. Persistent medial right lung base infiltrate or atelectasis is seen which is unchanged. No pneumothorax is seen. The heart size and mediastinum are stable. There've been no interval tube or line changes. Impression . 1. Acute hypoxic respiratory failure secondary to pneumonia ,shock and acute respiratory distress syndrome. 2. Abnormal chest x-ray with bilateral infiltrates suggestive of pneumonia. He could have a gram-negative pneumonia as well. left mucous plug 06/12. s/p Bronch. thick secretions removed 3. Septic shock. Likely caused by COVID-19 pneumonia. Need to rule out other sources of infection. BC positive 4. Acute kidney injury.-- improved 5. Metabolic acidosis secondary to lactic acidosis and sepsis. 6. Coag neg staph in BC/ ID following. 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 Abnormal CXR 8. MRSE bacteremia repeat blood cultures -05/31 cxr IMPRESSION: 1. Interval extubation and removal of NG tube. 2. Slightly decreased lung expansion. 3. Unchanged small left pleural effusion and left greater than right basilar opacities. Plan . We will continue current support with oxygen supplementation Antibiotics per ID Tested negative for SARS-CoV-2 IV steroids, start decrease Follow nephrology recommendation DVT GI prophylaxis Follow BAL from bronchoscopy so far all cultures negative NIMO DIAZ MD Jun 18, 2020 08:16
[2020-06-18] MEDS: MEROPENEM 1 GM in IV NORMAL SALINE 100ML 100 ML IV SCH (08:26)
[2020-06-18] MEDS: methylPREDNISolone SOD SUCC PF 40 MG/ML VIAL. IV SCH (08:27)
[2020-06-18] MEDS: VALPROIC ACID (AS SODIUM SALT) 250 MG/5 ML SOLUTION. PEG SCH ×3 (08:30→20:55)
[2020-06-18] MEDS: MULTIVITAMINS,THERAPEUTIC 5 ML ORAL LIQUID. PEG SCH (08:30)
[2020-06-18] MEDS: THIAMINE 100 MG TABLET. PO SCH (08:30)
[2020-06-18] MEDS: ASCORBIC ACID 500 MG TABLET PO SCH (08:33)
[2020-06-18 11:00] VITALS: BP 115/49
--- NOTE | 2020-06-18 13:53 | PDOC ---
Infectious Disease Note Subjective Subjective Awake, nonverbal No fevers lat 24 hrs ROS ROS unable to obtain Vital Sign Vital Signs Vital Signs Date Time Temp Pulse Resp B/P (MAP) Pulse Ox O2 Delivery O2 Flow Rate FiO2 06/18/20 11:00 97.6 66 18 115/49 (71) 95 Nasal Cannula 6.0 97.6 Physical Exam PHYSICAL EXAM GENERAL: Propped up in bed, alert in no distress, Appears comfortable HEENT: Pupils equal, oral cavity clear. Dobbhoff in place NECK: Supple. No JVD LUNGS: Clear anteriorly HEART: S1, S2 regular ABDOMEN: Obese, soft, no guarding, BS present : Quintero in place + scrotal swelling EXTREMITIES: Generalized edema. No cyanosis. SCDs and heel boots, bilaterally RUE with 1- 2 plus edema SKIN: warm to touch. No signs of generalized rash NEUROLOGIC: Alert , follows simple commands RIJ without signs of complications Labs Lab Laboratory Tests Test 06/17/20 17:52 06/17/20 22:22 06/18/20 02:48 06/18/20 05:55 Glucose (Fingerstick) 169 mg/dL (70-99) 151 mg/dL (70-99) 197 mg/dL (70-99) 160 mg/dL (70-99) Micro RUE u/s 06/15 IMPRESSION: No evidence of right upper extremity DVT. Radial and ulnar veins suboptimally evaluated. GRAM POSITIVE RODS:RARE GRAM POSITIVE COCCI:RARE SQUAMOUS EPI CELL:FEW PMN (WBCs):MANY YEAST:RARE Microbiology 06/12/20 AFB Specimen Processing Tissue - Final, Resulted 06/12/20 Acid Fast Bacilli Culture, Resulted Pending 06/12/20 Gram Stain - Final, Resulted 06/12/20 Fungal Culture, Resulted Pending 06/12/20 Fungal Culture Result 1, Resulted Pending 06/10/20 Blood Culture - Preliminary, Resulted NO GROWTH AFTER 4 DAYS Objective Assessment Hypotension, off pressors Hypoxemia with respiratory failure. neg COVID-19. BAL cultures neg Suspected aspiration pneumonia. Leukocytosis in part reactive steroids - increased Lactic acidosis. Fever - better Diabetes. Hypertension. Schizophrenia. 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 Trough 15.8 and Cr. 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 need to be comfort care NUSRAT YU MD Jun 18, 2020 13:53
--- NOTE | 2020-06-18 13:57 | PDOC ---
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 FEN - OGT PPX - heparin FULL CODE Dispo - ICU History of Present Illness History of Present Illness Mr Dubois is a 69-year-old male with past medical history of Anxiety with depression, schizophrenia, dCHF, Constipation, Diabetes-Type II, High Cholesterol, Hypertension, BPH, Dysphagia, PARKINSONS, who presents to the em ergency room in respiratory failure. According to report patient was normal the morning of 06/07. He has been refusing to eat recently according to staff but did eat lunch immediately before they found him in respiratory distress EMS pulse ox on CPAP is 80%. He was intubated due to respiratory failure and poor ABG on BiPAP. 06/08: Febrile to 101.8 F overnight. Intubated, sedated. K peaked at 6.8, started on D5, insulin, steroids. 06/09: Patient is sedated and intubated upon my examination. AC mode tidal volume 550, PEEP 12 and FiO2 90%. Saturations are 100%. 06/10: COVID-19 negative. Blood cultures positive for staph epidermidis. Patient sedated and intubated on AC mode tidal volume 550, PEEP 9 FiO2 down to 60%. Tolerating tube feeds well. 06/11: Afebrile overnight. Sedated intubated AC mode tidal volume 550 PEEP 9 FiO2 70%. Blood pressure dropped on Levophed. 06/12: Episodic hypoxia overnight, bronchoscopy with significant left-sided mucus plugging removed. Tolerating TF well, however glucose has been very elevated. 06/13: Still requiring pressor support. Seen on vent in ICU off sedation. Not awakening at this time. Afebrile 06/14: Afebrile. Seen on vent. On sedation wean. Eyes are opening well. ABG 7.47/30 .. A lot of ventricular ectopy on telemetry this morning. FiO2 30% PEEP 6. 06/15: Patient continues to be mechanically ventilated, ID recommendations great ly appreciated. 06/16: Patient still quite somnolent, he was extubated yesterday, he did not have acute events reported overnight, responds to his name but he is non verbal, does not seem to be in any distress. Discussed with nursing staff. 06/17: No acute events reported overnight, case discussed with nursing staff patient in no acute distress no complaints during my visit, currently still quite debilitated from recent intubation and case discussed with speech therapist, at the present time patient will probably benefit from TPN and hopefully improve his strength and reassess his ability to swallow safely. Currently he is at high risk for aspiration pneumonia 06/18: No acute events reported overnight, case discussed with nursing staff patient in no acute distress no complaints during my visit, still waiting for improvement in his strength subsequently he will be able to transition home. Currently remains hemodynamically stable Vitals Vitals Vital Signs Date Time Temp Pulse Resp B/P (MAP) Pulse Ox O2 Delivery O2 Flow Rate FiO2 06/18/20 11:00 97.6 66 18 115/49 (71) 95 Nasal Cannula 6.0 97.6 Physical Exam Physical Exam GENERAL: Propped up in bed, alert in no distress, Appears comfortable HEENT: Pupils equal, oral cavity clear. Dobbhoff in place NECK: Supple. No JVD LUNGS: Clear anteriorly HEART: S1, S2 regular ABDOMEN: Obese, soft, no guarding, BS present : Quintero in place + scrotal swelling EXTREMITIES: Generalized edema. No cyanosis. SCDs and heel boots, bilaterally RUE with 1- 2 plus edema SKIN: warm to touch. No signs of generalized rash NEUROLOGIC: Alert , follows simple commands RIJ without signs of complications General: No acute distress Heart: Regular rate Lungs: Clear Abdomen: Normal bowel sounds Extremities: No clubbing Labs LABS Laboratory Tests Test 06/17/20 17:52 06/17/20 22:22 06/18/20 02:48 06/18/20 05:55 Glucose (Fingerstick) 169 mg/dL (70-99) 151 mg/dL (70-99) 197 mg/dL (70-99) 160 mg/dL (70-99) Assessment and Plan Assessmemt and Plan Problems Medical Problems: (1) Aspiration pneumonia Status: Acute (2) Respiratory failure with hypoxia Status: Acute Comment Review of Relevant I have reviewed the following items veronika (where applicable) has been applied. Labs Laboratory Tests Test 06/16/20 18:28 06/16/20 22:52 06/17/20 00:12 06/17/20 05:40 Glucose (Fingerstick) 97 mg/dL (70-99) 136 mg/dL (70-99) 151 mg/dL (70-99) White Blood Count 17.1 x10^3/uL (4.0-11.0) Red Blood Count 3.52 x10^6/uL (4.30-5.70) Hemoglobin 11.0 g/dL (13.0-17.5) Hematocrit 32.3 % (39.0-53.0) Mean Corpuscular Volume 92 fL (79-100) Mean Corpuscular Hemoglobin 31 pg (25-35) Mean Corpuscular Hemoglobin Concent 34 g/dL (31-37) Red Cell Distribution Width 13.7 % (11.5-14.5) Platelet Count 206 x10^3/uL (140-400) Neutrophils (%) (Auto) 92 % (31-73) Lymphocytes (%) (Auto) 5 % (24-48) Monocytes (%) (Auto) 3 % (0-9) Eosinophils (%) (Auto) 0 % (0-3) Basophils (%) (Auto) 0 % (0-3) Neutrophils # (Auto) 15.7 x10^3/uL (1.8-7.7) Lymphocytes # (Auto) 0.8 x10^3/uL (1.0-4.8) Monocytes # (Auto) 0.5 x10^3/uL (0.0-1.1) Eosinophils # (Auto) 0.0 x10^3/uL (0.0-0.7) Basophils # (Auto) 0.0 x10^3/uL (0.0-0.2) Sodium Level 140 mmol/L (136-145) Potassium Level 3.9 mmol/L (3.5-5.1) Chloride Level 106 mmol/L (98-107) Carbon Dioxide Level 32 mmol/L (21-32) Anion Gap 2 (6-14) Blood Urea Nitrogen 31 mg/dL (8-26) Creatinine 0.4 mg/dL (0.7-1.3) Estimated GFR (Cockcroft-Gault) 212.7 Glucose Level 165 mg/dL (70-99) Calcium Level 7.8 mg/dL (8.5-10.1) Test 06/17/20 05:42 06/17/20 11:12 06/17/20 17:52 06/17/20 22:22 Glucose (Fingerstick) 156 mg/dL (70-99) 107 mg/dL (70-99) 169 mg/dL (70-99) 151 mg/dL (70-99) Test 06/18/20 02:48 06/18/20 05:55 Glucose (Fingerstick) 197 mg/dL (70-99) 160 mg/dL (70-99) Laboratory Tests Test 06/17/20 17:52 06/17/20 22:22 06/18/20 02:48 06/18/20 05:55 Glucose (Fingerstick) 169 mg/dL (70-99) 151 mg/dL (70-99) 197 mg/dL (70-99) 160 mg/dL (70-99) Microbiology 06/12/20 AFB Specimen Processing Tissue - Final, Resulted 06/12/20 Acid Fast Bacilli Culture, Resulted Pending 06/12/20 Gram Stain - Final, Resulted 06/12/20 Fungal Culture, Resulted Pending 06/12/20 Fungal Culture Result 1, Resulted Pending 06/10/20 Blood Culture - Final, Complete NO GROWTH AFTER 5 DAYS Medications Current Medications Midazolam HCl 100 mg/Sodium Chloride 100 ml @ 0 mls/hr 1X ONCE IV Last administered on 06/07/20at 15:19; Start 06/07/20 at 15:15; Stop 06/07/20 at 15:16; Status DC Sodium Chloride 1,000 ml @ 1,000 mls/hr 1X ONCE IV Last administered on 06/07/20at 14:50; Start 06/07/20 at 15:15; Stop 06/07/20 at 16:14; Status DC Sodium Chloride 1,000 ml @ 1,000 mls/hr 1X ONCE IV Last administered on 06/07/20at 15:04; Start 06/07/20 at 15:15; Stop 06/07/20 at 16:14; Status DC Vancomycin HCl 1.25 gm/Sodium Chloride 250 ml @ 166.667 mls/hr 1X ONCE IV Last administered on 06/07/20at 15:57; Start 06/07/20 at 16:00; Stop 06/07/20 at 17:29; Status DC Clindamycin Phosphate 50 ml @ 100 mls/hr 1X ONCE IV Last administered on 06/07/20at 15:57; Start 06/07/20 at 15:15; Stop 06/07/20 at 15:44; Status DC Midazolam HCl (Versed) 5 mg 1X ONCE IV Last administered on 06/07/20at 15:15; Start 06/07/20 at 15:30; Stop 06/07/20 at 15:31; Status DC Etomidate (Amidate) 30 mg 1X ONCE IV Last administered on 06/07/20at 14:57; Start 06/07/20 at 15:30; Stop 06/07/20 at 15:31; Status DC Succinylcholine Chloride (Anectine) 200 mg 1X ONCE IV Last administered on 06/07/20at 14:58; Start 06/07/20 at 15:30; Stop 06/07/20 at 15:31; Status DC Fentanyl Citrate (Fentanyl 2ml Vial) 50 mcg PRN Q1HR ONCE IVP Last administered on 06/07/20at 16:30; Start 06/07/20 at 16:30; Stop 06/07/20 at 16:31; Status DC Fentanyl Citrate (Fentanyl 2ml Vial) 100 mcg 1X ONCE IVP Last administered on 06/07/20at 17:07; Start 06/07/20 at 17:15; Stop 06/07/20 at 17:16; Status DC Sennosides (Senna) 17.2 mg PRN BID PRN PO CONSTIPATION; Start 06/07/20 at 18:00 Docusate Sodium (Colace Solution) 100 mg PRN DAILY PRN PO HARD STOOLS; Start 06/07/20 at 21:00 Ondansetron HCl (Zofran) 4 mg PRN Q6HRS PRN IVP NAUSEA/VOMITING; Start 06/07/20 at 18:00 Potassium Chloride (Klor-Con) 40 meq 1X PRN PO PER PROTOCOL; Start 06/07/20 at 18:00; Status UNV Magnesium Oxide (Magnesium Oxide) 400 mg BID PO ; Start 06/07/20 at 21:00; Stop 06/09/20 at 09:01; Status UNV Potassium Chloride/Water 100 ml @ 100 mls/hr Q1H IV ; Start 06/07/20 at 18:00; Stop 06/07/20 at 21:59; Status UNV Magnesium Sulfate 50 ml @ 25 mls/hr Q24H IV ; Start 06/07/20 at 18:00; Stop 06/09/20 at 19:59; Status UNV Potassium Chloride/Water 100 ml @ 100 mls/hr Q1H PRN IV low k; Start 06/07/20 at 18:00; Status UNV Dextrose (Dextrose 50%-Water Syringe) 12.5 gm PRN Q15MIN PRN IV SEE COMMENTS; Start 06/07/20 at 18:00; Stop 06/08/20 at 22:09; Status DC Vancomycin HCl 1 gm/Dextrose 250 ml @ 250 mls/hr 1X ONCE IV ; Start 06/07/20 at 18:00; Stop 06/07/20 at 18:59; Status UNV Enoxaparin Sodium (Lovenox 40mg Syringe) 40 mg Q24H SQ Last administered on 06/17/20at 19:14; Start 06/07/20 at 19:00 Pantoprazole Sodium (PROTONIX VIAL for IV PUSH) 40 mg DAILYAC IVP Last administered on 06/18/20at 07:08; Start 06/07/20 at 19:00 Ascorbic Acid (Vitamin C) 500 mg DAILY PO Last administered on 06/18/20at 08:33; Start 06/08/20 at 09:00 Thiamine HCl 100 mg/Dextrose 51 ml @ 102 mls/hr DAILY IV Last administered on 06/16/20at 08:56; Start 06/08/20 at 09:00; Stop 06/17/20 at 08:20; Status DC Info (Icu Electrolyte Protocol) 1 ea CONT PRN PRN MC PER PROTOCOL; Start 06/07/20 at 18:00; Stop 06/17/20 at 08:15; Status DC Vancomycin HCl 750 mg/Sodium Chloride 250 ml @ 250 mls/hr 1X ONCE IV Last administered on 06/07/20at 19:18; Start 06/07/20 at 18:00; Stop 06/07/20 at 18:59; Status DC Vancomycin HCl (Vanco Per Pharmacy) 1 each PRN DAILY PRN MC SEE COMMENTS Last administered on 06/07/20at 19:49; Start 06/07/20 at 18:00; Stop 06/07/20 at 20:36; Status DC Fentanyl Citrate (Fentanyl 2ml Vial) 50 mcg PRN Q1HR PRN IVP PAIN Last administered on 06/07/20at 18:02; Start 06/07/20 at 18:00; Stop 06/08/20 at 16:07; Status DC Fentanyl Citrate 30 ml @ 0 mls/hr CONT PRN IV SEE PROTOCOL Last administered on 06/13/20at 00:13; Start 06/07/20 at 18:30; Stop 06/17/20 at 08:18; Status DC Fentanyl Citrate (Fentanyl 2ml Vial) 25 mcg PRN Q1HR PRN IV SEE COMMENTS; Start 06/07/20 at 18:30 Fentanyl Citrate (Fentanyl 2ml Vial) 50 mcg PRN Q1HR PRN IV SEE COMMENTS Last administered on 06/14/20at 18:17; Start 06/07/20 at 18:30 Midazolam HCl 100 ml @ 0 mls/hr CONT PRN IV SEE PROTOCOL Last administered on 06/12/20at 21:36; Start 06/07/20 at 18:30; Stop 06/17/20 at 08:18; Status DC Vecuronium [place] (Norcuron Bolus) 6 mg 1X ONCE IV Last administered on 06/07/20at 19:18; Start 06/07/20 at 18:30; Stop 06/07/20 at 18:31; Status DC Norepinephrine Bitartrate 8 mg/ Dextrose 258 ml @ 23.027 mls/ hr CONT PRN IV PER PROTOCOL Last administered on 06/07/20at 19:36; Start 06/07/20 at 19:15; Stop 06/07/20 at 20:05; Status DC Acetaminophen (Tylenol Supp) 650 mg PRN Q6HRS PRN [place] MILD PAIN / TEMP > 100.3'F; Start 06/07/20 at 19:15 Vancomycin HCl (Vanco Per Pharmacy) 1 each PRN DAILY PRN MC SEE COMMENTS; Start 06/07/20 at 19:15; Status UNV Metronidazole 100 ml @ 100 mls/hr Q12HR IV ; Start 06/07/20 at 21:00; Stop 06/07/20 at 20:36; Status DC Amiodarone HCl 450 mg/Dextrose 259 ml @ 0 mls/hr 1X ONCE IV ; Start 06/07/20 at 19:15; Stop 06/07/20 at 19:16; Status Cancel Meropenem 1 gm/ Sodium Chloride 100 ml @ 200 mls/hr Q8HRS IV Last administered on 06/07/20at 22:30; Start 06/07/20 at 22:00; Stop 06/08/20 at 06:09; Status DC Methylprednisolone Sodium Succinate (SOLU-Medrol 125MG VIAL) 125 mg 1X ONCE IV Last administered on 06/07/20at 20:14; Start 06/07/20 at 19:45; Stop 06/07/20 at 19:46; Status DC Methylprednisolone Sodium Succinate (SOLU-Medrol 40MG VIAL) 40 mg Q8HRS IV Last administered on 06/12/20at 06:24; Start 06/08/20 at 06:00; Stop 06/12/20 at 09:12; Status DC Vancomycin HCl 1.75 gm/Sodium Chloride 500 ml @ 250 mls/hr Q12H IV ; Start 06/08/20 at 08:00; Stop 06/07/20 at 20:36; Status DC Vancomycin HCl (Vancomycin Trough Level) 1 each 1X ONCE MC ; Start 06/09/20 at 07:30; Stop 06/07/20 at 20:38; Status DC Vasopressin 20 unit/Dextrose 101 ml @ 12 mls/hr CONT PRN IV SEE I/O RECORD; Start 06/07/20 at 20:00; Stop 06/17/20 at 08:18; Status DC Norepinephrine Bitartrate 16 mg/ Dextrose 266 ml @ 11.87 mls/ hr CONT PRN IV PER PROTOCOL Last administered on 06/07/20at 22:09; Start 06/07/20 at 20:00; Stop 06/07/20 at 23:00; Status DC Sodium Chloride 1,000 ml @ 1,000 mls/hr 1X ONCE IV Last administered on 06/07/20at 20:16; Start 06/07/20 at 20:15; Stop 06/07/20 at 21:14; Status DC Norepinephrine Bitartrate 32 mg/ Dextrose 250 ml @ 5.578 mls/ hr CONT PRN IV SEE I/O RECORD Last administered on 06/12/20at 02:14; Start 06/07/20 at 22:30; Stop 06/17/20 at 08:18; Status DC Sodium Chloride 1,000 ml @ 100 mls/hr Q10H IV Last administered on 06/08/20at 09:44; Start 06/08/20 at 00:00; Stop 06/08/20 at 18:42; Status DC Meropenem 1 gm/ Sodium Chloride 100 ml @ 200 mls/hr Q12HR IV Last administered on 06/18/20at 08:26; Start 06/08/20 at 09:00; Stop 06/18/20 at 13:53; Status DC Sodium Bicarbonate (Sodium Bicarb Adult 8.4% Syr) 50 meq 1X ONCE IV Last administered on 06/08/20at 10:42; Start 06/08/20 at 09:45; Stop 06/08/20 at 09:46; Status DC Multivitamins/ Minerals Therapeutic (Centrum Multivit-Mineral Liq) 5 ml DAILY PEG Last administered on 06/18/20at 08:30; Start 06/08/20 at 10:00 Sodium Chloride 1,000 ml @ 1,000 mls/hr 1X ONCE IV Last administered on 06/08/20at 12:11; Start 06/08/20 at 11:30; Stop 06/08/20 at 12:29; Status DC Vancomycin HCl (Vanco Per Pharmacy) 1 each PRN DAILY PRN MC SEE COMMENTS Last administered on 06/17/20at 08:27; Start 06/08/20 at 12:30; Stop 06/18/20 at 13:52; Status DC Vancomycin HCl 1.75 gm/Sodium Chloride 500 ml @ 250 mls/hr Q24H IV Last administered on 06/08/20at 19:49; Start 06/08/20 at 19:00; Stop 06/09/20 at 19:35; Status DC Vancomycin HCl (Vancomycin Trough Level) 1 each 1X ONCE MC Last administered on 06/09/20at 18:30; Start 06/09/20 at 18:30; Stop 06/09/20 at 18:31; Status DC Dextrose/Sodium Chloride 1,000 ml @ 100 mls/hr Q10H IV Last administered on 06/10/20at 23:44; Start 06/08/20 at 15:30; Stop 06/11/20 at 11:41; Status DC Dextrose (Dextrose 50%-Water Syringe) 25 gm 1X ONCE IV Last administered on 06/08/20at 16:34; Start 06/08/20 at 15:30; Stop 06/08/20 at 15:37; Status DC Insulin Human Regular (HumuLIN R VIAL) 10 unit 1X ONCE IV Last administered on 06/08/20at 16:37; Start 06/08/20 at 15:30; Stop 06/08/20 at 15:37; Status DC Calcium Gluconate (Calcium Gluconate) 1,000 mg 1X ONCE IVP Last administered on 06/08/20at 16:38; Start 06/08/20 at 15:30; Stop 06/08/20 at 15:37; Status DC Insulin Human Lispro (HumaLOG) 0-9 UNITS Q4HRS SQ Last administered on 06/09/20at 03:53; Start 06/09/20 at 00:00; Stop 06/09/20 at 07:30; Status DC Dextrose (Dextrose 50%-Water Syringe) 12.5 gm PRN Q15MIN PRN IV SEE COMMENTS; Start 06/08/20 at 22:15 Insulin Human Lispro (HumaLOG) 0-9 UNITS Q12HR SQ ; Start 06/09/20 at 12:00; Stop 06/09/20 at 08:04; Status DC Insulin Human Lispro (HumaLOG) 0-9 UNITS Q6HRS SQ Last administered on 06/11/20at 17:58; Start 06/09/20 at 08:15; Stop 06/12/20 at 00:25; Status DC Bisacodyl (Dulcolax Supp) 10 mg PRN DAILY PRN RC CONSTIPATION; Start 06/09/20 at 08:30 Mirtazapine (Remeron) 7.5 mg QHS PO Last administered on 06/17/20at 22:15; Start 06/09/20 at 21:00 Olanzapine (ZyPREXA) 2.5 mg QHS PO Last administered on 06/17/20at 22:17; Start 06/09/20 at 21:00 Insulin Glargine (Lantus Syringe) 27 unit QHS SQ Last administered on 06/14/20at 20:56; Start 06/09/20 at 21:00; Stop 06/15/20 at 08:11; Status DC Valproic Acid (Depakene) 250 mg [id number] PEG Last administered on 06/18/20at 08:30; Start 06/09/20 at 09:00 Insulin Glargine (Lantus Syringe) 10 unit 1X SQ ; Start 06/09/20 at 08:30; Stop 06/09/20 at 08:30; Status DC Insulin Glargine (Lantus Syringe) 10 unit 1X ONCE SQ Last administered on 06/09/20at 08:45; Start 06/09/20 at 08:45; Stop 06/09/20 at 08:46; Status DC Vancomycin HCl 1.75 gm/Sodium Chloride 500 ml @ 250 mls/hr Q18H IV Last administered on 06/18/20at 02:45; Start 06/09/20 at 20:00; Stop 06/18/20 at 13:52; Status DC Vancomycin HCl (Vancomycin Trough Level) 1 each 1X ONCE MC ; Start 06/11/20 at 07:30; Stop 06/11/20 at 07:31; Status DC Insulin Human Lispro (HumaLOG) 15 units 1X ONCE SQ Last administered on 06/10/20at 10:35; Start 06/10/20 at 10:30; Stop 06/10/20 at 10:33; Status DC Insulin Human Lispro (HumaLOG) 21 units 1X ONCE SQ Last administered on 06/10/20at 14:05; Start 06/10/20 at 13:00; Stop 06/10/20 at 13:01; Status DC Sodium Chloride 1,000 ml @ 0 mls/hr Q0M IV ; Start 06/11/20 at 10:45; Status Cancel Sodium Chloride 1,000 ml @ 20 mls/hr Q24H IV Last administered on 06/17/20at 11:55; Start 06/11/20 at 11:45 Insulin Human Lispro (HumaLOG) 21 units 1X ONCE SQ Last administered on 06/11/20at 11:50; Start 06/11/20 at 11:45; Stop 06/11/20 at 11:48; Status DC Insulin Human Lispro (HumaLOG) 0-9 UNITS Q6HRS SQ Last administered on 06/15/20at 23:39; Start 06/12/20 at 06:00 Insulin Human Lispro (HumaLOG) 12 units 1X ONCE SQ Last administered on 06/12/20at 00:47; Start 06/12/20 at 00:30; Stop 06/12/20 at 00:31; Status DC Lidocaine HCl (Lidocaine 2% Viscous) 100 ml PRN 1X PRN MM FOR PROCEDURE Last administered on 06/12/20at 09:25; Start 06/12/20 at 07:15; Stop 06/13/20 at 07:14; Status DC Lidocaine HCl (Lidocaine 1% 20ml Vial) 20 ml PRN 1X PRN INJ SEE COMMENTS Last administered on 06/12/20at 09:26; Start 06/12/20 at 07:15; Stop 06/13/20 at 07:14; Status DC Epinephrine HCl (Adrenalin) 1 mg PRN 1X PRN INJ SEE COMMENTS; Start 06/12/20 at 07:15; Stop 06/13/20 at 07:14; Status DC Insulin Human Lispro (HumaLOG) 9 units Q6HRS SQ Last administered on 06/15/20at 05:43; Start 06/12/20 at 08:00; Stop 06/15/20 at 08:11; Status DC Epinephrine HCl (Adrenalin) 1 mg STK-MED ONCE .ROUTE ; Start 06/12/20 at 08:19; Stop 06/12/20 at 08:20; Status DC Lidocaine HCl (Lidocaine 1% 20ml Vial) 20 ml STK-MED ONCE .ROUTE ; Start 06/12/20 at 08:19; Stop 06/12/20 at 08:20; Status DC Lidocaine HCl (Lidocaine 2% Viscous) 100 ml STK-MED ONCE .ROUTE ; Start 06/12/20 at 08:20; Stop 06/12/20 at 08:20; Status DC Methylprednisolone Sodium Succinate (SOLU-Medrol 40MG VIAL) 40 mg BID IV Last administered on 06/18/20at 08:27; Start 06/12/20 at 21:00 Propofol 100 ml @ 2.049 mls/ hr CONT PRN IV SEE I/O RECORD Last administered on 06/15/20at 05:29; Start 06/13/20 at 17:00; Stop 06/16/20 at 12:40; Status DC Furosemide (Lasix) 40 mg 1X ONCE IVP Last administered on 06/14/20at 15:54; Start 06/14/20 at 10:15; Stop 06/14/20 at 10:22; Status DC Magnesium Sulfate 100 ml @ 50 mls/hr PRN DAILY PRN IV SEE COMMENTS; Start 06/15/20 at 09:00 Insulin Glargine (Lantus Syringe) 32 unit QHS SQ Last administered on 06/17/20at 22:25; Start 06/15/20 at 21:00 Insulin Human Lispro (HumaLOG) 11 units Q6HRS SQ Last administered on 06/18/20at 06:01; Start 06/15/20 at 12:00 Info (Non-Icu Electrolyte Protocol) 1 ea CONT PRN PRN MC SEE COMMENTS; Start 06/17/20 at 08:30 Thiamine Mononitrate (Vitamin B-1) 100 mg DAILY PO Last administered on 06/18/20at 08:30; Start 06/17/20 at 09:00 Vancomycin HCl (Vancomycin Trough Level) 1 each 1X ONCE MC ; Start 06/18/20 at 19:30; Stop 06/18/20 at 13:54; Status DC Active Scripts Active Reported Tylenol (Acetaminophen) 325 Mg Tablet 650 Mg PO BID Senna-Docusate Sodium Tablet (Sennosides/Docusate Sodium) 1 Each Tablet 1 Each PO PRN PRN Risperdal (Risperidone) 3 Mg Tablet 0.5 Tab PO BID 30 Days Potassium Chloride (Potassium Chloride) 20 Meq Tablet.er 20 Meq PO TID Olanzapine 5 Mg Tablet 0.5 Tab PO QHS Nystatin 15 Gm Cream..g. 15 Gm TP PRN Q8HRS PRN Novolog Flexpen (Insulin Aspart) 100 Unit/1 Ml Insuln.pen 1 Unit SQ TIDWMEALS Mirtazapine 7.5 Mg Tablet 1 Tab PO QHS 30 Days Milk Of Magnesia (Magnesium Hydroxide) 400 Mg/5 Ml Oral.susp 400 Mg PO PRN PRN Metformin Hcl 1,000 Mg Tablet 1,000 Mg PO BIDWMEALS Melatonin 3 Mg Tab.rapdis 1 Tab PO QHS 30 Days Magnesium Oxide 400 Mg Tablet 1 Tab PO DAILY Acidophilus (Lactobacillus Acidophilus) 1 Each Capsule 1 Cap PO DAILY 14 Days Ketoconazole 120 Ml Shampoo 1 Melissa TP TWICE WEEKLY 30 Days with at least 3 days between each shampooing Levemir Flextouch (Insulin Detemir) 100 Unit/1 Ml Insuln.pen 27 Unit SQ QHS Furosemide 20 Mg Tablet 1 Tab PO DAILY Fleet Enema (Na Phos,M-B/Na Phos,Di-Ba) 133 Ml Enema 133 Ml RC PRN PRN Divalproex Sodium Er (Divalproex Sodium) 500 Mg Tab.er.24h 2,000 Mg PO QHS D3-50 (Cholecalciferol (Vitamin D3)) 50,000 Unit Capsule 1,000 Unit PO DAILY Dulcolax (Bisacodyl) 10 Mg Supp.rect 10 Mg RC PRN DAILY PRN Atorvastatin Calcium 20 Mg Tablet 20 Mg PO HS Vitals/I & O Vital Sign - Last 24 Hours 06/17/20 06/17/20 06/17/20 06/17/20 14:13 19:23 20:20 22:42 Temp 98.8 98.2 98.6 98.8 98.2 98.6 Pulse 68 66 77 Resp 21 20 20 B/P (MAP) 135/47 (76) 90/49 (63) 127/67 (87) Pulse Ox 94 94 96 O2 Delivery Nasal Cannula Nasal Cannula Nasal Cannula Nasal Cannula O2 Flow Rate 6.0 6.0 6.0 6.0 06/18/20 06/18/20 06/18/20 06/18/20 02:15 06:17 08:00 11:00 Temp 98.2 98.1 97.6 98.2 98.1 97.6 Pulse 80 66 66 Resp 20 22 18 B/P (MAP) 115/69 (84) 137/56 (83) 115/49 (71) Pulse Ox 95 94 95 O2 Delivery Nasal Cannula Nasal Cannula Nasal Cannula Nasal Cannula O2 Flow Rate 6.0 6.0 6.0 6.0 Intake and Output 06/17/20 06/17/20 06/18/20 15:00 23:00 07:00 Intake Total 300 ml 300 ml 300 ml Output Total 550 ml 1350 ml Balance 300 ml -250 ml -1050 ml Justicifation of Admission Dx: Justifications for Admission: Justification of Admission Dx: Yes SMITA STAPLES MD Jun 18, 2020 13:57
[2020-06-18] MEDS: IV NORMAL SALINE 1000ML BAG 1,000 ML IV SCH (14:49)
[2020-06-18 15:00] VITALS: BP 122/65
[2020-06-18] MEDS: ENOXAPARIN 40 MG/0.4 ML SYRINGE. SQ SCH (18:07)
[2020-06-18 19:16] VITALS: BP 133/53
[2020-06-18] MEDS: MIRTAZAPINE 7.5 MG TABLET. PO SCH (20:55)
[2020-06-18] MEDS: OLANZapine 5 MG TABLET PO SCH (20:55)
[2020-06-18] MEDS: INSULIN GLARGINE SYRINGE. SQ SCH (21:07)
[2020-06-18 22:47] VITALS: BP 111/42
[2020-06-19 02:07] VITALS: BP 129/51
[2020-06-19] MEDS: INSULIN LISPRO 300 UNITS/3 ML VIAL. SQ SCH ×10 (06:00→23:50)
[2020-06-19 06:47] LABS: CREATININE 0.4 mg/dL (0.7-1.3); GFR 212.7; POTASSIUM 3.5 mmol/L (3.5-5.1)
[2020-06-19 07:00] VITALS: BP 149/51
[2020-06-19 07:02] LABS: BASO % 0 % (0-3); EOS % 0 % (0-3); HEMATOCRIT 32.7 % (39.0-53.0); LYMPH # 2.1 x10^3/uL (1.0-4.8); LYMPH % 12 % (24-48); MEAN CORPUSCULAR HEMOGLOBIN 31 pg (25-35); MEAN CORPUSCULAR HGB CONC 34 g/dL (31-37); MEAN CORPUSCULAR VOLUME 93 fL (79-100); MONO # 0.5 x10^3/uL (0.0-1.1); MONO % 3 % (0-9); NEUT # 14.4 x10^3/uL (1.8-7.7); NEUT % 84 % (31-73); PLATELET COUNT 237 x10^3/uL (140-400); RED BLOOD COUNT 3.53 x10^6/uL (4.30-5.70); RED CELL DISTRIBUTION WIDTH 13.9 % (11.5-14.5); WHITE BLOOD COUNT 17.2 x10^3/uL (4.0-11.0)
[2020-06-19] MEDS: MULTIVITAMINS,THERAPEUTIC 5 ML ORAL LIQUID. PEG SCH (08:26)
[2020-06-19] MEDS: ASCORBIC ACID 500 MG TABLET PO SCH (08:26)
[2020-06-19] MEDS: LANSOPRAZOLE 30 MG TAB.RAP.DR FT SCH (08:26)
[2020-06-19] MEDS: methylPREDNISolone SOD SUCC PF 40 MG/ML VIAL. IV SCH (08:27)
[2020-06-19] MEDS: VALPROIC ACID (AS SODIUM SALT) 250 MG/5 ML SOLUTION. PEG SCH ×3 (08:27→21:46)
[2020-06-19] MEDS: THIAMINE 100 MG TABLET. PO SCH (08:27)
--- NOTE | 2020-06-19 08:31 | PDOC ---
PULMONARY PROGRESS NOTES DATE: 06/19/20 TIME: 08:31 Subjective Patient had low-grade fever overnight Remains very weak No overnight concerns from nursing Patient is alert however is nonverbal Vitals Vital Signs Date Time Temp Pulse Resp B/P (MAP) Pulse Ox O2 Delivery O2 Flow Rate FiO2 06/19/20 02:07 98.1 66 20 129/51 (77) 94 Nasal Cannula 6.0 98.1 Comments Nonverbal unable to report review of systems General: Alert Lungs: Clear Cardiovascular: S1 Abdomen: Soft Extremities: Other (BLE +2) Skin: Warm Labs Laboratory Tests Test 06/17/20 11:12 06/17/20 17:52 06/17/20 22:22 06/18/20 02:48 Glucose (Fingerstick) 107 mg/dL (70-99) 169 mg/dL (70-99) 151 mg/dL (70-99) 197 mg/dL (70-99) Test 06/18/20 05:55 06/18/20 13:59 06/18/20 17:49 06/18/20 19:38 Glucose (Fingerstick) 160 mg/dL (70-99) 166 mg/dL (70-99) 201 mg/dL (70-99) 198 mg/dL (70-99) Test 06/19/20 02:03 06/19/20 06:21 06/19/20 06:30 Glucose (Fingerstick) 167 mg/dL (70-99) 153 mg/dL (70-99) White Blood Count 17.2 x10^3/uL (4.0-11.0) Red Blood Count 3.53 x10^6/uL (4.30-5.70) Hemoglobin 11.0 g/dL (13.0-17.5) Hematocrit 32.7 % (39.0-53.0) Mean Corpuscular Volume 93 fL (79-100) Mean Corpuscular Hemoglobin 31 pg (25-35) Mean Corpuscular Hemoglobin Concent 34 g/dL (31-37) Red Cell Distribution Width 13.9 % (11.5-14.5) Platelet Count 237 x10^3/uL (140-400) Neutrophils (%) (Auto) 84 % (31-73) Lymphocytes (%) (Auto) 12 % (24-48) Monocytes (%) (Auto) 3 % (0-9) Eosinophils (%) (Auto) 0 % (0-3) Basophils (%) (Auto) 0 % (0-3) Neutrophils # (Auto) 14.4 x10^3/uL (1.8-7.7) Lymphocytes # (Auto) 2.1 x10^3/uL (1.0-4.8) Monocytes # (Auto) 0.5 x10^3/uL (0.0-1.1) Eosinophils # (Auto) 0.0 x10^3/uL (0.0-0.7) Basophils # (Auto) 0.0 x10^3/uL (0.0-0.2) Sodium Level 142 mmol/L (136-145) Potassium Level 3.5 mmol/L (3.5-5.1) Chloride Level 107 mmol/L (98-107) Carbon Dioxide Level 35 mmol/L (21-32) Anion Gap 0 (6-14) Blood Urea Nitrogen 23 mg/dL (8-26) Creatinine 0.4 mg/dL (0.7-1.3) Estimated GFR (Cockcroft-Gault) 212.7 Glucose Level 152 mg/dL (70-99) Calcium Level 8.0 mg/dL (8.5-10.1) Laboratory Tests Test 06/18/20 13:59 06/18/20 17:49 06/18/20 19:38 06/19/20 02:03 Glucose (Fingerstick) 166 mg/dL (70-99) 201 mg/dL (70-99) 198 mg/dL (70-99) 167 mg/dL (70-99) Test 06/19/20 06:21 06/19/20 06:30 Glucose (Fingerstick) 153 mg/dL (70-99) White Blood Count 17.2 x10^3/uL (4.0-11.0) Red Blood Count 3.53 x10^6/uL (4.30-5.70) Hemoglobin 11.0 g/dL (13.0-17.5) Hematocrit 32.7 % (39.0-53.0) Mean Corpuscular Volume 93 fL (79-100) Mean Corpuscular Hemoglobin 31 pg (25-35) Mean Corpuscular Hemoglobin Concent 34 g/dL (31-37) Red Cell Distribution Width 13.9 % (11.5-14.5) Platelet Count 237 x10^3/uL (140-400) Neutrophils (%) (Auto) 84 % (31-73) Lymphocytes (%) (Auto) 12 % (24-48) Monocytes (%) (Auto) 3 % (0-9) Eosinophils (%) (Auto) 0 % (0-3) Basophils (%) (Auto) 0 % (0-3) Neutrophils # (Auto) 14.4 x10^3/uL (1.8-7.7) Lymphocytes # (Auto) 2.1 x10^3/uL (1.0-4.8) Monocytes # (Auto) 0.5 x10^3/uL (0.0-1.1) Eosinophils # (Auto) 0.0 x10^3/uL (0.0-0.7) Basophils # (Auto) 0.0 x10^3/uL (0.0-0.2) Sodium Level 142 mmol/L (136-145) Potassium Level 3.5 mmol/L (3.5-5.1) Chloride Level 107 mmol/L (98-107) Carbon Dioxide Level 35 mmol/L (21-32) Anion Gap 0 (6-14) Blood Urea Nitrogen 23 mg/dL (8-26) Creatinine 0.4 mg/dL (0.7-1.3) Estimated GFR (Cockcroft-Gault) 212.7 Glucose Level 152 mg/dL (70-99) Calcium Level 8.0 mg/dL (8.5-10.1) Medications Active Scripts Medications Dose Route/Sig Max Daily Dose Days Date Category Dose Instructions Tylenol (Acetaminophen) 325 Mg Tablet 650 Mg PO BID 06/08/20 Reported Senna-Docusate Sodium Tablet (Sennosides/Docusate Sodium) 1 Each Tablet 1 Each PO PRN PRN 06/08/20 Reported Risperdal (Risperidone) 3 Mg Tablet 0.5 Tab PO BID 30 06/08/20 Reported Potassium Chloride (Potassium Chloride) 20 Meq Tablet.er 20 Meq PO TID 06/08/20 Reported Olanzapine 5 Mg Tablet 0.5 Tab PO QHS 06/08/20 Reported Nystatin 15 Gm Cream..g. 15 Gm TP PRN Q8HRS PRN 06/08/20 Reported Novolog Flexpen (Insulin Aspart) 100 Unit/1 Ml Insuln.pen 1 Unit SQ TIDWMEALS 06/08/20 Reported Mirtazapine 7.5 Mg Tablet 1 Tab PO QHS 30 06/08/20 Reported Milk Of Magnesia (Magnesium Hydroxide) 400 Mg/5 Ml Oral.susp 400 Mg PO PRN PRN 06/08/20 Reported Metformin Hcl 1,000 Mg Tablet 1,000 Mg PO BIDWMEALS 06/08/20 Reported Melatonin 3 Mg Tab.rapdis 1 Tab PO QHS 30 06/08/20 Reported Magnesium Oxide 400 Mg Tablet 1 Tab PO DAILY 06/08/20 Reported Acidophilus (Lactobacillus Acidophilus) 1 Each Capsule 1 Cap PO DAILY 14 06/08/20 Reported Ketoconazole 120 Ml Shampoo 1 Melissa TP TWICE WEEKLY 30 06/08/20 Reported with at least 3 days between each shampooing Levemir Flextouch (Insulin Detemir) 100 Unit/1 Ml Insuln.pen 27 Unit SQ QHS 06/08/20 Reported Furosemide 20 Mg Tablet 1 Tab PO DAILY 06/08/20 Reported Fleet Enema (Na Phos,M-B/Na Phos,Di-Ba) 133 Ml Enema 133 Ml RC PRN PRN 06/08/20 Reported Divalproex Sodium Er (Divalproex Sodium) 500 Mg Tab.er.24h 2,000 Mg PO QHS 06/08/20 Reported D3-50 (Cholecalciferol (Vitamin D3)) 50,000 Unit Capsule 1,000 Unit PO DAILY 06/08/20 Reported Dulcolax (Bisacodyl) 10 Mg Supp.rect 10 Mg RC PRN DAILY PRN 06/08/20 Reported Atorvastatin Calcium 20 Mg Tablet 20 Mg PO HS 06/08/20 Reported Comments CXR 06/15 FINDINGS/ IMPRESSION: Consolidative left lung base infiltrate in association with a small to moderate size left-sided pleural effusion is unchanged. Persistent medial right lung base infiltrate or atelectasis is seen which is unchanged. No pneumothorax is seen. The heart size and mediastinum are stable. There've been no interval tube or line changes. Impression . 1. Acute hypoxic respiratory failure secondary to pneumonia ,shock and acute respiratory distress syndrome. 2. Abnormal chest x-ray with bilateral infiltrates suggestive of pneumonia. He could have a gram-negative pneumonia as well. left mucous plug 06/12. s/p Bronch. thick secretions removed 3. Septic shock. Likely caused by COVID-19 pneumonia. Need to rule out other sources of infection. BC positive 4. Acute kidney injury.-- improved 5. Metabolic acidosis secondary to lactic acidosis and sepsis. 6. Coag neg staph in BC/ ID following. Has [employer] shunt 7. Abnormal CXR 8. MRSE bacteremia repeat blood cultures -05/31 Plan . We will continue current support with oxygen supplementation, currently on 6 L nasal cannula Antibiotics per ID Tested negative for SARS-CoV-2 IV steroids, with taper Follow nephrology recommendation Follow BAL from bronchoscopy so far all cultures negative Physical therapy/Occupational Therapy Social work for discharge planning DVT/GI prophylaxis Discussed with NIMO OBREGON MD Jun 19, 2020 08:31
--- NOTE | 2020-06-19 09:25 | PDOC ---
Infectious Disease Note Subjective Subjective Alert nonverbal No fevers last 48 hrs Tube feedings ROS ROS Unobtainable Vital Sign Vital Signs Vital Signs Date Time Temp Pulse Resp B/P (MAP) Pulse Ox O2 Delivery O2 Flow Rate FiO2 06/19/20 02:07 98.1 66 20 129/51 (77) 94 Nasal Cannula 6.0 98.1 Physical Exam PHYSICAL EXAM GENERAL: Propped up in bed, alert in no distress HEENT: Pupils equal, oral cavity clear. Dobbhoff in place NECK: Supple. No JVD LUNGS: Clear anteriorly HEART: S1, S2 regular ABDOMEN: Obese, soft, no guarding, BS present : Quintero in place + scrotal swelling EXTREMITIES: Generalized edema. No cyanosis. SCDs and heel boots, bilaterally RUE with 1- 2 plus edema SKIN: warm to touch. No signs of generalized rash NEUROLOGIC: Alert, nonverbal RIJ without signs of complications Labs Lab Laboratory Tests Test 06/18/20 13:59 06/18/20 17:49 06/18/20 19:38 06/19/20 02:03 Glucose (Fingerstick) 166 mg/dL (70-99) 201 mg/dL (70-99) 198 mg/dL (70-99) 167 mg/dL (70-99) Test 06/19/20 06:21 06/19/20 06:30 Glucose (Fingerstick) 153 mg/dL (70-99) White Blood Count 17.2 x10^3/uL (4.0-11.0) Red Blood Count 3.53 x10^6/uL (4.30-5.70) Hemoglobin 11.0 g/dL (13.0-17.5) Hematocrit 32.7 % (39.0-53.0) Mean Corpuscular Volume 93 fL (79-100) Mean Corpuscular Hemoglobin 31 pg (25-35) Mean Corpuscular Hemoglobin Concent 34 g/dL (31-37) Red Cell Distribution Width 13.9 % (11.5-14.5) Platelet Count 237 x10^3/uL (140-400) Neutrophils (%) (Auto) 84 % (31-73) Lymphocytes (%) (Auto) 12 % (24-48) Monocytes (%) (Auto) 3 % (0-9) Eosinophils (%) (Auto) 0 % (0-3) Basophils (%) (Auto) 0 % (0-3) Neutrophils # (Auto) 14.4 x10^3/uL (1.8-7.7) Lymphocytes # (Auto) 2.1 x10^3/uL (1.0-4.8) Monocytes # (Auto) 0.5 x10^3/uL (0.0-1.1) Eosinophils # (Auto) 0.0 x10^3/uL (0.0-0.7) Basophils # (Auto) 0.0 x10^3/uL (0.0-0.2) Sodium Level 142 mmol/L (136-145) Potassium Level 3.5 mmol/L (3.5-5.1) Chloride Level 107 mmol/L (98-107) Carbon Dioxide Level 35 mmol/L (21-32) Anion Gap 0 (6-14) Blood Urea Nitrogen 23 mg/dL (8-26) Creatinine 0.4 mg/dL (0.7-1.3) Estimated GFR (Cockcroft-Gault) 212.7 Glucose Level 152 mg/dL (70-99) Calcium Level 8.0 mg/dL (8.5-10.1) Micro 06/12/20 Respiratory Culture, Resulted GRAM STAIN EVALUATION Final Final GRAM POSITIVE RODS:RARE GRAM POSITIVE COCCI:RARE SQUAMOUS EPI CELL:FEW PMN (WBCs):MANY YEAST:RARE RESPIRATORY CULTURE FEW Mixed upper respiratory antonio on 06/13/20 at 1036 AFB CULTURE GRAM STAIN Final Negative CALISTA CULT RES 1 Preliminary Rosa albicans 06/10/20 Blood Culture - Preliminary, Resulted NO GROWTH AFTER 3 DAYS Objective Assessment Hypotension, off pressors Hypoxemia with respiratory failure. neg COVID-19. BAL cultures neg Suspected aspiration pneumonia. Leukocytosis in part reactive steroids - stable Lactic acidosis. Fever - better Diabetes. Hypertension. Schizophrenia. MRSE bacteremia from Jun 07 repeat neb 06/10 [employer] shunt Plan Plan of Care Continue to observe off antibiotics Maintain aspiration precautions Supportive care Prognosis poor Call with questions Low grade temp times one d/w nursing and will monitor More alert today Attending Co-Sign Attending Co-Sign The patient was seen and interviewed as well as examined at the bedside. The chart was reviewed. The case was discussed. Agree with the plan of care. FRANCIE THOMAS APRN Jun 19, 2020 09:25 NUSRAT YU MD Jun 19, 2020 12:24
[2020-06-19 10:52] VITALS: BP 137/57
--- NOTE | 2020-06-19 11:10 | NUR ---
SS following up with discharge planning. SS reviewed pt chart and discussed with pt RN. Pt on PO medications. Pt currently requiring nasal canula oxygen. COVID19 negative. Pt NPO and has dobhoff. Pt currently on waiting list for [facility], ; fax [phone]. SS contacted [facility], ; fax [phone], and discussed. [facility] reported that they have been in contact with [facility] to provide them with training on dobhoff's. They reported that if either [facility] or [facility] is willing to train them on dobhoff's then they will be able to accept pt back at LTC facility. SS phoned and faxed clinical updates to [facility]. Pt's RN notified. SS contacted Latricia at [facility] and notified. Latricia checking with staff at [facility] to see if training can be facilitated with [facility]. SS contacted pt's court appointed guardian, Tequila Roy, , and notified. Pt's guardian reported that she is okay with discharge to either facility. SS will continue to follow for discharge planning.
[2020-06-19] MEDS: IV NORMAL SALINE 1000ML BAG 1,000 ML IV SCH (12:27)
--- NOTE | 2020-06-19 13:39 | PDOC ---
PROGRESS NOTES Date of Service: DATE: 06/19/20 TIME: 13:37 Chief Complaint Chief Complaint A/P: Sepsis Acute hypercarbic hypoxic respiratory failure requiring intubation, succesfully extubated on 06/15/2020 Acute metabolic encephalopathy NOS Concern for aspiration pneumonia with chest x-ray showing multifocal infiltrate in the right lower lobe Lactic acidosis Severe protein malnutrition Anxiety with depression dCHF Constipation Diabetes-Type II High Cholesterol Hypertension Schizophrenia BPH Dysphagia PARKINSONS, Hyperkalemia S/p [employer] shunt MRSE bacteremia with negative to date repeat cultures. FEN - OGT PPX - heparin FULL CODE Dispo - ICU History of Present Illness History of Present Illness Mr Dubois is a 69-year-old male with past medical history of Anxiety with depression, schizophrenia, dCHF, Constipation, Diabetes-Type II, High Cholesterol, Hypertension, BPH, Dysphagia, PARKINSONS, who presents to the em ergency room in respiratory failure. According to report patient was normal the morning of 06/07. He has been refusing to eat recently according to staff but did eat lunch immediately before they found him in respiratory distress EMS pulse ox on CPAP is 80%. He was intubated due to respiratory failure and poor ABG on BiPAP. 06/08: Febrile to 101.8 F overnight. Intubated, sedated. K peaked at 6.8, started on D5, insulin, steroids. 06/09: Patient is sedated and intubated upon my examination. AC mode tidal volume 550, PEEP 12 and FiO2 90%. Saturations are 100%. 06/10: COVID-19 negative. Blood cultures positive for staph epidermidis. Patient sedated and intubated on AC mode tidal volume 550, PEEP 9 FiO2 down to 60%. Tolerating tube feeds well. 06/11: Afebrile overnight. Sedated intubated AC mode tidal volume 550 PEEP 9 FiO2 70%. Blood pressure dropped on Levophed. 06/12: Episodic hypoxia overnight, bronchoscopy with significant left-sided mucus plugging removed. Tolerating TF well, however glucose has been very elevated. 06/13: Still requiring pressor support. Seen on vent in ICU off sedation. Not awakening at this time. Afebrile 06/14: Afebrile. Seen on vent. On sedation wean. Eyes are opening well. ABG 7.47/30 .. A lot of ventricular ectopy on telemetry this morning. FiO2 30% PEEP 6. 06/15: Patient continues to be mechanically ventilated, ID recommendations great ly appreciated. 06/16: Patient still quite somnolent, he was extubated yesterday, he did not have acute events reported overnight, responds to his name but he is non verbal, does not seem to be in any distress. Discussed with nursing staff. 06/17: No acute events reported overnight, case discussed with nursing staff patient in no acute distress no complaints during my visit, currently still quite debilitated from recent intubation and case discussed with speech therapist, at the present time patient will probably benefit from TPN and hopefully improve his strength and reassess his ability to swallow safely. Currently he is at high risk for aspiration pneumonia 06/18: No acute events reported overnight, case discussed with nursing staff patient in no acute distress no complaints during my visit, still waiting for improvement in his strength subsequently he will be able to transition home. Currently remains hemodynamically stable 06/19: No acute events reported overnight by nursing staff. Patient continues to be pretty much status quo, cultures have been negative from bronchoscopy alveolar lavage, recommendations from ID systems consultant noted. Vitals Vitals Vital Signs Date Time Temp Pulse Resp B/P (MAP) Pulse Ox O2 Delivery O2 Flow Rate FiO2 06/19/20 10:52 99.3 74 20 137/57 (83) 90 Nasal Cannula 6.0 99.3 Physical Exam Physical Exam GENERAL: Propped up in bed, alert in no distress HEENT: Pupils equal, oral cavity clear. Dobbhoff in place NECK: Supple. No JVD LUNGS: Clear anteriorly HEART: S1, S2 regular ABDOMEN: Obese, soft, no guarding, BS present : Quintero in place + scrotal swelling EXTREMITIES: Generalized edema. No cyanosis. SCDs and heel boots, bilaterally RUE with 1- 2 plus edema SKIN: warm to touch. No signs of generalized rash NEUROLOGIC: Alert, nonverbal RIJ without signs of complications General: No acute distress Heart: Regular rate Lungs: Clear Abdomen: Normal bowel sounds Extremities: No clubbing Labs LABS Laboratory Tests Test 06/18/20 13:59 06/18/20 17:49 06/18/20 19:38 06/19/20 02:03 Glucose (Fingerstick) 166 mg/dL (70-99) 201 mg/dL (70-99) 198 mg/dL (70-99) 167 mg/dL (70-99) Test 06/19/20 06:21 06/19/20 06:30 06/19/20 12:10 Glucose (Fingerstick) 153 mg/dL (70-99) 154 mg/dL (70-99) White Blood Count 17.2 x10^3/uL (4.0-11.0) Red Blood Count 3.53 x10^6/uL (4.30-5.70) Hemoglobin 11.0 g/dL (13.0-17.5) Hematocrit 32.7 % (39.0-53.0) Mean Corpuscular Volume 93 fL (79-100) Mean Corpuscular Hemoglobin 31 pg (25-35) Mean Corpuscular Hemoglobin Concent 34 g/dL (31-37) Red Cell Distribution Width 13.9 % (11.5-14.5) Platelet Count 237 x10^3/uL (140-400) Neutrophils (%) (Auto) 84 % (31-73) Lymphocytes (%) (Auto) 12 % (24-48) Monocytes (%) (Auto) 3 % (0-9) Eosinophils (%) (Auto) 0 % (0-3) Basophils (%) (Auto) 0 % (0-3) Neutrophils # (Auto) 14.4 x10^3/uL (1.8-7.7) Lymphocytes # (Auto) 2.1 x10^3/uL (1.0-4.8) Monocytes # (Auto) 0.5 x10^3/uL (0.0-1.1) Eosinophils # (Auto) 0.0 x10^3/uL (0.0-0.7) Basophils # (Auto) 0.0 x10^3/uL (0.0-0.2) Sodium Level 142 mmol/L (136-145) Potassium Level 3.5 mmol/L (3.5-5.1) Chloride Level 107 mmol/L (98-107) Carbon Dioxide Level 35 mmol/L (21-32) Anion Gap 0 (6-14) Blood Urea Nitrogen 23 mg/dL (8-26) Creatinine 0.4 mg/dL (0.7-1.3) Estimated GFR (Cockcroft-Gault) 212.7 Glucose Level 152 mg/dL (70-99) Calcium Level 8.0 mg/dL (8.5-10.1) Assessment and Plan Assessmemt and Plan Problems Medical Problems: (1) Aspiration pneumonia Status: Acute (2) Respiratory failure with hypoxia Status: Acute Comment Review of Relevant I have reviewed the following items veronika (where applicable) has been applied. Labs Laboratory Tests Test 06/17/20 17:52 06/17/20 22:22 06/18/20 02:48 06/18/20 05:55 Glucose (Fingerstick) 169 mg/dL (70-99) 151 mg/dL (70-99) 197 mg/dL (70-99) 160 mg/dL (70-99) Test 06/18/20 13:59 06/18/20 17:49 06/18/20 19:38 06/19/20 02:03 Glucose (Fingerstick) 166 mg/dL (70-99) 201 mg/dL (70-99) 198 mg/dL (70-99) 167 mg/dL (70-99) Test 06/19/20 06:21 06/19/20 06:30 06/19/20 12:10 Glucose (Fingerstick) 153 mg/dL (70-99) 154 mg/dL (70-99) White Blood Count 17.2 x10^3/uL (4.0-11.0) Red Blood Count 3.53 x10^6/uL (4.30-5.70) Hemoglobin 11.0 g/dL (13.0-17.5) Hematocrit 32.7 % (39.0-53.0) Mean Corpuscular Volume 93 fL (79-100) Mean Corpuscular Hemoglobin 31 pg (25-35) Mean Corpuscular Hemoglobin Concent 34 g/dL (31-37) Red Cell Distribution Width 13.9 % (11.5-14.5) Platelet Count 237 x10^3/uL (140-400) Neutrophils (%) (Auto) 84 % (31-73) Lymphocytes (%) (Auto) 12 % (24-48) Monocytes (%) (Auto) 3 % (0-9) Eosinophils (%) (Auto) 0 % (0-3) Basophils (%) (Auto) 0 % (0-3) Neutrophils # (Auto) 14.4 x10^3/uL (1.8-7.7) Lymphocytes # (Auto) 2.1 x10^3/uL (1.0-4.8) Monocytes # (Auto) 0.5 x10^3/uL (0.0-1.1) Eosinophils # (Auto) 0.0 x10^3/uL (0.0-0.7) Basophils # (Auto) 0.0 x10^3/uL (0.0-0.2) Sodium Level 142 mmol/L (136-145) Potassium Level 3.5 mmol/L (3.5-5.1) Chloride Level 107 mmol/L (98-107) Carbon Dioxide Level 35 mmol/L (21-32) Anion Gap 0 (6-14) Blood Urea Nitrogen 23 mg/dL (8-26) Creatinine 0.4 mg/dL (0.7-1.3) Estimated GFR (Cockcroft-Gault) 212.7 Glucose Level 152 mg/dL (70-99) Calcium Level 8.0 mg/dL (8.5-10.1) Laboratory Tests Test 06/18/20 13:59 06/18/20 17:49 06/18/20 19:38 06/19/20 02:03 Glucose (Fingerstick) 166 mg/dL (70-99) 201 mg/dL (70-99) 198 mg/dL (70-99) 167 mg/dL (70-99) Test 06/19/20 06:21 06/19/20 06:30 06/19/20 12:10 Glucose (Fingerstick) 153 mg/dL (70-99) 154 mg/dL (70-99) White Blood Count 17.2 x10^3/uL (4.0-11.0) Red Blood Count 3.53 x10^6/uL (4.30-5.70) Hemoglobin 11.0 g/dL (13.0-17.5) Hematocrit 32.7 % (39.0-53.0) Mean Corpuscular Volume 93 fL (79-100) Mean Corpuscular Hemoglobin 31 pg (25-35) Mean Corpuscular Hemoglobin Concent 34 g/dL (31-37) Red Cell Distribution Width 13.9 % (11.5-14.5) Platelet Count 237 x10^3/uL (140-400) Neutrophils (%) (Auto) 84 % (31-73) Lymphocytes (%) (Auto) 12 % (24-48) Monocytes (%) (Auto) 3 % (0-9) Eosinophils (%) (Auto) 0 % (0-3) Basophils (%) (Auto) 0 % (0-3) Neutrophils # (Auto) 14.4 x10^3/uL (1.8-7.7) Lymphocytes # (Auto) 2.1 x10^3/uL (1.0-4.8) Monocytes # (Auto) 0.5 x10^3/uL (0.0-1.1) Eosinophils # (Auto) 0.0 x10^3/uL (0.0-0.7) Basophils # (Auto) 0.0 x10^3/uL (0.0-0.2) Sodium Level 142 mmol/L (136-145) Potassium Level 3.5 mmol/L (3.5-5.1) Chloride Level 107 mmol/L (98-107) Carbon Dioxide Level 35 mmol/L (21-32) Anion Gap 0 (6-14) Blood Urea Nitrogen 23 mg/dL (8-26) Creatinine 0.4 mg/dL (0.7-1.3) Estimated GFR (Cockcroft-Gault) 212.7 Glucose Level 152 mg/dL (70-99) Calcium Level 8.0 mg/dL (8.5-10.1) Microbiology 06/12/20 AFB Specimen Processing Tissue - Final, Resulted 06/12/20 Acid Fast Bacilli Culture, Resulted Pending 06/12/20 Gram Stain - Final, Resulted 06/12/20 Fungal Culture - Preliminary, Resulted 06/12/20 Fungal Culture Result 1 - Preliminary, Resulted 06/10/20 Blood Culture - Final, Complete NO GROWTH AFTER 5 DAYS Medications Current Medications Midazolam HCl 100 mg/Sodium Chloride 100 ml @ 0 mls/hr 1X ONCE IV Last administered on 06/07/20at 15:19; Start 06/07/20 at 15:15; Stop 06/07/20 at 15:1 6; Status DC Sodium Chloride 1,000 ml @ 1,000 mls/hr 1X ONCE IV Last administered on 06/07/20at 14:50; Start 06/07/20 at 15:15; Stop 06/07/20 at 16:14; Status DC Sodium Chloride 1,000 ml @ 1,000 mls/hr 1X ONCE IV Last administered on 06/07/20at 15:04; Start 06/07/20 at 15:15; Stop 06/07/20 at 16:14; Status DC Vancomycin HCl 1.25 gm/Sodium Chloride 250 ml @ 166.667 mls/hr 1X ONCE IV Last administered on 06/07/20at 15:57; Start 06/07/20 at 16:00; Stop 06/07/20 at 17:29; Status DC Clindamycin Phosphate 50 ml @ 100 mls/hr 1X ONCE IV Last administered on 06/07/20at 15:57; Start 06/07/20 at 15:15; Stop 06/07/20 at 15:44; Status DC Midazolam HCl (Versed) 5 mg 1X ONCE IV Last administered on 06/07/20at 15:15; Start 06/07/20 at 15:30; Stop 06/07/20 at 15:31; Status DC Etomidate (Amidate) 30 mg 1X ONCE IV Last administered on 06/07/20at 14:57; Start 06/07/20 at 15:30; Stop 06/07/20 at 15:31; Status DC Succinylcholine Chloride (Anectine) 200 mg 1X ONCE IV Last administered on 06/07/20at 14:58; Start 06/07/20 at 15:30; Stop 06/07/20 at 15:31; Status DC Fentanyl Citrate (Fentanyl 2ml Vial) 50 mcg PRN Q1HR ONCE IVP Last adminis tered on 06/07/20at 16:30; Start 06/07/20 at 16:30; Stop 06/07/20 at 16:31; Status DC Fentanyl Citrate (Fentanyl 2ml Vial) 100 mcg 1X ONCE IVP Last administered on 06/07/20at 17:07; Start 06/07/20 at 17:15; Stop 06/07/20 at 17:16; Status DC Sennosides (Senna) 17.2 mg PRN BID PRN PO CONSTIPATION; Start 06/07/20 at 18:00 Docusate Sodium (Colace Solution) 100 mg PRN DAILY PRN PO HARD STOOLS; Start 06/07/20 at 21:00 Ondansetron HCl (Zofran) 4 mg PRN Q6HRS PRN IVP NAUSEA/VOMITING; Start 06/07/20 at 18:00 Potassium Chloride (Klor-Con) 40 meq 1X PRN PO PER PROTOCOL; Start 06/07/20 at 18:00; Status UNV Magnesium Oxide (Magnesium Oxide) 400 mg BID PO ; Start 06/07/20 at 21:00; Stop 06/09/20 at 09:01; Status UNV Potassium Chloride/Water 100 ml @ 100 mls/hr Q1H IV ; Start 06/07/20 at 18:00; Stop 06/07/20 at 21:59; Status UNV Magnesium Sulfate 50 ml @ 25 mls/hr Q24H IV ; Start 06/07/20 at 18:00; Stop 06/09/20 at 19:59; Status UNV Potassium Chloride/Water 100 ml @ 100 mls/hr Q1H PRN IV low k; Start 06/07/20 at 18:00; Status UNV Dextrose (Dextrose 50%-Water Syringe) 12.5 gm PRN Q15MIN PRN IV SEE COMMENTS; Start 06/07/20 at 18:00; Stop 06/08/20 at 22:09; Status DC Vancomycin HCl 1 gm/Dextrose 250 ml @ 250 mls/hr 1X ONCE IV ; Start 06/07/20 at 18:00; Stop 06/07/20 at 18:59; Status UNV Enoxaparin Sodium (Lovenox 40mg Syringe) 40 mg Q24H SQ Last administered on 06/18/20at 18:07; Start 06/07/20 at 19:00 Pantoprazole Sodium (PROTONIX VIAL for IV PUSH) 40 mg DAILYAC IVP Last administered on 06/18/20at 07:08; Start 06/07/20 at 19:00; Stop 06/18/20 at 14:37; Status DC Ascorbic Acid (Vitamin C) 500 mg DAILY PO Last administered on 06/19/20at 08:26; Start 06/08/20 at 09:00 Thiamine HCl 100 mg/Dextrose 51 ml @ 102 mls/hr DAILY IV Last administered on 06/16/20at 08:56; Start 06/08/20 at 09:00; Stop 06/17/20 at 08:20; Status DC Info (Icu Electrolyte Protocol) 1 ea CONT PRN PRN MC PER PROTOCOL; Start 06/07/20 at 18:00; Stop 06/17/20 at 08:15; Status DC Vancomycin HCl 750 mg/Sodium Chloride 250 ml @ 250 mls/hr 1X ONCE IV Last administered on 06/07/20at 19:18; Start 06/07/20 at 18:00; Stop 06/07/20 at 18:59; Status DC Vancomycin HCl (Vanco Per Pharmacy) 1 each PRN DAILY PRN MC SEE COMMENTS Last administered on 06/07/20at 19:49; Start 06/07/20 at 18:00; Stop 06/07/20 at 20:36; Status DC Fentanyl Citrate (Fentanyl 2ml Vial) 50 mcg PRN Q1HR PRN IVP PAIN Last administered on 06/07/20at 18:02; Start 06/07/20 at 18:00; Stop 06/08/20 at 16:07; Status DC Fentanyl Citrate 30 ml @ 0 mls/hr CONT PRN IV SEE PROTOCOL Last administered on 06/13/20at 00:13; Start 06/07/20 at 18:30; Stop 06/17/20 at 08:18; Status DC Fentanyl Citrate (Fentanyl 2ml Vial) 25 mcg PRN Q1HR PRN IV SEE COMMENTS; Start 06/07/20 at 18:30 Fentanyl Citrate (Fentanyl 2ml Vial) 50 mcg PRN Q1HR PRN IV SEE COMMENTS Last administered on 06/14/20at 18:17; Start 06/07/20 at 18:30 Midazolam HCl 100 ml @ 0 mls/hr CONT PRN IV SEE PROTOCOL Last administered on 06/12/20at 21:36; Start 06/07/20 at 18:30; Stop 06/17/20 at 08:18; Status DC Vecuronium [place] (Norcuron Bolus) 6 mg 1X ONCE IV Last administered on 06/07/20at 19:18; Start 06/07/20 at 18:30; Stop 06/07/20 at 18:31; Status DC Norepinephrine Bitartrate 8 mg/ Dextrose 258 ml @ 23.027 mls/ hr CONT PRN IV PER PROTOCOL Last administered on 06/07/20at 19:36; Start 06/07/20 at 19:15; Stop 06/07/20 at 20:05; Status DC Acetaminophen (Tylenol Supp) 650 mg PRN Q6HRS PRN [place] MILD PAIN / TEMP > 100 .3'F; Start 06/07/20 at 19:15 Vancomycin HCl (Vanco Per Pharmacy) 1 each PRN DAILY PRN MC SEE COMMENTS; Start 06/07/20 at 19:15; Status UNV Metronidazole 100 ml @ 100 mls/hr Q12HR IV ; Start 06/07/20 at 21:00; Stop 06/07/20 at 20:36; Status DC Amiodarone HCl 450 mg/Dextrose 259 ml @ 0 mls/hr 1X ONCE IV ; Start 06/07/20 at 19:15; Stop 06/07/20 at 19:16; Status Cancel Meropenem 1 gm/ Sodium Chloride 100 ml @ 200 mls/hr Q8HRS IV Last administered on 06/07/20at 22:30; Start 06/07/20 at 22:00; Stop 06/08/20 at 06:09; Status DC Methylprednisolone Sodium Succinate (SOLU-Medrol 125MG VIAL) 125 mg 1X ONCE IV Last administered on 06/07/20at 20:14; Start 06/07/20 at 19:45; Stop 06/07/20 at 19:46; Status DC Methylprednisolone Sodium Succinate (SOLU-Medrol 40MG VIAL) 40 mg Q8HRS IV Last administered on 06/12/20at 06:24; Start 06/08/20 at 06:00; Stop 06/12/20 at 09:12; Status DC Vancomycin HCl 1.75 gm/Sodium Chloride 500 ml @ 250 mls/hr Q12H IV ; Start 06/08/20 at 08:00; Stop 06/07/20 at 20:36; Status DC Vancomycin HCl (Vancomycin Trough Level) 1 each 1X ONCE MC ; Start 06/09/20 at 07:30; Stop 06/07/20 at 20:38; Status DC Vasopressin 20 unit/Dextrose 101 ml @ 12 mls/hr CONT PRN IV SEE I/O RECORD; Start 06/07/20 at 20:00; Stop 06/17/20 at 08:18; Status DC Norepinephrine Bitartrate 16 mg/ Dextrose 266 ml @ 11.87 mls/ hr CONT PRN IV PER PROTOCOL Last administered on 06/07/20at 22:09; Start 06/07/20 at 20:00; Stop 9/13/20 at 23:00; Status DC Sodium Chloride 1,000 ml @ 1,000 mls/hr 1X ONCE IV Last administered on 06/07/20at 20:16; Start 06/07/20 at 20:15; Stop 06/07/20 at 21:14; Status DC Norepinephrine Bitartrate 32 mg/ Dextrose 250 ml @ 5.578 mls/ hr CONT PRN IV SEE I/O RECORD Last administered on 06/12/20at 02:14; Start 06/07/20 at 22:30; Stop 06/17/20 at 08:18; Status DC Sodium Chloride 1,000 ml @ 100 mls/hr Q10H IV Last administered on 06/08/20at 09:44; Start 06/08/20 at 00:00; Stop 06/08/20 at 18:42; Status DC Meropenem 1 gm/ Sodium Chloride 100 ml @ 200 mls/hr Q12HR IV Last administered on 06/18/20at 08:26; Start 06/08/20 at 09:00; Stop 06/18/20 at 13:53; Status DC Sodium Bicarbonate (Sodium Bicarb Adult 8.4% Syr) 50 meq 1X ONCE IV Last administered on 06/08/20at 10:42; Start 06/08/20 at 09:45; Stop 06/08/20 at 09:46; Status DC Multivitamins/ Minerals Therapeutic (Centrum Multivit-Mineral Liq) 5 ml DAILY PEG Last administered on 06/19/20at 08:26; Start 06/08/20 at 10:00 Sodium Chloride 1,000 ml @ 1,000 mls/hr 1X ONCE IV Last administered on 06/08/20at 12:11; Start 06/08/20 at 11:30; Stop 06/08/20 at 12:29; Status DC Vancomycin HCl (Vanco Per Pharmacy) 1 each PRN DAILY PRN MC SEE COMMENTS Last administered on 06/17/20at 08:27; Start 06/08/20 at 12:30; Stop 06/18/20 at 13:52; Status DC Vancomycin HCl 1.75 gm/Sodium Chloride 500 ml @ 250 mls/hr Q24H IV Last administered on 06/08/20at 19:49; Start 06/08/20 at 19:00; Stop 06/09/20 at 19:35; Status DC Vancomycin HCl (Vancomycin Trough Level) 1 each 1X ONCE MC Last administered on 06/09/20at 18:30; Start 06/09/20 at 18:30; Stop 06/09/20 at 18:31; Status DC Dextrose/Sodium Chloride 1,000 ml @ 100 mls/hr Q10H IV Last administered on 06/10/20at 23:44; Start 06/08/20 at 15:30; Stop 06/11/20 at 11:41; Status DC Dextrose (Dextrose 50%-Water Syringe) 25 gm 1X ONCE IV Last administered on 06/08/20at 16:34; Start 06/08/20 at 15:30; Stop 06/08/20 at 15:37; Status DC Insulin Human Regular (HumuLIN R VIAL) 10 unit 1X ONCE IV Last administered on 06/08/20at 16:37; Start 06/08/20 at 15:30; Stop 06/08/20 at 15:37; Status DC Calcium Gluconate (Calcium Gluconate) 1,000 mg 1X ONCE IVP Last administered on 06/08/20at 16:38; Start 06/08/20 at 15:30; Stop 06/08/20 at 15:37; Status DC Insulin Human Lispro (HumaLOG) 0-9 UNITS Q4HRS SQ Last administered on 06/09/20at 03:53; Start 06/09/20 at 00:00; Stop 06/09/20 at 07:30; Status DC Dextrose (Dextrose 50%-Water Syringe) 12.5 gm PRN Q15MIN PRN IV SEE COMMENTS; Start 06/08/20 at 22:15 Insulin Human Lispro (HumaLOG) 0-9 UNITS Q12HR SQ ; Start 06/09/20 at 12:00; Stop 06/09/20 at 08:04; Status DC Insulin Human Lispro (HumaLOG) 0-9 UNITS Q6HRS SQ Last administered on 06/11/20at 17:58; Start 06/09/20 at 08:15; Stop 06/12/20 at 00:25; Status DC Bisacodyl (Dulcolax Supp) 10 mg PRN DAILY PRN RC CONSTIPATION; Start 06/09/20 at 08:30 Mirtazapine (Remeron) 7.5 mg QHS PO Last administered on 06/18/20at 20:55; Start 06/09/20 at 21:00 Olanzapine (ZyPREXA) 2.5 mg QHS PO Last administered on 06/18/20at 20:55; Start 06/09/20 at 21:00 Insulin Glargine (Lantus Syringe) 27 unit QHS SQ Last administered on 06/14/20at 20:56; Start 06/09/20 at 21:00; Stop 06/15/20 at 08:11; Status DC Valproic Acid (Depakene) 250 mg [id number] Last administered on 06/19/20at 08:27 ; Start 06/09/20 at 09:00 Insulin Glargine (Lantus Syringe) 10 unit 1X SQ ; Start 06/09/20 at 08:30; Stop 06/09/20 at 08:30; Status DC Insulin Glargine (Lantus Syringe) 10 unit 1X ONCE SQ Last administered on 06/09/20at 08:45; Start 06/09/20 at 08:45; Stop 06/09/20 at 08:46; Status DC Vancomycin HCl 1.75 gm/Sodium Chloride 500 ml @ 250 mls/hr Q18H IV Last administered on 06/18/20at 02:45; Start 06/09/20 at 20:00; Stop 06/18/20 at 13:52; Status DC Vancomycin HCl (Vancomycin Trough Level) 1 each 1X ONCE MC ; Start 06/11/20 at 07:30; Stop 06/11/20 at 07:31; Status DC Insulin Human Lispro (HumaLOG) 15 units 1X ONCE SQ Last administered on 06/10/20at 10:35; Start 06/10/20 at 10:30; Stop 06/10/20 at 10:33; Status DC Insulin Human Lispro (HumaLOG) 21 units 1X ONCE SQ Last administered on 06/10/20at 14:05; Start 06/10/20 at 13:00; Stop 06/10/20 at 13:01; Status DC Sodium Chloride 1,000 ml @ 0 mls/hr Q0M IV ; Start 06/11/20 at 10:45; Status Cancel Sodium Chloride 1,000 ml @ 20 mls/hr Q24H IV Last administered on 06/19/20at 12:27; Start 06/11/20 at 11:45 Insulin Human Lispro (HumaLOG) 21 units 1X ONCE SQ Last administered on 05/26 04/13at 11:50; Start 06/11/20 at 11:45; Stop 06/11/20 at 11:48; Status DC Insulin Human Lispro (HumaLOG) 0-9 UNITS Q6HRS SQ Last administered on 06/18/20at 18:12; Start 06/12/20 at 06:00 Insulin Human Lispro (HumaLOG) 12 units 1X ONCE SQ Last administered on 06/12/20at 00:47; Start 06/12/20 at 00:30; Stop 06/12/20 at 00:31; Status DC Lidocaine HCl (Lidocaine 2% Viscous) 100 ml PRN 1X PRN MM FOR PROCEDURE Last administered on 06/12/20at 09:25; Start 06/12/20 at 07:15; Stop 06/13/20 at 07:14; Status DC Lidocaine HCl (Lidocaine 1% 20ml Vial) 20 ml PRN 1X PRN INJ SEE COMMENTS Last administered on 06/12/20at 09:26; Start 06/12/20 at 07:15; Stop 06/13/20 at 07:14; Status DC Epinephrine HCl (Adrenalin) 1 mg PRN 1X PRN INJ SEE COMMENTS; Start 06/12/20 at 07:15; Stop 06/13/20 at 07:14; Status DC Insulin Human Lispro (HumaLOG) 9 units Q6HRS SQ Last administered on 06/15/20at 05:43; Start 06/12/20 at 08:00; Stop 06/15/20 at 08:11; Status DC Epinephrine HCl (Adrenalin) 1 mg STK-MED ONCE .ROUTE ; Start 06/12/20 at 08:19; Stop 06/12/20 at 08:20; Status DC Lidocaine HCl (Lidocaine 1% 20ml Vial) 20 ml STK-MED ONCE .ROUTE ; Start 06/12/20 at 08:19; Stop 06/12/20 at 08:20; Status DC Lidocaine HCl (Lidocaine 2% Viscous) 100 ml STK-MED ONCE .ROUTE ; Start 06/12/20 at 08:20; Stop 06/12/20 at 08:20; Status DC Methylprednisolone Sodium Succinate (SOLU-Medrol 40MG VIAL) 40 mg BID IV Last administered on 06/18/20at 08:27; Start 06/12/20 at 21:00; Stop 06/18/20 at 15:59; Status DC Propofol 100 ml @ 2.049 mls/ hr CONT PRN IV SEE I/O RECORD Last administered on 06/15/20at 05:29; Start 06/13/20 at 17:00; Stop 06/16/20 at 12:40; Status DC Furosemide (Lasix) 40 mg 1X ONCE IVP Last administered on 06/14/20at 15:54; Start 06/14/20 at 10:15; Stop 06/14/20 at 10:22; Status DC Magnesium Sulfate 100 ml @ 50 mls/hr PRN DAILY PRN IV SEE COMMENTS; Start 06/15/20 at 09:00 Insulin Glargine (Lantus Syringe) 32 unit QHS SQ Last administered on 06/18/20at 21:07; Start 06/15/20 at 21:00 Insulin Human Lispro (HumaLOG) 11 units Q6HRS SQ Last administered on 06/19/20at 12:28; Start 06/15/20 at 12:00 Info (Non-Icu Electrolyte Protocol) 1 ea CONT PRN PRN MC SEE COMMENTS; Start 06/17/20 at 08:30 Thiamine Mononitrate (Vitamin B-1) 100 mg DAILY PO Last administered on 06/19/20at 08:27; Start 06/17/20 at 09:00 Vancomycin HCl (Vancomycin Trough Level) 1 each 1X ONCE MC ; Start 06/18/20 at 19:30; Stop 06/18/20 at 13:54; Status DC Lansoprazole (Prevacid) 30 mg DAILY FT Last administered on 06/19/20at 08:26; Start 06/19/20 at 09:00 Methylprednisolone Sodium Succinate (SOLU-Medrol 40MG VIAL) 40 mg DAILY IV Last administered on 06/19/20at 08:27; Start 06/19/20 at 09:00 Active Scripts Active Reported Tylenol (Acetaminophen) 325 Mg Tablet 650 Mg PO BID Senna-Docusate Sodium Tablet (Sennosides/Docusate Sodium) 1 Each Tablet 1 Each PO PRN PRN Risperdal (Risperidone) 3 Mg Tablet 0.5 Tab PO BID 30 Days Potassium Chloride (Potassium Chloride) 20 Meq Tablet.er 20 Meq PO TID Olanzapine 5 Mg Tablet 0.5 Tab PO QHS Nystatin 15 Gm Cream..g. 15 Gm TP PRN Q8HRS PRN Novolog Flexpen (Insulin Aspart) 100 Unit/1 Ml Insuln.pen 1 Unit SQ TIDWMEALS Mirtazapine 7.5 Mg Tablet 1 Tab PO QHS 30 Days Milk Of Magnesia (Magnesium Hydroxide) 400 Mg/5 Ml Oral.susp 400 Mg PO PRN PRN Metformin Hcl 1,000 Mg Tablet 1,000 Mg PO BIDWMEALS Melatonin 3 Mg Tab.rapdis 1 Tab PO QHS 30 Days Magnesium Oxide 400 Mg Tablet 1 Tab PO DAILY Acidophilus (Lactobacillus Acidophilus) 1 Each Capsule 1 Cap PO DAILY 14 Days Ketoconazole 120 Ml Shampoo 1 Melissa TP TWICE WEEKLY 30 Days with at least 3 days between each shampooing Levemir Flextouch (Insulin Detemir) 100 Unit/1 Ml Insuln.pen 27 Unit SQ QHS Furosemide 20 Mg Tablet 1 Tab PO DAILY Fleet Enema (Na Phos,M-B/Na Phos,Di-Ba) 133 Ml Enema 133 Ml RC PRN PRN Divalproex Sodium Er (Divalproex Sodium) 500 Mg Tab.er.24h 2,000 Mg PO QHS D3-50 (Cholecalciferol (Vitamin D3)) 50,000 Unit Capsule 1,000 Unit PO DAILY Dulcolax (Bisacodyl) 10 Mg Supp.rect 10 Mg RC PRN DAILY PRN Atorvastatin Calcium 20 Mg Tablet 20 Mg PO HS Vitals/I & O Vital Sign - Last 24 Hours 06/18/20 06/18/20 06/18/20 06/18/20 15:00 19:16 20:00 22:47 Temp 98.2 98.1 98.0 98.2 98.1 98.0 Pulse 77 69 68 Resp 22 22 18 B/P (MAP) 122/65 (84) 133/53 (79) 111/42 (65) Pulse Ox 90 93 94 O2 Delivery Nasal Cannula Nasal Cannula Nasal Cannula Nasal Cannula O2 Flow Rate 6.0 6.0 6.0 6.0 06/19/20 06/19/20 06/19/20 06/19/20 02:07 07:00 08:00 10:52 Temp 98.1 100.3 99.3 98.1 100.3 99.3 Pulse 66 79 74 Resp 20 20 20 B/P (MAP) 129/51 (77) 149/51 (83) 137/57 (83) Pulse Ox 94 90 90 O2 Delivery Nasal Cannula Nasal Cannula Nasal Cannula Nasal Cannula O2 Flow Rate 6.0 6.0 6.0 6.0 Intake and Output 06/18/20 06/18/20 06/19/20 15:00 23:00 07:00 Intake Total 1020 ml 300 ml 300 ml Output Total 1700 ml 1400 ml Balance 1020 ml -1400 ml -1100 ml Justicifation of Admission Dx: Justifications for Admission: Justification of Admission Dx: Yes SMITA STAPLES MD Jun 19, 2020 13:39
--- NOTE | 2020-06-19 13:46 | NUR ---
SS following up with discharge planning. [facility], ; fax [phone], came to hospital and reported that they can take pt with dobhoff on Monday. They reported that they are just waiting on supplies to be delivered. Pt's RN notified. SS will continue to follow for discharge planning.
[2020-06-19] MEDS ORDERED: METH40VI IV (13:52)
[2020-06-19 15:00] VITALS: BP 122/65
--- NOTE | 2020-06-19 15:22 | NUR ---
Acknowledge RD consult ordered 06/18 regarding wounds; spoke w/RN today. TFs are infusing and tolerated at goal rate and MVI and Vit C are in place to support wound healing needs. Please refer to RD note 06/18/2020 for additional documentation/information as needed. RD available [phone] as needed
[2020-06-19] MEDS: ENOXAPARIN 40 MG/0.4 ML SYRINGE. SQ SCH (17:59)
[2020-06-19 19:00] VITALS: BP 128/50
[2020-06-19] MEDS: MIRTAZAPINE 7.5 MG TABLET. PO SCH (21:46)
[2020-06-19] MEDS: OLANZapine 5 MG TABLET PO SCH (21:46)
[2020-06-19] MEDS: INSULIN GLARGINE SYRINGE. SQ SCH (22:00)
[2020-06-19 22:44] VITALS: BP 140/59
[2020-06-20 02:51] VITALS: BP 116/50
[2020-06-20] MEDS: INSULIN LISPRO 300 UNITS/3 ML VIAL. SQ SCH ×6 (06:00→18:21)
--- NOTE | 2020-06-20 06:49 | PDOC ---
Infectious Disease Note Subjective Subjective Alert nonverbal Did seem frustrated momentarily and pounded pillow with his hand that was under right arm Tube feedings Vital Sign Vital Signs Vital Signs Date Time Temp Pulse Resp B/P (MAP) Pulse Ox O2 Delivery O2 Flow Rate FiO2 06/20/20 02:51 98.8 64 22 116/50 (72) 96 Nasal Cannula 6.0 98.8 Physical Exam PHYSICAL EXAM GENERAL: Propped up in bed, alert in no distress HEENT: Pupils equal, oral cavity clear. Dobbhoff in place NECK: Supple. No JVD LUNGS: Clear anteriorly HEART: S1, S2 regular ABDOMEN: Obese, soft, no guarding, BS present : Quintero in place + scrotal swelling EXTREMITIES: Generalized edema. No cyanosis. SCDs and heel boots, bilaterally RUE with 1- 2 plus edema SKIN: warm to touch. No signs of generalized rash NEUROLOGIC: Alert, nonverbal RIJ without signs of complications Labs Lab Laboratory Tests Test 06/19/20 12:10 06/19/20 17:58 06/19/20 21:56 06/19/20 23:34 Glucose (Fingerstick) 154 mg/dL (70-99) 117 mg/dL (70-99) 127 mg/dL (70-99) 124 mg/dL (70-99) Test 06/20/20 05:50 Glucose (Fingerstick) 123 mg/dL (70-99) Micro RUE u/s 06/15 IMPRESSION: No evidence of right upper extremity DVT. Radial and ulnar veins suboptimally evaluated. GRAM POSITIVE RODS:RARE GRAM POSITIVE COCCI:RARE SQUAMOUS EPI CELL:FEW PMN (WBCs):MANY YEAST:RARE Microbiology 06/12/20 AFB Specimen Processing Tissue - Final, Resulted 06/12/20 Acid Fast Bacilli Culture, Resulted Pending 06/12/20 Gram Stain - Final, Resulted 06/12/20 Fungal Culture, Resulted Pending 06/12/20 Fungal Culture Result 1, Resulted Pending 06/10/20 Blood Culture - Preliminary, Resulted NO GROWTH AFTER 4 DAYS Objective Assessment Hypotension, off pressors Hypoxemia with respiratory failure. neg COVID-19. BAL cultures neg except Efren - likely colonization Suspected aspiration pneumonia. Leukocytosis in part reactive steroids - increased Lactic acidosis. Fever - better Diabetes. Hypertension. Schizophrenia. 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
[2020-06-20 07:00] VITALS: BP 144/55
[2020-06-20] MEDS: THIAMINE 100 MG TABLET. PO SCH (09:01)
[2020-06-20] MEDS: VALPROIC ACID (AS SODIUM SALT) 250 MG/5 ML SOLUTION. PEG SCH ×3 (09:01→23:10)
[2020-06-20] MEDS: methylPREDNISolone SOD SUCC PF 40 MG/ML VIAL. IV SCH (09:02)
[2020-06-20] MEDS: ASCORBIC ACID 500 MG TABLET PO SCH (09:02)
[2020-06-20] MEDS: MULTIVITAMINS,THERAPEUTIC 5 ML ORAL LIQUID. PEG SCH (09:02)
[2020-06-20] MEDS: LANSOPRAZOLE 30 MG TAB.RAP.DR FT SCH (09:02)
[2020-06-20 11:00] VITALS: BP 143/47
--- NOTE | 2020-06-20 11:52 | PDOC ---
PULMONARY PROGRESS NOTES DATE: 06/20/20 TIME: 11:51 Subjective Patient is nonverbal Remains very weak No overnight concerns from nursing Vitals Vital Signs Date Time Temp Pulse Resp B/P (MAP) Pulse Ox O2 Delivery O2 Flow Rate FiO2 06/20/20 07:40 Nasal Cannula 6.0 06/20/20 07:00 97.7 79 20 144/55 (84) 95 97.7 Comments Nonverbal unable to report review of systems General: Alert Lungs: Clear Cardiovascular: S1 Abdomen: Soft Extremities: Other (BLE +2) Skin: Warm Labs Laboratory Tests Test 06/18/20 13:59 06/18/20 17:49 06/18/20 19:38 06/19/20 02:03 Glucose (Fingerstick) 166 mg/dL (70-99) 201 mg/dL (70-99) 198 mg/dL (70-99) 167 mg/dL (70-99) Test 06/19/20 06:21 06/19/20 06:30 06/19/20 12:10 06/19/20 17:58 Glucose (Fingerstick) 153 mg/dL (70-99) 154 mg/dL (70-99) 117 mg/dL (70-99) White Blood Count 17.2 x10^3/uL (4.0-11.0) Red Blood Count 3.53 x10^6/uL (4.30-5.70) Hemoglobin 11.0 g/dL (13.0-17.5) Hematocrit 32.7 % (39.0-53.0) Mean Corpuscular Volume 93 fL (79-100) Mean Corpuscular Hemoglobin 31 pg (25-35) Mean Corpuscular Hemoglobin Concent 34 g/dL (31-37) Red Cell Distribution Width 13.9 % (11.5-14.5) Platelet Count 237 x10^3/uL (140-400) Neutrophils (%) (Auto) 84 % (31-73) Lymphocytes (%) (Auto) 12 % (24-48) Monocytes (%) (Auto) 3 % (0-9) Eosinophils (%) (Auto) 0 % (0-3) Basophils (%) (Auto) 0 % (0-3) Neutrophils # (Auto) 14.4 x10^3/uL (1.8-7.7) Lymphocytes # (Auto) 2.1 x10^3/uL (1.0-4.8) Monocytes # (Auto) 0.5 x10^3/uL (0.0-1.1) Eosinophils # (Auto) 0.0 x10^3/uL (0.0-0.7) Basophils # (Auto) 0.0 x10^3/uL (0.0-0.2) Sodium Level 142 mmol/L (136-145) Potassium Level 3.5 mmol/L (3.5-5.1) Chloride Level 107 mmol/L (98-107) Carbon Dioxide Level 35 mmol/L (21-32) Anion Gap 0 (6-14) Blood Urea Nitrogen 23 mg/dL (8-26) Creatinine 0.4 mg/dL (0.7-1.3) Estimated GFR (Cockcroft-Gault) 212.7 Glucose Level 152 mg/dL (70-99) Calcium Level 8.0 mg/dL (8.5-10.1) Test 06/19/20 21:56 06/19/20 23:34 06/20/20 05:50 Glucose (Fingerstick) 127 mg/dL (70-99) 124 mg/dL (70-99) 123 mg/dL (70-99) Laboratory Tests Test 06/19/20 12:10 06/19/20 17:58 06/19/20 21:56 06/19/20 23:34 Glucose (Fingerstick) 154 mg/dL (70-99) 117 mg/dL (70-99) 127 mg/dL (70-99) 124 mg/dL (70-99) Test 06/20/20 05:50 Glucose (Fingerstick) 123 mg/dL (70-99) Medications Active Scripts Medications Dose Route/Sig Max Daily Dose Days Date Category Dose Instructions Tylenol (Acetaminophen) 325 Mg Tablet 650 Mg PO BID 06/08/20 Reported Senna-Docusate Sodium Tablet (Sennosides/Docusate Sodium) 1 Each Tablet 1 Each PO PRN PRN 06/08/20 Reported Risperdal (Risperidone) 3 Mg Tablet 0.5 Tab PO BID 30 06/08/20 Reported Potassium Chloride (Potassium Chloride) 20 Meq Tablet.er 20 Meq PO TID 06/08/20 Reported Olanzapine 5 Mg Tablet 0.5 Tab PO QHS 06/08/20 Reported Nystatin 15 Gm Cream..g. 15 Gm TP PRN Q8HRS PRN 06/08/20 Reported Novolog Flexpen (Insulin Aspart) 100 Unit/1 Ml Insuln.pen 1 Unit SQ TIDWMEALS 06/08/20 Reported Mirtazapine 7.5 Mg Tablet 1 Tab PO QHS 30 06/08/20 Reported Milk Of Magnesia (Magnesium Hydroxide) 400 Mg/5 Ml Oral.susp 400 Mg PO PRN PRN 06/08/20 Reported Metformin Hcl 1,000 Mg Tablet 1,000 Mg PO BIDWMEALS 06/08/20 Reported Melatonin 3 Mg Tab.rapdis 1 Tab PO QHS 30 06/08/20 Reported Magnesium Oxide 400 Mg Tablet 1 Tab PO DAILY 06/08/20 Reported Acidophilus (Lactobacillus Acidophilus) 1 Each Capsule 1 Cap PO DAILY 14 06/08/20 Reported Ketoconazole 120 Ml Shampoo 1 Melissa TP TWICE WEEKLY 30 06/08/20 Reported with at least 3 days between each shampooing Levemir Flextouch (Insulin Detemir) 100 Unit/1 Ml Insuln.pen 27 Unit SQ QHS 06/08/20 Reported Furosemide 20 Mg Tablet 1 Tab PO DAILY 06/08/20 Reported Fleet Enema (Na Phos,M-B/Na Phos,Di-Ba) 133 Ml Enema 133 Ml RC PRN PRN 06/08/20 Reported Divalproex Sodium Er (Divalproex Sodium) 500 Mg Tab.er.24h 2,000 Mg PO QHS 06/08/20 Reported D3-50 (Cholecalciferol (Vitamin D3)) 50,000 Unit Capsule 1,000 Unit PO DAILY 06/08/20 Reported Dulcolax (Bisacodyl) 10 Mg Supp.rect 10 Mg RC PRN DAILY PRN 06/08/20 Reported Atorvastatin Calcium 20 Mg Tablet 20 Mg PO HS 06/08/20 Reported Comments CXR 06/15 FINDINGS/ IMPRESSION: Consolidative left lung base infiltrate in association with a small to moderate size left-sided pleural effusion is unchanged. Persistent medial right lung base infiltrate or atelectasis is seen which is unchanged. No pneumothorax is seen. The heart size and mediastinum are stable. There've been no interval tube or line changes. Impression . 1. Acute hypoxic respiratory failure secondary to pneumonia ,shock and acute respiratory distress syndrome. 2. Abnormal chest x-ray with bilateral infiltrates suggestive of pneumonia. He could have a gram-negative pneumonia as well. left mucous plug 06/12. s/p Bronch. thick secretions removed 3. Septic shock. Likely caused by COVID-19 pneumonia. Need to rule out other sources of infection. BC positive 4. Acute kidney injury.-- improved 5. Metabolic acidosis secondary to lactic acidosis and sepsis. 6. Coag neg staph in BC/ ID following. Has REFERRAL AGENT shunt 7. Abnormal CXR 8. MRSE bacteremia repeat blood cultures -05/31 Plan . We will continue current support with oxygen supplementation, currently on 6 L nasal cannula Antibiotics per ID--- currently off antibiotics Tested negative for SARS-CoV-2 IV steroids, with taper Follow nephrology recommendation Follow BAL from bronchoscopy so far all cultures negative Physical therapy/Occupational Therapy Social work for discharge planning Continue tube feeding for nutritional support DVT/GI prophylaxis Discussed with NIMO OBREGON MD Jun 20, 2020 11:52
[2020-06-20] MEDS: IV NORMAL SALINE 1000ML BAG 1,000 ML IV SCH (12:38)
--- NOTE | 2020-06-20 14:24 | PDOC ---
PROGRESS NOTES Date of Service: DATE: 06/20/20 TIME: 14:23 Chief Complaint Chief Complaint A/P: Sepsis Acute hypercarbic hypoxic respiratory failure requiring intubation, succesfully extubated on 06/15/2020 Acute metabolic encephalopathy NOS Concern for aspiration pneumonia with chest x-ray showing multifocal infiltrate in the right lower lobe Lactic acidosis Severe protein malnutrition Anxiety with depression dCHF Constipation Diabetes-Type II High Cholesterol Hypertension Schizophrenia BPH Dysphagia PARKINSONS, Hyperkalemia S/p ENVIRONMENTAL INTERN shunt MRSE bacteremia with negative to date repeat cultures. FEN - OGT PPX - heparin FULL CODE Dispo - ICU History of Present Illness History of Present Illness Mr Dubois is a 69-year-old male with past medical history of Anxiety with depression, schizophrenia, dCHF, Constipation, Diabetes-Type II, High Cholesterol, Hypertension, BPH, Dysphagia, PARKINSONS, who presents to the em ergency room in respiratory failure. According to report patient was normal the morning of 06/07. He has been refusing to eat recently according to staff but did eat lunch immediately before they found him in respiratory distress EMS pulse ox on CPAP is 80%. He was intubated due to respiratory failure and poor ABG on BiPAP. 06/08: Febrile to 101.8 F overnight. Intubated, sedated. K peaked at 6.8, started on D5, insulin, steroids. 06/09: Patient is sedated and intubated upon my examination. AC mode tidal volume 550, PEEP 12 and FiO2 90%. Saturations are 100%. 06/10: COVID-19 negative. Blood cultures positive for staph epidermidis. Patient sedated and intubated on AC mode tidal volume 550, PEEP 9 FiO2 down to 60%. Tolerating tube feeds well. 06/11: Afebrile overnight. Sedated intubated AC mode tidal volume 550 PEEP 9 FiO2 70%. Blood pressure dropped on Levophed. 06/12: Episodic hypoxia overnight, bronchoscopy with significant left-sided mucus plugging removed. Tolerating TF well, however glucose has been very elevated. 06/13: Still requiring pressor support. Seen on vent in ICU off sedation. Not awakening at this time. Afebrile 06/14: Afebrile. Seen on vent. On sedation wean. Eyes are opening well. ABG 7.47/30 .. A lot of ventricular ectopy on telemetry this morning. FiO2 30% PEEP 6. 06/15: Patient continues to be mechanically ventilated, ID recommendations great ly appreciated. 06/16: Patient still quite somnolent, he was extubated yesterday, he did not have acute events reported overnight, responds to his name but he is non verbal, does not seem to be in any distress. Discussed with nursing staff. 06/17: No acute events reported overnight, case discussed with nursing staff patient in no acute distress no complaints during my visit, currently still quite debilitated from recent intubation and case discussed with speech therapist, at the present time patient will probably benefit from TPN and hopefully improve his strength and reassess his ability to swallow safely. Currently he is at high risk for aspiration pneumonia 06/18: No acute events reported overnight, case discussed with nursing staff patient in no acute distress no complaints during my visit, still waiting for improvement in his strength subsequently he will be able to transition home. Currently remains hemodynamically stable 06/19: No acute events reported overnight by nursing staff. Patient continues to be pretty much status quo, cultures have been negative from bronchoscopy alveolar lavage, recommendations from ID internal control consultant noted. 06/20: No acute events reported overnight, case discussed with nursing staff patient in no acute distress no complaints during my visit, Vitals Vitals Vital Signs Date Time Temp Pulse Resp B/P (MAP) Pulse Ox O2 Delivery O2 Flow Rate FiO2 06/20/20 11:00 99.1 74 22 143/47 (79) 96 Nasal Cannula 6.0 99.1 Physical Exam Physical Exam GENERAL: Propped up in bed, alert in no distress HEENT: Pupils equal, oral cavity clear. Dobbhoff in place NECK: Supple. No JVD LUNGS: Clear anteriorly HEART: S1, S2 regular ABDOMEN: Obese, soft, no guarding, BS present : Quintero in place + scrotal swelling EXTREMITIES: Generalized edema. No cyanosis. SCDs and heel boots, bilaterally RUE with 1- 2 plus edema SKIN: warm to touch. No signs of generalized rash NEUROLOGIC: Alert, nonverbal RIJ without signs of complications General: No acute distress Heart: Regular rate Lungs: Clear Abdomen: Normal bowel sounds Extremities: No clubbing Labs LABS Laboratory Tests Test 06/19/20 17:58 06/19/20 21:56 06/19/20 23:34 06/20/20 05:50 Glucose (Fingerstick) 117 mg/dL (70-99) 127 mg/dL (70-99) 124 mg/dL (70-99) 123 mg/dL (70-99) Test 06/20/20 12:18 Glucose (Fingerstick) 176 mg/dL (70-99) Assessment and Plan Assessmemt and Plan Problems Medical Problems: (1) Aspiration pneumonia Status: Acute (2) Respiratory failure with hypoxia Status: Acute Comment Review of Relevant I have reviewed the following items veronika (where applicable) has been applied. Labs Laboratory Tests Test 06/18/20 17:49 06/18/20 19:38 06/19/20 02:03 06/19/20 06:21 Glucose (Fingerstick) 201 mg/dL (70-99) 198 mg/dL (70-99) 167 mg/dL (70-99) 153 mg/dL (70-99) Test 06/19/20 06:30 06/19/20 12:10 06/19/20 17:58 06/19/20 21:56 White Blood Count 17.2 x10^3/uL (4.0-11.0) Red Blood Count 3.53 x10^6/uL (4.30-5.70) Hemoglobin 11.0 g/dL (13.0-17.5) Hematocrit 32.7 % (39.0-53.0) Mean Corpuscular Volume 93 fL (79-100) Mean Corpuscular Hemoglobin 31 pg (25-35) Mean Corpuscular Hemoglobin Concent 34 g/dL (31-37) Red Cell Distribution Width 13.9 % (11.5-14.5) Platelet Count 237 x10^3/uL (140-400) Neutrophils (%) (Auto) 84 % (31-73) Lymphocytes (%) (Auto) 12 % (24-48) Monocytes (%) (Auto) 3 % (0-9) Eosinophils (%) (Auto) 0 % (0-3) Basophils (%) (Auto) 0 % (0-3) Neutrophils # (Auto) 14.4 x10^3/uL (1.8-7.7) Lymphocytes # (Auto) 2.1 x10^3/uL (1.0-4.8) Monocytes # (Auto) 0.5 x10^3/uL (0.0-1.1) Eosinophils # (Auto) 0.0 x10^3/uL (0.0-0.7) Basophils # (Auto) 0.0 x10^3/uL (0.0-0.2) Sodium Level 142 mmol/L (136-145) Potassium Level 3.5 mmol/L (3.5-5.1) Chloride Level 107 mmol/L (98-107) Carbon Dioxide Level 35 mmol/L (21-32) Anion Gap 0 (6-14) Blood Urea Nitrogen 23 mg/dL (8-26) Creatinine 0.4 mg/dL (0.7-1.3) Estimated GFR (Cockcroft-Gault) 212.7 Glucose Level 152 mg/dL (70-99) Calcium Level 8.0 mg/dL (8.5-10.1) Glucose (Fingerstick) 154 mg/dL (70-99) 117 mg/dL (70-99) 127 mg/dL (70-99) Test 06/19/20 23:34 06/20/20 05:50 06/20/20 12:18 Glucose (Fingerstick) 124 mg/dL (70-99) 123 mg/dL (70-99) 176 mg/dL (70-99) Laboratory Tests Test 06/19/20 17:58 06/19/20 21:56 06/19/20 23:34 06/20/20 05:50 Glucose (Fingerstick) 117 mg/dL (70-99) 127 mg/dL (70-99) 124 mg/dL (70-99) 123 mg/dL (70-99) Test 06/20/20 12:18 Glucose (Fingerstick) 176 mg/dL (70-99) Microbiology 06/12/20 AFB Specimen Processing Tissue - Final, Resulted 06/12/20 Acid Fast Bacilli Culture, Resulted Pending 06/12/20 Gram Stain - Final, Resulted 06/12/20 Fungal Culture - Preliminary, Resulted 06/12/20 Fungal Culture Result 1 - Preliminary, Resulted 06/10/20 Blood Culture - Final, Complete NO GROWTH AFTER 5 DAYS Medications Current Medications Midazolam HCl 100 mg/Sodium Chloride 100 ml @ 0 mls/hr 1X ONCE IV Last administered on 06/07/20at 15:19; Start 06/07/20 at 15:15; Stop 06/07/20 at 15:16; Status DC Sodium Chloride 1,000 ml @ 1,000 mls/hr 1X ONCE IV Last administered on 06/07/20at 14:50; Start 06/07/20 at 15:15; Stop 06/07/20 at 16:14; Status DC Sodium Chloride 1,000 ml @ 1,000 mls/hr 1X ONCE IV Last administered on 06/07/20at 15:04; Start 06/07/20 at 15:15; Stop 06/07/20 at 16:14; Status DC Vancomycin HCl 1.25 gm/Sodium Chloride 250 ml @ 166.667 mls/hr 1X ONCE IV Last administered on 06/07/20at 15:57; Start 06/07/20 at 16:00; Stop 06/07/20 at 17:29; Status DC Clindamycin Phosphate 50 ml @ 100 mls/hr 1X ONCE IV Last administered on 06/07/20at 15:57; Start 06/07/20 at 15:15; Stop 06/07/20 at 15:44; Status DC Midazolam HCl (Versed) 5 mg 1X ONCE IV Last administered on 06/07/20at 15:15; Start 06/07/20 at 15:30; Stop 06/07/20 at 15:31; Status DC Etomidate (Amidate) 30 mg 1X ONCE IV Last administered on 06/07/20at 14:57; Start 06/07/20 at 15:30; Stop 06/07/20 at 15:31; Status DC Succinylcholine Chloride (Anectine) 200 mg 1X ONCE IV Last administered on 06/07/20at 14:58; Start 06/07/20 at 15:30; Stop 06/07/20 at 15:31; Status DC Fentanyl Citrate (Fentanyl 2ml Vial) 50 mcg PRN Q1HR ONCE IVP Last administered on 06/07/20at 16:30; Start 06/07/20 at 16:30; Stop 06/07/20 at 16:31; Status DC Fentanyl Citrate (Fentanyl 2ml Vial) 100 mcg 1X ONCE IVP Last administered on 06/07/20at 17:07; Start 06/07/20 at 17:15; Stop 06/07/20 at 17:16; Status DC Sennosides (Senna) 17.2 mg PRN BID PRN PO CONSTIPATION; Start 06/07/20 at 18:00 Docusate Sodium (Colace Solution) 100 mg PRN DAILY PRN PO HARD STOOLS; Start 06/07/20 at 21:00 Ondansetron HCl (Zofran) 4 mg PRN Q6HRS PRN IVP NAUSEA/VOMITING; Start 06/07/20 at 18:00 Potassium Chloride (Klor-Con) 40 meq 1X PRN PO PER PROTOCOL; Start 06/07/20 at 18:00; Status UNV Magnesium Oxide (Magnesium Oxide) 400 mg BID PO ; Start 06/07/20 at 21:00; Stop 06/09/20 at 09:01; Status UNV Potassium Chloride/Water 100 ml @ 100 mls/hr Q1H IV ; Start 06/07/20 at 18:00; Stop 06/07/20 at 21:59; Status UNV Magnesium Sulfate 50 ml @ 25 mls/hr Q24H IV ; Start 06/07/20 at 18:00; Stop 06/09/20 at 19:59; Status UNV Potassium Chloride/Water 100 ml @ 100 mls/hr Q1H PRN IV low k; Start 06/07/20 at 18:00; Status UNV Dextrose (Dextrose 50%-Water Syringe) 12.5 gm PRN Q15MIN PRN IV SEE COMMENTS; Start 06/07/20 at 18:00; Stop 06/08/20 at 22:09; Status DC Vancomycin HCl 1 gm/Dextrose 250 ml @ 250 mls/hr 1X ONCE IV ; Start 06/07/20 at 18:00; Stop 06/07/20 at 18:59; Status UNV Enoxaparin Sodium (Lovenox 40mg Syringe) 40 mg Q24H SQ Last administered on 06/19/20at 17:59; Start 06/07/20 at 19:00 Pantoprazole Sodium (PROTONIX VIAL for IV PUSH) 40 mg DAILYAC IVP Last administered on 06/18/20at 07:08; Start 06/07/20 at 19:00; Stop 06/18/20 at 14:37; Status DC Ascorbic Acid (Vitamin C) 500 mg DAILY PO Last administered on 06/20/20at 09:02; Start 06/08/20 at 09:00 Thiamine HCl 100 mg/Dextrose 51 ml @ 102 mls/hr DAILY IV Last administered on 06/16/20at 08:56; Start 06/08/20 at 09:00; Stop 06/17/20 at 08:20; Status DC Info (Icu Electrolyte Protocol) 1 ea CONT PRN PRN MC PER PROTOCOL; Start 06/07/20 at 18:00; Stop 06/17/20 at 08:15; Status DC Vancomycin HCl 750 mg/Sodium Chloride 250 ml @ 250 mls/hr 1X ONCE IV Last administered on 06/07/20at 19:18; Start 06/07/20 at 18:00; Stop 06/07/20 at 18:59; Status DC Vancomycin HCl (Vanco Per Pharmacy) 1 each PRN DAILY PRN MC SEE COMMENTS Last administered on 06/07/20at 19:49; Start 06/07/20 at 18:00; Stop 06/07/20 at 20:36; Status DC Fentanyl Citrate (Fentanyl 2ml Vial) 50 mcg PRN Q1HR PRN IVP PAIN Last administered on 06/07/20at 18:02; Start 06/07/20 at 18:00; Stop 06/08/20 at 16:07; Status DC Fentanyl Citrate 30 ml @ 0 mls/hr CONT PRN IV SEE PROTOCOL Last administered on 06/13/20at 00:13; Start 06/07/20 at 18:30; Stop 06/17/20 at 08:18; Status DC Fentanyl Citrate (Fentanyl 2ml Vial) 25 mcg PRN Q1HR PRN IV SEE COMMENTS; Start 06/07/20 at 18:30 Fentanyl Citrate (Fentanyl 2ml Vial) 50 mcg PRN Q1HR PRN IV SEE COMMENTS Last administered on 06/14/20at 18:17; Start 06/07/20 at 18:30 Midazolam HCl 100 ml @ 0 mls/hr CONT PRN IV SEE PROTOCOL Last administered on 06/12/20at 21:36; Start 06/07/20 at 18:30; Stop 06/17/20 at 08:18; Status DC Vecuronium [place] (Norcuron Bolus) 6 mg 1X ONCE IV Last administered on 06/07/20at 19:18; Start 06/07/20 at 18:30; Stop 06/07/20 at 18:31; Status DC Norepinephrine Bitartrate 8 mg/ Dextrose 258 ml @ 23.027 mls/ hr CONT PRN IV PER PROTOCOL Last administered on 06/07/20at 19:36; Start 06/07/20 at 19:15; Stop 06/07/20 at 20:05; Status DC Acetaminophen (Tylenol Supp) 650 mg PRN Q6HRS PRN AR MILD PAIN / TEMP > 100.3'F; Start 06/07/20 at 19:15 Vancomycin HCl (Vanco Per Pharmacy) 1 each PRN DAILY PRN MC SEE COMMENTS; Start 06/07/20 at 19:15; Status UNV Metronidazole 100 ml @ 100 mls/hr Q12HR IV ; Start 06/07/20 at 21:00; Stop 06/07/20 at 20:36; Status DC Amiodarone HCl 450 mg/Dextrose 259 ml @ 0 mls/hr 1X ONCE IV ; Start 06/07/20 at 19:15; Stop 06/07/20 at 19:16; Status Cancel Meropenem 1 gm/ Sodium Chloride 100 ml @ 200 mls/hr Q8HRS IV Last administered on 06/07/20at 22:30; Start 06/07/20 at 22:00; Stop 06/08/20 at 06:09; Status DC Methylprednisolone Sodium Succinate (SOLU-Medrol 125MG VIAL) 125 mg 1X ONCE IV Last administered on 06/07/20at 20:14; Start 06/07/20 at 19:45; Stop 06/07/20 at 19:46; Status DC Methylprednisolone Sodium Succinate (SOLU-Medrol 40MG VIAL) 40 mg Q8HRS IV Last administered on 06/12/20at 06:24; Start 06/08/20 at 06:00; Stop 06/12/20 at 09:12; Status DC Vancomycin HCl 1.75 gm/Sodium Chloride 500 ml @ 250 mls/hr Q12H IV ; Start 06/08/20 at 08:00; Stop 06/07/20 at 20:36; Status DC Vancomycin HCl (Vancomycin Trough Level) 1 each 1X ONCE MC ; Start 06/09/20 at 07:30; Stop 06/07/20 at 20:38; Status DC Vasopressin 20 unit/Dextrose 101 ml @ 12 mls/hr CONT PRN IV SEE I/O RECORD; Start 06/07/20 at 20:00; Stop 06/17/20 at 08:18; Status DC Norepinephrine Bitartrate 16 mg/ Dextrose 266 ml @ 11.87 mls/ hr CONT PRN IV PER PROTOCOL Last administered on 06/07/20at 22:09; Start 06/07/20 at 20:00; Sto p 06/07/20 at 23:00; Status DC Sodium Chloride 1,000 ml @ 1,000 mls/hr 1X ONCE IV Last administered on 06/07/20at 20:16; Start 06/07/20 at 20:15; Stop 06/07/20 at 21:14; Status DC Norepinephrine Bitartrate 32 mg/ Dextrose 250 ml @ 5.578 mls/ hr CONT PRN IV SEE I/O RECORD Last administered on 06/12/20at 02:14; Start 06/07/20 at 22:30; Stop 06/17/20 at 08:18; Status DC Sodium Chloride 1,000 ml @ 100 mls/hr Q10H IV Last administered on 06/08/20at 09:44; Start 06/08/20 at 00:00; Stop 06/08/20 at 18:42; Status DC Meropenem 1 gm/ Sodium Chloride 100 ml @ 200 mls/hr Q12HR IV Last administered on 06/18/20at 08:26; Start 06/08/20 at 09:00; Stop 06/18/20 at 13:53; Status DC Sodium Bicarbonate (Sodium Bicarb Adult 8.4% Syr) 50 meq 1X ONCE IV Last administered on 06/08/20at 10:42; Start 06/08/20 at 09:45; Stop 06/08/20 at 09:46; Status DC Multivitamins/ Minerals Therapeutic (Centrum Multivit-Mineral Liq) 5 ml DAILY PEG Last administered on 06/20/20at 09:02; Start 06/08/20 at 10:00 Sodium Chloride 1,000 ml @ 1,000 mls/hr 1X ONCE IV Last administered on 06/08/20at 12:11; Start 06/08/20 at 11:30; Stop 06/08/20 at 12:29; Status DC Vancomycin HCl (Vanco Per Pharmacy) 1 each PRN DAILY PRN MC SEE COMMENTS Last administered on 06/17/20at 08:27; Start 06/08/20 at 12:30; Stop 06/18/20 at 13:52; Status DC Vancomycin HCl 1.75 gm/Sodium Chloride 500 ml @ 250 mls/hr Q24H IV Last administered on 06/08/20at 19:49; Start 06/08/20 at 19:00; Stop 06/09/20 at 19:35; Status DC Vancomycin HCl (Vancomycin Trough Level) 1 each 1X ONCE MC Last administered on 06/09/20at 18:30; Start 06/09/20 at 18:30; Stop 06/09/20 at 18:31; Status DC Dextrose/Sodium Chloride 1,000 ml @ 100 mls/hr Q10H IV Last administered on 06/10/20at 23:44; Start 06/08/20 at 15:30; Stop 06/11/20 at 11:41; Status DC Dextrose (Dextrose 50%-Water Syringe) 25 gm 1X ONCE IV Last administered on 06/08/20at 16:34; Start 06/08/20 at 15:30; Stop 06/08/20 at 15:37; Status DC Insulin Human Regular (HumuLIN R VIAL) 10 unit 1X ONCE IV Last administered on 06/08/20at 16:37; Start 06/08/20 at 15:30; Stop 06/08/20 at 15:37; Status DC Calcium Gluconate (Calcium Gluconate) 1,000 mg 1X ONCE IVP Last administered on 06/08/20at 16:38; Start 06/08/20 at 15:30; Stop 06/08/20 at 15:37; Status DC Insulin Human Lispro (HumaLOG) 0-9 UNITS Q4HRS SQ Last administered on 06/09/20at 03:53; Start 06/09/20 at 00:00; Stop 06/09/20 at 07:30; Status DC Dextrose (Dextrose 50%-Water Syringe) 12.5 gm PRN Q15MIN PRN IV SEE COMMENTS; Start 06/08/20 at 22:15 Insulin Human Lispro (HumaLOG) 0-9 UNITS Q12HR SQ ; Start 06/09/20 at 12:00; Stop 06/09/20 at 08:04; Status DC Insulin Human Lispro (HumaLOG) 0-9 UNITS Q6HRS SQ Last administered on 06/11/20at 17:58; Start 06/09/20 at 08:15; Stop 06/12/20 at 00:25; Status DC Bisacodyl (Dulcolax Supp) 10 mg PRN DAILY PRN RC CONSTIPATION; Start 06/09/20 at 08:30 Mirtazapine (Remeron) 7.5 mg QHS PO Last administered on 06/19/20at 21:46; Start 06/09/20 at 21:00 Olanzapine (ZyPREXA) 2.5 mg QHS PO Last administered on 06/19/20at 21:46; Start 06/09/20 at 21:00 Insulin Glargine (Lantus Syringe) 27 unit QHS SQ Last administered on 06/14/20at 20:56; Start 06/09/20 at 21:00; Stop 06/15/20 at 08:11; Status DC Valproic Acid (Depakene) 250 mg [id number] PEG Last administered on 06/20/20at 09:01; Start 06/09/20 at 09:00 Insulin Glargine (Lantus Syringe) 10 unit 1X SQ ; Start 06/09/20 at 08:30; Stop 06/09/20 at 08:30; Status DC Insulin Glargine (Lantus Syringe) 10 unit 1X ONCE SQ Last administered on 06/09/20at 08:45; Start 06/09/20 at 08:45; Stop 06/09/20 at 08:46; Status DC Vancomycin HCl 1.75 gm/Sodium Chloride 500 ml @ 250 mls/hr Q18H IV Last administered on 06/18/20at 02:45; Start 06/09/20 at 20:00; Stop 06/18/20 at 13:52; Status DC Vancomycin HCl (Vancomycin Trough Level) 1 each 1X ONCE MC ; Start 06/11/20 at 07:30; Stop 06/11/20 at 07:31; Status DC Insulin Human Lispro (HumaLOG) 15 units 1X ONCE SQ Last administered on 06/10/20at 10:35; Start 06/10/20 at 10:30; Stop 06/10/20 at 10:33; Status DC Insulin Human Lispro (HumaLOG) 21 units 1X ONCE SQ Last administered on 06/10/20at 14:05; Start 06/10/20 at 13:00; Stop 06/10/20 at 13:01; Status DC Sodium Chloride 1,000 ml @ 0 mls/hr Q0M IV ; Start 06/11/20 at 10:45; Status Cancel Sodium Chloride 1,000 ml @ 20 mls/hr Q24H IV Last administered on 06/20/20at 12:38; Start 06/11/20 at 11:45 Insulin Human Lispro (HumaLOG) 21 units 1X ONCE SQ Last administered on 06/11/20at 11:50; Start 06/11/20 at 11:45; Stop 06/11/20 at 11:48; Status DC Insulin Human Lispro (HumaLOG) 0-9 UNITS Q6HRS SQ Last administered on 06/18/20at 18:12; Start 06/12/20 at 06:00 Insulin Human Lispro (HumaLOG) 12 units 1X ONCE SQ Last administered on 06/12/20at 00:47; Start 06/12/20 at 00:30; Stop 06/12/20 at 00:31; Status DC Lidocaine HCl (Lidocaine 2% Viscous) 100 ml PRN 1X PRN MM FOR PROCEDURE Last administered on 06/12/20at 09:25; Start 06/12/20 at 07:15; Stop 06/13/20 at 07:14; Status DC Lidocaine HCl (Lidocaine 1% 20ml Vial) 20 ml PRN 1X PRN INJ SEE COMMENTS Last administered on 06/12/20at 09:26; Start 06/12/20 at 07:15; Stop 06/13/20 at 07:14; Status DC Epinephrine HCl (Adrenalin) 1 mg PRN 1X PRN INJ SEE COMMENTS; Start 06/12/20 at 07:15; Stop 06/13/20 at 07:14; Status DC Insulin Human Lispro (HumaLOG) 9 units Q6HRS SQ Last administered on 06/15/20at 05:43; Start 06/12/20 at 08:00; Stop 06/15/20 at 08:11; Status DC Epinephrine HCl (Adrenalin) 1 mg STK-MED ONCE .ROUTE ; Start 06/12/20 at 08:19; Stop 06/12/20 at 08:20; Status DC Lidocaine HCl (Lidocaine 1% 20ml Vial) 20 ml STK-MED ONCE .ROUTE ; Start 06/12/20 at 08:19; Stop 06/12/20 at 08:20; Status DC Lidocaine HCl (Lidocaine 2% Viscous) 100 ml STK-MED ONCE .ROUTE ; Start 06/12/20 at 08:20; Stop 06/12/20 at 08:20; Status DC Methylprednisolone Sodium Succinate (SOLU-Medrol 40MG VIAL) 40 mg BID IV Last administered on 06/18/20at 08:27; Start 06/12/20 at 21:00; Stop 06/18/20 at 15:59; Status DC Propofol 100 ml @ 2.049 mls/ hr CONT PRN IV SEE I/O RECORD Last administered on 06/15/20at 05:29; Start 06/13/20 at 17:00; Stop 06/16/20 at 12:40; Status DC Furosemide (Lasix) 40 mg 1X ONCE IVP Last administered on 06/14/20at 15:54; Start 06/14/20 at 10:15; Stop 06/14/20 at 10:22; Status DC Magnesium Sulfate 100 ml @ 50 mls/hr PRN DAILY PRN IV SEE COMMENTS; Start 06/15/20 at 09:00 Insulin Glargine (Lantus Syringe) 32 unit QHS SQ Last administered on 06/19/20at 22:00; Start 06/15/20 at 21:00 Insulin Human Lispro (HumaLOG) 11 units Q6HRS SQ Last administered on 06/20/20at 12:39; Start 06/15/20 at 12:00 Info (Non-Icu Electrolyte Protocol) 1 ea CONT PRN PRN MC SEE COMMENTS; Start 06/17/20 at 08:30 Thiamine Mononitrate (Vitamin B-1) 100 mg DAILY PO Last administered on 06/20/20at 09:01; Start 06/17/20 at 09:00 Vancomycin HCl (Vancomycin Trough Level) 1 each 1X ONCE MC ; Start 06/18/20 at 19:30; Stop 06/18/20 at 13:54; Status DC Lansoprazole (Prevacid) 30 mg DAILY FT Last administered on 06/20/20at 09:02; Start 06/19/20 at 09:00 Methylprednisolone Sodium Succinate (SOLU-Medrol 40MG VIAL) 40 mg DAILY IV Last administered on 06/20/20at 09:02; Start 06/19/20 at 09:00 Famotidine (Pepcid Vial) 20 mg BID IVP ; Start 06/20/20 at 21:00 Active Scripts Active Solu-Medrol 40 Mg Vial (Methylprednisolone Sod Succ/Pf) 40 Mg/1 Ml Vial 40 Mg IV DAILY 5 Days Reported Tylenol (Acetaminophen) 325 Mg Tablet 650 Mg PO BID Senna-Docusate Sodium Tablet (Sennosides/Docusate Sodium) 1 Each Tablet 1 Each PO PRN PRN Risperdal (Risperidone) 3 Mg Tablet 0.5 Tab PO BID 30 Days Potassium Chloride (Potassium Chloride) 20 Meq Tablet.er 20 Meq PO TID Olanzapine 5 Mg Tablet 0.5 Tab PO QHS Nystatin 15 Gm Cream..g. 15 Gm TP PRN Q8HRS PRN Novolog Flexpen (Insulin Aspart) 100 Unit/1 Ml Insuln.pen 1 Unit SQ TIDWMEALS Mirtazapine 7.5 Mg Tablet 1 Tab PO QHS 30 Days Milk Of Magnesia (Magnesium Hydroxide) 400 Mg/5 Ml Oral.susp 400 Mg PO PRN PRN Metformin Hcl 1,000 Mg Tablet 1,000 Mg PO BIDWMEALS Melatonin 3 Mg Tab.rapdis 1 Tab PO QHS 30 Days Magnesium Oxide 400 Mg Tablet 1 Tab PO DAILY Acidophilus (Lactobacillus Acidophilus) 1 Each Capsule 1 Cap PO DAILY 14 Days Ketoconazole 120 Ml Shampoo 1 Melissa TP TWICE WEEKLY 30 Days with at least 3 days between each shampooing Levemir Flextouch (Insulin Detemir) 100 Unit/1 Ml Insuln.pen 27 Unit SQ QHS Furosemide 20 Mg Tablet 1 Tab PO DAILY Fleet Enema (Na Phos,M-B/Na Phos,Di-Ba) 133 Ml Enema 133 Ml RC PRN PRN Divalproex Sodium Er (Divalproex Sodium) 500 Mg Tab.er.24h 2,000 Mg PO QHS D3-50 (Cholecalciferol (Vitamin D3)) 50,000 Unit Capsule 1,000 Unit PO DAILY Dulcolax (Bisacodyl) 10 Mg Supp.rect 10 Mg RC PRN DAILY PRN Atorvastatin Calcium 20 Mg Tablet 20 Mg PO HS Vitals/I & O Vital Sign - Last 24 Hours 06/19/20 06/19/20 06/19/20 06/19/20 15:00 19:00 20:00 22:44 Temp 98.9 98.9 98.8 98.9 98.9 98.8 Pulse 81 75 67 Resp 20 20 23 B/P (MAP) 122/65 (84) 128/50 (76) 140/59 (86) Pulse Ox 92 93 96 O2 Delivery Nasal Cannula Nasal Cannula Nasal Cannula Nasal Cannula O2 Flow Rate 6.0 6.0 6.0 6.0 06/20/20 06/20/20 06/20/20 06/20/20 02:51 07:00 07:40 11:00 Temp 98.8 97.7 99.1 98.8 97.7 99.1 Pulse 64 79 74 Resp 22 20 22 B/P (MAP) 116/50 (72) 144/55 (84) 143/47 (79) Pulse Ox 96 95 96 O2 Delivery Nasal Cannula Nasal Cannula Nasal Cannula Nasal Cannula O2 Flow Rate 6.0 6.0 6.0 6.0 Intake and Output 06/19/20 06/19/20 06/20/20 15:00 23:00 07:00 Intake Total 500 ml 300 ml 1470 ml Output Total 1 ml 1350 ml 1500 ml Balance 499 ml -1050 ml -30 ml Justicifation of Admission Dx: Justifications for Admission: Justification of Admission Dx: Yes SMITA STAPLES MD Jun 20, 2020 14:24
[2020-06-20 15:00] VITALS: BP 135/47
[2020-06-20] MEDS: ENOXAPARIN 40 MG/0.4 ML SYRINGE. SQ SCH (18:18)
[2020-06-20 19:20] VITALS: BP 127/46
[2020-06-20] MEDS: FAMOTIDINE 20 MG/2 ML VIAL IVP SCH (23:10)
[2020-06-20] MEDS: MIRTAZAPINE 7.5 MG TABLET. PO SCH (23:10)
[2020-06-20] MEDS: OLANZapine 5 MG TABLET PO SCH (23:11)
[2020-06-20] MEDS: INSULIN GLARGINE SYRINGE. SQ SCH (23:24)
[2020-06-20 23:41] VITALS: BP 133/60
[2020-06-21 05:05] VITALS: BP 154/84
[2020-06-21] MEDS: INSULIN LISPRO 300 UNITS/3 ML VIAL. SQ SCH ×8 (06:00→18:00)
--- NOTE | 2020-06-21 06:19 | NUR ---
Dobbhoff feeding tube found out of patient's nose and on floor beside patient's bed this morning. Reported to DR Da Silva. OK to replace Scarlet.
[2020-06-21 07:00] VITALS: BP 128/91
--- NOTE | 2020-06-21 07:12 | NUR ---
Placed Dobbhoff in left nostril at 65cm and placed securing device to nose and tube. Called for portable chest x-ray to check for placement. Patient tolerated procedure well.
--- NOTE | 2020-06-21 08:08 | RAD ---
EXAM: AP View of the chest DATE: 06/21/2020 7:32 AM INDICATION: Reason: Dobbhoff placement / Spl. Instructions: / History: COMPARISON: No Prior FINDINGS/ IMPRESSION: Right IJ vas or catheter tip projects over the right atrium. Dobbhoff tube projects over the expected body of the stomach. Bilateral parenchymal opacities and left pleural effusion are essentially unchanged. No pneumothorax. Electronically signed by: Pedro August MD (06/21/2020 8:05 AM) [id number]
[2020-06-21] MEDS: LANSOPRAZOLE 30 MG TAB.RAP.DR FT SCH (09:28)
[2020-06-21] MEDS: ASCORBIC ACID 500 MG TABLET PO SCH (09:28)
[2020-06-21] MEDS: THIAMINE 100 MG TABLET. PO SCH (09:28)
[2020-06-21] MEDS: MULTIVITAMINS,THERAPEUTIC 5 ML ORAL LIQUID. PEG SCH (09:28)
[2020-06-21] MEDS: FAMOTIDINE 20 MG/2 ML VIAL IVP SCH ×2 (09:28→22:21)
[2020-06-21] MEDS: methylPREDNISolone SOD SUCC PF 40 MG/ML VIAL. IV SCH (09:28)
[2020-06-21] MEDS: VALPROIC ACID (AS SODIUM SALT) 250 MG/5 ML SOLUTION. PEG SCH ×3 (09:29→22:17)
[2020-06-21 11:00] VITALS: BP 127/76
--- NOTE | 2020-06-21 11:10 | PDOC ---
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 FEN - OGT PPX - heparin FULL CODE Dispo - ICU History of Present Illness History of Present Illness Mr Dubois is a 69-year-old male with past medical history of Anxiety with depression, schizophrenia, dCHF, Constipation, Diabetes-Type II, High Cholesterol, Hypertension, BPH, Dysphagia, PARKINSONS, who presents to the em ergency room in respiratory failure. According to report patient was normal the morning of 06/07. He has been refusing to eat recently according to staff but did eat lunch immediately before they found him in respiratory distress EMS pulse ox on CPAP is 80%. He was intubated due to respiratory failure and poor ABG on BiPAP. 06/08: Febrile to 101.8 F overnight. Intubated, sedated. K peaked at 6.8, started on D5, insulin, steroids. 06/09: Patient is sedated and intubated upon my examination. AC mode tidal volume 550, PEEP 12 and FiO2 90%. Saturations are 100%. 06/10: COVID-19 negative. Blood cultures positive for staph epidermidis. Patient sedated and intubated on AC mode tidal volume 550, PEEP 9 FiO2 down to 60%. Tolerating tube feeds well. 06/11: Afebrile overnight. Sedated intubated AC mode tidal volume 550 PEEP 9 FiO2 70%. Blood pressure dropped on Levophed. 06/12: Episodic hypoxia overnight, bronchoscopy with significant left-sided mucus plugging removed. Tolerating TF well, however glucose has been very elevated. 06/13: Still requiring pressor support. Seen on vent in ICU off sedation. Not awakening at this time. Afebrile 06/14: Afebrile. Seen on vent. On sedation wean. Eyes are opening well. ABG 7.47/30 .. A lot of ventricular ectopy on telemetry this morning. FiO2 30% PEEP 6. 06/15: Patient continues to be mechanically ventilated, ID recommendations great ly appreciated. 06/16: Patient still quite somnolent, he was extubated yesterday, he did not have acute events reported overnight, responds to his name but he is non verbal, does not seem to be in any distress. Discussed with nursing staff. 06/17: No acute events reported overnight, case discussed with nursing staff patient in no acute distress no complaints during my visit, currently still quite debilitated from recent intubation and case discussed with speech therapist, at the present time patient will probably benefit from TPN and hopefully improve his strength and reassess his ability to swallow safely. Currently he is at high risk for aspiration pneumonia 06/18: No acute events reported overnight, case discussed with nursing staff patient in no acute distress no complaints during my visit, still waiting for improvement in his strength subsequently he will be able to transition home. Currently remains hemodynamically stable 06/19: No acute events reported overnight by nursing staff. Patient continues to be pretty much status quo, cultures have been negative from bronchoscopy alveolar lavage, recommendations from ID digital marketing consultant noted. 06/20: No acute events reported overnight, case discussed with nursing staff patient in no acute distress no complaints during my visit, 06/21: No acute events reported overnight, case discussed with nursing staff patient in no acute distress no complaints during my visit, awaiting placement Vitals Vitals Vital Signs Date Time Temp Pulse Resp B/P (MAP) Pulse Ox O2 Delivery O2 Flow Rate FiO2 06/21/20 07:40 Nasal Cannula 6.0 06/21/20 07:00 98.4 68 22 128/91 (103) 95 98.4 Physical Exam Physical Exam GENERAL: Propped up in bed, alert in no distress HEENT: Pupils equal, oral cavity clear. Dobbhoff in place NECK: Supple. No JVD LUNGS: Clear anteriorly HEART: S1, S2 regular ABDOMEN: Obese, soft, no guarding, BS present : Quintero in place + scrotal swelling EXTREMITIES: Generalized edema. No cyanosis. SCDs and heel boots, bilaterally RUE with 1- 2 plus edema SKIN: warm to touch. No signs of generalized rash NEUROLOGIC: Alert, nonverbal RIJ without signs of complications General: No acute distress Heart: Regular rate Lungs: Clear Abdomen: Normal bowel sounds Extremities: No clubbing Labs LABS Laboratory Tests Test 06/20/20 12:18 06/21/20 05:57 Glucose (Fingerstick) 176 mg/dL (70-99) 64 mg/dL (70-99) Assessment and Plan Assessmemt and Plan Problems Medical Problems: (1) Aspiration pneumonia Status: Acute (2) Respiratory failure with hypoxia Status: Acute Comment Review of Relevant I have reviewed the following items veronika (where applicable) has been applied. Labs Laboratory Tests Test 06/19/20 12:10 06/19/20 17:58 06/19/20 21:56 06/19/20 23:34 Glucose (Fingerstick) 154 mg/dL (70-99) 117 mg/dL (70-99) 127 mg/dL (70-99) 124 mg/dL (70-99) Test 06/20/20 05:50 06/20/20 12:18 06/21/20 05:57 Glucose (Fingerstick) 123 mg/dL (70-99) 176 mg/dL (70-99) 64 mg/dL (70-99) Laboratory Tests Test 06/20/20 12:18 06/21/20 05:57 Glucose (Fingerstick) 176 mg/dL (70-99) 64 mg/dL (70-99) Microbiology 06/12/20 AFB Specimen Processing Tissue - Final, Resulted 06/12/20 Acid Fast Bacilli Culture, Resulted Pending 06/12/20 Gram Stain - Final, Resulted 06/12/20 Fungal Culture - Preliminary, Resulted 06/12/20 Fungal Culture Result 1 - Preliminary, Resulted 06/10/20 Blood Culture - Final, Complete NO GROWTH AFTER 5 DAYS Medications Current Medications Midazolam HCl 100 mg/Sodium Chloride 100 ml @ 0 mls/hr 1X ONCE IV Last administered on 06/07/20at 15:19; Start 06/07/20 at 15:15; Stop 06/07/20 at 15:16; Status DC Sodium Chloride 1,000 ml @ 1,000 mls/hr 1X ONCE IV Last administered on 06/07/20at 14:50; Start 06/07/20 at 15:15; Stop 06/07/20 at 16:14; Status DC Sodium Chloride 1,000 ml @ 1,000 mls/hr 1X ONCE IV Last administered on 06/07/20at 15:04; Start 06/07/20 at 15:15; Stop 06/07/20 at 16:14; Status DC Vancomycin HCl 1.25 gm/Sodium Chloride 250 ml @ 166.667 mls/hr 1X ONCE IV Last administered on 06/07/20at 15:57; Start 06/07/20 at 16:00; Stop 06/07/20 at 17:29; Status DC Clindamycin Phosphate 50 ml @ 100 mls/hr 1X ONCE IV Last administered on 06/07/20at 15:57; Start 06/07/20 at 15:15; Stop 06/07/20 at 15:44; Status DC Midazolam HCl (Versed) 5 mg 1X ONCE IV Last administered on 06/07/20at 15:15; Start 06/07/20 at 15:30; Stop 06/07/20 at 15:31; Status DC Etomidate (Amidate) 30 mg 1X ONCE IV Last administered on 06/07/20at 14:57; Start 06/07/20 at 15:30; Stop 06/07/20 at 15:31; Status DC Succinylcholine Chloride (Anectine) 200 mg 1X ONCE IV Last administered on 06/07/20at 14:58; Start 06/07/20 at 15:30; Stop 06/07/20 at 15:31; Status DC Fentanyl Citrate (Fentanyl 2ml Vial) 50 mcg PRN Q1HR ONCE IVP Last administered on 06/07/20at 16:30; Start 06/07/20 at 16:30; Stop 06/07/20 at 16:31; Status DC Fentanyl Citrate (Fentanyl 2ml Vial) 100 mcg 1X ONCE IVP Last administered on 06/07/20at 17:07; Start 06/07/20 at 17:15; Stop 06/07/20 at 17:16; Status DC Sennosides (Senna) 17.2 mg PRN BID PRN PO CONSTIPATION; Start 06/07/20 at 18:00 Docusate Sodium (Colace Solution) 100 mg PRN DAILY PRN PO HARD STOOLS; Start 06/07/20 at 21:00 Ondansetron HCl (Zofran) 4 mg PRN Q6HRS PRN IVP NAUSEA/VOMITING; Start 06/07/20 at 18:00 Potassium Chloride (Klor-Con) 40 meq 1X PRN PO PER PROTOCOL; Start 06/07/20 at 18:00; Status UNV Magnesium Oxide (Magnesium Oxide) 400 mg BID PO ; Start 06/07/20 at 21:00; Stop 06/09/20 at 09:01; Status UNV Potassium Chloride/Water 100 ml @ 100 mls/hr Q1H IV ; Start 06/07/20 at 18:00; Stop 06/07/20 at 21:59; Status UNV Magnesium Sulfate 50 ml @ 25 mls/hr Q24H IV ; Start 06/07/20 at 18:00; Stop 06/09/20 at 19:59; Status UNV Potassium Chloride/Water 100 ml @ 100 mls/hr Q1H PRN IV low k; Start 06/07/20 at 18:00; Status UNV Dextrose (Dextrose 50%-Water Syringe) 12.5 gm PRN Q15MIN PRN IV SEE COMMENTS; Start 06/07/20 at 18:00; Stop 06/08/20 at 22:09; Status DC Vancomycin HCl 1 gm/Dextrose 250 ml @ 250 mls/hr 1X ONCE IV ; Start 06/07/20 at 18:00; Stop 06/07/20 at 18:59; Status UNV Enoxaparin Sodium (Lovenox 40mg Syringe) 40 mg Q24H SQ Last administered on 06/20/20at 18:18; Start 06/07/20 at 19:00 Pantoprazole Sodium (PROTONIX VIAL for IV PUSH) 40 mg DAILYAC IVP Last administered on 06/18/20at 07:08; Start 06/07/20 at 19:00; Stop 06/18/20 at 14:37; Status DC Ascorbic Acid (Vitamin C) 500 mg DAILY PO Last administered on 06/21/20at 09:28; Start 06/08/20 at 09:00 Thiamine HCl 100 mg/Dextrose 51 ml @ 102 mls/hr DAILY IV Last administered on 06/16/20at 08:56; Start 06/08/20 at 09:00; Stop 06/17/20 at 08:20; Status DC Info (Icu Electrolyte Protocol) 1 ea CONT PRN PRN MC PER PROTOCOL; Start 06/07/20 at 18:00; Stop 06/17/20 at 08:15; Status DC Vancomycin HCl 750 mg/Sodium Chloride 250 ml @ 250 mls/hr 1X ONCE IV Last administered on 06/07/20at 19:18; Start 06/07/20 at 18:00; Stop 06/07/20 at 18:59; Status DC Vancomycin HCl (Vanco Per Pharmacy) 1 each PRN DAILY PRN MC SEE COMMENTS Last administered on 06/07/20at 19:49; Start 06/07/20 at 18:00; Stop 06/07/20 at 20:36; Status DC Fentanyl Citrate (Fentanyl 2ml Vial) 50 mcg PRN Q1HR PRN IVP PAIN Last administered on 06/07/20at 18:02; Start 06/07/20 at 18:00; Stop 06/08/20 at 16:07; Status DC Fentanyl Citrate 30 ml @ 0 mls/hr CONT PRN IV SEE PROTOCOL Last administered on 06/13/20at 00:13; Start 06/07/20 at 18:30; Stop 06/17/20 at 08:18; Status DC Fentanyl Citrate (Fentanyl 2ml Vial) 25 mcg PRN Q1HR PRN IV SEE COMMENTS; Start 06/07/20 at 18:30 Fentanyl Citrate (Fentanyl 2ml Vial) 50 mcg PRN Q1HR PRN IV SEE COMMENTS Last administered on 06/14/20at 18:17; Start 06/07/20 at 18:30 Midazolam HCl 100 ml @ 0 mls/hr CONT PRN IV SEE PROTOCOL Last administered on 06/12/20at 21:36; Start 06/07/20 at 18:30; Stop 06/17/20 at 08:18; Status DC Vecuronium Knox (Norcuron Bolus) 6 mg 1X ONCE IV Last administered on 06/07/20at 19:18; Start 06/07/20 at 18:30; Stop 06/07/20 at 18:31; Status DC Norepinephrine Bitartrate 8 mg/ Dextrose 258 ml @ 23.027 mls/ hr CONT PRN IV PER PROTOCOL Last administered on 06/07/20at 19:36; Start 06/07/20 at 19:15; Stop 06/07/20 at 20:05; Status DC Acetaminophen (Tylenol Supp) 650 mg PRN Q6HRS PRN [place] MILD PAIN / TEMP > 100.3'F; Start 06/07/20 at 19:15 Vancomycin HCl (Vanco Per Pharmacy) 1 each PRN DAILY PRN MC SEE COMMENTS; Start 06/07/20 at 19:15; Status UNV Metronidazole 100 ml @ 100 mls/hr Q12HR IV ; Start 06/07/20 at 21:00; Stop 06/07/20 at 20:36; Status DC Amiodarone HCl 450 mg/Dextrose 259 ml @ 0 mls/hr 1X ONCE IV ; Start 06/07/20 at 19:15; Stop 06/07/20 at 19:16; Status Cancel Meropenem 1 gm/ Sodium Chloride 100 ml @ 200 mls/hr Q8HRS IV Last administered on 06/07/20at 22:30; Start 06/07/20 at 22:00; Stop 06/08/20 at 06:09; Status DC Methylprednisolone Sodium Succinate (SOLU-Medrol 125MG VIAL) 125 mg 1X ONCE IV Last administered on 06/07/20at 20:14; Start 06/07/20 at 19:45; Stop 06/07/20 at 19:46; Status DC Methylprednisolone Sodium Succinate (SOLU-Medrol 40MG VIAL) 40 mg Q8HRS IV Last administered on 06/12/20at 06:24; Start 06/08/20 at 06:00; Stop 06/12/20 at 09:12; Status DC Vancomycin HCl 1.75 gm/Sodium Chloride 500 ml @ 250 mls/hr Q12H IV ; Start 06/08/20 at 08:00; Stop 06/07/20 at 20:36; Status DC Vancomycin HCl (Vancomycin Trough Level) 1 each 1X ONCE MC ; Start 06/09/20 at 07:30; Stop 06/07/20 at 20:38; Status DC Vasopressin 20 unit/Dextrose 101 ml @ 12 mls/hr CONT PRN IV SEE I/O RECORD; Start 06/07/20 at 20:00; Stop 06/17/20 at 08:18; Status DC Norepinephrine Bitartrate 16 mg/ Dextrose 266 ml @ 11.87 mls/ hr CONT PRN IV PER PROTOCOL Last administered on 06/07/20at 22:09; Start 06/07/20 at 20:00; Stop 06/07/20 at 23:00; Status DC Sodium Chloride 1,000 ml @ 1,000 mls/hr 1X ONCE IV Last administered on 06/07/20at 20:16; Start 06/07/20 at 20:15; Stop 06/07/20 at 21:14; Status DC Norepinephrine Bitartrate 32 mg/ Dextrose 250 ml @ 5.578 mls/ hr CONT PRN IV SEE I/O RECORD Last administered on 06/12/20at 02:14; Start 06/07/20 at 22:30; Stop 06/17/20 at 08:18; Status DC Sodium Chloride 1,000 ml @ 100 mls/hr Q10H IV Last administered on 06/08/20at 09:44; Start 06/08/20 at 00:00; Stop 06/08/20 at 18:42; Status DC Meropenem 1 gm/ Sodium Chloride 100 ml @ 200 mls/hr Q12HR IV Last administered on 06/18/20at 08:26; Start 06/08/20 at 09:00; Stop 06/18/20 at 13:53; Status DC Sodium Bicarbonate (Sodium Bicarb Adult 8.4% Syr) 50 meq 1X ONCE IV Last administered on 06/08/20at 10:42; Start 06/08/20 at 09:45; Stop 06/08/20 at 09:46; Status DC Multivitamins/ Minerals Therapeutic (Centrum Multivit-Mineral Liq) 5 ml DAILY PEG Last administered on 06/21/20at 09:28; Start 06/08/20 at 10:00 Sodium Chloride 1,000 ml @ 1,000 mls/hr 1X ONCE IV Last administered on 06/08/20at 12:11; Start 06/08/20 at 11:30; Stop 06/08/20 at 12:29; Status DC Vancomycin HCl (Vanco Per Pharmacy) 1 each PRN DAILY PRN MC SEE COMMENTS Last administered on 06/17/20at 08:27; Start 06/08/20 at 12:30; Stop 06/18/20 at 13:52; Status DC Vancomycin HCl 1.75 gm/Sodium Chloride 500 ml @ 250 mls/hr Q24H IV Last administered on 06/08/20at 19:49; Start 06/08/20 at 19:00; Stop 06/09/20 at 19:35; Status DC Vancomycin HCl (Vancomycin Trough Level) 1 each 1X ONCE MC Last administered on 06/09/20at 18:30; Start 06/09/20 at 18:30; Stop 06/09/20 at 18:31; Status DC Dextrose/Sodium Chloride 1,000 ml @ 100 mls/hr Q10H IV Last administered on 06/10/20at 23:44; Start 06/08/20 at 15:30; Stop 06/11/20 at 11:41; Status DC Dextrose (Dextrose 50%-Water Syringe) 25 gm 1X ONCE IV Last administered on 06/08/20at 16:34; Start 06/08/20 at 15:30; Stop 06/08/20 at 15:37; Status DC Insulin Human Regular (HumuLIN R VIAL) 10 unit 1X ONCE IV Last administered on 06/08/20at 16:37; Start 06/08/20 at 15:30; Stop 06/08/20 at 15:37; Status DC Calcium Gluconate (Calcium Gluconate) 1,000 mg 1X ONCE IVP Last administered on 06/08/20at 16:38; Start 06/08/20 at 15:30; Stop 06/08/20 at 15:37; Status DC Insulin Human Lispro (HumaLOG) 0-9 UNITS Q4HRS SQ Last administered on 06/09/20at 03:53; Start 06/09/20 at 00:00; Stop 06/09/20 at 07:30; Status DC Dextrose (Dextrose 50%-Water Syringe) 12.5 gm PRN Q15MIN PRN IV SEE COMMENTS; Start 06/08/20 at 22:15 Insulin Human Lispro (HumaLOG) 0-9 UNITS Q12HR SQ ; Start 06/09/20 at 12:00; Stop 06/09/20 at 08:04; Status DC Insulin Human Lispro (HumaLOG) 0-9 UNITS Q6HRS SQ Last administered on 06/11/20at 17:58; Start 06/09/20 at 08:15; Stop 06/12/20 at 00:25; Status DC Bisacodyl (Dulcolax Supp) 10 mg PRN DAILY PRN RC CONSTIPATION; Start 06/09/20 at 08:30 Mirtazapine (Remeron) 7.5 mg QHS PO Last administered on 06/20/20at 23:10; Start 06/09/20 at 21:00 Olanzapine (ZyPREXA) 2.5 mg QHS PO Last administered on 06/20/20at 23:11; Start 06/09/20 at 21:00 Insulin Glargine (Lantus Syringe) 27 unit QHS SQ Last administered on 06/14/20at 20:56; Start 06/09/20 at 21:00; Stop 06/15/20 at 08:11; Status DC Valproic Acid (Depakene) 250 mg [id number] PEG Last administered on 06/21/20at 09:29; Start 06/09/20 at 09:00 Insulin Glargine (Lantus Syringe) 10 unit 1X SQ ; Start 06/09/20 at 08:30; Stop 06/09/20 at 08:30; Status DC Insulin Glargine (Lantus Syringe) 10 unit 1X ONCE SQ Last administered on 06/09/20at 08:45; Start 06/09/20 at 08:45; Stop 06/09/20 at 08:46; Status DC Vancomycin HCl 1.75 gm/Sodium Chloride 500 ml @ 250 mls/hr Q18H IV Last administered on 06/18/20at 02:45; Start 06/09/20 at 20:00; Stop 06/18/20 at 13:52; Status DC Vancomycin HCl (Vancomycin Trough Level) 1 each 1X ONCE MC ; Start 06/11/20 at 07:30; Stop 06/11/20 at 07:31; Status DC Insulin Human Lispro (HumaLOG) 15 units 1X ONCE SQ Last administered on 06/10/20at 10:35; Start 06/10/20 at 10:30; Stop 06/10/20 at 10:33; Status DC Insulin Human Lispro (HumaLOG) 21 units 1X ONCE SQ Last administered on 06/10/20at 14:05; Start 06/10/20 at 13:00; Stop 06/10/20 at 13:01; Status DC Sodium Chloride 1,000 ml @ 0 mls/hr Q0M IV ; Start 06/11/20 at 10:45; Status Cancel Sodium Chloride 1,000 ml @ 20 mls/hr Q24H IV Last administered on 06/20/20at 12:38; Start 06/11/20 at 11:45 Insulin Human Lispro (HumaLOG) 21 units 1X ONCE SQ Last administered on 06/11/20at 11:50; Start 06/11/20 at 11:45; Stop 06/11/20 at 11:48; Status DC Insulin Human Lispro (HumaLOG) 0-9 UNITS Q6HRS SQ Last administered on 06/20/20at 18:19; Start 06/12/20 at 06:00 Insulin Human Lispro (HumaLOG) 12 units 1X ONCE SQ Last administered on 06/12/20at 00:47; Start 06/12/20 at 00:30; Stop 06/12/20 at 00:31; Status DC Lidocaine HCl (Lidocaine 2% Viscous) 100 ml PRN 1X PRN MM FOR PROCEDURE Last administered on 06/12/20at 09:25; Start 06/12/20 at 07:15; Stop 06/13/20 at 07:14; Status DC Lidocaine HCl (Lidocaine 1% 20ml Vial) 20 ml PRN 1X PRN INJ SEE COMMENTS Last administered on 06/12/20at 09:26; Start 06/12/20 at 07:15; Stop 06/13/20 at 07:14; Status DC Epinephrine HCl (Adrenalin) 1 mg PRN 1X PRN INJ SEE COMMENTS; Start 06/12/20 at 07:15; Stop 06/13/20 at 07:14; Status DC Insulin Human Lispro (HumaLOG) 9 units Q6HRS SQ Last administered on 06/15/20at 05:43; Start 06/12/20 at 08:00; Stop 06/15/20 at 08:11; Status DC Epinephrine HCl (Adrenalin) 1 mg STK-MED ONCE .ROUTE ; Start 06/12/20 at 08:19; Stop 06/12/20 at 08:20; Status DC Lidocaine HCl (Lidocaine 1% 20ml Vial) 20 ml STK-MED ONCE .ROUTE ; Start 06/12/20 at 08:19; Stop 06/12/20 at 08:20; Status DC Lidocaine HCl (Lidocaine 2% Viscous) 100 ml STK-MED ONCE .ROUTE ; Start 06/12/20 at 08:20; Stop 06/12/20 at 08:20; Status DC Methylprednisolone Sodium Succinate (SOLU-Medrol 40MG VIAL) 40 mg BID IV Last administered on 06/18/20at 08:27; Start 06/12/20 at 21:00; Stop 06/18/20 at 1 5:59; Status DC Propofol 100 ml @ 2.049 mls/ hr CONT PRN IV SEE I/O RECORD Last administered on 06/15/20at 05:29; Start 06/13/20 at 17:00; Stop 06/16/20 at 12:40; Status DC Furosemide (Lasix) 40 mg 1X ONCE IVP Last administered on 06/14/20at 15:54; St art 06/14/20 at 10:15; Stop 06/14/20 at 10:22; Status DC Magnesium Sulfate 100 ml @ 50 mls/hr PRN DAILY PRN IV SEE COMMENTS; Start 06/15/20 at 09:00 Insulin Glargine (Lantus Syringe) 32 unit QHS SQ Last administered on 06/20/20at 23:24; Start 06/15/20 at 21:00 Insulin Human Lispro (HumaLOG) 11 units Q6HRS SQ Last administered on 06/21/20at 00:00; Start 06/15/20 at 12:00 Info (Non-Icu Electrolyte Protocol) 1 ea CONT PRN PRN MC SEE COMMENTS; Start 06/17/20 at 08:30 Thiamine Mononitrate (Vitamin B-1) 100 mg DAILY PO Last administered on 06/21/20at 09:28; Start 06/17/20 at 09:00 Vancomycin HCl (Vancomycin Trough Level) 1 each 1X ONCE MC ; Start 06/18/20 at 19:30; Stop 06/18/20 at 13:54; Status DC Lansoprazole (Prevacid) 30 mg DAILY FT Last administered on 06/21/20at 09:28; Start 06/19/20 at 09:00 Methylprednisolone Sodium Succinate (SOLU-Medrol 40MG VIAL) 40 mg DAILY IV Last administered on 06/21/20at 09:28; Start 06/19/20 at 09:00 Famotidine (Pepcid Vial) 20 mg BID IVP Last administered on 06/21/20at 09:28; Start 06/20/20 at 21:00 Active Scripts Active Solu-Medrol 40 Mg Vial (Methylprednisolone Sod Succ/Pf) 40 Mg/1 Ml Vial 40 Mg IV DAILY 5 Days Reported Tylenol (Acetaminophen) 325 Mg Tablet 650 Mg PO BID Senna-Docusate Sodium Tablet (Sennosides/Docusate Sodium) 1 Each Tablet 1 Each PO PRN PRN Risperdal (Risperidone) 3 Mg Tablet 0.5 Tab PO BID 30 Days Potassium Chloride (Potassium Chloride) 20 Meq Tablet.er 20 Meq PO TID Olanzapine 5 Mg Tablet 0.5 Tab PO QHS Nystatin 15 Gm Cream..g. 15 Gm TP PRN Q8HRS PRN Novolog Flexpen (Insulin Aspart) 100 Unit/1 Ml Insuln.pen 1 Unit SQ TIDWMEALS Mirtazapine 7.5 Mg Tablet 1 Tab PO QHS 30 Days Milk Of Magnesia (Magnesium Hydroxide) 400 Mg/5 Ml Oral.susp 400 Mg PO PRN PRN Metformin Hcl 1,000 Mg Tablet 1,000 Mg PO BIDWMEALS Melatonin 3 Mg Tab.rapdis 1 Tab PO QHS 30 Days Magnesium Oxide 400 Mg Tablet 1 Tab PO DAILY Acidophilus (Lactobacillus Acidophilus) 1 Each Capsule 1 Cap PO DAILY 14 Days Ketoconazole 120 Ml Shampoo 1 Melissa TP TWICE WEEKLY 30 Days with at least 3 days between each shampooing Levemir Flextouch (Insulin Detemir) 100 Unit/1 Ml Insuln.pen 27 Unit SQ QHS Furosemide 20 Mg Tablet 1 Tab PO DAILY Fleet Enema (Na Phos,M-B/Na Phos,Di-Ba) 133 Ml Enema 133 Ml RC PRN PRN Divalproex Sodium Er (Divalproex Sodium) 500 Mg Tab.er.24h 2,000 Mg PO QHS D3-50 (Cholecalciferol (Vitamin D3)) 50,000 Unit Capsule 1,000 Unit PO DAILY Dulcolax (Bisacodyl) 10 Mg Supp.rect 10 Mg RC PRN DAILY PRN Atorvastatin Calcium 20 Mg Tablet 20 Mg PO HS Vitals/I & O Vital Sign - Last 24 Hours 06/20/20 06/20/20 06/20/20 06/20/20 15:00 19:20 20:00 23:41 Temp 99.1 99.0 98.4 99.1 99.0 98.4 Pulse 66 71 63 Resp 22 21 21 B/P (MAP) 135/47 (76) 127/46 (73) 133/60 (84) Pulse Ox 93 97 96 O2 Delivery Nasal Cannula Nasal Cannula Nasal Cannula Nasal Cannula O2 Flow Rate 6.0 6.0 6.0 6.0 06/21/20 06/21/20 06/21/20 06/21/20 03:00 05:05 07:00 07:40 Temp 98.4 98.4 98.4 98.4 Pulse 83 68 Resp 26 22 B/P (MAP) 154/84 (107) 128/91 (103) Pulse Ox 98 95 O2 Delivery Nasal Cannula Nasal Cannula Nasal Cannula Nasal Cannula O2 Flow Rate 6.0 6.0 6.0 Intake and Output 06/20/20 06/20/20 06/21/20 15:00 23:00 07:00 Intake Total 300 ml 300 ml 2373 ml Output Total 1550 ml Balance 300 ml 300 ml 823 ml Justicifation of Admission Dx: Justifications for Admission: Justification of Admission Dx: Yes SMITA STAPLES MD Jun 21, 2020 11:09
[2020-06-21] MEDS: IV NORMAL SALINE 1000ML BAG 1,000 ML IV SCH (12:52)
--- NOTE | 2020-06-21 12:53 | NUR ---
1200 insulin non administered. Pt DobHoff clogged at this time. Feeding is on hold. Will continue to monitor and follow plan of care. Allowing time to see if meds will dissolve before replacing DobHoff. Will continue to monitor and follow plan of care.
--- NOTE | 2020-06-21 12:58 | PDOC ---
PULMONARY PROGRESS NOTES DATE: 06/21/20 TIME: 12:56 Subjective Patient is nonverbal, alert and awake today, pound right fist and grimaces Remains very weak No overnight concerns from nursing Vitals Vital Signs Date Time Temp Pulse Resp B/P (MAP) Pulse Ox O2 Delivery O2 Flow Rate FiO2 06/21/20 07:40 Nasal Cannula 6.0 06/21/20 07:00 98.4 68 22 128/91 (103) 95 98.4 Comments Nonverbal unable to report review of systems General: Alert Lungs: Clear Cardiovascular: S1 Abdomen: Soft Extremities: Other (BLE +2) Skin: Warm Labs Laboratory Tests Test 06/19/20 17:58 06/19/20 21:56 06/19/20 23:34 06/20/20 05:50 Glucose (Fingerstick) 117 mg/dL (70-99) 127 mg/dL (70-99) 124 mg/dL (70-99) 123 mg/dL (70-99) Test 06/20/20 12:18 06/21/20 05:57 06/21/20 12:30 Glucose (Fingerstick) 176 mg/dL (70-99) 64 mg/dL (70-99) 128 mg/dL (70-99) Laboratory Tests Test 06/21/20 05:57 06/21/20 12:30 Glucose (Fingerstick) 64 mg/dL (70-99) 128 mg/dL (70-99) Medications Active Scripts Medications Dose Route/Sig Max Daily Dose Days Date Category Dose Instructions Tylenol (Acetaminophen) 325 Mg Tablet 650 Mg PO BID 06/08/20 Reported Senna-Docusate Sodium Tablet (Sennosides/Docusate Sodium) 1 Each Tablet 1 Each PO PRN PRN 06/08/20 Reported Risperdal (Risperidone) 3 Mg Tablet 0.5 Tab PO BID 30 06/08/20 Reported Potassium Chloride (Potassium Chloride) 20 Meq Tablet.er 20 Meq PO TID 06/08/20 Reported Olanzapine 5 Mg Tablet 0.5 Tab PO QHS 06/08/20 Reported Nystatin 15 Gm Cream..g. 15 Gm TP PRN Q8HRS PRN 06/08/20 Reported Novolog Flexpen (Insulin Aspart) 100 Unit/1 Ml Insuln.pen 1 Unit SQ TIDWMEALS 06/08/20 Reported Mirtazapine 7.5 Mg Tablet 1 Tab PO QHS 30 06/08/20 Reported Milk Of Magnesia (Magnesium Hydroxide) 400 Mg/5 Ml Oral.susp 400 Mg PO PRN PRN 06/08/20 Reported Metformin Hcl 1,000 Mg Tablet 1,000 Mg PO BIDWMEALS 06/08/20 Reported Melatonin 3 Mg Tab.rapdis 1 Tab PO QHS 30 06/08/20 Reported Magnesium Oxide 400 Mg Tablet 1 Tab PO DAILY 06/08/20 Reported Acidophilus (Lactobacillus Acidophilus) 1 Each Capsule 1 Cap PO DAILY 14 06/08/20 Reported Ketoconazole 120 Ml Shampoo 1 Melissa TP TWICE WEEKLY 30 06/08/20 Reported with at least 3 days between each shampooing Levemir Flextouch (Insulin Detemir) 100 Unit/1 Ml Insuln.pen 27 Unit SQ QHS 06/08/20 Reported Furosemide 20 Mg Tablet 1 Tab PO DAILY 06/08/20 Reported Fleet Enema (Na Phos,M-B/Na Phos,Di-Ba) 133 Ml Enema 133 Ml RC PRN PRN 06/08/20 Reported Divalproex Sodium Er (Divalproex Sodium) 500 Mg Tab.er.24h 2,000 Mg PO QHS 06/08/20 Reported D3-50 (Cholecalciferol (Vitamin D3)) 50,000 Unit Capsule 1,000 Unit PO DAILY 06/08/20 Reported Dulcolax (Bisacodyl) 10 Mg Supp.rect 10 Mg RC PRN DAILY PRN 06/08/20 Reported Atorvastatin Calcium 20 Mg Tablet 20 Mg PO HS 06/08/20 Reported Comments CXR 06/15 FINDINGS/ IMPRESSION: Consolidative left lung base infiltrate in association with a small to moderate size left-sided pleural effusion is unchanged. Persistent medial right lung base infiltrate or atelectasis is seen which is unchanged. No pneumothorax is seen. The heart size and mediastinum are stable. There've been no interval tube or line changes. Impression . 1. Acute hypoxic respiratory failure secondary to pneumonia ,shock and acute respiratory distress syndrome-- improved 2. Abnormal chest x-ray with bilateral infiltrates suggestive of pneumonia. He could have a gram-negative pneumonia as well. left mucous plug 06/12. s/p Bronch. thick secretions removed 3. Septic shock. Likely caused by COVID-19 pneumonia. Need to rule out other sources of infection. BC positive 4. Acute kidney injury.-- improved 5. Metabolic acidosis secondary to lactic acidosis and sepsis. 6. Coag neg staph in BC/ ID following. Has CLINICAL DATA COORDINATOR shunt 7. Abnormal CXR 8. MRSE bacteremia repeat blood cultures -05/31 Plan . We will continue current support with oxygen supplementation, currently on 6 L nasal cannula Antibiotics per ID--- currently off antibiotics Tested negative for SARS-CoV-2 IV steroids, with taper Follow nephrology recommendation Follow BAL from bronchoscopy so far all cultures negative Physical therapy/Occupational Therapy Social work for discharge planning-- planning to D/C monday to SNF Continue tube feeding for nutritional support DVT/GI prophylaxis Discussed with NIMO OBREGON MD Jun 21, 2020 12:58
[2020-06-21 15:00] VITALS: BP 124/46
[2020-06-21] MEDS: NYSTATIN TOPICAL POWDER 15GM BOTTLE. TP SCH ×2 (17:33→22:17)
--- NOTE | 2020-06-21 18:36 | NUR ---
1800 insulin non administered. Waiting on chest x-ray to be read to verify new alberto before tube feed can be restarted. Will continue to monitor and follow plan of care
--- NOTE | 2020-06-21 19:09 | RAD ---
Exam: Chest one view INDICATION: Dobbhoff placement TECHNIQUE: Frontal view of the chest Comparisons: 06/21/2020 FINDINGS: There is an enteric tube with metallic tip at the left upper quadrant likely in the stomach. The cardiomediastinal silhouette and pulmonary vessels are within normal limits. Consolidation in the left lower lobe. No pleural effusion. IMPRESSION: 1. Enteric tube with tip likely in the stomach. 2. Left basilar airspace disease. Electronically signed by: Collin Jaramillo MD (06/21/2020 7:07 PM) [id number]
[2020-06-21] MEDS: ENOXAPARIN 40 MG/0.4 ML SYRINGE. SQ SCH (19:14)
[2020-06-21] MEDS: MIRTAZAPINE 7.5 MG TABLET. PO SCH (22:17)
[2020-06-21] MEDS: OLANZapine 5 MG TABLET PO SCH (22:17)
[2020-06-21] MEDS: INSULIN GLARGINE SYRINGE. SQ SCH (22:21)
[2020-06-21 22:29] VITALS: BP 148/68
[2020-06-22 02:57] VITALS: BP 123/72
[2020-06-22] MEDS: INSULIN LISPRO 300 UNITS/3 ML VIAL. SQ SCH ×6 (06:00→12:00)
[2020-06-22 07:00] VITALS: BP 95/49
[2020-06-22 08:43] LABS: CALCIUM 7.8 mg/dL (8.5-10.1); CREATININE 0.5 mg/dL (0.7-1.3); GFR 164.4; POTASSIUM 3.9 mmol/L (3.5-5.1)
[2020-06-22 08:47] LABS: HEMATOCRIT 27.9 % (39.0-53.0); HEMOGLOBIN 9.5 g/dL (13.0-17.5); RED BLOOD COUNT 3.03 x10^6/uL (4.30-5.70); RED CELL DISTRIBUTION WIDTH 14.2 % (11.5-14.5); WHITE BLOOD COUNT 8.9 x10^3/uL (4.0-11.0)
[2020-06-22] MEDS: THIAMINE 100 MG TABLET. PO SCH (08:53)
[2020-06-22] MEDS: LANSOPRAZOLE 30 MG TAB.RAP.DR FT SCH (08:53)
[2020-06-22] MEDS: VALPROIC ACID (AS SODIUM SALT) 250 MG/5 ML SOLUTION. PEG SCH (08:53)
[2020-06-22] MEDS: MULTIVITAMINS,THERAPEUTIC 5 ML ORAL LIQUID. PEG SCH (08:53)
[2020-06-22] MEDS: methylPREDNISolone SOD SUCC PF 40 MG/ML VIAL. IV SCH (08:53)
[2020-06-22] MEDS: ASCORBIC ACID 500 MG TABLET PO SCH (08:53)
[2020-06-22] MEDS: FAMOTIDINE 20 MG/2 ML VIAL IVP SCH (08:54)
[2020-06-22] MEDS: NYSTATIN TOPICAL POWDER 15GM BOTTLE. TP SCH (08:54)
--- NOTE | 2020-06-22 10:11 | PDOC ---
PULMONARY PROGRESS NOTES DATE: 06/22/20 TIME: 10:07 Subjective Patient is nonverbal, sleeping on examination awakens easily a-febrile overnight No overnight concerns from nursing Vitals Vital Signs Date Time Temp Pulse Resp B/P (MAP) Pulse Ox O2 Delivery O2 Flow Rate FiO2 06/22/20 07:00 98.7 76 20 95/49 (64) 98 Nasal Cannula 6.0 98.7 Comments Nonverbal unable to report review of systems General: Alert Lungs: Clear Cardiovascular: S1, S2 Abdomen: Soft Extremities: Other (BLE +2) Skin: Warm Labs Laboratory Tests Test 06/20/20 12:18 06/21/20 05:57 06/21/20 12:30 06/21/20 18:27 Glucose (Fingerstick) 176 mg/dL (70-99) 64 mg/dL (70-99) 128 mg/dL (70-99) 124 mg/dL (70-99) Test 06/21/20 20:52 06/22/20 00:02 06/22/20 06:39 06/22/20 08:12 Glucose (Fingerstick) 138 mg/dL (70-99) 140 mg/dL (70-99) 142 mg/dL (70-99) White Blood Count 8.9 x10^3/uL (4.0-11.0) Red Blood Count 3.03 x10^6/uL (4.30-5.70) Hemoglobin 9.5 g/dL (13.0-17.5) Hematocrit 27.9 % (39.0-53.0) Mean Corpuscular Volume 92 fL (79-100) Mean Corpuscular Hemoglobin 31 pg (25-35) Mean Corpuscular Hemoglobin Concent 34 g/dL (31-37) Red Cell Distribution Width 14.2 % (11.5-14.5) Platelet Count 211 x10^3/uL (140-400) Sodium Level 141 mmol/L (136-145) Potassium Level 3.9 mmol/L (3.5-5.1) Chloride Level 106 mmol/L (98-107) Carbon Dioxide Level 34 mmol/L (21-32) Anion Gap 1 (6-14) Blood Urea Nitrogen 20 mg/dL (8-26) Creatinine 0.5 mg/dL (0.7-1.3) Estimated GFR (Cockcroft-Gault) 164.4 Glucose Level 142 mg/dL (70-99) Calcium Level 7.8 mg/dL (8.5-10.1) Laboratory Tests Test 06/21/20 12:30 06/21/20 18:27 06/21/20 20:52 06/22/20 00:02 Glucose (Fingerstick) 128 mg/dL (70-99) 124 mg/dL (70-99) 138 mg/dL (70-99) 140 mg/dL (70-99) Test 06/22/20 06:39 06/22/20 08:12 Glucose (Fingerstick) 142 mg/dL (70-99) White Blood Count 8.9 x10^3/uL (4.0-11.0) Red Blood Count 3.03 x10^6/uL (4.30-5.70) Hemoglobin 9.5 g/dL (13.0-17.5) Hematocrit 27.9 % (39.0-53.0) Mean Corpuscular Volume 92 fL (79-100) Mean Corpuscular Hemoglobin 31 pg (25-35) Mean Corpuscular Hemoglobin Concent 34 g/dL (31-37) Red Cell Distribution Width 14.2 % (11.5-14.5) Platelet Count 211 x10^3/uL (140-400) Sodium Level 141 mmol/L (136-145) Potassium Level 3.9 mmol/L (3.5-5.1) Chloride Level 106 mmol/L (98-107) Carbon Dioxide Level 34 mmol/L (21-32) Anion Gap 1 (6-14) Blood Urea Nitrogen 20 mg/dL (8-26) Creatinine 0.5 mg/dL (0.7-1.3) Estimated GFR (Cockcroft-Gault) 164.4 Glucose Level 142 mg/dL (70-99) Calcium Level 7.8 mg/dL (8.5-10.1) Medications Active Scripts Medications Dose Route/Sig Max Daily Dose Days Date Category Dose Instructions Tylenol (Acetaminophen) 325 Mg Tablet 650 Mg PO BID 06/08/20 Reported Senna-Docusate Sodium Tablet (Sennosides/Docusate Sodium) 1 Each Tablet 1 Each PO PRN PRN 06/08/20 Reported Risperdal (Risperidone) 3 Mg Tablet 0.5 Tab PO BID 30 06/08/20 Reported Potassium Chloride (Potassium Chloride) 20 Meq Tablet.er 20 Meq PO TID 06/08/20 Reported Olanzapine 5 Mg Tablet 0.5 Tab PO QHS 06/08/20 Reported Nystatin 15 Gm Cream..g. 15 Gm TP PRN Q8HRS PRN 06/08/20 Reported Novolog Flexpen (Insulin Aspart) 100 Unit/1 Ml Insuln.pen 1 Unit SQ TIDWMEALS 06/08/20 Reported Mirtazapine 7.5 Mg Tablet 1 Tab PO QHS 30 06/08/20 Reported Milk Of Magnesia (Magnesium Hydroxide) 400 Mg/5 Ml Oral.susp 400 Mg PO PRN PRN 06/08/20 Reported Metformin Hcl 1,000 Mg Tablet 1,000 Mg PO BIDWMEALS 06/08/20 Reported Melatonin 3 Mg Tab.rapdis 1 Tab PO QHS 30 06/08/20 Reported Magnesium Oxide 400 Mg Tablet 1 Tab PO DAILY 06/08/20 Reported Acidophilus (Lactobacillus Acidophilus) 1 Each Capsule 1 Cap PO DAILY 14 06/08/20 Reported Ketoconazole 120 Ml Shampoo 1 Melissa TP TWICE WEEKLY 30 06/08/20 Reported with at least 3 days between each shampooing Levemir Flextouch (Insulin Detemir) 100 Unit/1 Ml Insuln.pen 27 Unit SQ QHS 06/08/20 Reported Furosemide 20 Mg Tablet 1 Tab PO DAILY 06/08/20 Reported Fleet Enema (Na Phos,M-B/Na Phos,Di-Ba) 133 Ml Enema 133 Ml RC PRN PRN 06/08/20 Reported Divalproex Sodium Er (Divalproex Sodium) 500 Mg Tab.er.24h 2,000 Mg PO QHS 06/08/20 Reported D3-50 (Cholecalciferol (Vitamin D3)) 50,000 Unit Capsule 1,000 Unit PO DAILY 06/08/20 Reported Dulcolax (Bisacodyl) 10 Mg Supp.rect 10 Mg RC PRN DAILY PRN 06/08/20 Reported Atorvastatin Calcium 20 Mg Tablet 20 Mg PO HS 06/08/20 Reported Comments CXR 06/15 FINDINGS/ IMPRESSION: Consolidative left lung base infiltrate in association with a small to moderate size left-sided pleural effusion is unchanged. Persistent medial right lung base infiltrate or atelectasis is seen which is unchanged. No pneumothorax is seen. The heart size and mediastinum are stable. There've been no interval tube or line changes. Impression . 1. Acute hypoxic respiratory failure secondary to pneumonia ,shock and acute respiratory distress syndrome-- improved 2. Abnormal chest x-ray with bilateral infiltrates suggestive of pneumonia. He could have a gram-negative pneumonia as well. left mucous plug 06/12. s/p Bronch. thick secretions removed 3. Septic shock. Likely caused by COVID-19 pneumonia. Need to rule out other sources of infection. BC positive 4. Acute kidney injury.-- resolved 5. Metabolic acidosis secondary to lactic acidosis and sepsis. 6. Coag neg staph in BC/ ID following. Has STEM MAKER shunt 7. Abnormal CXR 8. MRSE bacteremia repeat blood cultures -05/31 Plan . We will continue current support with oxygen supplementation, currently on 6 L nasal cannula Antibiotics per ID--- currently off antibiotics Tested negative for SARS-CoV-2 D/C steroids Follow nephrology recommendation Follow BAL from bronchoscopy so far all cultures negative, AFB negative Physical therapy/Occupational Therapy Social work for discharge planning-- planning to D/C To [facility] today Continue tube feeding for nutritional support DVT/GI prophylaxis Discussed with NIMO OBREGON MD Jun 22, 2020 10:11
[2020-06-22 10:37] VITALS: BP 105/80
--- NOTE | 2020-06-22 12:09 | NUR ---
SS following up with discharge planning. SS reviewed pt chart and discussed with pt RN. Pt is LTC resident from [facility], ; fax [phone]. Pt is currently requiring oxygen and has dobhoff. SS contacted [facility] and discussed. [facility] reported that they are prepared to take pt back today and have all equipment needed and training for dobhoff. Physician notified. SS will await discharge orders and will proceed accordingly with discharge planning.
--- NOTE | 2020-06-22 12:42 | PDOC ---
[facility] PROGRESS NOTE Date of Service DOS: DATE: 06/22/20 TIME: 12:40 Chief Complaint Chief Complaint A/P: Sepsis Acute hypercarbic hypoxic respiratory failure requiring intubation, succesfully extubated on 06/15/2020 Acute metabolic encephalopathy NOS Concern for aspiration pneumonia with chest x-ray showing multifocal infiltrate in the right lower lobe Lactic acidosis Severe protein malnutrition Anxiety with depression dCHF Constipation Diabetes-Type II High Cholesterol Hypertension Schizophrenia BPH Dysphagia PARKINSONS, Hyperkalemia S/p SLATER APPRENTICE shunt MRSE bacteremia with negative to date repeat cultures. FEN - OGT PPX - heparin FULL CODE Dispo - ICU History of Present Illness History of Present Illness Mr Dubois is a 69-year-old male with past medical history of Anxiety with depression, schizophrenia, dCHF, Constipation, Diabetes-Type II, High Cholesterol, Hypertension, BPH, Dysphagia, PARKINSONS, who presents to the emergency room in respiratory failure. According to report patient was normal the morning of 06/07. He has been refusing to eat recently according to staff but did eat lunch immediately before they found him in respiratory distress EMS pulse ox on CPAP is 80%. He was intubated due to respiratory failure and poor ABG on BiPAP. 06/08: Febrile to 101.8 F overnight. Intubated, sedated. K peaked at 6.8, started on D5, insulin, steroids. 06/09: Patient is sedated and intubated upon my examination. AC mode tidal volume 550, PEEP 12 and FiO2 90%. Saturations are 100%. 06/10: COVID-19 negative. Blood cultures positive for staph epidermidis. Patient sedated and intubated on AC mode tidal volume 550, PEEP 9 FiO2 down to 60%. Tolerating tube feeds well. 06/11: Afebrile overnight. Sedated intubated AC mode tidal volume 550 PEEP 9 FiO2 70%. Blood pressure dropped on Levophed. 06/12: Episodic hypoxia overnight, bronchoscopy with significant left-sided mucus plugging removed. Tolerating TF well, however glucose has been very elevated. 06/13: Still requiring pressor support. Seen on vent in ICU off sedation. Not awakening at this time. Afebrile 06/14: Afebrile. Seen on vent. On sedation wean. Eyes are opening well. ABG 7.47/30 .. A lot of ventricular ectopy on telemetry this morning. FiO2 30% PEEP 6. 06/15: Patient continues to be mechanically ventilated, ID recommendations greatly appreciated. 06/16: Patient still quite somnolent, he was extubated yesterday, he did not have acute events reported overnight, responds to his name but he is non verbal, does not seem to be in any distress. Discussed with nursing staff. 06/17: No acute events reported overnight, case discussed with nursing staff patient in no acute distress no complaints during my visit, currently still quite debilitated from recent intubation and case discussed with speech therapist, at the present time patient will probably benefit from TPN and hopefully improve his strength and reassess his ability to swallow safely. Currently he is at high risk for aspiration pneumonia 06/18: No acute events reported overnight, case discussed with nursing staff patient in no acute distress no complaints during my visit, still waiting for improvement in his strength subsequently he will be able to transition home. Currently remains hemodynamically stable 06/19: No acute events reported overnight by nursing staff. Patient continues to be pretty much status quo, cultures have been negative from bronchoscopy alveolar lavage, recommendations from ID professional benefits sales consultant noted. 06/20: No acute events reported overnight, case discussed with nursing staff patient in no acute distress no complaints during my visit, 06/21: No acute events reported overnight, case discussed with nursing staff patient in no acute distress no complaints during my visit, awaiting placement 06/22: No acute events overnight. Discussed with RN and staff, patient accepted to [facility] in the half-way unit. Stable for discharge. Vitals/I&O Vitals/I&O: Vital Signs Date Time Temp Pulse Resp B/P (MAP) Pulse Ox O2 Delivery O2 Flow Rate FiO2 06/22/20 10:37 98.3 71 20 105/80 (88) 94 Nasal Cannula 6.0 98.3 I & O 06/21/20 06/21/20 06/22/20 15:00 23:00 07:00 Intake Total 150 ml 150 ml 1080 ml Output Total 2100 ml Balance 150 ml 150 ml -1020 ml Physical Exam Physical Exam: GENERAL: Propped up in bed, alert in no distress HEENT: Pupils equal, oral cavity clear. Dobbhoff in place NECK: Supple. No JVD LUNGS: Clear anteriorly HEART: S1, S2 regular ABDOMEN: Obese, soft, no guarding, BS present : Quintero in place + scrotal swelling EXTREMITIES: Generalized edema. No cyanosis. SCDs and heel boots, bilaterally RUE with 1- 2 plus edema SKIN: warm to touch. No signs of generalized rash NEUROLOGIC: Alert, nonverbal RIJ without signs of complications General: No acute distress Heart: Regular rate Lungs: Clear Abdomen: Normal bowel sounds Extremities: No clubbing Skin: No rashes Labs Labs: Laboratory Tests Test 06/21/20 18:27 06/21/20 20:52 06/22/20 00:02 06/22/20 06:39 Glucose (Fingerstick) 124 mg/dL (70-99) 138 mg/dL (70-99) 140 mg/dL (70-99) 142 mg/dL (70-99) Test 06/22/20 08:12 06/22/20 11:11 White Blood Count 8.9 x10^3/uL (4.0-11.0) Red Blood Count 3.03 x10^6/uL (4.30-5.70) Hemoglobin 9.5 g/dL (13.0-17.5) Hematocrit 27.9 % (39.0-53.0) Mean Corpuscular Volume 92 fL (79-100) Mean Corpuscular Hemoglobin 31 pg (25-35) Mean Corpuscular Hemoglobin Concent 34 g/dL (31-37) Red Cell Distribution Width 14.2 % (11.5-14.5) Platelet Count 211 x10^3/uL (140-400) Sodium Level 141 mmol/L (136-145) Potassium Level 3.9 mmol/L (3.5-5.1) Chloride Level 106 mmol/L (98-107) Carbon Dioxide Level 34 mmol/L (21-32) Anion Gap 1 (6-14) Blood Urea Nitrogen 20 mg/dL (8-26) Creatinine 0.5 mg/dL (0.7-1.3) Estimated GFR (Cockcroft-Gault) 164.4 Glucose Level 142 mg/dL (70-99) Calcium Level 7.8 mg/dL (8.5-10.1) Glucose (Fingerstick) 166 mg/dL (70-99) Review of Systems Review of Systems: Unable to obtain due to clinical condition Assessment and Plan Assessmemt and Plan Problems Medical Problems: (1) Aspiration pneumonia Status: Acute (2) Respiratory failure with hypoxia Status: Acute Comment Review of Relevant I have reviewed the following items veronika (where applicable) has been applied. Medications: Current Medications Medications (Trade) Dose Ordered Sig/Cruz Route PRN Reason Start Time Stop Time Status Last Admin Dose Admin Nystatin (Nystop) 1 mihir BID TP 06/21/20 16:30 06/22/20 08:54 Justifications for Admission General Conditions Poss tachycardia?: Yes Justification for admission: Patient has tachycardia (> 100 beats per minute) which is not readily corrected by appropriate treatment within 12 to 24 hours. Elevated Lactate?: Yes Justification for admission: Patient has tachycardia (> 100 beats per minute) or hypotension (SBP < 90 mm Hg) leading to inadequate systemic perfusion as indicated by lactate of greater or equal to 2.5 mmol/L. Poss Metaboilic Acidosis?: Yes Justification for admission: Patient has tachycardia (> 100 beats per minute) or hypotension (SBP < 90 mm Hg) leading to inadequate systemic perfusion as indicated by metabolic acidosis with arterial pH of less than 7.35. Altered mental status?: Yes Justification of admission: Patient has tachycardia (> 100 beats per minute) or hypotension (SBP < 90 mm Hg) leading to inadequate systemic perfusion as indicated by severe/persistent altered mental status. Other Justification GRANT NJ MD Jun 22, 2020 12:42
--- NOTE | 2020-06-22 12:46 | SNU/HH DC ---
DISCHARGE ORDERS DISCHARGE INFORMATION: DISCHARGE DATE: Jun 22, 2020 FINAL DIAGNOSIS Problems Medical Problems: (1) Aspiration pneumonia Status: Acute (2) Respiratory failure with hypoxia Status: Acute CONDITION ON DISCHARGE: Guarded CODE STATUS: Code Status: Full LONG-TERM: SNF STAY <30 DAYS: Yes HOSPICE: HOSPICE: No HOSPICE EVAL & TREAT: No LTAC: ADMIT TO LTAC: No POST DISCHARGE ORDERS: ACTIVITY ORDERS: Bedrest today WEIGHT BEARING STATUS: As tolerated DIET AFTER DISCHARGE: ADA TREATMENT/EQUIPMENT ORDERS: Physical Therapy For: Evalulation/Treatment Occupational Therapy For: Evaluation/Treatment DISCHARGE MEDICATIONS: Home Meds Active Scripts Methylprednisolone Sod Succ/Pf (SOLU-MEDROL 40 MG VIAL) 40 Mg/1 Ml Vial, 40 MG IV DAILY for pneumonia for 5 Days, #5 EACH Prov:SMITA STAPLES MD 06/19/20 Reported Medications Acetaminophen (TYLENOL) 325 Mg Tablet, 650 MG PO BID for Pain, TAB 06/08/20 Sennosides/Docusate Sodium (Senna-Docusate Sodium Tablet) 1 Each Tablet, 1 EACH PO PRN PRN for CONSTIPATION, TAB 06/08/20 Risperidone (RISPERDAL) 3 Mg Tablet, 0.5 TAB PO BID for Delusional Disorders for 30 Days, #30 TAB 0 Refills 06/08/20 Potassium Chloride (POTASSIUM CHLORIDE ) 20 Meq Tablet.er, 20 MEQ PO TID for SUPPLEMENT, TAB.SR 06/08/20 Olanzapine (OLANZAPINE) 5 Mg Tablet, 0.5 TAB PO QHS for Paranoid Schizophrenia, #30 TAB 2 Refills 06/08/20 Nystatin (NYSTATIN) 15 Gm Cream..g., 15 GM TP PRN Q8HRS PRN for REDNESS, EACH 06/08/20 Insulin Aspart (NOVOLOG FLEXPEN) 100 Unit/1 Ml Insuln.pen, 1 UNIT SQ TIDWMEALS for DM 2, SYR 06/08/20 Mirtazapine (MIRTAZAPINE) 7.5 Mg Tablet, 1 TAB PO QHS for Major Depressive Disorder for 30 Days, #30 TAB 0 Refills 06/08/20 Magnesium Hydroxide (MILK OF MAGNESIA) 400 Mg/5 Ml Oral.susp, 400 MG PO PRN PRN for CONSTIPATION, MISC 06/08/20 Metformin Hcl (METFORMIN HCL) 1,000 Mg Tablet, 1000 MG PO BIDWMEALS for DM 2, TAB 06/08/20 Melatonin (MELATONIN) 3 Mg Tab.rapdis, 1 TAB PO QHS for sleep for 30 Days, #30 TAB 0 Refills 06/08/20 Magnesium Oxide (MAGNESIUM OXIDE) 400 Mg Tablet, 1 TAB PO DAILY for Supplement, #90 TAB 3 Refills 06/08/20 Lactobacillus Acidophilus (ACIDOPHILUS) 1 Each Capsule, 1 CAP PO DAILY for Supplement for 14 Days, #14 CAP 0 Refills 06/08/20 Ketoconazole (KETOCONAZOLE) 120 Ml Shampoo, 1 FRANCO TP TWICE WEEKLY for Flaky scalp for 30 Days, #120 ML 0 Refills with at least 3 days between each shampooing 06/08/20 Insulin Detemir (Levemir Flextouch) 100 Unit/1 Ml Insuln.pen, 27 UNIT SQ QHS for DM 2, SYR 06/08/20 Furosemide (FUROSEMIDE) 20 Mg Tablet, 1 TAB PO DAILY for CHF, #90 TAB 1 Refill 06/08/20 Na Phos,M-B/Na Phos,Di-Ba (FLEET ENEMA) 133 Ml Enema, 133 ML RC PRN PRN for CONSTIPATION, EACH 06/08/20 Divalproex Sodium (DIVALPROEX SODIUM ER) 500 Mg Tab.er.24h, 2000 MG PO QHS for paranoid schizophrenia , TAB.SR 06/08/20 Cholecalciferol (Vitamin D3) (D3-50) 50,000 Unit Capsule, 1000 UNIT PO DAILY for Vit D Deficiency , CAP 06/08/20 Bisacodyl (DULCOLAX) 10 Mg Supp.rect, 10 MG RC PRN DAILY PRN for CONSTIPATION, SUPP.RECT 0 Refills 06/08/20 Atorvastatin Calcium (ATORVASTATIN CALCIUM) 20 Mg Tablet, 20 MG PO HS for FOR CHOLESTEROL, #30 TAB 0 Refills 06/08/20 GRANT NJ MD Jun 22, 2020 12:46
--- NOTE | 2020-06-22 13:09 | NUR ---
SS following up with discharge planning. Discharge orders received for return to [facility], ; fax [phone]. SS phoned and faxed discharge orders to [facility]. Pt will discharge today and return to [facility] at 1400 via [facility] ambulance. Packet and ambulance form on the chart. Pt's court appointed guardian, Tequila Roy, , notified. Pt's RN notified.
--- NOTE | 2020-06-22 13:15 | PDOC3 ---
Discharge Summary Visit Information Date of Admission: Jun 07, 2020 Date of Discharge: Jun 22, 2020 Final Diagnosis Problems Medical Problems: (1) Aspiration pneumonia Status: Acute (2) Respiratory failure with hypoxia Status: Acute Brief Hospital Course Allergies Allergies Coded Allergies Type Severity Reaction Last Updated Verified Penicillins Allergy Severe 05/07/18 Yes Vital Signs Vital Signs Date Time Temp Pulse Resp B/P (MAP) Pulse Ox O2 Delivery O2 Flow Rate FiO2 06/22/20 10:37 98.3 71 20 105/80 (88) 94 Nasal Cannula 6.0 98.3 Lab Results Laboratory Tests Test 06/21/20 05:57 06/21/20 12:30 06/21/20 18:27 06/21/20 20:52 Glucose (Fingerstick) 64 mg/dL (70-99) 128 mg/dL (70-99) 124 mg/dL (70-99) 138 mg/dL (70-99) Test 06/22/20 00:02 06/22/20 06:39 06/22/20 08:12 06/22/20 11:11 Glucose (Fingerstick) 140 mg/dL (70-99) 142 mg/dL (70-99) 166 mg/dL (70-99) White Blood Count 8.9 x10^3/uL (4.0-11.0) Red Blood Count 3.03 x10^6/uL (4.30-5.70) Hemoglobin 9.5 g/dL (13.0-17.5) Hematocrit 27.9 % (39.0-53.0) Mean Corpuscular Volume 92 fL (79-100) Mean Corpuscular Hemoglobin 31 pg (25-35) Mean Corpuscular Hemoglobin Concent 34 g/dL (31-37) Red Cell Distribution Width 14.2 % (11.5-14.5) Platelet Count 211 x10^3/uL (140-400) Sodium Level 141 mmol/L (136-145) Potassium Level 3.9 mmol/L (3.5-5.1) Chloride Level 106 mmol/L (98-107) Carbon Dioxide Level 34 mmol/L (21-32) Anion Gap 1 (6-14) Blood Urea Nitrogen 20 mg/dL (8-26) Creatinine 0.5 mg/dL (0.7-1.3) Estimated GFR (Cockcroft-Gault) 164.4 Glucose Level 142 mg/dL (70-99) Calcium Level 7.8 mg/dL (8.5-10.1) Laboratory Tests Test 06/21/20 18:27 06/21/20 20:52 06/22/20 00:02 06/22/20 06:39 Glucose (Fingerstick) 124 mg/dL (70-99) 138 mg/dL (70-99) 140 mg/dL (70-99) 142 mg/dL (70-99) Test 06/22/20 08:12 06/22/20 11:11 White Blood Count 8.9 x10^3/uL (4.0-11.0) Red Blood Count 3.03 x10^6/uL (4.30-5.70) Hemoglobin 9.5 g/dL (13.0-17.5) Hematocrit 27.9 % (39.0-53.0) Mean Corpuscular Volume 92 fL (79-100) Mean Corpuscular Hemoglobin 31 pg (25-35) Mean Corpuscular Hemoglobin Concent 34 g/dL (31-37) Red Cell Distribution Width 14.2 % (11.5-14.5) Platelet Count 211 x10^3/uL (140-400) Sodium Level 141 mmol/L (136-145) Potassium Level 3.9 mmol/L (3.5-5.1) Chloride Level 106 mmol/L (98-107) Carbon Dioxide Level 34 mmol/L (21-32) Anion Gap 1 (6-14) Blood Urea Nitrogen 20 mg/dL (8-26) Creatinine 0.5 mg/dL (0.7-1.3) Estimated GFR (Cockcroft-Gault) 164.4 Glucose Level 142 mg/dL (70-99) Calcium Level 7.8 mg/dL (8.5-10.1) Glucose (Fingerstick) 166 mg/dL (70-99) Brief Hospital Course Mr. Dubois is a 69 old male who presented with acute respiratory failure, aspi ration pneumonia, staph bacteremia. Consultation was placed to pulmonology, infectious disease, nephrology. Patient was intubated and admitted to the ICU. Was placed on broad-spectrum antibiotics. He had NG tube placed to continue enteric feeds. He had a therapeutic bronchial alveolar lavage that was negative for malignant cells. He was eventually extubated on 06/16/2020. He remained afebrile after discontinuation of his antibiotics. He was stable for discharge to his longterm facility. Discharge Information Condition at Discharge: Stable Disposition/Orders: D/C to Another Facility Scheduled Acetaminophen (Tylenol) 325 Mg Tablet, 650 MG PO BID for Pain, (Reported) Entered as Reported by: NINFA MCCLAIN RN on 06/08/20236 Last Action: New Order on 06/08/20236 by NINFA MCCLAIN RN Atorvastatin Calcium (Atorvastatin Calcium) 20 Mg Tablet, 20 MG PO HS for FOR CHOLESTEROL, #30 Ref 0 (Reported) Entered as Reported by: NINFA MCCLAIN RN on 06/08/20236 Last Action: New Order on 06/08/20236 by NINFA MCCLAIN RN Cholecalciferol (Vitamin D3) (D3-50) 50,000 Unit Capsule, 1,000 UNIT PO DAILY for Vit D Deficiency , (Reported) Entered as Reported by: NINFA MCCLAIN RN on 06/08/20236 Last Action: New Order on 06/08/20236 by NINFA MCCLAIN RN Divalproex Sodium (Divalproex Sodium Er) 500 Mg Tab.er.24h, 2,000 MG PO QHS for paranoid schizophrenia , (Reported) Entered as Reported by: NINFA MCCLAIN RN on 06/08/20236 Last Action: New Order on 06/08/20236 by NINFA MCCLAIN RN Furosemide (Furosemide) 20 Mg Tablet, 1 TAB PO DAILY for CHF, #90 Ref 1 (Reported) Entered as Reported by: NINFA MCCLAIN RN on 06/08/20236 Last Action: New Order on 06/08/20236 by NINFA MCCLAIN RN Insulin Aspart (Novolog Flexpen) 100 Unit/1 Ml Insuln.pen, 1 UNIT SQ TIDWMEALS f or DM 2, (Reported) Entered as Reported by: NINFA MCCLAIN RN on 06/08/20236 Last Action: New Order on 06/08/20236 by NINFA MCCLAIN RN Insulin Detemir (Levemir Flextouch) 100 Unit/1 Ml Insuln.pen, 27 UNIT SQ QHS for DM 2, (Reported) Entered as Reported by: NINFA MCCLAIN RN on 06/08/20236 Last Action: Converted on 06/09/20820 by ADINA BHATT MD Ketoconazole (Ketoconazole) 120 Ml Shampoo, 1 FRANCO TP TWICE WEEKLY for Flaky scal p for 30 Days, #120 Ref 0 (Reported) with at least 3 days between each shampooing Entered as Reported by: NINFA MCCLAIN RN on 06/08/20236 Last Action: New Order on 06/08/20236 by NINFA MCCLAIN RN Lactobacillus Acidophilus (Acidophilus) 1 Each Capsule, 1 CAP PO DAILY for Supplement for 14 Days, #14 Ref 0 (Reported) Entered as Reported by: NINFA MCCLAIN RN on 06/08/20236 Last Action: New Order on 06/08/20236 by NINFA MCCLAIN RN Magnesium Oxide (Magnesium Oxide) 400 Mg Tablet, 1 TAB PO DAILY for Supplement, #90 Ref 3 (Reported) Entered as Reported by: NINFA MCCLAIN RN on 06/08/20236 Last Action: New Order on 06/08/20236 by NINFA MCCLAIN RN Melatonin (Melatonin) 3 Mg Tab.rapdis, 1 TAB PO QHS for sleep for 30 Days, #30 Ref 0 (Reported) Entered as Reported by: NINFA MCCLAIN RN on 06/08/20236 Last Action: New Order on 06/08/20236 by NINFA MCCLAIN RN Metformin Hcl (Metformin Hcl) 1,000 Mg Tablet, 1,000 MG PO BIDWMEALS for DM 2, (Reported) Entered as Reported by: NINFA MCCLAIN RN on 06/08/20236 Last Action: New Order on 06/08/20236 by NINFA MCCLAIN RN Methylprednisolone Sod Succ/Pf (Solu-Medrol 40 Mg Vial) 40 Mg/1 Ml Vial, 40 MG IV DAILY for pneumonia for 5 Days, #5 Prescribed by: SMITA STAPLES MD on 06/19/20 1352 Mirtazapine (Mirtazapine) 7.5 Mg Tablet, 1 TAB PO QHS for Major Depressive Disorder for 30 Days, #30 Ref 0 (Reported) Entered as Reported by: NINFA MCCLAIN RN on 06/08/20236 Last Action: Continued on 06/09/20820 by ADINA BHATT MD Olanzapine (Olanzapine) 5 Mg Tablet, 0.5 TAB PO QHS for Paranoid Schizophrenia, #30 Ref 2 (Reported) Entered as Reported by: NINFA MCCLAIN RN on 06/08/20236 Last Action: Continued on 06/09/20820 by ADINA BHATT MD Potassium Chloride (Potassium Chloride ) 20 Meq Tablet.er, 20 MEQ PO TID for SUPPLEMENT, (Reported) Entered as Reported by: NINFA MCCLAIN RN on 06/08/20236 Last Action: New Order on 06/08/20236 by NINFA MCCLAIN RN Risperidone (Risperdal) 3 Mg Tablet, 0.5 TAB PO BID for Delusional Disorders for 30 Days, #30 Ref 0 (Reported) Entered as Reported by: NINFA MCCLAIN RN on 06/08/20236 Last Action: New Order on 06/08/20236 by NINFA MCCLAIN RN Scheduled PRN Bisacodyl (Dulcolax) 10 Mg Supp.rect, 10 MG RC PRN DAILY PRN for CONSTIPATION, Ref 0 (Reported) Entered as Reported by: NINFA MCCLAIN RN on 06/08/20236 Last Action: Continued on 06/09/20820 by ADINA BHATT MD Magnesium Hydroxide (Milk Of Magnesia) 400 Mg/5 Ml Oral.susp, 400 MG PO PRN PRN for CONSTIPATION, (Reported) Entered as Reported by: NINFA MCCLAIN RN on 06/08/20236 Last Action: New Order on 06/08/20236 by NINFA MCCLAIN RN Na Phos,M-B/Na Phos,Di-Ba (Fleet Enema) 133 Ml Enema, 133 ML RC PRN PRN for CONSTIPATION, (Reported) Entered as Reported by: NINFA MCCLAIN RN on 06/08/20236 Last Action: New Order on 06/08/20236 by NINFA MCCLAIN RN Nystatin (Nystatin) 15 Gm Cream..g., 15 GM TP PRN Q8HRS PRN for REDNESS, (Reported) Entered as Reported by: NINFA MCCLAIN RN on 06/08/20236 Last Action: New Order on 06/08/20236 by NINFA MCCLAIN RN Sennosides/Docusate Sodium (Senna-Docusate Sodium Tablet) 1 Each Tablet, 1 EACH PO PRN PRN for CONSTIPATION, (Reported) Entered as Reported by: NINFA MCCLAIN RN on 06/08/20236 Last Action: New Order on 06/08/20236 by NIFNA MCCLAIN RN Justicifation of Admission Dx: Justifications for Admission: Justification of Admission Dx: Yes GRANT NJ MD Jun 22, 2020 13:15
--- NOTE | 2020-06-22 14:33 | RAD ---
INDICATION: Reason: NG tube placement confirmation / Spl. Instructions: / History: COMPARISON: June 16, 2020 IMPRESSION: Abdomen: Single view obtained. There is a solitary enteric tube seen coursing below the diaphragm with tip at the left upper quadrant pointing superiorly at expected location of stomach. Degenerative changes of the spine. Shunt tube is seen coursing down the right side of the abdomen with the tip at the left lower quadrant. Moderate stool at colon. Electronically signed by: Oscar Ramey MD (06/22/2020 2:30 PM) [id number]
[2020-06-22 14:38] VITALS: BP 112/52
--- NOTE | 2020-06-22 17:12 | NUR ---
Discharge Note: CARLOS HUDSON Discharge instructions and discharge home medications reviewed with Other facility and a copy given. All questions have been answered and understanding verbalized. The following instructions and handouts were given: discharge packet. Discontinued lines and drains: centeral line discontinued. [facility].
== END 2020-06-22 16:15 | DRG 870 ==
LOC: ER 14:47 → 1 WEST ICU 17:43 → 2 NORTH 06-17 07:46
PROVIDERS: ADMIT Internal Medicine; ATTEND Internal Medicine
PROC: 5A1955Z Respiratory Ventilation, Greater than 96 Consecutive Hours (ICD-10-PCS; principal; 2020-06-07)
PROC: 0BH18EZ Insertion of Endotracheal Airway into Trachea, Via Natural or Artificial Opening Endoscopic (ICD-10-PCS; 2020-06-07)
PROC: 5A09357 Assistance with Respiratory Ventilation, Less than 24 Consecutive Hours, Continuous Positive Airway Pressure (ICD-10-PCS; 2020-06-07)
PROC: 0B9J8ZZ Drainage of Left Lower Lung Lobe, Via Natural or Artificial Opening Endoscopic (ICD-10-PCS; 2020-06-12)
PROC: 0B9H8ZZ Drainage of Lung Lingula, Via Natural or Artificial Opening Endoscopic (ICD-10-PCS; 2020-06-12)
PROC: 0B9J8ZX Drainage of Left Lower Lung Lobe, Via Natural or Artificial Opening Endoscopic, Diagnostic (ICD-10-PCS; 2020-06-12)
DX: A41.89 Other specified sepsis (principal); J96.01 Acute respiratory failure with hypoxia; G93.41 Metabolic encephalopathy; E43 Unspecified severe protein-calorie malnutrition; J96.02 Acute respiratory failure with hypercapnia; R65.21 Severe sepsis with septic shock; J69.0 Pneumonitis due to inhalation of food and vomit; F20.0 Paranoid schizophrenia; E87.4 Mixed disorder of acid-base balance; N17.9 Acute kidney failure, unspecified; I50.30 Unspecified diastolic (congestive) heart failure; B95.8 Unspecified staphylococcus as the cause of diseases classified elsewhere; B96.89 Other specified bacterial agents as the cause of diseases classified elsewhere; E78.00 Pure hypercholesterolemia, unspecified; E11.9 Type 2 diabetes mellitus without complications; I11.0 Hypertensive heart disease with heart failure; N40.0 Benign prostatic hyperplasia without lower urinary tract symptoms; Y95 Nosocomial condition; G20 Parkinson's disease; F41.8 Other specified anxiety disorders; K59.00 Constipation, unspecified; R13.10 Dysphagia, unspecified; E87.5 Hyperkalemia; E78.5 Hyperlipidemia, unspecified; Z20.828 Contact with and (suspected) exposure to other viral communicable diseases; F41.9 Anxiety disorder, unspecified; Z79.899 Other long term (current) drug therapy; Z86.73 Personal history of transient ischemic attack (TIA), and cerebral infarction without residual deficits; Z88.0 Allergy status to penicillin; Z74.01 Bed confinement status; Z79.4 Long term (current) use of insulin; Z68.36 Body mass index [BMI] 36.0-36.9, adult
CPT/HCPCS: 31500; 31622; 36415; 36600; 51702; 70450; 71045; 74018; 80048; 80053; 80202; 81001; 82565; 82607; 82805; 82962; 83605; 83735; 84100; 84443; 85007; 85025; 85027; 85610; 87040; 87070; 87077; 87102; 87116; 87186; 87205; 88112; 93005; 93971; 94002; 94003; 96365; 96368; 96375; 96376; C9113; J0330; J0610; J1650; J1815; J1940; J2185; J2250; J2704; J2920; J2930; J3010; J3370; J3411; J3490; J7030; J7040; J7042; J7050; J7060; 92526-GN; 92610-GN; 99291-25; G0378; U0003-CS